=== PATIENT | female | born 1960 | race Caucasian/White ===

== ENCOUNTER → 2017-05-18 | Outpatient (CLI) | payer OTHER ==
[2017-05-18 18:40] LABS: BASO % 0.4 % (0.0-1.0); EOS # 0.1 10^3/uL (0.0-0.50); EOS % 1.2 % (0.0-3.0); HEMATOCRIT 38.8 % (36.0-47.0); IMMATURE GRANULOCYTE % 0.4 % (0-0); LYMPH # 1.5 10^3/uL (1.5-4.5); LYMPH % 26.8 % (24.0-44.0); MEAN CORPUSCULAR HEMOGLOBIN 30.5 pg (27.0-33.0); MEAN CORPUSCULAR HGB CONC 33.5 g/dl (32.0-36.5); MEAN CORPUSCULAR VOLUME 91.1 fl (80.0-96.0); MONO # 0.6 10^3/uL (0.0-0.8); MONO % 10.4 % (0.0-5.0); NEUTROPHILS # 3.5 10^3/uL (1.8-7.7); NEUTROPHILS % 60.8 % (36.0-66.0); PLATELET COUNT, AUTOMATED 269 10^3/uL (150-450); RED BLOOD COUNT 4.26 10^6/uL (4.00-5.40); WHITE BLOOD COUNT 5.7 10^3/uL (4.0-10.0)
[2017-05-18 19:02] LABS: ALBUMIN/GLOBULIN RATIO 1.38 (1.00-1.93); ALKALINE PHOSPHATASE 81 U/L (45-117); ALT/SGPT 22 U/L (12-78); ANION GAP 7 MEQ/L (8-16); AST/SGOT 19 U/L (7-37); BILIRUBIN,TOTAL 0.2 MG/DL (0.2-1.0); BLOOD UREA NITROGEN 15 MG/DL (7-18); CALCIUM LEVEL 8.9 MG/DL (8.5-10.1); CARBON DIOXIDE LEVEL 29 MEQ/L (21-32); CHLORIDE LEVEL 106 MEQ/L (98-107); CHOLESTEROL LEVEL 164 MG/DL (<200); CHOLESTEROL RISK RATIO 2.523 (<5); CREATININE FOR GFR 0.61 MG/DL (0.55-1.02); FREE T4 1.04 NG/DL (0.76-1.46); GLOMERULAR FILTRATION RATE > 60.0 (>51); GLUCOSE, FASTING 79 MG/DL (70-105); HDL CHOLESTEROL 65 MG/DL (>40); NON-HDL-C 99 MG/DL; POTASSIUM SERUM 4.3 MEQ/L (3.5-5.1); SODIUM LEVEL 142 MEQ/L (136-145); TOTAL PROTEIN 6.9 GM/DL (6.4-8.2); TRIGLYCERIDES LEVEL 95 MG/DL (<150)
== END ==
LOC: M LAB 16:37
DX: Z13.220 Encounter for screening for lipoid disorders (principal); Z13.0 Encounter for screening for diseases of the blood and blood-forming organs and certain disorders involving the immune mechanism; Z13.29 Encounter for screening for other suspected endocrine disorder
CPT/HCPCS: 84443

== ENCOUNTER → 2017-07-20 | Outpatient (REF) | payer OTHER ==
[2017-07-26 00:11] LABS: HPV HYBRID CAPTURE II Positive (Negative)
== END ==
LOC: M LAB REF 17:24
DX: Z11.51 Encounter for screening for human papillomavirus (HPV) (principal); N95.2 Postmenopausal atrophic vaginitis
CPT/HCPCS: G0123

== ENCOUNTER → 2019-04-26 | Outpatient (CLI) | payer OTHER ==
[2019-04-26 20:25] LABS: BASO % 0.6 % (0.0-1.0); EOS % 0.6 % (0.0-3.0); HEMATOCRIT 39.8 % (36.0-47.0); HEMOGLOBIN 13.1 g/dl (12.0-15.5); LYMPH % 27.7 % (24.0-44.0); MEAN CORPUSCULAR HEMOGLOBIN 29.7 pg (27.0-33.0); MEAN CORPUSCULAR HGB CONC 32.9 g/dl (32.0-36.5); MEAN CORPUSCULAR VOLUME 90.2 fl (80.0-96.0); MONO # 0.6 10^3/uL (0.0-0.8); MONO % 8.9 % (0.0-5.0); NEUTROPHILS # 4.4 10^3/uL (1.5-8.5); NEUTROPHILS % 62.1 % (36.0-66.0); PLATELET COUNT, AUTOMATED 317 10^3/uL (150-450); RED BLOOD COUNT 4.41 10^6/uL (4.00-5.40); WHITE BLOOD COUNT 7.1 10^3/uL (4.0-10.0)
[2019-04-26 20:43] LABS: FREE T4 1.13 NG/DL (0.76-1.46); THYROID STIMULATING HORMONE 0.98 uIU/ML (0.358-3.740)
[2019-04-26 20:47] LABS: THYROID PEROXIDASE ANTIBODY 37.7 U/ML (<60.0)
== END ==
LOC: M WUC 15:47
PROVIDERS: ATTEND Family Medicine
DX: R63.4 Abnormal weight loss (principal)

== ENCOUNTER → 2019-09-11 | Outpatient (CLI) | payer OTHER ==
--- NOTE | 2019-09-12 19:19 | RADONC ---
RADIATION ONCOLOGY CONSULTATION NOTE DATE: 09/11/2019 This is a telemedicine visit. The patient was informed of the risks including security breech, technological failure, inability to perform a comprehensive physical exam which could delay or prevent an accurate diagnosis, and potential complications from treatment decisions rendered over a telemedicine platform. The patient understands and consented to the use of telehealth services phone only. CHART NUMBER: [id number] DIAGNOSIS: Left breast cancer. STAGE: IA, pT1b, pN0, M0, moderately differentiated invasive ductal carbon carcinoma, grade 2, ER positive, SD positive, HER2/chip positive. ECOG PERFORMANCE STATUS: Zero. CONSULTATION NOTE: Ms. Guzman is a very pleasant 59-year-old white female with a diagnosis of what appears to be a stage IA, T1b, N0, M0 moderately differentiated invasive ductal carcinoma of the left breast which is ER positive, SD positive and HER2 positive, who is presenting to us today status post lumpectomy and sentinel lymph node biopsy for consideration of postoperative radiation therapy for conservative breast management. HISTORY OF PRESENT ILLNESS: The patient was in the usual state of health, but underwent routine mammography, which revealed a lesion in the upper outer quadrant of the left breast. On 08/13/2019, the patient underwent lumpectomy and sentinel lymph node biopsy. Pathology revealed a moderately differentiated invasive ductal carcinoma measuring 0.55 cm. The tumor was estrogen receptor positive, progesterone receptor positive and HER2 positive. There was no evidence of lymph vascular invasion. The margins of resection were all negative, but the closest margin, which was the inferior margin, was 1 mm. A total of two sentinel lymph nodes were sampled and both were negative for metastatic disease. Oncotype testing was not ordered. The patient did well post surgery and has had a consultation with her medical oncologist, Dr. Naty Peña. Dr. Peña discussed systemic therapy with her, especially in light of her HER2/chip positive status. The patient appears to be solidly against the idea of systemic chemotherapy. She is now being referred to me to discuss radiation therapy. PAST MEDICAL HISTORY: The patient's past medical history is positive for Lyme's disease and kidney stones. She as had lithotripsy in the past as well as a dental implant. ALLERGIES: The patient is allergic to PENICILLIN. SOCIAL HISTORY: The patient does not smoke cigarettes nor abuse alcohol. FAMILY HISTORY: The patient's family history is positive for a father with prostate cancer, a mother with melanoma and basal cell carcinoma, and a maternal aunt with pancreatic cancer. REVIEW OF SYSTEMS: The patient's review of systems is noncontributory. She denies nausea, vomiting, fevers, chills, night sweats, diplopia, headaches, anxiety or depression, anorexia, weight loss, visual disturbances, chest pain, urinary or bowel difficulties, bone pain, or neurological problems. PHYSICAL EXAMINATION: Physical examination was deferred as per COVID-19 precautions. This was a telephone interview. ASSESSMENT: Clearly the patient is a candidate for external beam radiation therapy and I have so informed her. I have discussed with the patient in detail the potential benefits as well as possible acute and chronic sequelae of external beam radiation therapy. We discussed logistics of treatment planning, simulation, and subsequent fractionated daily radiation treatments. I did discuss the possibility of systemic therapy and will defer to her next conversation with her medical oncologist, Dr. Peña, once again. We did discuss some of the benefits and side effects of that as well, but, of course, I will defer to the expertise of our medical oncologist. At this time, the patient appears to be very much against the idea of chemotherapy and wishes to proceed with radiation therapy. I have, therefore, scheduled the patient for simulation initiation of treatment planning. She is aware that if she chooses to undergo chemotherapy that would be delivered prior to radiation. The patient his willing to undertake AI therapy. In addition, the patient did have a question about what she thinks is a remaining stitch in her surgical field. I let her know that I am more than happy to take a look at that when she comes in for her treatment planning and simulation. Thank you for allowing us to participate in the care of this very pleasant woman. If I can be of any further assistance or provide you with any information, please feel free to contact me anytime. As always, warm regards. cc: MD Isabelle Elizabeth, MD Gavi Anthony, DO
== END ==
LOC: M ONCR 09:58
PROVIDERS: ATTEND Radiology Radiation Oncology
DX: C50.412 Malignant neoplasm of upper-outer quadrant of left female breast (principal)

== ENCOUNTER 2019-10-11 10:15 | Outpatient (RCR) | payer OTHER ==
--- NOTE | 2019-09-19 08:40 | RADONC ---
RADIATION ONCOLOGY SIMULATION NOTE DATE: 09/16/2019 CHART NUMBER: [id number] SIMULATION NOTE: Ms. Vega was taken to the CT scan for CT simulation of her left breast field. CT was accomplished without difficulty or discomfort. Radiation treatment planning is underway and radiation treatments will begin subsequently. An immobilization device was created and will be used throughout the course of treatment. It was created without difficulty or discomfort. I was physically present throughout the course of CT simulation.
--- NOTE | 2019-10-02 12:22 | RADONC ---
RADIATION ONCOLOGY PROGRESS NOTE DATE: 09/30/2019 CHART #: [id number] Ms. Vega is presently at a dose of 1068 cGy to her left breast and is tolerating treatments quite well at this point with no complaints related to her radiation therapy. She has no breast or bone pain. REVIEW OF SYSTEMS: The patient's review of systems is noncontributory. Denies nausea, vomiting, fevers, chills, night sweats, diplopia, headaches, anxiety or depression, anorexia, weight loss, visual disturbances, chest pain, urinary or bowel difficulties, bone pain, or neurological problems. PHYSICAL EXAMINATION: The patient's skin is in good condition with no evidence of radiation change present. There is no moist or dry desquamation. The remainder of her physical exam remains unchanged. Ms. Vega is tolerating treatments quite well and radiation will continue as scheduled.
== END 2019-10-13 ==
LOC: M ONCR 10:15
PROVIDERS: ATTEND Radiology Radiation Oncology
DX: C50.412 Malignant neoplasm of upper-outer quadrant of left female breast (principal)

== ENCOUNTER 2019-10-24 10:20 | Outpatient (RCR) | payer OTHER ==
--- NOTE | 2019-10-15 16:46 | RADONC ---
RADIATION ONCOLOGY SIMULATION NOTE DATE: 10/08/2019 CHART NUMBER: [id number] SIMULATION NOTE: Ms. Vega was taken to the linear accelerator today for clinical setup of her left breast primary site electron beam boost. Setup was accomplished without difficulty or discomfort. Radiation treatment planning is underway and radiation treatments will begin subsequently. An immobilization device was created and will be used throughout the course of treatment. It was created without difficulty or discomfort. I was physically present throughout the course of clinical setup.
--- NOTE | 2019-10-15 16:48 | RADONC ---
RADIATION ONCOLOGY PROGRESS NOTE DATE: 10/08/2019 CHART NUMBER: [id number] PROGRESS NOTE: Ms. Vega is presently at a dose of 2403 cGy to her left breast and is tolerating treatments quite well at this point with no complaints related to her radiation therapy. She is having no breast or bone pain. REVIEW OF SYSTEMS: The patient's review of systems is noncontributory. Denies nausea, vomiting, fevers, chills, night sweats, diplopia, headaches, anxiety or depression, anorexia, weight loss, visual disturbances, chest pain, urinary or bowel difficulties, bone pain, or neurological problems. PHYSICAL EXAMINATION: The patient's skin is in excellent condition with no evidence of radiation change present. There is no moist or dry desquamation. The remainder of her physical exam remains unchanged. Ms. Vega is tolerating treatment quite well and radiation will continue as scheduled.
--- NOTE | 2019-10-20 08:20 | RADONC ---
RADIATION ONCOLOGY PROGRESS NOTE DATE: 10/14/2019 CHART NUMBER: [id number] PROGRESS NOTE: Ms. Vega is presently at a dose of 3471 cGy to her left breast and is tolerating treatments quite well at this point with no significant difficulties related to her radiation therapy. She is having no breast or bone pain. REVIEW OF SYSTEMS: The patient's review of systems is noncontributory. Denies nausea, vomiting, fevers, chills, night sweats, diplopia, headaches, anxiety or depression, anorexia, weight loss, visual disturbances, chest pain, urinary or bowel difficulties, bone pain, or neurological problems. PHYSICAL EXAMINATION: The patient's skin is in good condition with no evidence of moist or dry desquamation. The remainder of her physical exam remains unchanged. Ms. Vega is tolerating treatments quite well and radiation will continue as scheduled.
--- NOTE | 2019-10-24 23:50 | RADONC ---
RADIATION ONCOLOGY PROGRESS NOTE DATE: 10/21/2019 CHART NUMBER: [id number] Ms. Vega is thus far at a dose of 4365 cGy to her left breast primary site boost and has been tolerating treatments quite well with no difficulties. She was last treated on Monday. She did not come in today because of a scheduling conflict. The patient's review of systems, as per Monday, was noncontributory. She is having no pain or problems. PHYSICAL EXAMINATION: The patient's skin was in good condition with no evidence of moist or dry desquamation. The patient is scheduled to resume radiation tomorrow.
--- NOTE | 2019-10-29 13:32 | RADONC ---
RADIATION ONCOLOGY TREATMENT SUMMARY DATE: 10/24/2019 CHART NUMBER: [id number] DIAGNOSIS: Left breast cancer. STAGE: I A, pT1b, pN0, M0, moderately differentiated invasive ductal carcinoma, grade 2, ER positive, RI positive, HER2/chip positive. ECOG PERFORMANCE STATUS: 0 TREATMENT SUMMARY: Ms. Guzman presented to us for consideration of postoperative radiation therapy for conservative breast management of her left breast. We treated the patient to the left breast for a total dose of 4005 cGy delivered in 15 fractions of 267 cGy each over 21 elapsed days from 09/25/2019 through 10/16/2019. The patient's left breast was treated on a linear accelerator utilizing a 6 MV photon beam via 3-D conformal technique with medial and lateral tangential vidales. Following completion of 4005 cGy to the entire left breast the primary site was boosted for an additional 900 cGy delivered in 5 fractions of 180 cGy each over seven elapsed days from 10/17/2019 through 10/24/2019. The primary site boost was treated on a linear accelerator utilizing a 12 MeV electron beam prescribed to the 90% isodose line via non phos technique. This brought the primary site to a total dose of 4905 cGy delivered in 20 fractions over 28 elapsed days from 09/25/2019 through 10/24/2019. Ms. Guzman tolerated her treatments quite well and was able complete therapy as prescribed. I have scheduled the patient to see me again in 1 month for further followup. She will also continue to be followed by her other physicians as well. cc: MD Isabelle Elizabeth MD Jill Laureano-Surber, DO
[2019-10-30] MEDS ORDERED: LETR2.5T2 PO (16:23)
== END 2019-11-12 ==
LOC: M ONCR 10:20
PROVIDERS: ATTEND Radiology Radiation Oncology
DX: C50.412 Malignant neoplasm of upper-outer quadrant of left female breast (principal)

== ENCOUNTER → 2020-05-10 | Outpatient (CLI) | payer OTHER ==
[~2020-05-10] MED LIST: LETR2.5T2 PO
== END ==
LOC: M LABSMTC 11:10
PROVIDERS: ATTEND Pediatrics
DX: Z20.828 Contact with and (suspected) exposure to other viral communicable diseases (principal)

== ENCOUNTER → 2020-05-13 | Outpatient (REF) | payer OTHER ==
[~2020-05-13] MED LIST changes: +DOXY100C37; +FLUT11IN; +IBUP-1022; +LETR2.5T2; +LEVO750T13 PO; +TESS100C PO
== END ==
LOC: M LAB REF 18:03
PROVIDERS: ATTEND Family Medicine
DX: J20.9 Acute bronchitis, unspecified (principal)

== ENCOUNTER 2020-05-19 21:39 | Emergency (ER) | payer OTHER ==
[~2020-05-19] VITALS: Ht 160 cm; Wt 102.0 kg
[~2020-05-19 21:39] MED LIST changes: -DOXY100C37; -FLUT11IN; -IBUP-1022; -LETR2.5T2; -LEVO750T13 PO; -TESS100C PO
[2020-05-19] MEDS ORDERED: IBUP-1022 (22:01)
[2020-05-19] MEDS ORDERED: DOXY100C37 (22:01)
[2020-05-19] MEDS ORDERED: LETR2.5T2 (22:01)
[2020-05-19] MEDS ORDERED: FLUT11IN (22:01)
[2020-05-19 22:39] LABS: HEMATOCRIT 33.4 % (36.0-47.0); HEMOGLOBIN 10.5 g/dl (12.0-15.5); MEAN CORPUSCULAR HEMOGLOBIN 28.8 pg (27.0-33.0); MEAN CORPUSCULAR HGB CONC 31.4 g/dl (32.0-36.5); MEAN CORPUSCULAR VOLUME 91.8 fl (80.0-96.0); PLATELET COUNT, AUTOMATED 503 10^3/uL (150-450); RED BLOOD COUNT 3.64 10^6/uL (4.00-5.40); WHITE BLOOD COUNT 11.2 10^3/uL (4.0-10.0)
[2020-05-19 23:08] LABS: ALBUMIN 2.5 GM/DL (3.2-5.2); ALT/SGPT 25 U/L (12-78); BILIRUBIN,TOTAL 0.3 MG/DL (0.2-1.0); BLOOD UREA NITROGEN 11 MG/DL (7-18); CALCIUM LEVEL 8.4 MG/DL (8.5-10.1); CARBON DIOXIDE LEVEL 27 MEQ/L (21-32); CHLORIDE LEVEL 105 MEQ/L (98-107); CREATININE FOR GFR 0.63 MG/DL (0.55-1.30); GLOMERULAR FILTRATION RATE > 60.0 (>51); GLUCOSE, FASTING 108 MG/DL (70-100); SODIUM LEVEL 138 MEQ/L (136-145); TOTAL PROTEIN 6.5 GM/DL (6.4-8.2)
--- NOTE | 2020-05-20 01:05 | REPVR ---
PROCEDURE INFORMATION: Exam: XR Chest, 2 Views Exam date and time: 05/20/2020 12:42 AM Age: 60 years old Clinical indication: Other: SOB cough; Additional info: Cough SOB TECHNIQUE: Imaging protocol: XR of the chest Views: 2 views. COMPARISON: No relevant prior studies available. FINDINGS: Lungs: Degree of inflation of the lungs is normal. No evidence of pulmonary edema. Confluent multifocal left lung airspace opacities are present. No suspicious parenchymal lung mass. Pleural space: No pleural effusion or pneumothorax. Heart/Mediastinum: Heart and mediastinal contours are unremarkable. No mediastinal adenopathy or hilar mass. Bones/joints: Bony structures and extrathoracic soft tissues are unremarkable for age. IMPRESSION: Multifocal left lung pneumonia. Electronically signed by: Kael Shields On 05/20/2020 01:05:59 AM
[2020-05-20] MEDS ORDERED: BENZONATATE 100 MG CAP PO ONE (01:45)
[2020-05-20] MEDS ORDERED: LevoFLOXacin 750 MG TABLET PO ONE (01:45)
[2020-05-20] MEDS ORDERED: LEVO750T13 PO (01:49)
[2020-05-20] MEDS ORDERED: TESS100C PO (01:49)
[2020-05-20 01:50] VITALS: BP 115/67
== END 2020-05-20 02:03 | disposition home or self-care (01) ==
LOC: M ED 21:39
DX: J18.9 Pneumonia, unspecified organism (principal); Z88.0 Allergy status to penicillin; Z79.899 Other long term (current) drug therapy

== ENCOUNTER 2020-05-28 10:57 | Inpatient (IN) | payer OTHER ==
[~2020-05-28] VITALS: Ht 160 cm; Wt 54.0 kg
[~2020-05-28 10:57] MED LIST changes: +DOXY100C37; +FLUT11IN; +IBUP-1022; +LETR2.5T2; +LEVO750T13 PO; +TESS100C PO
--- OUTSIDE RECORDS SUMMARY | 2020-05-28 11:12 | CCD ---
Author Author [facility] Organization [facility] Address Unknown Phone Unavailable Care Team Providers Care Electronic Communications Technician Name Role Phone Evelyn MARTIN MD Unavailable Unavailable KORT, C ISABELLE REICH Unavailable Unavailable KORT, C ISABELLE REICH Unavailable Unavailable KORT, C ISABELLE REICH Unavailable Unavailable KORT, C ISABELLE REICH Unavailable Unavailable KORT, C ISABELLE REICH Unavailable Unavailable KORT, C ISABELLE REICH Unavailable Unavailable KORT, C ISABELLE REICH Unavailable Unavailable KORT, C ISABELLE REICH Unavailable Unavailable KORT, C ISABELLE REICH Unavailable Unavailable KORT, C ISABELLE REICH Unavailable Unavailable KORT, C ISABELLE REICH Unavailable Unavailable KORT, C ISABELLE REICH Unavailable Unavailable KORT, C ISABELLE REICH Unavailable Unavailable KORT, C ISABELLE REICH Unavailable Unavailable KORT, C ISABELLE REICH Unavailable Unavailable KORT, C ISABELLE REICH Unavailable Unavailable KORT, C ISABELLE REICH Unavailable Unavailable KORT, C ISABELLE REICH Unavailable Unavailable KORT, C ISABELLE REICH Unavailable Unavailable KORT, C ISABELLE REICH Unavailable Unavailable KORT, C ISABELLE MD Unavailable Unavailable KORT, C ISABELLE MD Unavailable Unavailable KORT, C ISABELLE MD Unavailable Unavailable KORT, C ISABELLE MD Unavailable Unavailable KORT, C ISABELLE MD Unavailable Unavailable KORT, C ISABELLE MD Unavailable Unavailable KORT, C ISABELLE MD Unavailable Unavailable KORT, C ISABELLE MD Unavailable Unavailable KORT, C ISABELLE MD Unavailable Unavailable KORT, C ISABELLE MD Unavailable Unavailable KORT, C ISABELLE MD Unavailable Unavailable KORT, C ISABELLE MD Unavailable Unavailable KORT, C ISABELLE MD Unavailable Unavailable KORT, C ISABELLE MD Unavailable Unavailable KORT, C ISABELLE MD Unavailable Unavailable KORT, C ISABELLE MD Unavailable Unavailable KORT, C ISABELLE MD Unavailable Unavailable KORT, C ISABELLE MD Unavailable Unavailable KORT, C ISABELLE MD Unavailable Unavailable KORT, C ISABELLE MD Unavailable Unavailable KORT, C ISABELLE MD Unavailable Unavailable KORT, C ISABELLE MD Unavailable Unavailable KORT, C ISABELLE MD Unavailable Unavailable KORT, C ISABELLE MD Unavailable Unavailable KORT, C ISABELLE MD Unavailable Unavailable KORT, C ISABELLE MD Unavailable Unavailable KORT, C ISABELLE MD Unavailable Unavailable KORT, C ISABELLE MD Unavailable Unavailable KORT, C ISABELLE MD Unavailable Unavailable KORT, C ISABELLE MD Unavailable Unavailable KORT, C ISABELLE MD Unavailable Unavailable KORT, C ISABELLE MD Unavailable Unavailable KORT, C ISABELLE MD Unavailable Unavailable KORT, C ISABELLE MD Unavailable Unavailable KORT, C ISABELLE MD Unavailable Unavailable KORT, C ISABELLE MD Unavailable Unavailable KORT, C ISABELLE MD Unavailable Unavailable KORT, C ISABELLE MD Unavailable Unavailable KORT, C ISABELLE MD Unavailable Unavailable KORT, C ISABELLE MD Unavailable Unavailable KORT, C ISAEBLLE MD Unavailable Unavailable KORT, C ISABELLE MD Unavailable Unavailable KORT, C ISABELLE MD Unavailable Unavailable KORT, C ISABELLE MD Unavailable Unavailable KORT, C ISABELLE MD Unavailable Unavailable KORT, C ISABELLE MD Unavailable Unavailable KORT, C ISABELLE MD Unavailable Unavailable KORT, C ISABELLE MD Unavailable Unavailable KORT, C ISABELLE MD Unavailable Unavailable KORT, C ISABELLE MD Unavailable Unavailable KORT, C ISABELLE MD Unavailable Unavailable KORT, C ISABELLE MD Unavailable Unavailable KORT, C ISABELLE MD Unavailable Unavailable KORT, C ISABELLE MD Unavailable Unavailable KORT, C ISABELLE MD Unavailable Unavailable KORT, C ISABELLE MD Unavailable Unavailable KORT, C ISABELLE MD Unavailable Unavailable KORT, C ISABELLE MD Unavailable Unavailable KORT, C ISABELLE MD Unavailable Unavailable KORT, C ISABELLE MD Unavailable Unavailable KORT, C ISABELLE MD Unavailable Unavailable KORT, C ISABELLE MD Unavailable Unavailable KORT, C ISABELLE MD Unavailable Unavailable KORT, C ISABELLE MD Unavailable Unavailable KORT, C ISABELLE MD Unavailable Unavailable KORT, C ISABELLE MD Unavailable Unavailable KORT, C ISABELLE MD Unavailable Unavailable KORT, C ISABELLE MD Unavailable Unavailable KORT, C ISABELLE MD Unavailable Unavailable KORT, C ISABELLE MD Unavailable Unavailable KORT, C ISABELLE MD Unavailable Unavailable KORT, C ISABELLE MD Unavailable Unavailable KORT, C ISABELLE MD Unavailable Unavailable MARJORIE-GABRIELA, GAVI DO Unavailable Unavailable MARJORIE-GABRIELA, GAVI DO Unavailable Unavailable MARJORIE-GABRIELA, GAVI DO Unavailable Unavailable MARJORIE-GABRIELA, GAVI DO Unavailable Unavailable MARJORIE-GABRIELA, GAVI DO Unavailable Unavailable MARJORIE-GABRIELA, GAVI DO Unavailable Unavailable MARJORIE-GABRIELA, GAVI DO Unavailable Unavailable MARJORIE-GABRIELA, GAVI DO Unavailable Unavailable MARJORIE-GABRIELA, GAVI DO Unavailable Unavailable MARJORIE-GABRIELA, GAVI DO Unavailable Unavailable MARJORIE-GABRIELA, GAVI DO Unavailable Unavailable MARJORIE-GABRIELA, GAVI DO Unavailable Unavailable MARJORIE-GABRIELA, GAVI DO Unavailable Unavailable MARJORIE-GABRIELA, GAVI DO Unavailable Unavailable MARJORIE-GABRIELA, GAVI DO Unavailable Unavailable MARJORIE-GABRIELA, GAVI DO Unavailable Unavailable MARJORIE-GABRIELA, GAVI DO Unavailable Unavailable MARJORIE-GABRIELA, GAVI DO Unavailable Unavailable MARJORIE-GABRIELA, GAVI DO Unavailable Unavailable MARJORIE-GABRIELA, GAVI DO Unavailable Unavailable MARJORIE-GABRIELA, GAVI DO Unavailable Unavailable MARJORIE-GABRIELA, GAVI DO Unavailable Unavailable MARJORIE-GABRIELA, GAVI DO Unavailable Unavailable MARJORIE-GABRIELA, GAVI DO Unavailable Unavailable MARJORIE-GABRIELA, GAVI DO Unavailable Unavailable MARJORIE-GABRIELA, GAVI DO Unavailable Unavailable MARJORIE-GABRIELA, GAVI DO Unavailable Unavailable MARJORIE-GABRIELA, GAVI DO Unavailable Unavailable MARJORIE-GABRIELA, GAVI DO Unavailable Unavailable MARJORIE-GABRIELA, GAVI DO Unavailable Unavailable MARJORIE-GABRIELA, GAVI DO Unavailable Unavailable MARJORIE-GABRIELA, GAVI DO Unavailable Unavailable MARJORIE-GABRIELA, GAVI DO Unavailable Unavailable MARJORIE-GABRIELA, GAVI DO Unavailable Unavailable MARJORIE-GABRIELA, GAVI DO Unavailable Unavailable MARJORIE-GABRIELA, GAVI DO Unavailable Unavailable MARJORIE-GABRIELA, GAVI DO Unavailable Unavailable MARJORIE-GABRIELA, GAVI DO Unavailable Unavailable MARJORIE-GABRIELA, GAVI DO Unavailable Unavailable MARJORIE-GABRIELA, GAVI DO Unavailable Unavailable MARJORIE-GABRIELA, GAVI DO Unavailable Unavailable MARJORIE-GABRIELA, GAVI DO Unavailable Unavailable MARJORIE-GABRIELA, GAVI DO Unavailable Unavailable MARJORIE-GABRIELA, GAVI DO Unavailable Unavailable MARJORIE-GABRIELA, GAVI DO Unavailable Unavailable MARJORIE-GABRIELA, GAVI DO Unavailable Unavailable MARJORIE-GABRIELA, GAVI DO Unavailable Unavailable MARJORIE-GABRIELA, GAVI DO Unavailable Unavailable MARJORIE-GABRIELA, GAVI DO Unavailable Unavailable MARJORIE-GABRIELA, GAVI DO Unavailable Unavailable MARJORIE-GABRIELA, GAVI DO Unavailable Unavailable MARJORIE-GABRIELA, GAVI DO Unavailable Unavailable MARJORIE-GABRIELA, GAVI DO Unavailable Unavailable MARJORIE-GABRIELA, GAVI DO Unavailable Unavailable MARJORIE-GABRIELA, GAVI DO Unavailable Unavailable MARJORIE-GABRIELA, GAVI DO Unavailable Unavailable MARJORIE-GABRIELA, GAVI DO Unavailable Unavailable MARJORIE-GABRIELA, GAVI DO Unavailable Unavailable MARJORIE-GABRIELA, GAVI DO Unavailable Unavailable MARJORIE-GABRIELA, GAVI DO Unavailable Unavailable MARJORIE-GABRIELA, GAVI DO Unavailable Unavailable MARJORIE-GABRIELA, GAVI DO Unavailable Unavailable MARJORIE-GABRIELA, GAVI DO Unavailable Unavailable MARJORIE-GABRIELA, GAVI DO Unavailable Unavailable MARJORIE-GABRIELA, GAVI DO Unavailable Unavailable MARJORIE-GABRIELA, GAVI DO Unavailable Unavailable MARJORIE-GABRIELA, GAVI DO Unavailable Unavailable MARJORIE-GABRIELA, GAVI DO Unavailable Unavailable MARJORIE-GABRIELA, GAVI DO Unavailable Unavailable MARJORIE-GABRIELA, GAVI DO Unavailable Unavailable MARJORIE-GABRIELA, GAVI DO Unavailable Unavailable MARJORIE-GABRIELA, GAVI DO Unavailable Unavailable MARJORIE-GABRIELA, GAVI DO Unavailable Unavailable MARJORIE-GABRIELA, GAVI DO Unavailable Unavailable MARJORIE-GABRIELA, GAVI DO Unavailable Unavailable MARJORIE-GABRIELA, GAVI DO Unavailable Unavailable MARJORIE-GABRIELA, GAVI DO Unavailable Unavailable MARJORIE-GABRIELA, GAVI DO Unavailable Unavailable MARJORIE-GABRIELA, GAVI DO Unavailable Unavailable MARJORIE-GABRIELA, GAVI DO Unavailable Unavailable MARJORIE-GABRIELA, GAVI DO Unavailable Unavailable MARJORIE-GABRIEAL, GAVI DO Unavailable Unavailable MARJORIE-GABIRELA, GAVI DO Unavailable Unavailable MARJORIE-GABRIELA, GAVI DO Unavailable Unavailable MARJORIE-GABRIELA, GAVI DO Unavailable Unavailable MARJORIE-GABRIELA, GAVI DO Unavailable Unavailable MARJORIE-GABRIELA, GAVI DO Unavailable Unavailable MARJORIE-GABRIELA, GAVI DO Unavailable Unavailable MARJORIE-GABRIELA, GAVI DO Unavailable Unavailable MARJORIE-GABRIELA, GAVI DO Unavailable Unavailable MARJORIE-GABRIELA, GAVI DO Unavailable Unavailable MARJORIE-GABRIELA, GAVI DO Unavailable Unavailable MARJORIE-GABRIELA, GAVI DO Unavailable Unavailable MARJORIE-GABRIELA, GAVI DO Unavailable Unavailable MARJORIE-GABRIELA, GAVI DO Unavailable Unavailable MARJORIE-GABRIELA, GAVI DO Unavailable Unavailable MARJORIE-GABRIELA, GAVI DO Unavailable Unavailable MARJORIE-GABRIELA, GAVI DO Unavailable Unavailable MARJORIE-GABRIELA, GAVI DO Unavailable Unavailable MARJORIE-GABRIELA, GAVI DO Unavailable Unavailable MARJORIE-GABRIELA, GAVI DO Unavailable Unavailable MARJORIE-GABRIELA, GAVI DO Unavailable Unavailable MARJORIE-GABRIELA, GAVI DO Unavailable Unavailable MARJORIE-GABRIELA, GAVI DO Unavailable Unavailable MARJORIE-GABRIELA, GAVI DO Unavailable Unavailable MARJORIE-GABRIELA, GAVI DO Unavailable Unavailable MARJORIE-GABRIELA, GAVI DO Unavailable Unavailable MARJOREI-GABRIELA, GAVI DO Unavailable Unavailable MARJORIE-GABRIELA, GAVI DO Unavailable Unavailable MARJORIE-GABRIELA, GAVI DO Unavailable Unavailable MARJORIE-GABRIELA, GAVI DO Unavailable Unavailable MARJORIE-GABRIELA, GAVI DO Unavailable Unavailable MARJORIE-GABRIELA, GAVI DO Unavailable Unavailable MARJORIE-GABRIELA, GAVI DO Unavailable Unavailable MARJORIE-GABRIELA, GAVI DO Unavailable Unavailable MARJORIE-GABRIELA, GAVI DO Unavailable Unavailable MARJORIE-GABRIELA, GAVI DO Unavailable Unavailable MARJORIE-GABRIELA, GAVI DO Unavailable Unavailable MARJORIE-GABRIELA, GAVI DO Unavailable Unavailable MARJORIE-GABRIELA, GAVI DO Unavailable Unavailable MARJORIE-GABRIELA, GAVI DO Unavailable Unavailable MARJORIE-GABRIELA, GAVI DO Unavailable Unavailable MARJORIE-GABRIELA, GAVI DO Unavailable Unavailable MARJORIE-GABRIELA, GAVI DO Unavailable Unavailable MARJORIE-GABRIELA, GAVI DO Unavailable Unavailable MARJORIE-GABRIELA, GAVI DO Unavailable Unavailable MARJORIE-GABRIELA, GAVI DO Unavailable Unavailable MARJORIE-GABRIELA, GAVI DO Unavailable Unavailable MARJORIE-GABRIELA, GAVI DO Unavailable Unavailable MARJORIE-GABRIELA, GAVI DO Unavailable Unavailable MARJORIE-GABRIELA, GAVI DO Unavailable Unavailable MARJORIE-GABRIELA, GAVI DO Unavailable Unavailable MARJORIE-GABRIELA, GAVI DO Unavailable Unavailable MARJORIE-GABRIELA, GAVI DO Unavailable Unavailable MARJORIE-GABRIELA, GAVI DO Unavailable Unavailable MARJORIE-GABRIELA, GAVI DO Unavailable Unavailable MARJORIE-GABRIELA, GAVI DO Unavailable Unavailable MARJORIE-GABRIELA, GAVI DO Unavailable Unavailable MARJORIE-GABRIELA, GAVI DO Unavailable Unavailable MARJORIE-GABRIELA, GAVI DO Unavailable Unavailable MARJORIE-GABRIELA, GAVI DO Unavailable Unavailable MARJORIE-GABRIELA, GAVI DO Unavailable Unavailable MARJORIE-GABRIELA, GAVI DO Unavailable Unavailable MARJORIE-GABRIELA, GAVI DO Unavailable Unavailable MARJORIE-GABRIELA, GAVI DO Unavailable Unavailable MARJORIE-GABRIELA, GAVI DO Unavailable Unavailable MARJORIE-GABRIELA, GAVI DO Unavailable Unavailable MARJORIE-GABRIELA, GAVI DO Unavailable Unavailable MARJORIE-GABRIELA, GAVI DO Unavailable Unavailable MARJORIE-GABRIELA, GAVI DO Unavailable Unavailable MARJORIE-GABRIELA, GAVI DO Unavailable Unavailable MARJORIE-GABRIELA, GAVI DO Unavailable Unavailable MARJORIE-GABRIELA, GAVI DO Unavailable Unavailable MARJORIE-GABRIELA, GAVI DO Unavailable Unavailable MARJORIE-GABRIELA, GAVI DO Unavailable Unavailable MARJORIE-GABRIELA, GAVI DO Unavailable Unavailable MARJORIE-GABRIELA, GAVI DO Unavailable Unavailable MARJORIE-GABRIELA, GAVI DO Unavailable Unavailable MARJORIE-GABRIELA, GAVI DO Unavailable Unavailable MARJORIE-GABRIELA, GAVI DO Unavailable Unavailable MARJORIE-GABRIELA, GAVI DO Unavailable Unavailable MARJORIE-GABRIELA, GAVI DO Unavailable Unavailable GREEN, JESSICA Unavailable Unavailable LEVIT,, TESS Unavailable Unavailable CICO, A MYKE BULK MAIL TECHNICIAN Unavailable Unavailable CICO, A MYKE BULK MAIL TECHNICIAN Unavailable Unavailable CICO, A MYKE BULK MAIL TECHNICIAN Unavailable Unavailable CICO, A MYKE BULK MAIL TECHNICIAN Unavailable Unavailable CICO, A MYKE BULK MAIL TECHNICIAN Unavailable Unavailable CICO, A MYKE BULK MAIL TECHNICIAN Unavailable Unavailable CICO, A MYKE BULK MAIL TECHNICIAN Unavailable Unavailable CICO, A MYKE BULK MAIL TECHNICIAN Unavailable Unavailable CICO, A MYKE BULK MAIL TECHNICIAN Unavailable Unavailable CICO, A MYKE BULK MAIL TECHNICIAN Unavailable Unavailable CICO, A MYKE BULK MAIL TECHNICIAN Unavailable Unavailable CICO, A MYKE BULK MAIL TECHNICIAN Unavailable Unavailable CICO, A MYKE BULK MAIL TECHNICIAN Unavailable Unavailable CICO, A MYKE BULK MAIL TECHNICIAN Unavailable Unavailable CICO, A MYKE BULK MAIL TECHNICIAN Unavailable Unavailable CICO, A MYKE BULK MAIL TECHNICIAN Unavailable Unavailable CICO, A MYKE BULK MAIL TECHNICIAN Unavailable Unavailable CICO, A MYKE BULK MAIL TECHNICIAN Unavailable Unavailable CICO, A MYKE BULK MAIL TECHNICIAN Unavailable Unavailable CICO, A MYKE BULK MAIL TECHNICIAN Unavailable Unavailable CICO, A MYKE BULK MAIL TECHNICIAN Unavailable Unavailable CICO, A MYKE BULK MAIL TECHNICIAN Unavailable Unavailable CICO, A MYKE BULK MAIL TECHNICIAN Unavailable Unavailable CICO, A MYKE BULK MAIL TECHNICIAN Unavailable Unavailable CICO, A MYKE BULK MAIL TECHNICIAN Unavailable Unavailable CICO, A MYKE BULK MAIL TECHNICIAN Unavailable Unavailable CICO, A MYKE BULK MAIL TECHNICIAN Unavailable Unavailable CICO, A MYKE BULK MAIL TECHNICIAN Unavailable Unavailable CICO, A MYKE BULK MAIL TECHNICIAN Unavailable Unavailable CICO, A MYKE BULK MAIL TECHNICIAN Unavailable Unavailable CICO, A MYKE BULK MAIL TECHNICIAN Unavailable Unavailable CICO, A MYKE BULK MAIL TECHNICIAN Unavailable Unavailable CICO, A MYKE BULK MAIL TECHNICIAN Unavailable Unavailable CICO, A MYKE BULK MAIL TECHNICIAN Unavailable Unavailable CICO, A MYKE BULK MAIL TECHNICIAN Unavailable Unavailable CICO, A MYKE BULK MAIL TECHNICIAN Unavailable Unavailable CICO, A MYKE BULK MAIL TECHNICIAN Unavailable Unavailable CICO, A MYKE BULK MAIL TECHNICIAN Unavailable Unavailable CICO, A MYKE BULK MAIL TECHNICIAN Unavailable Unavailable CICO, A MYKE BULK MAIL TECHNICIAN Unavailable Unavailable CICO, A MYKE BULK MAIL TECHNICIAN Unavailable Unavailable CICO, A MYKE BULK MAIL TECHNICIAN Unavailable Unavailable CICO, A MYKE BULK MAIL TECHNICIAN Unavailable Unavailable CICO, A MYKE BULK MAIL TECHNICIAN Unavailable Unavailable CICO, A MYKE BULK MAIL TECHNICIAN Unavailable Unavailable CICO, A MYKE BULK MAIL TECHNICIAN Unavailable Unavailable CICO, A MYKE BULK MAIL TECHNICIAN Unavailable Unavailable CICO, A MYKE BULK MAIL TECHNICIAN Unavailable Unavailable CICO, A MYKE BULK MAIL TECHNICIAN Unavailable Unavailable CICO, A MYKE BULK MAIL TECHNICIAN Unavailable Unavailable CICO, A MYKE BULK MAIL TECHNICIAN Unavailable Unavailable MATTHEW, PRYJMA BRINA MD Unavailable Unavailable MATTHEW, PRYJMA BRINA MD Unavailable Unavailable MATTHEW, PRYJMA BRINA MD Unavailable Unavailable MATTHEW, PRYJMA BRINA MD Unavailable Unavailable MATTHEW, PRYJMA BRINA MD Unavailable Unavailable MATTHEW, PRYJMA BRINA MD Unavailable Unavailable MATTHEW, PRYJMA BRINA MD Unavailable Unavailable MATTHEW, PRYJMA BRINA MD Unavailable Unavailable MATTHEW, PRYJMA BRINA MD Unavailable Unavailable MATTHEW, PRYJMA BRINA MD Unavailable Unavailable MATTHEW, PRYJMA BRINA MD Unavailable Unavailable MATTHEW, PRYJMA BRINA MD Unavailable Unavailable MATTHEW, PRYJMA BRINA MD Unavailable Unavailable MATTHEW, PRYJMA BRINA MD Unavailable Unavailable MATTHEW, PRYJMA BRINA MD Unavailable Unavailable MATTHEW, PRYJMA BRINA MD Unavailable Unavailable MATTHEW, PRYJMA BRINA MD Unavailable Unavailable MATTHEW, PRYJMA BRINA MD Unavailable Unavailable MATTHEW, PRYJMA BRINA MD Unavailable Unavailable MATTHEW, PRYJMA BRINA MD Unavailable Unavailable MATTHEW, PRYJMA BRINA MD Unavailable Unavailable MATTHEW, PRYJMA BRINA MD Unavailable Unavailable MATTHEW, PRYJMA BRINA MD Unavailable Unavailable MATTHEW, PRYJMA BRINA MD Unavailable Unavailable MATTHEW, PRYJMA BRINA MD Unavailable Unavailable MATTHEW, PRYJMA BRINA MD Unavailable Unavailable MATTHEW, PRYJMA BRINA MD Unavailable Unavailable MATTHEW, PRYJMA BRINA MD Unavailable Unavailable Re-disclosure Warning The records that you are about to access may contain information from federally-assisted alcohol or drug abuse programs. If such information is present, then the following federally mandated warning applies: This information has been disclosed to you from records protected by federal confidentiality rules (42 CFR part 2). The federal rules prohibit you from making any further disclosure of this information unless further disclosure is expressly permitted by the written consent of the person to whom it pertains or as otherwise permitted by 42 CFR part 2. A general authorization for the release of medical or other information is NOT sufficient for this purpose. The Federal rules restrict any use of the information to criminally investigate or prosecute any alcohol or drug abuse patient.The records that you are about to access may contain highly sensitive health information, the redisclosure of which is protected by Article 27-F of the [facility] Public Health law. If you continue you may have access to information: Regarding HIV / AIDS; Provided by facilities licensed or operated by the [facility] Office of Mental Health; or Provided by the [facility] Office for People With Developmental Disabilities. If such information is present, then the following [facility] mandated warning applies: This information has been disclosed to you from confidential records which are protected by state law. State law prohibits you from making any further disclosure of this information without the specific written consent of the person to whom it pertains, or as otherwise permitted by law. Any unauthorized further disclosure in violation of state law may result in a fine or fpc sentence or both. A general authorization for the release of medical or other information is NOT sufficient authorization for further disc losure. Allergies and Adverse Reactions Type Description Substance Reaction Status Data Source(s ) Propensity to adverse reactions PENICILLINS Penicillins Rash Low Ac tive [facility] Low Family History Family Member Name Family Member Gender Family Member Status Date o f Status Description Data Source(s) Unknown Male Problem [facility] ([facility]) () - age 84 Encounters Encounter Providers Location Date Indications Data Source(s ) Outpatient Attender: GAVI LEONE DO Family Medicine [facility] 05/13/2020 03:00:00 PM EST [facility] ([facility]) Outpatient Referrer: MYKE REAL NP 08/26/2019 09:58:45 AM E DT [facility] Outpatient Attender: ISABELLE MARTIN MDAdmitter: ISABELLE RASCONeferrer: ISABELLE MARTIN MD [id number] 08/13/2019 09:00:00 AM EDT - 08/13/2019 11:59:00 PM EDT [facility] Patient discharged. Outpatient Attender: ISABELLE MARTIN MDAdmitter: ISABELLE Gray MDReferrer: ISABELLE MARTIN MD [email or web address] 08/13/2019 08:45:00 AM EDT - 08/13/2019 08:59:00 AM EDT [facility] Patient discharged. Outpatient Attender: ISABELLE MARTIN MDReferrer: ISABELLE MARTIN MD [email or web address] -[email or web address] 08/08/2019 12:00:00 AM EDT - 08/08/2019 11:46:22 AM EDT [facility] Attender: ISABELLE MARTIN MDAdmitter: ISABELLE MARTIN MDRefe rrer: ISABELLE MARTIN MD [id number]-OR 08/06/2019 03:31:50 PM EDT - 08/13/2019 02:30:00 PM EDT [facility] Patient discharged. Outpatient Attender: ISABELLE MARTIN MD [facility] 0 02:55:12 PM EDT - 08/05/2019 03:57:00 PM EDT [facility] Outpatient Attender: TESS MERCHANT,Wagon Driver: JESSICA GREEN 07/08/2019 05:39:00 PM EST - 07/08/2019 05:49:00 PM EST [facility] Referrer: BRINA CASTRO MD 07/04/2019 07:07:00 AM EST [facility] Outpatient Referrer: BRINA CASTRO MD 05/24/2019 09:56:00 AM EST [facility] Outpatient Referrer: BRINA CASTRO MD 05/24/2019 09:29:00 AM EST [facility] Outpatient Referrer: GAVI LEONE DO 05/24/2019 09 :27:00 AM EST [facility] Outpatient Attender: GAVI LEONE DO [facility] 05/17/2019 12:00:00 PM EST [facility] ([facility]) Outpatient Attender: GAVI LEONE DO [facility] 04/26/2019 12:10:00 PM EST [facility] ([facility]) Medications Medication Brand Name Start Date Product Form Dose Route Admi nistrative Instructions Pharmacy Instructions Status Indications Reaction Description Data Source(s) 120 ACTUAT Fluticasone propionate 0.11 MG/ACTUAT Meter ed Dose Inhaler [Flovent] Flovent HFA 05/18/2020 12:00:00 AM EST ORAL active [facility] ([facility]) Prednisone 20 MG Oral Tablet Prednisone 05/14/2020 12:00:00 AM EST ORAL active [facility] ([facility]) Doxycycline Monohydrate 100 MG Oral Capsule Doxycycline [place] hydrate 05/14/2020 12:00:00 AM EST ORAL active [facility] ([facility]) No Active Medications 05/13/2020 12:00:00 AM EST completed [facility] ([facility]) normal saline flush 0.9 % injection 3 mL 30308-670-43 08/13/2019 02:00:00 PM EDT 3 mL Intravenous active 3 mL , Intravenous, Every 8 hours (scheduled), First dose on Mon08/13/19 at 1400, PACU (only)
flush per protocol, D/C Main IV fluid if appropriate
[facility] Medication administered onsite Magnesium Chloride 0.95122 MEQ/ML / Pota ssium Chloride 0.0497 MEQ/ML / Sodium Acetate 0.0163 MEQ/ML / Sodium Chloride 0.0899 MEQ/ML / Sodium gluconate 5.02 MG/ML Injectable Solution [Normosol-R] electrolyte-R (NORMOSOL-R/PLASMALYTE-R) solution electrolyte-R (NORMOSOL-R/PLASMALYTE-R) solution 08/12 01:00:00 PM EDT Intravenous active at 1 00 mL/hr, Intravenous, Continuous, Starting Mon08/13/19 at 1300, PACU (only) [facility] Medication administered onsite haloperidol lactate (HALDOL) injection 0.5 mg [id number] 08/13/2019 11:54:42 AM EDT 0.5 mg Intramuscular active 0. 5 mg, Intramuscular, Every 30 min PRN, for intractable nausea and vomiting if not relieved by zofran/promethazine, Starting Mon08/13/19 at 1154, For 4 doses, PACU (only) [facility] Medication administered onsite 4 ML Labetalol hydrochloride 5 MG/ML [place] labetalol (NORMODYNE,TRANDATE) injection 5 mg labetalol (NORMODYNE,TRANDATE) injection 5 mg 08/13/19 11:54:42 AM EDT 5 mg Intravenous active 5 mg , Intravenous, Every 5 min PRN, high blood pressure, for SBP greater than 160, Starting Mon08/13/19 at 1154, For 4 doses, PACU (only)
Max of 20 MG, hold for HR less than 60
[facility] Medication administered onsite technetium sulfur colloid (NYCOMED-SC) solution 500 micro cu johnathan 08/13/2019 10:00:00 AM EDT 500 uCi Intravenous completed 500 micro curie, Intravenous, Once, Mon08/13/19 at 1000, For 1 dose [facility] Medication administered onsite Magnesium Chloride 0.29194 MEQ/ML / Pota ssium Chloride 0.0497 MEQ/ML / Sodium Acetate 0.0163 MEQ/ML / Sodium Chloride 0.0899 MEQ/ML / Sodium gluconate 5.02 MG/ML Injectable Solution [Normosol-R] electrolyte-R (NORMOSOL-R/PLASMALYTE-R) solution electrolyte-R (NORMOSOL-R/PLASMALYTE-R) solution 08/12 10:00:00 AM EDT Intravenous active at 1 00 mL/hr, Intravenous, Continuous, Starting Mon08/13/19 at 1000, Pre-op [facility] Medication administered onsite normal saline flush 0.9 % injection 3 mL 82577-720-55 08/13/2019 10:00:00 AM EDT 3 mL Intravenous active 3 mL , Intravenous, Every 8 hours (scheduled), First dose on Mon08/13/19 at 1000, Pre-op
Rapid push positive pressure flushing shall be performed with a 10 cc normal saline syringe to check the PATENCY of a PIV site prior to any infusion therapy initiation unless resistance is met.
[facility] Medication administered onsite Doxycycline Monohydrate 100 MG Oral Tablet Doxycycline Monoh ydrate 03/05/2019 12:00:00 AM EDT ORAL completed [facility] ([facility]) Insurance Providers Payer name Policy type / Coverage type Policy ID Covered democrat ID Covered democrat's relationship to fish Policy Fish Plan Information [facility] [id number] SP [id number] [facility] [id number] S [id number] SELF PAY ONLY [id number] SP [id number] [facility] [id number] SP [id number] [facility] [id number] [facility] [id number] Spo [id number] [facility] [id number] 18 [id number] [facility] [id number] 01 [id number] [facility] Commercial [id number] Self 00 [id number] [facility] Commercial [id number] Self 00 [id number] [facility] Commercial [id number] Self 00 [id number] [facility] Commercial [id number] Self 00 [id number] [facility] Claims DPT Commercial Self [place]/307 [id number] [facility] [id number] 2 [id number] FOR LIFE [id number] [facility] [id number] [place] P[place] 302/307 [id number] Problems, Conditions, and Diagnoses Code Display Name Description Problem Type Effective Dates Data Source(s) No Previous Anesthesia No Previous Anesthesia [id number] 08/08/2019 12:00:00 AM EDT [facility] C50.912 Breast cancer, left Breast cancer, left [id number] 0 08/08/2019 12:00:00 AM EDT [facility] K21.9 GERD (gastroesophageal reflux disease) G ERD (gastroesophageal reflux disease) [id number] 08/08/2019 12:00:00 AM EDT [facility] N20.0 Kidney stones Kidney stones [id number] 08/08/2019 12:00:00 AM EDT [facility] 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, estrogen receptor positive Malignant neoplasm of upper-outer quadra nt of left breast in female, estrogen receptor positive [id number] 0 12:00:00 AM EDT [facility] Z17.0 Estrogen receptor positive status [ER+] Estrogen receptor positive status (ER+) Diagnosis 08/13/2019 09:00:00 AM EDT [facility] C50.412 Malignant neoplasm of upper-outer quadra nt of left female breast Malignant neoplasm of upper-outer quadra Diagnosis 08/13/2019 09:00:00 AM EDT [facility] N20.0 Calculus of kidney Calculus of kidney Diagnosis 11:11:41 AM EDT [facility] K21.9 Gastro-esophageal reflux disease without esophagitis Gastro-esophageal reflux disease without Diagnosis 08/08/2019 11:11:[address] [facility] C50.912 Malignant neoplasm of unspecified site o f left female breast Malignant neoplasm of unspecified site o Diagnosis 08/08/2019 11:11:[address] [facility] U04641 Malignant neoplasm of upper-outer quadra nt of left female breast Malignant neoplasm of upper-outer quadrant of left female breast Diagnosis 07/08/2019 05:39:00 PM [facility] N630 Unspecified lump in unspecified breast U nspecified lump in unspecified breast Diagnosis 07/08/2019 05:39:00 PM [facility] Surgeries/Procedures Procedure Description Date Indications Data Source(s) RADIOLOGICAL EXAMINATION SURGICAL SPECIMEN MAMMO BREAST SPECIME N Routine 08/13/2019 11:37 AM EDT Malignant neoplasm of upper-outer quadrant of left breast in female, estrogen receptor positive 08/13/2019 03:37:20 PM EDT Malignant dick plasm of upper-outer quadrant of left breast in female, estrogen receptor positive [facility] Malignant neoplasm of upper-outer quadra nt of left breast in female, estrogen receptor positive MASTECTOMY PARTIAL LUMPECTOMY, BREAST, WITH NEE DLE LOCALIZATION, WITH SENTINEL LYMPH NODE BIOPSY, WITH AXILLARY LYMPHADENECTOMY IF INDICATED 08/13/2019 10:50 AM EDT Malignant neoplasm of upper-outer quadrant of left breast in female, estrogen receptor positive 08/13/2019 02:50:00 PM EDT - 08/13/2019 04:27:00 PM EDT Malignant neoplasm of upper-outer quadrant of left breast in female, estrogen receptor positive [facility] Malignant neoplasm of upper-outer quadra nt of left breast in female, estrogen receptor positive MAMMO NEEDLE LOCALIZATION LEFT MAMMO NEEDLE LOCALIZATION LEFT R outine 08/13/2019 9:45 AM EDT Malignant neoplasm of upper-outer quadrant of left breast in female, estrogen receptor positive 08/13/2019 01:45:00 PM EDT Malignant dick plasm of upper-outer quadrant of left breast in female, estrogen receptor positive [facility] Malignant neoplasm of upper-outer quadra nt of left breast in female, estrogen receptor positive LYMPHATICS & LYMPH NODES IMAGING ([facility] ONLY) NM SENTI BENNIE NODE BREAST INJECTION ONLY LEFT Routine 08/13/2019 9:43 AM EDT Malignant neoplasm of upper-outer quadrant of left breast in female, estrogen receptor positive 08/13/2019 01:43:02 PM EDT Malignant dick plasm of upper-outer quadrant of left breast in female, estrogen receptor positive [facility] Malignant neoplasm of upper-outer quadra nt of left breast in female, estrogen receptor positive Results ID Date Data Source [id number] 05/27/2020 12:00:00 AM EST [facility] Gavi Ambriz DO Patient Name: TOAN VEGA[address] Date of : 1960te 1 Date of Exam: 05/27/2020LAZARUS Lee [id number]#: Fax: [phone] EXAM: CHEST (2 VIEW) X-RAYCLINICAL INFORMATION: Followup pneumonia.Two views.The latest prior for comparison is 05/20/2020 with other older priors alsoreviewed.The opacities seen previously in the left lung are slightly more dense andslightly more widespread, now seen particularly to have increased in theleft upper lobe and lingula. There is mild left CP angle blunting whichrepresents a change from the prior exam. The right lung is clear andstable. The right CP angle is sharp. The heart is not enlarged. There isno change in the osseous structures.IMPRESSION:Increased left lung pneumonia as described above.[facility] you for referring OSCAR VEGA to our office. Electronically Signed - DIONY MELENDEZ DO 05/27/20 16:31 Name Value Range Interpretation Code Description Data Mare rce(s) Supporting Document(s) ID Date Data Source [id number] 05/19/2020 10:33:00 PM EST [facility] ([facility]) Name Value Range Interpretation Code Description Data Mare rce(s) Supporting Document(s) Glucose, Fasting 108 mg/dL 70-100 Above high normal [facility] Creatinine For GFR 0.63 mg/dL 0.55-1.30 Normal (applies to non -numeric results) [facility] ([facility]) Glomerular Filtration Rate Laboratory test result Normal (applies to non- numeric results) [facility] ([facility]) <content>Units are mL/min/1.73 m2</content>
<content></content>
<content>Chronic Kidney Disease Staging per NKF:</content>
<content></content>
<content>Stage I & II GFR >=60 Normal to Mildly Decreased</content>
<content>Stage III GFR 30- 59 Moderately Decreased</content>
<content>Stage IV GFR 15-29 Severely Decreased</content>
<content>Stage V GFR <15 Very Little GFR Left</content>
<content>ESRD GFR <15 on TAPING MACHINE OPERATOR</content>
<content></content> Blood Urea Nitrogen 11 mg/dL 7-18 Normal (applies to non-nume yunior results) [facility] ([facility]) Potassium Serum 4.0 meq/L 3.5-5.1 Normal (applies to non-numeric results) [facility] ([facility]) Sodium Level 138 meq/L 136-145 Normal (applies to non-numeric res ults) [facility] ([facility]) Chloride Level 105 meq/L 98-107 Normal (applies to non-numeric r esults) [facility] ([facility]) Anion Gap 6 meq/L 8-16 Below low normal [facility] ( [facility]) Carbon Dioxide Level 27 meq/L 21-32 Normal (applies to non-num joshua results) [facility] ([facility]) Calcium Level 8.4 mg/dL 8.5-10.1 Below low normal [facility] ([facility]) Alt/SGPT 25 U/L 12-78 Normal (applies to non-numeric resul ts) [facility] ([facility]) Ast/Sgot 18 U/L 7-37 Normal (applies to non-numeric resul ts) [facility] ([facility]) Bilirubin,Total 0.3 mg/dL 0.2-1.0 Normal (applies to non-numeric results) [facility] ([facility]) Alkaline Phosphatase 100 U/L 45-117 Normal (applies to non-num joshua results) [facility] ([facility]) Albumin 2.5 GM/DL 3.2-5.2 Below low normal [facility] ( [facility]) Total Protein 6.5 GM/DL 6.4-8.2 Normal (applies to non-numeric re sults) [facility] ([facility]) Albumin/Globulin Ratio 0.6 1.2-2.2 Below low normal [facility] ([facility]) ID Date Data Source [id number] 05/19/2020 10:33:00 PM EST [facility] ([facility]) Name Value Range Interpretation Code Description Data Mare rce(s) Supporting Document(s) Red Blood Count 3.64 10 4.00-5.40 Below low normal [facility] ([facility]) White Blood Count 11.2 10 4.0-10.0 Above high normal [facility] ([facility]) Mean Corpuscular Volume 91.8 fl 80.0-96.0 Normal ( applies to non-numeric results) [facility] ([facility]) Hemoglobin 10.5 g/dL 12.0-15.5 Below low normal [facility] ( [facility]) Hematocrit 33.4 % 36.0-47.0 Below low normal [facility] ( [facility]) Mean Corpuscular HGB Conc 31.4 g/dL 32.0-36.5 Below low normal [facility] ([facility]) Red Cell Distribution Width 11.4 % 11.5-14.5 Below low normal [facility] Mean Corpuscular Hemoglobin 28.8 pg 27.0-33.0 Norm al (applies to non-numeric results) [facility] ([facility]) Nucleated Red Blood Cell % 0.0 % 0-0 Normal (applies to n on-numeric results) [facility] ([facility]) Platelet Count, Automated 503 10 150-450 Above high normal [facility] ([facility]) ID Date Data Source [id number] 05/19/2020 10:07:00 PM EST [facility] Name Value Range Interpretation Code Description Data Mare rce(s) Supporting Document(s) SARS-CoV-2 (COVID 19) NEGATIVE - SARS-CoV-2 (COVID19) [facility] This lab was ordered by [facility] a nd reported by [facility]. ID Date Data Source [id number] 05/19/2020 10:07:00 PM EST [facility] ([facility]) Name Value Range Interpretation Code Description Data Mare rce(s) Supporting Document(s) Respiratory Panel Laboratory test result [facility]) This respiratory PCR panel detects Influ daniel A H1, H3 and 2009 H1 viruses, Influenza B virus, Resp iratory Syncytial Virus, Human metapneumovirus, Parainfluenza virus 1, 2, 3 and 4, Adenovirus, Rhinovirus/Enterovirus, Coronavirus HKU1, NL63, OC43, 229E and SARS-CoV-2 (COVID 19), Bordetella pertussis, Bordetella parapertussis, Mycoplasma pneumoniae and Chlamydia pneumoniae. NEGATIVE by MULTIPLEXED NUCLEIC ACID PCR SARS-CoV-2 (COVID 19) NEGATIVE - SARS-CoV-2 (COVID19) ID Date Data Source [id number] 05/13/2020 04:07:00 PM EST [facility] ([facility]) Name Value Range Interpretation Code Description Data Mare rce(s) Supporting Document(s) Respiratory Panel Laboratory test result [facility] ([facility]) This respiratory PCR panel detects Influ daniel A H1, H3 and 2009 H1 viruses, Influenza B virus, Resp iratory Syncytial Virus, Human metapneumovirus, Parainfluenza virus 1, 2, 3 and 4, Adenovirus, Rhinovirus/Enterovirus, Coronavirus HKU1, NL63, OC43, 229E and SARS-CoV-2 (COVID 19), Bordetella pertussis, Bordetella parapertussis, Mycoplasma pneumoniae and Chlamydia pneumoniae. NEGATIVE by MULTIPLEXED NUCLEIC ACID PCR SARS-CoV-2 (COVID 19) NEGATIVE - SARS-CoV-2 (COVID19) ID Date Data Source [id number] 05/13/2020 04:07:00 PM EST [facility] Name Value Range Interpretation Code Description Data Mare rce(s) Supporting Document(s) SARS-CoV-2 (COVID 19) [facility] This lab was ordered by [facility] a nd reported by [facility]. ID Date Data Source [id number] 05/10/2020 12:00:00 AM EST [facility] Name Value Range Interpretation Code Description Data Mare rce(s) Supporting Document(s) SARS-CoV-2 (COVID-19) RNA [Presence] in Respiratory specimen by LAURA with probe detection [facility] This lab was ordered by [facility] and reported by [employer] ID Date Data Source [id number] 08/27/2019 04:20:28 PM EDT [facility] NT INFORMATIONPatient MRN Name Date of Age Gend*PT [id number] Oscar Vega 1960 59 years F SDCPT Location Admission Date/Time Visit ID [facility] 0827 --- --- EPI ID CSN Admitting Provider [id number] Isabelle Martin MD([id number]) [place] [address] OPERATIVE REPORT OPNAME: RENEOSCAR#: [id number] #: [id number] ADMISSION DATE: 08/13/2019DOB: 1960 SEX: F PT TYPE: H SURACCT #: [id number] CARE PHYSICIAN: GAVI AMADOR-SURBEREFERRING PHYSICIAN: ISABELLE MARTINDATE OF OPERATION: 08/13/2019ATTENDING PHYSICIAN:Isabelle Martin MD.PREOPERATIVE DIAGNOSIS:Left breast invasive ductal carcinoma.POSTOPERATIVE DIAGNOSIS:Left breast invasive ductal carcinoma.PROCEDURES PERFORMED:1. Left breast excisional needle localized lumpectomy for carcinoma.2. Left axillary sentinel node biopsy.SURGEON:Isabelle Martin MD.QUALITY CONTROL TESTER:STEPHANIE Jeronimo.ANESTHESIA:General.ESTIMATED BLOOD LOSS:Minimal.COMPLICATIONS:None.BRIEF HISTORY:This is a very nice 59-year-old female referred to me unfortunately with anew diagnosis of invasive ductal carcinoma. This was picked up on ascreening imaging study, mainly on ultrasound, it was seen. It is verysmall, looks to be about 6 x 4 mm, but nonetheless, it was new andsuspicious, and core biopsy was undertaken showing an invasive ductalcarcinoma which is estrogen positive but also HER-2/dimitry positive. So shemet with me in consultation. We discussed her surgical options.Certainly, breast conservation was appropriate, but in addition to that, Idiscussed possible placement of an Infusaport because I told her it islikely systemic chemotherapy will be recommended. Unfortunately, she makesit clear that she would never proceed with systemic chemotherapy. Wediscussed this at length. I tried to sway her against that to at leastconsider meeting with Oncology, but I told her we would cross that bridgeafter surgery. Nonetheless, even yesterday, she was thinking of refusingthe sentinel node biopsy because she just does not want to put herselfthrough it, but she is at least agreed to that this morning. She is anextremely nervous, anxious individual, but at least for today, plan is forneedle localized lumpectomy and axillary sentinel node biopsy.DESCRIPTION OF PROCEDURE:The patient was taken to the operating room and placed in a supineposition. She underwent anesthetic with no difficulty. After prepping anddraping and appropriate timeout, we began. She was injected with thesentinel node earlier this morning. She had good uptake with theradiotracer, so we made a very small anterior axillary incision, dissecteddown through the clavipectoral fascia and identified the sentinel node.This all went without difficulty. Once we were within the axilla, thesentinel node was quite obvious, did not look suspicious. There wereactually two nodes, right next to each other, one was hot, the other onewas not. So we carefully dissected this free. Ex vivo, this wasdefinitely the sentinel node that had counts over 500. I put the probeback in the axilla. There was really nothing else significant, and so withthat, we irrigated and closed after injecting Marcaine. From here, Iturned my attention to the excisional lumpectomy. She was really hopingfor a circumareolar incision for cosmetic purposes, but the tumor wasreally much too lateral, it just would not have worked, and this is a tinytumor to begin with, and so with that, I made a small incision anterior tothe wire, dissected down, pulled the wire through this opening. I thengrasped the wire with several clamps and then widely dissected completelyaround it. Again, the original tumor was only about 5 mm, and so withthat, I inked my specimen in 6 planes, dried up my cavity, injectedMarcaine and closed. She did just fine. We will see what her finalpathology reveals.RAMÓN SIBLEY/KEILA Job #: [id number] DOC #: [id number] Name Value Range Interpretation Code Description Data Mare rce(s) Supporting Document(s) ID Date Data Source [id number] 08/13/2019 01:33:29 PM EDT [address] [address]Xjxkjso Name: OSCAR VEGAB: 2Sex: FOrdering Provider: ISABELLE Tenorio Prov: ISABELLE Garrido Provider: ISABELLE Calixto Performed: MAMMO BREAST SPECIMENExam Date: 08/13/2019 11:37MRN: [id number] Number: [id number] Class: OutpatientAccount #: [id number] for Exam: left breast cancerTechnique: Single specimen radiograph obtained.Comparison: Needle and wire localization exam earlier today.Findings: The localization wire as well as localized surgical clip are seen within the breast specimen.IMPRESSION: Successful needle wire localization procedure. Surgical clip seen within the breast specimen.Report electronically signed by: YUMI CUNNINGHAM On 08/13/2019 1:33 PMWorkstation ID: [id number] Name Value Range Interpretation Code Description Data Mare rce(s) Supporting Document(s) ID Date Data Source [id number] 08/13/2019 12:02:37 PM EDT [address] [address]Vqpghdm Name: OSCAR VEGAB: 2Sex: FOrdering Provider: ISABELLE Tenorio Prov: ISABELLE Garrido Provider: ISABELLE Calixto Performed: MAMMO NEEDLE LOCALIZATION LEFTExam Date: 08/13/2019 09:45MRN: [id number] Number: [id number] Class: OutpatientAccount #: [id number] for Exam: left breast cancerTechnique: CC and ML views obtainedComparison: NoneFINDINGS: Mammographic images of the left breast were obtained using the targeting grade. Appropriate coordinates were determined and the clip was targeted. One percent LIDOCAINE mixed with bicarbonate was used for superficial and deep local anesthesia.. A 3 cm Quincy needle was then advanced into position.Satisfactory placement of the needle was confirmed with additional mammographic images. Subsequently a wire was advanced through the needle and locked into position. Follow-up images demonstrate needle and wire in satisfactory position adjacent to the targeted clip.)IMPRESSION: Successful needle and wire localization of a left breast marking clip.Report electronically signed by: CHRISTY MCKEON On 08/13/2019 12:02 PMWorkstation ID: [id number] Name Value Range Interpretation Code Description Data Mare rce(s) Supporting Document(s) ID Date Data Source [id number] 08/13/2019 12:00:51 PM EDT [address] [address]Eyqdueh Name: OSCAR CHRISTINELocoDOB: 1960ex: FOrdering Provider: ISABELLE BANGURAuthbarak Prov: ISABELLE Ricofernathan Provider: ISABELLE Calixto Performed: NM SENTINEL NODE BREAST INJECTION ONLY LEFTExam Date: 08/13/2019 09:43MRN: [id number] Number: [id number] Class: OutpatientAccount #: [id number] for Exam: New left breast cancerTechnique: Left breast sentinel node injectionComparison: NoneFindings: Written consent was obtained for the procedure. Prior to beginning the procedure a time out was performed. The correct site and side were identified.The skin in the periareolar region of the left breast was thoroughly cleansed with ChloraPrep. Approximately 3 mL of 1% buffered LIDOCAINE were infiltrated into the skin surface for local anesthesia. This was followed by an intradermal periareolar injection of 0.5 mCi of TECHNETIUM 99M labeled sulfur colloid.The patient tolerated the procedure well.IMPRESSION: Suff[place] node injection procedure as above.Report electronically signed by: CHRISTY MCKEON On 08/13/2019 12:00 PMWorkstation ID: [id number] - [id number] Name Value Range Interpretation Code Description Data Mare rce(s) Supporting Document(s) ID Date Data Source [id number] 08/13/2019 11:04:27 AM EDT [facility] NT INFORMATIONPatient MRN Name Date of Age Gend*PT [id number] Oscar Vega 1960 59 years F SDCPT Location Admission Date/Time Visit ID Attending Provider --- --- --- --- EPI ID CSN Admitting Provider [id number] ---AirwayPatient location during procedure: ORUrgency: electiveDifficult airway: noAdvanced airway equipment used: noStaffingPerformed by: Sheryl Colvin CRNAAnesthesiologist: Janey Calderon MDIndications and Patient ConditionIndications for airway management: anesthesiaPreoxygenated: yesPatient position: sniffingIn-line stabilization: noMask ventilation: 0 - not attemptedFinal Airway/ApproachesFinal airway type: LMANumber of attempts at final approach: 1Number of other approaches attempted: 0Final Airway DetailsFinal LMA airway: uniqueLMA size 4 Name Value Range Interpretation Code Description Data Mare rce(s) Supporting Document(s) ID Date Data Source [id number] 08/18/2019 05:44:30 PM EDT [facility] [place], [place] [address]Edy# Surgical Pathology ReportAccession #:[id number](s) ReceivedA: Left lumpectomy - breast: anterior - green, inferior - blue, lateral -orange, medial - yellow, posterior - black, superior - redB: Left axillary sentinel nodeClinical Diagnosis and HistoryMalignant neoplasm of upper-outer quadrant of left breast in female,estrogen receptor positiveDIAGNOSISA. BREAST, LEFT, LUMPECTOMY: INVASIVE MODERATELY DIFFERENTIATED DUCTAL CARCINOMA. THEMARGINS ARE NEGATIVE FOR CARCINOMA. SEE PATHOLOGIC SUMMARY.B. SENTINEL LYMPH NODE, LEFT AXILLA, EXCISION: TWO BENIGN LYMPH NODES NEGATIVE FOR CARCINOMA (0/2). CYTOKERATIN IMMUNOSTAIN EXAMINED. Microscopic DescriptionPATHOLOGIC SUMMARY: 1. TUMOR SIZE: 5.5 mm2. HISTOLOGIC TYPE OF INVASIVE CARCINOMA: Invasive ductal carcinoma (nospecial type or not otherwise specified)3. HISTOLOGIC GRADE: Overall grade: 2 Glandular (acinar)/tubular differentiation: Score: 3 Nuclear pleomorphism: Score: 2 Mitotic rate: Score: 1 4. DUCTAL CARCINOMA IN SITU: No DCIS present5. MICROCALCIFIC ATIONS: Not identified6. ANGIOLYMPHATIC INVASION: Not identified 7. MARGINS: Invasive carcinoma: Margins negative for invasive carcinoma Distance from closest margin: 1 mm Specify margin: Inferior DCIS: DCIS not present 8. LYMPH NODES: Number of sentinel nodes examined: 2 Total number of nodes (sentinel and non- sentinel): 2 Number with macrometastasis (> 2 mm): 0 Number with micrometastasis (> 0.2 mm to 2 mm or > 200 cells): 0 Number with isolated tumor cells (d 0.2 mm and d 200 cells): 0 Number of negative nodes: 2 9. ER/VA/HER2: Previously performed on the outside prior core biopsyspecimen; [facility],[id number]. NON- NEOPLASTIC BREAST: Cyst formation, focal usual type ductalhyperplasia and prior biopsy.11. PATHOLOGIC STAGING: pT1b N0(sn)12. Oncotype Dx: Not ordered (HER2 positive on prior core biopsy) Gross DescriptionSpecimen A is received in formalin labeled "left breast lumpectomy" andconsists of an oriented lumpectomy with previous inking by the surgeonmarking orientation as follows: anterior green, superior blue, posterior black, superior red, with orange presumed to be lateral and yellow to bemedial as per custom. The specimen measures 3.4 cm from medial to lateralx 3.1 cm from anterior to deep x 1.8 cm from superior to inferior. Thelocalization needle enters the specimen in the lateral aspect adjacent toanterior and superior. The specimen is serially sectioned parallel to themedial margin into nine consecutive slices. There is a central area ofdense white fibrous tissue with an ill-defined apparent sears mass lesionmeasuring 5.5 mm x 4.0 x 4.0 mm present within slices 5 and 6. Withinslice 5 a ribbon shaped biopsy clip is present. The mass comes to within0.1 cm of the inferior margin, 1.0 cm from superior, 1.3 cm from anterior,1.5 cm from posterior, 1.4 cm from lateral and 1.8 cm from medial. Thespecimen is entirely submitted as follows: A1. Perpendicular cross sections medial margin A2. Slice 2 A3-A4. Slice 3A5-A7. Entire slice 4 with trimming of A6 in block [id number]. Entire slice 5 with tumor in A8 A10-A11. Entire slice 6 with tumor in [id number]. Entire slice 7 A14. Entire slice 8 A15-A16. Perpendicular cross sections entire slice 9/lateral margin Specimen B is received in formalin labeled "left axillary sentinel node"and consists of a fragment of sears-yellow adipose tissue measuring 1.8 x1.7 x 0.9 cm. On sectioning, two lymph nodes are present, one of which ispartially colored by green ink. This lymph node measures 1.1 x 0.7 x 0.4cm. The second lymph node measures 1.2 x 0.8 x 0.6 cm. The nodes arebisected revealing unremarkable sears cut surfaces. Blue ink is placed onthe second lymph node. The lymph nodes are entirely submitted in onecassette. Processed at [facility], Histopathology, [address] [place] [address], [id number].[email or web address] Reported: 08/18/2019Electronically Signed Out By Meño Browne MD [facility]emg This report may include immunohistochemical or in-situ hybridizationresults. Testing was developed and the performance characteristicsdetermined by [facility] as required by CLIA '88. The FDAhas determined that approval for specific use is not necessary forclinical use. The quality of Hematoxylin and Eosin stains and asapplicable, for all immunohistochemical and/or special stains, includingpositive and negative controls, were reviewed and considered appropriate.ICD codes C50.912CPT codesA: 56586RI: 62792C, 97998x Name Value Range Interpretation Code Description Data Mare rce(s) Supporting Document(s) ID Date Data Source [id number] 08/08/2019 12:03:15 PM EDT [facility] INFORMATIONPatient MRN Name Date of Age Gend*PT [id number] Oscar Vega 1960 59 years F OPPT Location Admission Date/Time Visit ID Attending Provider --- --- --- Isabelle Martin MD([id number]) EPI ID CSN Admitting Provider [id number] ---OUTPATIENT / OBSERVATIONAL SURGICAL OR INVASIVE PROCEDUREName: Oscar Vega : 1960 Sex: female Care Provider: Randolph HAGERending Physician: Dr. Isabelle Martin.HISTORY OF PRESENT ILLNESS: 59 year old white female who was recently diagnosedwith left breast cancer.PAST MEDICAL HISTORY:Past Medical History:Diagnosis Date Breast cancer, left GERD (gastroesophageal reflux disease) Kidney stones Lyme disease No Previous AnesthesiaPAST SURGICAL HISTORY:Past Surgical History:Procedure Laterality Date DENTAL IMPLANT LEFT BREAST BIOPSY LITHOTRIPSYALLERGIES:AllergiesAllergen Reactions Penicillins Rash Occurred over 10 years agoMEDICATIONS:Prior to Admission medicationsNot on FileSocial HistoryTobacco Use Smoking status: Never Smoker Smokeless tobacco: Never UsedSubstance Use Topics Alcohol use: Never Frequency: Never Drug use: NeverFamily HistoryProblem Relation Age of Onset Melanoma Mother 40 Basal cell carcinoma Mother Prostate cancer Father 70 Colon cancer Father 75 Pancreatic cancer Maternal Aunt 50REVIEW OF SYSTEMS:Respiratory: Denies any shortness of breath, cough, yellow sputum production orwheezing.Cardiovascular: Denies any chest pain, pressure or tightness. Denies nocturnaldyspnea or orthopnea.GI: Denies nausea, vomiting, diarrhea, constipation or melena.Neurologic: Denies tremors or syncope.Vascular: Denies any edema. Denies claudication.Testing Based on Symptoms:In the last six (6) weeks, has the patient experienced any of the followingsymptoms?Chest Pain? NoShortness of Breath? NoPalpitations? NoChange in ADLs (Frailty Scale)? NoHospitalization? NoChange in cardiac, respiratory or Neuro medications? NoAcute Antibiotic Therapy? NoPHYSICAL EXAM:GENERAL: She is a 59 year old, pleasant white female, in no acute distress attime of examination. Vitals on arrival to the office were: BP 102/67 (BPLocation: Right upper arm, Patient Position: Sitting) | Pulse 70 | Ht 1.6 m(5' 3") | Wt 54.4 kg (119 lb 14.4 oz) | SpO2 99% | BMI 21.24 kg/m Body massindex is 21.24 kg/m .Skin is pink, warm and dry.NECK: She has a class II airway. Neck is supple, midline, without cervicaladenopathy. No thyromegaly. No carotid bruits.MENTAL / NEUROLOGICAL STATUS: AAO x 3.LUNGS: Clear to auscultation. No wheezes, rhonchi or crackles.HEART: Rate rhythm regular. S1, S2. No murmur, rub or gallop.ABDOMEN: Bowel sounds positive. Soft, non tender. No rebound tenderness. Nohepatosplenomegaly. Negative CVAT.EXTREMITIES: Pulses are symmetric. No edema.Anesthesia complications: Denied.[facility] Frailty Scale :: 2/10 Well (without active disease, but less fit thanpeople in category I. Often they exercise or are very active occasionally, e.g.seasonally).ASSESSMENT: Primary Diagnosis/Indication: Malignant neoplasm of upper-outerquadrant of left breast in female, estrogen receptor positive.PLAN: Procedure: Left lumpectomy, breast, with needle localization, withsentinel lymph node biopsy, with axillary lymphadenectomy if indicated - left on08/13/2019.08/08/2019 12:03 PMSally MD Beth[place] Name Value Range Interpretation Code Description Data Mare rce(s) Supporting Document(s) ID Date Data Source [id number] 08/05/2019 04:23:31 PM EDT [facility] NT INFORMATIONPatient MRN Name Date of Age Gend*PT [id number] Oscar Vega 1960 59 years F ---PT Location Admission Date/Time Visit ID Attending Provider --- --- --- --- EPI ID CSN Admitting Provider [id number] ---NEW CONSULTATION FOR BREAST CANCER :Attending Surgeon : Isabelle Martin MDHistory of Present Illness :She presents today alone. 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 She actually hadinitially thought she palpated something in her right breast by the time sheunderwent imaging that had dissipated but imaging showed something onultrasonography on the left. 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 The findings are as follows: - ER: POSITIVE (100%, strong, Kwabena 8) - VA: NEGATIVE (0%) - Her2: POSITIVE (3+)Review of SystemsOther than extreme anxiety really nothing significant she says she is otherwisehealthy she exercises. No cardiac or pulmonary complaints no GI or issuesshe does have some mouth pain secondary to recent dental implantsPast Medical History:Diagnosis Date Kidney stones Lyme diseasePast Surgical History:Procedure Laterality Date Dental implant LITHOTRIPSYPrior to Admission medicationsNot on FileAllergiesAllergen Reactions Penicillins RashSocial HistoryTobacco Use Smoking status: Not on fileSubstance Use Topics Alcohol use: Not on file Drug use: Not on fileFamily HistoryProblem Relation Age of Onset Melanoma Mother Basal cell carcinoma Mother Prostate cancer Father Pancreatic cancer Maternal AuntHer family history is not concerning for breast cancerPHYSICAL EXAMINATION :Patient is very pleasant , she is upset/anxious here in the office . She is notcrying per se but is extremely anxiousHeight 1.6 m (5' 3"), weight 53.5 kg (118 lb).Breast Exam:Left Breast reveals no palpable masses minimal bruising from the core biopsy,there is not any obvious axillary or supraclavicular adenopathy in the uprightor supine positionRight Breast reveals no masses or abnormalities, there is not any obviousaxillary or supraclavicular adenopathy in the upright or supine positionNeck reveals no masses or adenopathy , no thyroid nodulesAbdomen is benign with no evidence of organomegaly, no tendernessASSESSMENT AND PLAN :Today I had a lengthy discussion today with Oscar who is here alone todayregarding her disease and treatment options. We spent approximately 45 minutestogether and the vast majority of this was spent in counseling . In addition,their case and full recommendations for further work up and treatment willlikely be discussed with our entire multidisciplinary team in our conferencingsession as part of our participation with [facility] .I began by going over her imaging findings and explaining the area of concern.We then went over their specific cancer pathology in detail and I explainedthrough the use of diagrams exactly what infiltrating ductal carcinoma is andhow it differs from pathology such as infiltrating lobular carcinoma.We also went over all of the prognostic features of their specific tumor andreceptors, I explained what all of this meant and it s significance with regardto other adjuvant therapies . In this case the disease is Grade II, Estrogenreceptor positive Progesterone receptor negative and Her 2 Dimitry positive.Clinically this would be a Stage 1, T1, N0, MxShe really did reading, she knows that HER-2 positivity is not great but I didemphasize that this is a very very small lesion in fact it is almost borderlinefor whereby chemotherapy would be recommended. Right off the bat she told thad would never agree to chemotherapy we spent quite a bit of time talking aboutthatI then talked about the standard options for breast cancer surgery with thepatient . I explained the long standing data and follow up in the medicalliterature noting the equivalency of breast conserving surgery with radiationtherapy and mastectomy. I explained that there is NO chcf survival benefitto having a mastectomy over lumpectomy when both are an option . If it ischosen and / or appropriate I explained the need for lumpectomy margins to benegative for carcinoma ,and the necessity for postoperative radiation therapyafter breast conservation in most cases .I also explained that there is anapproximate 20-25% chance of close or positive surgical margins after lumpectomyrequiring possible further surgery to clean things up . I explained how ifbreast conserving therapy ( lumpectomy ) is done for a non palpable tumor thatwe use a special thin guide wire that is placed before surgery by theradiologist and this serves as our guide for surgery to get the correct area .I also explained what a sentinel node is and how it is done . I explained thatusually when we do a lumpectomy and check sentinel nodes we simply send them topathology and get the results in a few days . We usually do not have to takemore lymph nodes even if the sentinel node had cancer . With a mastectomysurgery we routinely still check the lymph nodes with the pathologist at thetime of surgery and take more with a node dissection if cancer is found in thesentinel lymph node.( This is based on the findings of the ACOSOG Z-11 study showing this did notchange outcomes with the lumpectomy patients )The risk of the potential for arm lymphedema was discussed which I explained isnot common but can be a life long problem . As always we will have her seen forlymphedema prevention and consultation if necessary .I also briefly touched upon the role of medical oncology and the use of systemicchemotherapy versus hormonal therapy or both . In this case the disease isstrongly estrogen positive but also strongly HER-2 positive and so thereforelike I said we had a long talk about possible systemic chemotherapy and she hadmuch to say about refusing it she had many reasons for that including her motherbeing elderly she has no children she cannot deal with the concept of hair lossand the toxicity of chemotherapy. But I also explained to her that HER-2positive cancers can have an outstanding prognosis when treated with newtargeted therapies in the end I said lets take it 1 step at a time. I did touch upon the role of radiation therapy and it s timing with regard tosurgery etc. They seemed to understand .We will make those referrals post operatively as necessary when we get herpathology back . She met also with our Breast Cancer nurse navigator Tatyana explained how she will take care of setting all of this up at theappropriate time after surg del . In her case I recommend breast conservation this is a very small tumor shecares very much about cosmesis.In the end I think we had a nice discussion . Our plan at present is as follows:We will plan on the left breast needle localized excisional lumpectomy andsentinel node biopsy. Given all the issues with the current pandemic ofcoronavirus surgery will have to be done in the hospital and hopefully can bedone within the next few weeks. This is a small tumor but it is aggressive.Normally in this case I would have her meet with medical oncology first and attheir recommendation place an [id number] at the time of surgery but againOscar makes it clear she may not even consider chemotherapy so I think itbest we hold offCertain parts of this note may have been carried over from prior notes tomaintain patient's pertinent medical history and continuity of care. The detailswere verified and edited as appropriate.This document or parts of this document, were dictated using [employer]. A reasonable attempt at proofreading has been made to minimizeerrors. Please call with any questions or corrections. Name Value Range Interpretation Code Description Data Mare rce(s) Supporting Document(s) ID Date Data Source [id number] 07/03/2019 12:00:00 AM EST [facility] Brina Castro MD Patient Name: OSCAR VEGA [address] Date of : 1960[address] [birth year] Date of Exam: 07/03/2019LAZARUS De La Garza [id number]#: Fax: [phone] EXAM: US EXTREMITY VEINS, BILATERAL W/REFLUXCLINICAL INFORMATION: For thrombus and bilateral lower extremity venousreflux Doppler assessment.BILATERAL LOWER EXTREMITY DEEP VEIN DUPLEX ULTRASOUND FOR THROMBUS:Th e deep veins demonstrate normal compression, normal Doppler color-flowand normal Doppler wave forms with respiration and augmentation at multiplelevels bilaterally.IMPRESSION:There is no deep vein thrombus on the right or the left.BILATERAL LOWER EXTREMITY VENOUS REFLUX DOPPLER ASSESSMENT:The study is performed with the patient standing including Valsalva.RIGHT LOWER EXTREMITY:Greater saphenous vein: There is reflux with a duration of 0.6 seconds.Lesser saphenous vein: There is reflux with a duration of 0.2 seconds.The vessel measures 5 mm in diameter.Greater saphenous vein distal to the junction: 6 mm. There is no reflux.Greater saphenous vein at thigh: 5 mm. There reflux with a duration of0.5 seconds.Greater saphenous vein at the knee: 4 mm. There is reflux for a durationof 0.3 seconds.AP diameter of the greater saphenous vein at the proximal calf: 3 mm.There is reflux with a duration of 0.3 seconds.LEFT LOWER EXTREMITY:Greater saphenous vein: There is reflux with a duration of 0.9 seconds.Lesser saphenous vein: Diameter is 5 mm. There is no reflux.Greater sapenous vein distal to the junction: 6 mm. There is no reflux.GReater saphenous vein at the thigh is 4 mm. There is reflux with aduration of 0.3 seconds.Greater saphenous vein at the knee is 3 mm. There is no reflux.Greater saphenous vein in the proximal calf is 3 mm. There is reflux witha duration of 0.3 seconds.Accredited by the [employer] in Vascular PeripheralUltrasound.Zeus Wade, SIERRA/Erica you for referring OSCAR VEGA to our office. Electronically Signed - ZEUS BAUER MD 07/04/19 13:02 Name Value Range Interpretation Code Description Data Mare rce(s) Supporting Document(s) ID Date Data Source [id number] 04/26/2019 03:49:00 PM EST [facility] ([facility]) Name Value Range Interpretation Code Description Data Mare rce(s) Supporting Document(s) Thyrotropin [Units/volume] in Serum or Plasma 0.980 uIU/ML 0. 358-3.740 Normal (applies to non-numeric results) [facility] ([facility]) Thyroxine (T4) free [Mass/volume] in Serum or Plasma 1.13 ng/dL 0.76-1.46 Normal (applies to non-numeric results) [facility] ([facility]) ID Date Data Source [id number] 04/26/2019 03:49:00 PM EST [facility] ([facility]) Name Value Range Interpretation Code Description Data Mare rce(s) Supporting Document(s) Thryoglobulin Antibodies (Yung) 3.1 IU/ml 0.0-0.9 Above high yves l [facility] ([facility]) Thyroglobulin Antibody measured by [employer] an [employer] Methodology Thyroglobulin Opal 2.5 ng/mL Normal (applies to non-numeri c results) [facility] ([facility]) <content>Reference Range:</content>
<content>Pubertal Children</content>
<content>and Adults: <40</content>
<content>According to the National Academy of Clinical Biochemistry,</content>
<content>the reference interval for Thyroglobulin (TG) should be</content>
<content>related to euthyroid patients and not for patients who</content>
<content>underwent thyroidectomy. TG reference intervals for these</content>
<content>patients depend on the residual mass of the thyroid tissue</content>
<content>left after surgery. Establishing a post- operative baseline</content>
<content>is recommended. The assay quantitation limit is 2.0 ng/mL.</content>
<content>Performed at: [facility] [place]</content>
<content>[address] [place] [id number]</content>
<content>Trucking Contractor: Aniyah Andino MD, Phone: [phone]</content>
<content>Performed at: [facility]</content>
<content>[address] [place] [phone]</content>
<content>Trucking Contractor: Chito Orr MD, Phone: [phone]</content>
<content></content> ID Date Data Source [id number] 04/26/2019 03:49:00 PM EST [facility] Name Value Range Interpretation Code Description Data Mare rce(s) Supporting Document(s) Thyroperoxidase Ab [Units/volume] in Serum or Plasma 37.7 U/ML Normal (applies to non-numeric results) [facility] ([facility]) ID Date Data Source [id number] 04/26/2019 03:49:00 PM EST [facility] ([facility]) Name Value Range Interpretation Code Description Data Mare rce(s) Supporting Document(s) Red Blood Count 4.41 10 4.00-5.40 Normal (applies to non-numeric results) [facility] ([facility]) White Blood Count 7.1 10 4.0-10.0 Normal (applies to non-numeri c results) [facility] ([facility]) Hemoglobin 13.1 g/dL 12.0-15.5 Normal (applies to non-numeric resul ts) [facility] ([facility]) Hematocrit 39.8 % 36.0-47.0 Normal (applies to non-numeric resul ts) [facility] Mean Corpuscular HGB Conc 32.9 g/dL 32.0-36.5 Normal (applies to non-numeric results) [facility] ([facility]) Mean Corpuscular Volume 90.2 fl 80.0-96.0 Normal ( applies to non-numeric results) [facility] Mean Corpuscular Hemoglobin 29.7 pg 27.0-33.0 Norm al (applies to non-numeric results) [facility]) Platelet Count, Automated 317 10 150-450 Normal (applies to non-numeric results) [facility] ([facility]) Neutrophils % 62.1 % 36.0-66.0 Normal (applies to non-numeric re sults) [facility] ([facility]) Red Cell Distribution Width 12.9 % 11.5-14.5 Norm al (applies to non-numeric results) [facility] ([facility]) Lymph % 27.7 % 24.0-44.0 Normal (applies to non-numeric resul ts) [facility] ([facility]) Fountain % 8.9 % 0.0-5.0 Above high normal [facility] Baso % 0.6 % 0.0-1.0 Normal (applies to non-numeric resul ts) [facility] ([facility]) Eos % 0.6 % 0.0-3.0 Normal (applies to non-numeric resul ts) [facility] ([facility]) Immature Granulocyte % 0.1 % 0-3.0 Normal (applies to non-n umeric results) [facility] ([facility]) Lymph # 2.0 10 1.5-5.0 Normal (applies to non-numeric resul ts) [facility] ([facility]) Nucleated Red Blood Cell % 0.0 % 0-0 Normal (applies to n on-numeric results) [facility] ([facility]) Neutrophils # 4.4 10 1.5-8.5 Normal (applies to non-numeric re sults) [facility] ([facility]) Baso # 0.0 10 0.0-0.2 Normal (applies to non-numeric resul ts) [facility] ([facility]) Eos # 0.0 10 0.0-0.5 Normal (applies to non-numeric resul ts) [facility] ([facility]) Fountain # 0.6 10 0.0-0.8 Normal (applies to non-numeric resul ts) [facility] ([facility]) Procedure Social History Code Duration Value Status Description Data Source(s ) Alcohol intake 08/13/2019 12:00:00 AM EDT Never completed [facility] Smoking 08/13/2019 12:00:00 AM EDT Never smoker completed Never s [facility] Smoking 08/08/2019 12:00:00 AM EDT Never smoker completed Never s [facility] Alcohol intake 08/08/2019 12:00:00 AM EDT Never completed [facility] Smoking 07/11/2019 12:00:00 AM EST Patient has never smoked co mpleted Patient has never smoked MEDENT ([facility]) Vital Signs ID Date Data Source UNK Name Value Range Interpretation Code Description Data Source(s) Novelty body weight 115 [lb_av] 115 [lb_av] MEDEN T ([facility]) Oxygen saturation in Arterial blood by Pulse oximetry 98 % 98 % [facility] ([facility]) Body temperature 101.8 [degF] 101.8 [degF] MEDE NT ([facility]) Respiratory rate 26 /min 26 /min [facility] ( [facility]) Heart rate 104 /min 104 /min [facility] ([facility]) Body mass index (BMI) [Ratio] 21.4 kg/m2 21.4 k g/m2 [facility] ([facility]) Body weight 121.00 [lb_av] 121.00 [lb_av] MEDEN T ([facility]) Body height 63.1 [in_i] 63.1 [in_i] [facility] ([facility]) 5'3.10" Oxygen saturation in Arterial blood by Pulse oximetry 98 % 98 % [facility] Respiratory rate 16 /min 16 /min [facility] Heart rate 87 /min 87 /min [facility] Diastolic blood pressure 63 mm[Hg] 63 mm[Hg] [facility] Systolic blood pressure 120 mm[Hg] 120 mm[Hg] [facility] Body temperature 36.44 Ama 36.44 Ama [facility] Systolic blood pressure 102 mm[Hg] 102 mm[Hg] [facility] Diastolic blood pressure 67 mm[Hg] 67 mm[Hg] [facility] Heart rate 70 /min 70 /min [facility] Body height 160 cm 160 cm [facility] Body weight 54.386 kg 54.386 kg [facility] Body mass index (BMI) [Ratio] 21.24 kg/m2 21.24 kg/m2 [facility] Oxygen saturation in Arterial blood by Pulse oximetry 99 % 99 % [facility] Novelty body weight 115 [lb_av] 115 [lb_av] MEDEN T ([facility]) Oxygen saturation in Arterial blood by Pulse oximetry 98 % 98 % [facility] Body temperature 98.3 [degF] 98.3 [degF] [facility] ([facility]) Respiratory rate 18 /min 18 /min [facility] ( [facility]) Heart rate 76 /min 76 /min [facility] ([facility]) Body mass index (BMI) [Ratio] 20.7 kg/m2 20.7 k g/m2 [facility] ([facility]) Body weight 117.00 [lb_av] 117.00 [lb_av] MEDEN T ([facility]) Body height 63.1 [in_i] 63.1 [in_i] [facility] ([facility]) 5'3.10" Diastolic blood pressure 70 mm[Hg] 70 mm[Hg] [facility] ([facility]) Systolic blood pressure 116 mm[Hg] 116 mm[Hg] M EDENT ([facility]) Body weight 116.50 [lb_av] 116.50 [lb_av] MEDEN T ([facility]) Body height 63.1 [in_i] 63.1 [in_i] [facility] ([facility]) 5'3.10" Diastolic blood pressure 86 mm[Hg] 86 mm[Hg] [facility] ([facility]) Systolic blood pressure 123 mm[Hg] 123 mm[Hg] M EDENT ([facility]) Oxygen saturation in Arterial blood by Pulse oximetry 99 % 99 % [facility] ([facility]) Body temperature 98.7 [degF] 98.7 [degF] [facility] ([facility]) Respiratory rate 20 /min 20 /min [facility] ( [facility]) Heart rate 78 /min 78 /min [facility] ([facility]) Body mass index (BMI) [Ratio] 20.6 kg/m2 20.6 k g/m2 [facility] ([facility]) Oxygen saturation in Arterial blood by Pulse oximetry 99 % 99 % [facility] ([facility]) Body temperature 98.7 [degF] 98.7 [degF] [facility] ([facility]) Respiratory rate 20 /min 20 /min [facility] ( [facility]) Heart rate 65 /min 65 /min [facility] ([facility]) Body mass index (BMI) [Ratio] 20.1 kg/m2 20.1 k g/m2 ANTONIA ([facility]) Body weight 114.00 [lb_av] 114.00 [lb_av] RAMILA Gray ([facility]) Body height 63.1 [in_i] 63.1 [in_i] ANTONIA ([facility]) 5'3.10" Diastolic blood pressure 86 mm[Hg] 86 mm[Hg] ANTONIA ([facility]) Systolic blood pressure 128 mm[Hg] 128 mm[Hg] Brigitte GAINES ([facility])
--- OUTSIDE RECORDS SUMMARY | 2020-05-28 11:12 | CCD | Continuity of Care Document ---
Author Organization Unknown Address Unknown Phone Unavailable Care Team Providers Care Bus Boy Name Role Phone Gavi Anthony D.O. AUTM [phone] Problems Active Problems Provider Date Screening for malignant neoplasm of colon Stormy GarciaOKelly Onset: 05/18/2017 Palpitations Gavi Anthony D.O. Onset: 2017 H/O: urinary stone Gavi Anthony D.O. Onset: 2017 Social History Type Date Description Comments Sex Unknown ETOH Use Denies alcohol use Tobacco Use Start: Unknown Patient has never smoked Recreational Drug Use Denies Drug Use Smoking Status Reviewed: 07/11/19 Patient has never smoked Exercise Type/Frequency Exercises regularly golf ing, weights and aerobics Sun Exposure Does not use sunscreen Seat Belt/Car Seat Always uses seat belt Allergies, Adverse Reactions, Alerts Active Allergies Reaction Severity Comments Date Penicillin 05/18/2017 Medications Active Medications SIG Qnty Indications Ordering Provide r Date Flovent HFA 110mcg/Act Aerosol 2 puffs by mouth 2 x a day 12gm Gavi Anthony D.OKelly 05/18 Doxycycline Monohydrate 100mg Caps ules 1 capsule by mouth twice a day for 10 days 20caps Gavi Collins D.OKelly 05/14/2020 Prednisone 20mg Tablets 1 tab by mouth daily x 5 days 5tabs Milena Sanabria.O. 05/14 History Medications No Active Medications Unknown - 05/14/2020 Medications Administered in Office Medication SIG Qnty Indications Ordering Provider Date Immunization Administration Single Or Co mbination Injection Milena Sanabria 07/20/2017 Immunizations CPT Code Status Date Vaccine Lot # [id number] Given 07/20/2017 Tetanus, Diphthe chucky Toxoids/Acellular Pertussis Vaccine 7 Or > [id number] Vital Signs Date Vital Result Comment 05/13/2020 4:08pm Height 63.1 inches 5'3.10" Weight 121.00 lb BMI (Body Mass Index) 21.4 kg/m2 Heart Rate 104 /min Respiratory Rate 26 /min Body Temperature 101.8 F O2 % BldC Oximetry 98 % [place] Body Weight 115 lb 07/11/2019 11:47am BP Systolic 116 mmHg BP Diastolic 70 mmHg Height 63.1 inches 5'3.10" Weight 117.00 lb BMI (Body Mass Index) 20.7 kg/m2 Heart Rate 76 /min Respiratory Rate 18 /min Body Temperature 98.3 F O2 % BldC Oximetry 98 % [place] Body Weight 115 lb Results Test Acquired Date Facility Test Result H/L Range Note Complete Blood Count 05/19/2020 [facility] Outpatient Test ing (Registration) [address], [place] [id number] [phone] White Blood Count 11.2 10 High 4.0-10.0 Red Blood Count 3.64 10 Low 4.00-5.40 Hemoglobin 10.5 g/dL Low 12.0-15.5 Hematocrit 33.4 % Low 36.0-47.0 Mean Corpuscular Volume 91.8 fl Normal 80.0-96.0 Mean Corpuscular Hemoglobin 28.8 pg Normal 27.0-33.0 Mean Corpuscular HGB Conc 31.4 g/dL Low 32.0-36.5 Red Cell Distribution Width 11.4 % Low 11.5-14.5 Platelet Count, Automated 503 10 High 150-450 Nucleated Red Blood Cell % 0.0 % Normal 0-0 Comprehensive Metabolic Profil 05/19/2020 [facility] Outpa tient Testing (Registration) [address], [place] [id number] [phone] Glucose, Fasting 108 mg/dL High 70-100 Blood Urea Nitrogen 11 mg/dL Normal 7-18 Creatinine For GFR 0.63 mg/dL Normal 0.55-1.30 Glomerular Filtration Rate > 60.0 Normal >51 1 Sodium Level 138 mEq/L Normal 136-145 Potassium Serum 4.0 mEq/L Normal 3.5-5.1 Chloride Level 105 mEq/L Normal 98-107 Carbon Dioxide Level 27 mEq/L Normal 21-32 Anion Gap 6 mEq/L Low 8-16 Calcium Level 8.4 mg/dL Low 8.5-10.1 Ast/Sgot 18 U/L Normal 7-37 Alt/SGPT 25 U/L Normal 12-78 Alkaline Phosphatase 100 U/L Normal 45-117 Bilirubin,Total 0.3 mg/dL Normal 0.2-1.0 Total Protein 6.5 GM/DL Normal 6.4-8.2 Albumin 2.5 GM/DL Low 3.2-5.2 Albumin/Globulin Ratio 0.6 Low 1.2-2.2 Respiratory Panel 05/19/2020 [facility] Outpatient Testi ng (Registration) [address] [place] [id number] [phone] Respiratory Panel This respiratory <SEE NOTE> 2 Respiratory Panel 05/13/2020 [facility] nter [address] [place] [phone] Respiratory Panel This respiratory <SEE NOTE> 3 1 Units are mL/min/1.73 m2 Chronic Kidney Disease Staging per NKF: Stage I & II GFR >=60 Normal to Mildly Decreased Stage III GFR 30-59 Moderately Decreased Stage IV GFR 15-29 Severely Decreased Stage V GFR <15 Very Little GFR Left ESRD GFR <15 on TRUSS BUILDER 2 This respiratory PCR panel d etects Influenza A H1, H3 and 2009 H1 viruses, Influenza B virus, Resp iratory Syncytial Virus, Human metapneumovirus, Parainfluenza virus 1, 2, 3 and 4, Adenovirus, Rhinovirus/Enterovirus, Coronavirus HKU1, NL63, OC43, 229E and SARS-CoV-2 (COVID 19), Bordetella pertussis, Bordetella parapertussis, Mycoplasma pneumoniae and Chlamydia pneumoniae. NEGATIVE by MULTIPLEXED NUCLEIC ACID PCR SARS-CoV-2 (COVID 19) NEGATIVE - SARS-CoV-2 (COVID19) 3 This respiratory PCR panel d etects Influenza A H1, H3 and 2009 H1 viruses, Influenza B virus, Resp iratory Syncytial Virus, Human metapneumovirus, Parainfluenza virus 1, 2, 3 and 4, Adenovirus, Rhinovirus/Enterovirus, Coronavirus HKU1, NL63, OC43, 229E and SARS-CoV-2 (COVID 19), Bordetella pertussis, Bordetella parapertussis, Mycoplasma pneumoniae and Chlamydia pneumoniae. NEGATIVE by MULTIPLEXED NUCLEIC ACID PCR SARS-CoV-2 (COVID 19) NEGATIVE - SARS-CoV-2 (COVID19) Procedures Description No Information Available Medical Devices Description No Information Available Encounters Type Date Location Provider Dx Diagnosis Office Visit 05/13/2020 4:00p [facility] Gavi Anthony D.O. J20.9 Acute bronchitis, unspecifie d Assessments Date Code Description Provider 05/13/2020 J20.9 Acute bronchitis, unspecified Danielito Anthony D.O. Plan of Treatment Future Appointment(s):* 07/16/2020 2:00 pm - Gavi Anthony D.O. at [facility] Functional Status Description No Information Available Mental Status Description No Information Available Referrals Description No Information Available
--- OUTSIDE RECORDS SUMMARY | 2020-05-28 11:12 | CCD | Continuity of Care Document ---
Author Organization Unknown Address Unknown Phone Unavailable Care Team Providers Care Pole Shaver Helper Name Role Phone Gavi Anthony D.O. AUTM Problems Active Problems Provider Date Screening for [...] CPT Code Status Date Vaccine Lot # [id number] Given 07/20/2017 Tetanus, Diphthe chucky Toxoids/Acellular Pertussis Vaccine 7 Or > [id number] Vital Signs Date Vital Result Comment 05/13/2020 4:08pm Height 63.1 inches 5'3.10" Weight 121.00 lb BMI (Body Mass Index) 21.4 kg/m2 Heart Rate 104 /min Respiratory Rate 26 /min Body Temperature 101.8 F O2 % BldC Oximetry 98 % [place] Body Weight 115 lb 07/11/2019 11:47am BP Systolic 116 mmHg BP Diastolic 70 mmHg Height 63.1 inches 5'3.10" Weight 117.00 lb BMI (Body Mass Index) 20.7 kg/m2 Heart Rate 76 /min Respiratory Rate 18 /min Body Temperature 98.3 F O2 % BldC Oximetry 98 % [place] Body Weight 115 lb Results Test Acquired Date Facility Test Result H/L Range Note Complete Blood Count 05/19/2020 [facility] Outpatient Test ing (Registration) [address], [place] [id number] [phone] White Blood Count 11.2 10 High 4.0-10.0 [...] % Normal 0-0 Comprehensive Metabolic Profil 05/19/2020 [facility] Outpa tient Testing (Registration) [address], [place] [id number] [phone] Glucose, Fasting 108 mg/dL High 70-100 Blood [...] Ratio 0.6 Low 1.2-2.2 Respiratory Panel 05/19/2020 [facility] Outpatient Testi ng (Registration) [address] [place] [address] [phone] Respiratory Panel This respiratory <SEE NOTE> 2 Respiratory Panel 05/13/2020 [facility] nter [address] [place] [address] [phone] Respiratory Panel This respiratory <SEE NOTE> 3 1 Units are mL/min/1.73 m2 Chronic Kidney Disease Staging per NKF: Stage I & II GFR >=60 Normal to Mildly Decreased Stage III GFR 30-59 Moderately Decreased Stage IV GFR 15-29 Severely Decreased Stage V GFR <15 Very Little GFR Left ESRD GFR <15 on FLEXOGRAPHIC PRESS PLATE SETTER 2 This respiratory PCR panel d etects [...] Provider Dx Diagnosis Office Visit 05/13/2020 4:00p [facility] Gavi Anthony D.O. J20.9 Acute bronchitis, unspecifie d Assessments Date Code Description Provider 05/13/2020 J20.9 Acute bronchitis, unspecified Danielito Anthony D.O. Plan of Treatment Future Appointment(s):* 07/16/2020 2:00 pm - Gavi Anthony D.O. at [facility] Functional Status Description No Information Available Mental Status Description No Information Available Referrals Description No Information Available
[2020-05-28] MEDS ORDERED: MUCI600T31 PO (11:24)
[2020-05-28] MEDS ORDERED: FLUT11IN INH (11:24)
[2020-05-28 12:10] LABS: BASO % 0.2 % (0.0-1.0); EOS # 0.1 10^3/uL (0.0-0.5); EOS % 0.6 % (0.0-3.0); HEMATOCRIT 32.9 % (36.0-47.0); HEMOGLOBIN 10.5 g/dl (12.0-15.5); LYMPH # 0.7 10^3/uL (1.5-5.0); LYMPH % 6.8 % (24.0-44.0); MEAN CORPUSCULAR HEMOGLOBIN 29.5 pg (27.0-33.0); MEAN CORPUSCULAR HGB CONC 31.9 g/dl (32.0-36.5); MEAN CORPUSCULAR VOLUME 92.4 fl (80.0-96.0); MONO % 10.4 % (0.0-5.0); NEUTROPHILS # 7.9 10^3/uL (1.5-8.5); NEUTROPHILS % 81.2 % (36.0-66.0); PLATELET COUNT, AUTOMATED 427 10^3/uL (150-450); RED BLOOD COUNT 3.56 10^6/uL (4.00-5.40); WHITE BLOOD COUNT 9.7 10^3/uL (4.0-10.0)
--- NOTE | 2020-05-28 12:14 | REP ---
INDICATION: DYSPNEA/COUGH. COMPARISON: 05/27/2020. TECHNIQUE: SINGLE PORTABLE AP VIEW OF THE CHEST WAS PERFORMED. FINDINGS: There is again diffuse consolidative infiltrate in the left lung, essentially unchanged. Right lung is clear. Remainder of the study is unchanged. IMPRESSION: Stable diffuse left lung infiltrate. <Electronically signed by Zeus Daniel > 05/28/20 [id number]
--- OUTSIDE RECORDS SUMMARY | 2020-05-28 12:20 | CCD ---
Author Author [facility] Organization [facility] Address Unknown Phone Unavailable Care Team Providers Care Vocational Instructor Name Role Phone Evelyn MARTIN MD Unavailable [...] LEVIT,, TESS Unavailable Unavailable CICO, A MYKE TECHNICAL SOLUTIONS ENGINEER Unavailable Unavailable CICO, A MYKE TECHNICAL SOLUTIONS ENGINEER Unavailable Unavailable CICO, A MYKE TECHNICAL SOLUTIONS ENGINEER Unavailable Unavailable CICO, A MYKE TECHNICAL SOLUTIONS ENGINEER Unavailable Unavailable CICO, A MYKE TECHNICAL SOLUTIONS ENGINEER Unavailable Unavailable CICO, A MYKE TECHNICAL SOLUTIONS ENGINEER Unavailable Unavailable CICO, A MYKE TECHNICAL SOLUTIONS ENGINEER Unavailable Unavailable CICO, A MYKE TECHNICAL SOLUTIONS ENGINEER Unavailable Unavailable CICO, A MYKE TECHNICAL SOLUTIONS ENGINEER Unavailable Unavailable CICO, A MYKE TECHNICAL SOLUTIONS ENGINEER Unavailable Unavailable CICO, A MYKE TECHNICAL SOLUTIONS ENGINEER Unavailable Unavailable CICO, A MYKE TECHNICAL SOLUTIONS ENGINEER Unavailable Unavailable CICO, A MYKE TECHNICAL SOLUTIONS ENGINEER Unavailable Unavailable CICO, A MYKE TECHNICAL SOLUTIONS ENGINEER Unavailable Unavailable CICO, A MYKE TECHNICAL SOLUTIONS ENGINEER Unavailable Unavailable CICO, A MYKE TECHNICAL SOLUTIONS ENGINEER Unavailable Unavailable CICO, A MYKE TECHNICAL SOLUTIONS ENGINEER Unavailable Unavailable CICO, A MYKE TECHNICAL SOLUTIONS ENGINEER Unavailable Unavailable CICO, A MYKE TECHNICAL SOLUTIONS ENGINEER Unavailable Unavailable CICO, A MYKE TECHNICAL SOLUTIONS ENGINEER Unavailable Unavailable CICO, A MYKE TECHNICAL SOLUTIONS ENGINEER Unavailable Unavailable CICO, A MYKE TECHNICAL SOLUTIONS ENGINEER Unavailable Unavailable CICO, A MYKE TECHNICAL SOLUTIONS ENGINEER Unavailable Unavailable CICO, A MYKE TECHNICAL SOLUTIONS ENGINEER Unavailable Unavailable CICO, A MYKE TECHNICAL SOLUTIONS ENGINEER Unavailable Unavailable CICO, A MYKE TECHNICAL SOLUTIONS ENGINEER Unavailable Unavailable CICO, A MYKE TECHNICAL SOLUTIONS ENGINEER Unavailable Unavailable CICO, A MYKE TECHNICAL SOLUTIONS ENGINEER Unavailable Unavailable CICO, A MYKE TECHNICAL SOLUTIONS ENGINEER Unavailable Unavailable CICO, A MYKE TECHNICAL SOLUTIONS ENGINEER Unavailable Unavailable CICO, A MYKE TECHNICAL SOLUTIONS ENGINEER Unavailable Unavailable CICO, A MYKE TECHNICAL SOLUTIONS ENGINEER Unavailable Unavailable CICO, A MYKE TECHNICAL SOLUTIONS ENGINEER Unavailable Unavailable CICO, A MYKE TECHNICAL SOLUTIONS ENGINEER Unavailable Unavailable CICO, A MYKE TECHNICAL SOLUTIONS ENGINEER Unavailable Unavailable CICO, A MYKE TECHNICAL SOLUTIONS ENGINEER Unavailable Unavailable CICO, A MYKE TECHNICAL SOLUTIONS ENGINEER Unavailable Unavailable CICO, A MYKE TECHNICAL SOLUTIONS ENGINEER Unavailable Unavailable CICO, A MYKE TECHNICAL SOLUTIONS ENGINEER Unavailable Unavailable CICO, A MYKE TECHNICAL SOLUTIONS ENGINEER Unavailable Unavailable CICO, A MYKE TECHNICAL SOLUTIONS ENGINEER Unavailable Unavailable CICO, A MYKE TECHNICAL SOLUTIONS ENGINEER Unavailable Unavailable CICO, A MYKE TECHNICAL SOLUTIONS ENGINEER Unavailable Unavailable CICO, A MYKE TECHNICAL SOLUTIONS ENGINEER Unavailable Unavailable CICO, A MYKE TECHNICAL SOLUTIONS ENGINEER Unavailable Unavailable CICO, A MYKE TECHNICAL SOLUTIONS ENGINEER Unavailable Unavailable CICO, A MYKE TECHNICAL SOLUTIONS ENGINEER Unavailable Unavailable CICO, A MYKE TECHNICAL SOLUTIONS ENGINEER Unavailable Unavailable CICO, A MYKE TECHNICAL SOLUTIONS ENGINEER Unavailable Unavailable CICO, A MYKE TECHNICAL SOLUTIONS ENGINEER Unavailable Unavailable CICO, A MYKE TECHNICAL SOLUTIONS ENGINEER Unavailable Unavailable MATTHEW, PRYJMA BRINA MD Unavailable [...] is protected by Article 27-F of the [facility] Public Health law. If you continue you may have access to information: Regarding HIV / AIDS; Provided by facilities licensed or operated by the [facility] Office of Mental Health; or Provided by the [facility] Office for People With Developmental Disabilities. If such information is present, then the following [facility] mandated warning applies: This information [...] law may result in a fine or usp sentence or both. A general authorization for the release of medical or other information is NOT sufficient authorization for further disc losure. Allergies and Adverse Reactions Type Description Substance Reaction Status Data Source(s ) Propensity to adverse reactions PENICILLINS Penicillins Rash Low Ac tive [facility] Low Family History Family Member Name Family Member Gender Family Member Status Date o f Status Description Data Source(s) Unknown Male Problem [facility] ([facility]) () - age 84 Encounters Encounter Providers Location Date Indications Data Source(s ) Outpatient Attender: GAVI LEONE DO [facility] 05/13/2020 03:00:00 PM EST [facility] Outpatient Referrer: MYKE REAL NP 08/26/2019 09:58:45 AM E DT [facility] Outpatient Attender: ISABELLE MARTIN MDAdmitter: ISABELLE Gray MDReferrer: ISABELLE MARTIN MD ES1-SJ.NM 08/13/2019 09:00:00 AM EDT - 08/13/2019 11:59:00 PM EDT [facility] Patient discharged. Outpatient Attender: ISABELLE MARTIN MDAdmitter: ISABELLE Gray MDReferrer: ISABELLE MARTIN MD ES1-SJ.RAD 08/13/2019 08:45:00 AM EDT - 08/13/2019 08:59:00 AM EDT [facility] Patient discharged. Outpatient Attender: ISABELLE MARTIN MDReferrer: ISABELLE MARTIN MD MOB -MOB.PAT 08/08/2019 12:00:00 AM EDT - 08/08/2019 11:46:22 AM EDT [facility] Attender: ISABELLE MARTIN MDAdmitter: ISABELLE MARTIN MDRefe rrer: ISABELLE MARTIN MD ES1-OR 08/06/2019 03:31:50 PM EDT - 08/13/2019 02:30:00 PM EDT [facility] Patient discharged. Outpatient Attender: ISABELLE MARTIN MD NEPJESSIKAC-NEPESUR 0 02:55:12 PM EDT - 08/05/2019 03:57:00 PM EDT [facility] Outpatient Attender: TESS MERCHANT,[employer] And Burr Operator: JESSICA GREEN 07/08/2019 05:39:00 PM EST - 07/08/2019 05:49:00 PM EST [facility] Outpatient Referrer: BRINA CASTRO MD 07/04/2019 07:07:00 AM EST [facility] Outpatient Referrer: BRINA CASTRO MD 05/24/2019 09:56:00 AM EST [facility] Outpatient Referrer: BRINA CASTRO MD 05/24/2019 09:29:00 AM EST [facility] Outpatient Referrer: GAVI LEONE DO 05/24/2019 09 :27:00 AM EST [facility] Outpatient Attender: GAVI LEONE DO [facility] 05/17/2019 12:00:00 PM EST [facility] ([facility]) Outpatient Attender: GAVI LEONE DO [facility] 04/26/2019 12:10:00 PM EST [facility] ([facility]) Medications Medication Brand Name Start Date Product Form Dose Route Admi nistrative Instructions Pharmacy Instructions Status Indications Reaction Description Data Source(s) 120 ACTUAT Fluticasone propionate 0.11 MG/ACTUAT Meter ed Dose Inhaler [Flovent] Flovent HFA 05/18/2020 12:00:00 AM EST ORAL active [facility] ([facility]) Prednisone 20 MG Oral Tablet Prednisone 05/14/2020 12:00:00 AM EST ORAL active [facility] ([facility]) Doxycycline Monohydrate 100 MG Oral Capsule Doxycycline [place] hydrate 05/14/2020 12:00:00 AM EST ORAL active [facility] ([facility]) No Active Medications 05/13/2020 12:00:00 AM EST completed [facility] ([facility]) normal saline flush 0.9 % injection 3 mL [id number] 08/13/2019 02:00:00 PM EDT 3 mL Intravenous active 3 mL , Intravenous, Every 8 hours (scheduled), First dose on Mon08/13/19 at 1400, PACU (only)
flush per protocol, D/C Main IV fluid if appropriate
[facility] Medication administered onsite Magnesium Chloride 0.98990 MEQ/ML / Pota ssium Chloride 0.0497 MEQ/ML / Sodium Acetate 0.0163 MEQ/ML / Sodium Chloride 0.0899 MEQ/ML / Sodium gluconate 5.02 MG/ML Injectable Solution [Normosol-R] electrolyte-R (NORMOSOL-R/PLASMALYTE-R) solution electrolyte-R (NORMOSOL-R/PLASMALYTE-R) solution 08/12 01:00:00 PM EDT Intravenous active at 1 00 mL/hr, Intravenous, Continuous, Starting Mon08/13/19 at 1300, PACU (only) [facility] Medication administered onsite haloperidol lactate (HALDOL) injection 0.5 mg [id number] 08/13/2019 11:54:42 AM EDT 0.5 mg Intramuscular active 0. 5 mg, Intramuscular, Every 30 min PRN, for intractable nausea and vomiting if not relieved by zofran/promethazine, Starting Mon08/13/19 at 1154, For 4 doses, PACU (only) [facility] Medication administered onsite 4 ML Labetalol hydrochloride [...] MG, hold for HR less than 60
[facility] Medication administered onsite technetium sulfur colloid (NYCOMED-SC) solution 500 micro cu johnathan 08/13/2019 10:00:00 AM EDT 500 uCi Intravenous completed 500 micro curie, Intravenous, Once, Mon08/13/19 at 1000, For 1 dose [facility] Medication administered onsite Magnesium Chloride 0.22451 MEQ/ML / Pota ssium Chloride 0.0497 MEQ/ML / Sodium Acetate 0.0163 MEQ/ML / Sodium Chloride 0.0899 MEQ/ML / Sodium gluconate 5.02 MG/ML Injectable Solution [Normosol-R] electrolyte-R (NORMOSOL-R/PLASMALYTE-R) solution electrolyte-R (NORMOSOL-R/PLASMALYTE-R) solution 08/12 10:00:00 AM EDT Intravenous active at 1 00 mL/hr, Intravenous, Continuous, Starting Mon08/13/19 at 1000, Pre-op [facility] Medication administered onsite normal saline flush 0.9 % injection 3 mL [id number] 08/13/2019 10:00:00 AM EDT 3 mL Intravenous active 3 mL , Intravenous, Every 8 hours (scheduled), First dose on Mon08/13/19 at 1000, Pre-op
Rapid push positive pressure flushing shall be performed with a 10 cc normal saline syringe to check the PATENCY of a PIV site prior to any infusion therapy initiation unless resistance is met.
[facility] Medication administered onsite Doxycycline Monohydrate 100 MG Oral Tablet Doxycycline Monoh ydrate 03/05/2019 12:00:00 AM EDT ORAL completed [facility] ([facility]) Insurance Providers Payer name Policy type / Coverage type Policy ID Covered democrat ID Covered democrat's relationship to fish Policy Fish Plan Information [facility] [id number] SP [id number] [facility] O [id number] S [id number] SELF PAY ONLY [id number] SP [id number] [facility] [id number] SP [id number] [facility] [id number] [facility] [id number] Spo [id number] [facility] [id number] 18 [id number] [facility] AT [facility] [id number] 01 [id number] [facility] Commercial [id number] Self [id number] [facility] Commercial [id number] Self [id number] [facility] Commercial [id number] Self [id number] [facility] Commercial [id number] Self 00 [id number] [facility] Claims DPT Commercial Self [place] PPO 302/[id number] [facility] [id number] [facility] [id number] FOR LIFE [id number] [facility] [id number] [employer] [place] PPO 302/307 [id number] Problems, Conditions, and Diagnoses Code Display Name Description Problem Type Effective Dates Data Source(s) No Previous Anesthesia No Previous Anesthesia [id number] 08/08/2019 12:00:00 AM EDT [facility] C50.912 Breast cancer, left Breast cancer, left [id number] 08/08/2019 12:00:00 AM EDT [facility] K21.9 GERD (gastroesophageal reflux disease) G ERD (gastroesophageal reflux disease) [id number] 08/08/2019 12:00:00 AM EDT [facility] N20.0 Kidney stones Kidney stones [id number] 08/08/2019 12:00:00 AM EDT [facility] 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, estrogen receptor positive Malignant neoplasm of upper-outer quadra nt of left breast in female, estrogen receptor positive [id number] 0 12:00:00 AM EDT [facility] Z17.0 Estrogen receptor positive status [ER+] Estrogen receptor positive status (ER+) Diagnosis 08/13/2019 09:00:00 AM EDT [facility] C50.412 Malignant neoplasm of upper-outer quadra nt of left female breast Malignant neoplasm of upper-outer quadra Diagnosis 08/13/2019 09:00:00 AM EDT [facility] N20.0 Calculus of kidney Calculus of kidney Diagnosis 11:11:41 AM EDT [facility] K21.9 Gastro-esophageal reflux disease without esophagitis Gastro-esophageal reflux disease without Diagnosis 08/08/2019 11:11:41 AM EDT [facility] C50.912 Malignant neoplasm of unspecified site o f left female breast Malignant neoplasm of unspecified site o Diagnosis 08/08/2019 11:11:41 AM EDT [facility] [id number] Malignant neoplasm of upper-outer quadra nt of left female breast Malignant neoplasm of upper-outer quadrant of left female breast Diagnosis 07/08/2019 05:39:00 PM [facility] N630 Unspecified lump in unspecified breast U nspecified lump in unspecified breast Diagnosis 07/08/2019 05:39:00 PM [facility] Surgeries/Procedures Procedure Description Date Indications Data Source(s) RADIOLOGICAL EXAMINATION SURGICAL SPECIMEN MAMMO BREAST SPECIME N Routine 08/13/2019 11:37 AM EDT Malignant neoplasm of upper-outer quadrant of left breast in female, estrogen receptor positive 08/13/2019 03:37:20 PM EDT Malignant dick plasm of upper-outer quadrant of left breast in female, estrogen receptor positive [facility] Malignant neoplasm of upper-outer quadra nt of [...] left breast in female, estrogen receptor positive [facility] Malignant neoplasm of upper-outer quadra nt of left breast in female, estrogen receptor positive MAMMO NEEDLE LOCALIZATION LEFT MAMMO NEEDLE LOCALIZATION LEFT R outine 08/13/2019 9:45 AM EDT Malignant neoplasm of upper-outer quadrant of left breast in female, estrogen receptor positive 08/13/2019 01:45:00 PM EDT Malignant dick plasm of upper-outer quadrant of left breast in female, estrogen receptor positive [facility] Malignant neoplasm of upper-outer quadra nt of [...] left breast in female, estrogen receptor positive [facility] Malignant neoplasm of upper-outer quadra nt of left breast in female, estrogen receptor positive Results ID Date Data Source [id number] 05/27/2020 12:00:00 AM EST [facility] Gavi Ambriz DO Patient Name: TOAN [id number] Date of : 1960te 1 Date of Exam: 05/27/2020LAZARUS Lee [address]VT#: Fax: [phone] EXAM: CHEST (2 VIEW) X-RAYCLINICAL [...] rce(s) Supporting Document(s) ID Date Data Source [id number] 05/19/2020 10:33:00 PM EST [facility] ([facility]) Name Value Range Interpretation Code Description Data Mare rce(s) Supporting Document(s) Glucose, Fasting 108 mg/dL 70-100 Above high [facility] Creatinine For GFR 0.63 mg/dL 0.55-1.30 Normal (applies to non -numeric results) [facility] ([facility]) Glomerular Filtration Rate Laboratory test result Normal (applies to non- numeric results) [facility] ([facility]) <content>Units are mL/min/1.73 m2</content>
<content></content>
<content>Chronic Kidney Disease Staging per NKF:</content>
<content></content>
<content>Stage I & II GFR >=60 Normal to Mildly Decreased</content>
<content>Stage III GFR 30- 59 Moderately Decreased</content>
<content>Stage IV GFR 15-29 Severely Decreased</content>
<content>Stage V GFR <15 Very Little GFR Left</content>
<content>ESRD GFR <15 on DEWER</content>
<content></content> Blood Urea Nitrogen 11 mg/dL 7-18 Normal (applies to non-nume yunior results) [facility] ([facility]) Potassium Serum 4.0 meq/L 3.5-5.1 Normal (applies to non-numeric results) [facility] ([facility]) Sodium Level 138 meq/L 136-145 Normal (applies to non-numeric res ults) [facility] ([facility]) Chloride Level 105 meq/L 98-107 Normal (applies to non-numeric r esults) [facility] ([facility]) Anion Gap 6 meq/L 8-16 Below low normal [facility] ( [facility]) Carbon Dioxide Level 27 meq/L 21-32 Normal (applies to non-num joshua results) [facility] ([facility]) Calcium Level 8.4 mg/dL 8.5-10.1 Below low normal [facility] ([facility]) Alt/SGPT 25 U/L 12-78 Normal (applies to non-numeric resul ts) [facility] ([facility]) Ast/Sgot 18 U/L 7-37 Normal (applies to non-numeric resul ts) [facility] ([facility]) Bilirubin,Total 0.3 mg/dL 0.2-1.0 Normal (applies to non-numeric results) [facility] Alkaline Phosphatase 100 U/L 45-117 Normal (applies to non-num joshua results) [facility] ([facility]) Albumin 2.5 GM/DL 3.2-5.2 Below low normal [facility] ( [facility]) Total Protein 6.5 GM/DL 6.4-8.2 Normal (applies to non-numeric re sults) [facility] ([facility]) Albumin/Globulin Ratio 0.6 1.2-2.2 Below low normal [facility] ([facility]) ID Date Data Source [id number] 05/19/2020 10:33:00 PM EST [facility] ([facility]) Name Value Range Interpretation Code Description Data Mare rce(s) Supporting Document(s) Red Blood Count 3.64 10 4.00-5.40 Below low normal [facility] ([facility]) White Blood Count 11.2 10 4.0-10.0 Above high normal [facility] ([facility]) Mean Corpuscular Volume 91.8 fl 80.0-96.0 Normal ( applies to non-numeric results) [facility] ([facility]) Hemoglobin 10.5 g/dL 12.0-15.5 Below low normal [facility] ( [facility]) Hematocrit 33.4 % 36.0-47.0 Below low normal [facility] ( [facility]) Mean Corpuscular HGB Conc 31.4 g/dL 32.0-36.5 Below low normal [facility] ([facility]) Red Cell Distribution Width 11.4 % 11.5-14.5 Below low normal [facility] Mean Corpuscular Hemoglobin 28.8 pg 27.0-33.0 Norm al (applies to non-numeric results) [facility] ([facility]) Nucleated Red Blood Cell % 0.0 % 0-0 Normal (applies to n on-numeric results) [facility] ([facility]) Platelet Count, Automated 503 10 150-450 Above high normal [facility] ([facility]) ID Date Data Source [id number] 05/19/2020 10:07:00 PM EST [facility] Name Value Range Interpretation Code Description Data Mare rce(s) Supporting Document(s) SARS-CoV-2 (COVID 19) NEGATIVE - SARS-CoV-2 (COVID19) [facility] This lab was ordered by [facility] a nd reported by [facility]. ID Date Data Source [id number] 05/19/2020 10:07:00 PM EST [facility] ([facility]) Name Value Range Interpretation Code Description Data Mare rce(s) Supporting Document(s) Respiratory Panel Laboratory test result [facility] ([facility]) This respiratory PCR panel detects Influ daniel [...] - SARS-CoV-2 (COVID19) ID Date Data Source [id number] 05/13/2020 04:07:00 PM EST [facility] ([facility]) Name Value Range Interpretation Code Description Data Mare rce(s) Supporting Document(s) Res[facility] Panel [facility] This respiratory PCR panel detects Influ daniel [...] - SARS-CoV-2 (COVID19) ID Date Data Source [id number] 05/13/2020 04:07:00 PM EST [facility] Name Value Range Interpretation Code Description Data Mare rce(s) Supporting Document(s) SARS-CoV-2 (COVID 19) [facility] This lab was ordered by [facility] a nd reported by [facility]. ID Date Data Source [id number] 05/10/2020 12:00:00 AM EST [facility] Name Value Range Interpretation Code Description Data Mare rce(s) Supporting Document(s) SARS-CoV-2 (COVID-19) RNA [Presence] in Respiratory specimen by LAURA with probe detection [facility] This lab was ordered by [facility] and reported by [employer] ID Date Data Source [id number] 08/27/2019 04:20:28 PM EDT [facility] INFORMATIONPatient MRN Name Date of Age Gend*PT [id number] Oscar Vega 1960 59 years F SDCPT Location Admission Date/Time Visit ID Attending ProviderPERIOP VENESSA 08/13/19 0827 --- --- EPI ID CSN Admitting Provider [id number] Isabelle Martin MD([id number]) [place] [address] OPERATIVE REPORT OPNAME: TOAN VEGAJose A Egan#: [id number] #: [id number] ADMISSION DATE: 08/13/2019DOB: 1960 SEX: F PT TYPE: H SURACCT #: [id number] CARE PHYSICIAN: GAVI AMADOR-SURBEREFERRING PHYSICIAN: ISABELLE MARTINDATE OF OPERATION: 08/13/2019ATTENDING PHYSICIAN:Isabelle Martin MD.PREOPERATIVE DIAGNOSIS:Left breast invasive ductal carcinoma.POSTOPERATIVE DIAGNOSIS:Left breast invasive ductal carcinoma.PROCEDURES PERFORMED:1. Left breast excisional needle localized lumpectomy for carcinoma.2. Left axillary sentinel node biopsy.SURGEON:Isabelle Martin MD.CHORAL TEACHER:STEPHANIE Jeronimo.ANESTHESIA:General.ESTIMATED BLOOD LOSS:Minimal.COMPLICATIONS:None.BRIEF HISTORY:This is a very [...] what her finalpathology reveals.RAMÓN SIBLEY/KEILA Job #: [id number] DOC #: [id number] Name Value Range Interpretation Code Description Data Mare rce(s) Supporting Document(s) ID Date Data Source [id number] 08/13/2019 01:33:29 PM EDT [address] [address] Name: OSCAR YOUNGB: 1960ex: FOrdering Provider: ISABELLE Tenorio Prov: ISABELLE Garrido Provider: ISABELLE Calixto Performed: MAMMO BREAST SPECIMENExam Date: 08/13/2019 11:37MRN: [id number] Number: [id number] Class: OutpatientAccount #: [id number] for Exam: left breast cancerTechnique: Single specimen radiograph obtained.Comparison: Needle and wire localization exam earlier today.Findings: The localization wire as well as localized surgical clip are seen within the breast specimen.IMPRESSION: Successful needle wire localization procedure. Surgical clip seen within the breast specimen.Report electronically signed by: YUMI CUNNINGHAM On 08/13/2019 1:33 PMWorkstation ID: [id number] Name Value Range Interpretation Code Description Data Mare rce(s) Supporting Document(s) ID Date Data Source [id number] 08/13/2019 12:02:37 PM EDT [address] [address]Ejevouo Name: OSCAR Chopra HANNAHB: 2Sex: FOrdering Provider: ISABELLE Tenorio Prov: ISABELLE Garrido Provider: ISABELLE Calixto Performed: MAMMO NEEDLE LOCALIZATION LEFTExam Date: 08/13/2019 09:45MRN: [id number] Number: [id number] Class: OutpatientAccount #: [id number] for Exam: left breast cancerTechnique: CC and ML views obtainedComparison: NoneFINDINGS: Mammographic images of the left breast were obtained using the targeting grade. Appropriate coordinates were determined and the clip was targeted. One percent LIDOCAINE mixed with bicarbonate was used for superficial and deep local anesthesia.. A 3 cm [place] needle was then advanced into position.Satisfactory placement of the needle was confirmed with additional mammographic images. Subsequently a wire was advanced through the needle and locked into position. Follow-up images demonstrate needle and wire in satisfactory position adjacent to the targeted clip.)IMPRESSION: Successful needle and wire localization of a left breast marking clip.Report electronically signed by: CHRISTY MCKEON On 08/13/2019 12:02 PMWorkstation ID: [id number] - [id number] Name Value Range Interpretation Code Description Data Mare rce(s) Supporting Document(s) ID Date Data Source [id number] 08/13/2019 12:00:51 PM EDT [address] [id number] Name: OSCAR VEGADOB: 1960ex: FOrdering Provider: ISABELLE Tenorio Prov: ISABELLE Garrido Provider: ISABELLE Calixto Performed: NM SENTINEL NODE BREAST INJECTION ONLY LEFTExam Date: 08/13/2019 09:43MRN: [id number] Number: [id number] Class: OutpatientAccount #: [id number] for Exam: New left breast cancerTechnique: Left [...] sulfur colloid.The patient tolerated the procedure well.IMPRESSION: [place] node injection procedure as above.Report electronically signed by: CHRISTY MCKEON On 08/13/2019 12:00 PMWorkstation ID: [id number] - [id number] Name Value Range Interpretation Code Description Data Mare rce(s) Supporting Document(s) ID Date Data Source [id number] 08/13/2019 11:04:27 AM EDT [facility] INFORMATIONPatient MRN Name Date of Age Gend*PT [id number] Oscar Vega 1960 59 years F SDCPT Location Admission Date/Time Visit ID Attending Provider --- --- --- --- EPI ID CSN Admitting Provider [id number] ---AirwayPatient location during procedure: ORUrgency: electiveDifficult airway: [...] rce(s) Supporting Document(s) ID Date Data Source [id number] 08/18/2019 05:44:30 PM EDT [facility] [place], [place] [address]Xku# Surgical Pathology ReportAccession #:[id number](s) ReceivedA: Left [...] 0 Number of negative nodes: 2 9. ER/IA/HER2: Previously performed on the outside prior core biopsyspecimen; Annette Helton Breast [facility],[id number]. NON- NEOPLASTIC BREAST: Cyst formation, focal usual [...] 4 with trimming of A6 in block X0N7-I1. Entire slice 5 with tumor in A8 A10-A11. Entire slice 6 with tumor in D60C04-Z67. Entire slice 7 A14. Entire slice 8 [...] are entirely submitted in onecassette. Processed at [facility], Histopathology, [address] [place] [address], [id number].jglmwg/mwg Reported: 08/18/2019Electronically Signed Out By Meño Browne MD [facility]emg This report may include immunohistochemical or in-situ hybridizationresults. Testing was developed and the performance characteristicsdetermined by [facility] as required by CLIA '88. The FDAhas determined that approval for specific use is not necessary forclinical use. The quality of Hematoxylin and Eosin stains and asapplicable, for all immunohistochemical and/or special stains, includingpositive and negative controls, were reviewed and considered appropriate.ICD codes C50.912CPT codesA: 42478SR: 84557P, 55150n Name Value Range Interpretation Code Description Data Mare rce(s) Supporting Document(s) ID Date Data Source [id number] 08/08/2019 12:03:15 PM EDT [facility] INFORMATIONPatient MRN Name Date of Age Gend*PT [id number] Oscar Vega 1960 59 years F OPPT Location Admission Date/Time Visit ID Attending Provider --- --- --- Isabelle Martin MD([id number]) EPI ID CSN Admitting Provider [id number] ---OUTPATIENT / OBSERVATIONAL SURGICAL OR INVASIVE PROCEDUREName: [...] CVAT.EXTREMITIES: Pulses are symmetric. No edema.Anesthesia complications: Denied.CSHA Frailty Scale :: 2/10 Well (without active [...] rce(s) Supporting Document(s) ID Date Data Source [id number] 08/05/2019 04:23:31 PM EDT [facility] INFORMATIONPatient MRN Name Date of Age Gend*PT [id number] Oscar Vega A 1960 59 years F ---PT Location Admission Date/Time Visit ID Attending Provider --- --- --- --- EPI ID CSN Admitting Provider [id number] ---NEW CONSULTATION FOR BREAST CANCER :Attending Surgeon : Isabelle Martin MDHistory of Present Illness :She presents today alone. 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 The findings are as follows: - ER: POSITIVE (100%, strong, Kwabena 8) - IA: NEGATIVE (0%) - Her2: POSITIVE (3+)Review of [...] mastectomy. I explained that there is NO nursing home survival benefitto having a mastectomy over lumpectomy [...] oncology first and attheir recommendation place an Ammpba-l-Kysw at the time of surgery but againOscar makes it clear she may not even consider chemotherapy so I think itbest we hold offCertain parts of this note may have been carried over from prior notes tomaintain patient's pertinent medical history and continuity of care. The detailswere verified and edited as appropriate.This document or parts of this document, were dictated using [employer]. A reasonable attempt at proofreading has been made to minimizeerrors. Please call with any questions or corrections. Name Value Range Interpretation Code Description Data Mare rce(s) Supporting Document(s) ID Date Data Source [id number] 07/03/2019 12:00:00 AM EST [facility] Brina Catsro MD Patient Name: OSCAR VEGA [address] Date of : 1960[address] Date of Exam: 07/03/2019[place] [id number]#: Fax: [id number] EXAM: US EXTREMITY VEINS, BILATERAL [...] witha duration of 0.3 seconds.Accredited by the [employer] in Vascular PeripheralUltrasound.Zeus Wade, SIERRA/robertcTserafin you for referring OSCAR Chopra RENE to our office. Electronically Signed - ZEUS BAUER MD 07/04/19 13:02 Name Value Range Interpretation Code Description Data Mare rce(s) Supporting Document(s) ID Date Data Source [id number] 04/26/2019 03:49:00 PM EST [facility] ([facility]) Name Value Range Interpretation Code Description Data Mare rce(s) Supporting Document(s) Thyrotropin [Units/volume] in Serum or Plasma 0.980 uIU/ML 0. 358-3.740 Normal (applies to non-numeric results) [facility] ([facility]) Thyroxine (T4) free [Mass/volume] in Serum or Plasma 1.13 ng/dL 0.76-1.46 Normal (applies to non-numeric results) [facility] ([facility]) ID Date Data Source [id number] 04/26/2019 03:49:00 PM EST [facility] ([facility]) Name Value Range Interpretation Code Description Data Mare rce(s) Supporting Document(s) Thryoglobulin Antibodies (Yung) 3.1 IU/ml 0.0-0.9 Above high yves l [facility] ([facility]) Thyroglobulin Antibody measured by [facility] [place] [facility] Thyroglobulin Opal 2.5 ng/mL Normal (applies to non-numeri c results) [facility] ([facility]) <content>Reference Range:</content>
<content>Pubertal Children</content>
<content>and Adults: <40</content>
[...] 2.0 ng/mL.</content>
<content>Performed at: [facility]</content>
<content>[address] [place] [phone]</content>
<content>Briquetter Operator: Aniyah Andino MD, Phone: [phone]</content>
<content>Performed at: [facility]</content>
<content>[address] [place] [phone]</content>
<content>Briquetter Operator: Chito Orr MD, Phone: [phone]</content>
<content></content> ID Date Data Source [id number] 04/26/2019 03:49:00 PM EST [facility] ([facility]) Name Value Range Interpretation Code Description Data Mare rce(s) Supporting Document(s) Thyroperoxidase Ab [Units/volume] in Serum or Plasma 37.7 U/ML Normal (applies to non-numeric results) [facility] ([facility]) ID Date Data Source [id number] 04/26/2019 03:49:00 PM EST [facility] ([facility]) Name Value Range Interpretation Code Description Data Mare rce(s) Supporting Document(s) Red Blood Count 4.41 10 4.00-5.40 Normal (applies to non-numeric results) [facility] ([facility]) White Blood Count 7.1 10 4.0-10.0 Normal (applies to non-numeri c results) [facility] ([facility]) Hemoglobin 13.1 g/dL 12.0-15.5 Normal (applies to non-numeric resul ts) [facility] ([facility]) Hematocrit 39.8 % 36.0-47.0 Normal (applies to non-numeric resul ts) [facility]) Mean Corpuscular HGB Conc 32.9 g/dL 32.0-36.5 Normal (applies to non-numeric results) [facility] ([facility]) Mean Corpuscular Volume 90.2 fl 80.0-96.0 Normal ( applies to non-numeric results) [facility] ([facility]) Mean Corpuscular Hemoglobin 29.7 pg 27.0-33.0 Norm al (applies to non-numeric results) [facility] ([facility]) Platelet Count, Automated 317 10 150-450 Normal (applies to non-numeric results) [facility] ([facility]) Neutrophils % 62.1 % 36.0-66.0 Normal (applies to non-numeric re sults) [facility] ([facility]) Red Cell Distribution Width 12.9 % 11.5-14.5 Norm al (applies to non-numeric results) [facility] ([facility]) Lymph % 27.7 % 24.0-44.0 Normal (applies to non-numeric resul ts) [facility] ([facility]) [place] % 8.9 % 0.0-5.0 Above high normal [facility] ([facility]) Baso % 0.6 % 0.0-1.0 Normal (applies to non-numeric resul ts) [facility] ([facility]) Eos % 0.6 % 0.0-3.0 Normal (applies to non-numeric resul ts) [facility] ([facility]) Immature Granulocyte % 0.1 % 0-3.0 Normal (applies to non-n umeric results) [facility] ([facility]) Lymph # 2.0 10 1.5-5.0 Normal (applies to non-numeric resul ts) [facility] ([facility]) Nucleated Red Blood Cell % 0.0 % 0-0 Normal (applies to n on-numeric results) [facility] ([facility]) Neutrophils # 4.4 10 1.5-8.5 Normal (applies to non-numeric re sults) [facility] ([facility]) Baso # 0.0 10 0.0-0.2 Normal (applies to non-numeric resul ts) [facility] ([facility]) Eos # 0.0 10 0.0-0.5 Normal (applies to non-numeric resul ts) [facility] ([facility]) [place] # 0.6 10 0.0-0.8 Normal (applies to non-numeric resul ts) [facility] ([facility]) Procedure Social History Code Duration Value Status Description Data Source(s ) Alcohol intake 08/13/2019 12:00:00 AM EDT Never completed [facility] Smoking 08/13/2019 12:00:00 AM EDT Never smoker completed Never s [facility] Smoking 08/08/2019 12:00:00 AM EDT Never smoker completed Never s [facility] Alcohol intake 08/08/2019 12:00:00 AM EDT Never completed [facility] Smoking 07/11/2019 12:00:00 AM EST Patient has never smoked co mpleted Patient has never smoked [facility] ([facility]) Vital Signs ID Date Data Source UNK Name Value Range Interpretation Code Description Data Source(s) [place] body weight 115 [lb_av] 115 [lb_av] [facility] T ([facility]) Oxygen saturation in Arterial blood by Pulse oximetry 98 % 98 % [facility] ([facility]) Body temperature 101.8 [degF] 101.8 [degF] [facility] NT ([facility]) Respiratory rate 26 /min 26 /min [facility] ( [facility]) Heart rate 104 /min 104 /min [facility] ([facility]) Body mass index (BMI) [Ratio] 21.4 kg/m2 21.4 k g/m2 [facility] ([facility]) Body weight 121.00 [lb_av] 121.00 [lb_av] [facility] ([facility]) Body height 63.1 [in_i] 63.1 [in_i] [facility] ([facility] 5'3.10" Oxygen saturation in Arterial blood by Pulse oximetry 98 % 98 % [facility] Respiratory rate 16 /min 16 /min [facility] Heart rate 87 /min 87 /min [facility] Diastolic blood pressure 63 mm[Hg] 63 mm[Hg] [facility] Systolic blood pressure 120 mm[Hg] 120 mm[Hg] [facility] Body temperature 36.44 Ama 36.44 Ama [facility] Systolic blood pressure 102 mm[Hg] 102 mm[Hg] [facility] Diastolic blood pressure 67 mm[Hg] 67 mm[Hg] [facility] Heart rate 70 /min 70 /min [facility] Body height 160 cm 160 cm [facility] Body weight 54.386 kg 54.386 kg [facility] Body mass index (BMI) [Ratio] 21.24 kg/m2 21.24 kg/m2 [facility] Oxygen saturation in Arterial blood by Pulse oximetry 99 % 99 % [facility] [place] body weight 115 [lb_av] 115 [lb_av] [facility] T ([facility]) Oxygen saturation in Arterial blood by Pulse oximetry 98 % 98 % [facility] ([facility]) Body temperature 98.3 [degF] 98.3 [degF] [facility] ([facility]) Respiratory rate 18 /min 18 /min [facility] ( [facility]) Heart rate 76 /min 76 /min [facility] ([facility]) Body mass index (BMI) [Ratio] 20.7 kg/m2 20.7 k g/m2 [facility] ([facility]) Body weight 117.00 [lb_av] 117.00 [lb_av] [facility] ([facility]) Body height 63.1 [in_i] 63.1 [in_i] [facility] ([facility] 5'3.10" Diastolic blood pressure 70 mm[Hg] 70 mm[Hg] [facility] ([facility]) Systolic blood pressure 116 mm[Hg] 116 mm[Hg] [facility] ([facility]) Body weight 116.50 [lb_av] 116.50 [lb_av] [facility] ([facility]) Body height 63.1 [in_i] 63.1 [in_i] [facility] ([facility] 5'3.10" Diastolic blood pressure 86 mm[Hg] 86 mm[Hg] [facility] ([facility]) Systolic blood pressure 123 mm[Hg] 123 mm[Hg] [facility] ([facility]) Oxygen saturation in Arterial blood by Pulse oximetry 99 % 99 % [facility] ([facility]) Body temperature 98.7 [degF] 98.7 [degF] [facility] ([facility]) Respiratory rate 20 /min 20 /min [facility] ( [facility]) Heart rate 78 /min 78 /min [facility] ([facility]) Body mass index (BMI) [Ratio] 20.6 kg/m2 20.6 k g/m2 [facility] ([facility]) Oxygen saturation in Arterial blood by Pulse oximetry 99 % 99 % [facility] ([facility]) Body temperature 98.7 [degF] 98.7 [degF] [facility] ([facility]) Respiratory rate 20 /min 20 /min [facility] ( [facility]) Heart rate 65 /min 65 /min [facility] ([facility]) Body mass index (BMI) [Ratio] 20.1 kg/m2 20.1 k g/m2 [facility] ([facility]) Body weight 114.00 [lb_av] 114.00 [lb_av] RAMILA Gray ([facility]) Body height 63.1 [in_i] 63.1 [in_i] [facility] ([facility] 5'3.10" Diastolic blood pressure 86 mm[Hg] 86 mm[Hg] [facility] ([facility]) Systolic blood pressure 128 mm[Hg] 128 mm[Hg] Brigitte GAINES ([facility])
[2020-05-28 12:54] LABS: ALBUMIN 2.1 GM/DL (3.2-5.2); ALT/SGPT 29 U/L (12-78); BILIRUBIN,DIRECT < 0.1 MG/DL (0.0-0.2); BILIRUBIN,TOTAL 0.2 MG/DL (0.2-1.0); BLOOD UREA NITROGEN 11 MG/DL (7-18); CARBON DIOXIDE LEVEL 26 MEQ/L (21-32); CHLORIDE LEVEL 105 MEQ/L (98-107); CK-MB VALUE MASS < 1.0 NG/ML (<3.6); CPK CREATINE PHOSPHOKINASE 33 U/L (26-192); CREATININE FOR GFR 0.62 MG/DL (0.55-1.30); GLOMERULAR FILTRATION RATE > 60.0 (>51); GLUCOSE, FASTING 121 MG/DL (70-100); MB/CK RELATIVE INDEX 3.03 (< OR =4); POTASSIUM SERUM 3.7 MEQ/L (3.5-5.1); SODIUM LEVEL 138 MEQ/L (136-145); TOTAL PROTEIN 5.5 GM/DL (6.4-8.2); TROPONIN I < 0.02 NG/ML (< 0.10)
[2020-05-28] MEDS ORDERED: ASPI81TA26 PO (14:19)
[2020-05-28] MEDS ORDERED: ZINC1TAB2 PO (14:19)
[2020-05-28] MEDS ORDERED: LEVO750T13 PO (14:19)
[2020-05-28] MEDS ORDERED: HM I1TAB PO (14:19)
[2020-05-28] MEDS ORDERED: D31000TA2 PO (14:19)
--- NOTE | 2020-05-28 14:34 | REP ---
INDICATION: sob/lg infiltrate COMPARISON: Chest x-ray dated 05/28/2020 TECHNIQUE: Axial noncontrast images from the thoracic inlet to the upper abdomen with coronal and sagittal reformations. This CT examination was performed using the following dose reduction techniques: Automated exposure control, adjustment of mA and/or kv according to the patient's size, and use of iterative reconstruction technique. FINDINGS: Large area of consolidation with air bronchograms involving the left upper lobe as well as lingula and anterobasilar portion of the left lower lobe. Small associated left effusion noted along with reactive adenopathy. Remainder of the lung vidales are relatively well aerated and without further significant consolidation. No nodule or mass lesion. Few scattered small simple blebs are identified. Further evaluation of the mediastinum demonstrates small amount of pericardial fluid. No cardiomegaly. Thoracic aorta is without aneurysm. Surrounding musculoskeletal structures are intact. IMPRESSION: Moderate to large area of consolidation involving the left upper lobe and portions of the lingula and anterobasilar left lower lobe. Small associated pleural effusion and reactive adenopathy noted. Findings suggest multifocal pneumonia and follow-up to resolution is recommended. <Electronically signed by Francisco Mendieta > 05/28/20 [id number]
[2020-05-28] MEDS ORDERED: cefTRIAXone SOD 2 GM in D5W MINI-BAG PLUS 50 ML IV ONE (14:45)
--- NOTE | 2020-05-28 16:39 | ECGEPIP ---
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
[2020-05-28] MEDS ORDERED: FLUID PLACE HOLDER IV SCH (17:45)
[2020-05-28] MEDS ORDERED: ACETAMINOPHEN TAB 650MG DOSE (2X325MG) PO PRN (17:45)
[2020-05-28] MEDS ORDERED: VANCOMYCIN HCL IV SCH (17:45)
--- OUTSIDE RECORDS SUMMARY | 2020-05-28 17:55 | CCD ---
Author Author [facility] Organization [facility] Address Unknown Phone Unavailable Care Team Providers Care [facility] Press Operator Name Role Phone Evelyn MARTIN MD Unavailable [...] KORT, C ISABELLE MD Unavailable Unavailable MARJORIE-GABRIELA, AGVI DO Unavailable Unavailable MARJORIE-GABRIELA, GAVI DO Unavailable [...] Unavailable MARJORIE-GABRIELA, GAVI DO Unavailable Unavailable MARJORIE-GABRIELA, GAIV DO Unavailable Unavailable MARJORIE-GABRIELA, GAVI DO Unavailable [...] LEVIT,, TESS Unavailable Unavailable CICO, A MYKE ARCHITECT Unavailable Unavailable CICO, A MYKE ARCHITECT Unavailable Unavailable CICO, A MYKE ARCHITECT Unavailable Unavailable CICO, A MYKE ARCHITECT Unavailable Unavailable CICO, A MYKE ARCHITECT Unavailable Unavailable CICO, A MYKE ARCHITECT Unavailable Unavailable CICO, A MYKE ARCHITECT Unavailable Unavailable CICO, A MYKE ARCHITECT Unavailable Unavailable CICO, A MYKE ARCHITECT Unavailable Unavailable CICO, A MYKE ARCHITECT Unavailable Unavailable CICO, A MYKE ARCHITECT Unavailable Unavailable CICO, A MYKE ARCHITECT Unavailable Unavailable CICO, A MYKE ARCHITECT Unavailable Unavailable CICO, A MYKE ARCHITECT Unavailable Unavailable CICO, A MYKE ARCHITECT Unavailable Unavailable CICO, A MYKE ARCHITECT Unavailable Unavailable CICO, A MYKE ARCHITECT Unavailable Unavailable CICO, A MYKE ARCHITECT Unavailable Unavailable CICO, A MYKE ARCHITECT Unavailable Unavailable CICO, A MYKE ARCHITECT Unavailable Unavailable CICO, A MYKE ARCHITECT Unavailable Unavailable CICO, A MYKE ARCHITECT Unavailable Unavailable CICO, A MYKE ARCHITECT Unavailable Unavailable CICO, A MYKE ARCHITECT Unavailable Unavailable CICO, A MYKE ARCHITECT Unavailable Unavailable CICO, A MYKE ARCHITECT Unavailable Unavailable CICO, A MYKE ARCHITECT Unavailable Unavailable CICO, A MYKE ARCHITECT Unavailable Unavailable CICO, A MYKE ARCHITECT Unavailable Unavailable CICO, A MYKE ARCHITECT Unavailable Unavailable CICO, A MYKE ARCHITECT Unavailable Unavailable CICO, A MYKE ARCHITECT Unavailable Unavailable CICO, A MYKE ARCHITECT Unavailable Unavailable CICO, A MYKE ARCHITECT Unavailable Unavailable CICO, A MYKE ARCHITECT Unavailable Unavailable CICO, A MYKE ARCHITECT Unavailable Unavailable CICO, A MYKE ARCHITECT Unavailable Unavailable CICO, A MYKE ARCHITECT Unavailable Unavailable CICO, A MYKE ARCHITECT Unavailable Unavailable CICO, A MYKE ARCHITECT Unavailable Unavailable CICO, A MYKE ARCHITECT Unavailable Unavailable CICO, A MYKE ARCHITECT Unavailable Unavailable CICO, A MYKE ARCHITECT Unavailable Unavailable CICO, A MYKE ARCHITECT Unavailable Unavailable CICO, A MYKE ARCHITECT Unavailable Unavailable CICO, A MYKE ARCHITECT Unavailable Unavailable CICO, A MYKE ARCHITECT Unavailable Unavailable CICO, A MYKE ARCHITECT Unavailable Unavailable CICO, A MYKE ARCHITECT Unavailable Unavailable CICO, A MYKE ARCHITECT Unavailable Unavailable CICO, A MYKE ARCHITECT Unavailable Unavailable MATTHEW, PRYJMA BRINA MD Unavailable [...] is protected by Article 27-F of the [facility] Public Health law. If you continue you may have access to information: Regarding HIV / AIDS; Provided by facilities licensed or operated by the [facility] Office of Mental Health; or Provided by the [facility] Office for People With Developmental Disabilities. If such information is present, then the following [facility] mandated warning applies: This information has been [...] law may result in a fine or intermediate sentence or both. A general authorization for the release of medical or other information is NOT sufficient authorization for further disc losure. Allergies and Adverse Reactions Type Description Substance Reaction Status Data Source(s ) Propensity to adverse reactions PENICILLINS Penicillins Rash Low Ac tive [facility] Low Family History Family Member Name Family Member Gender Family Member Status Date o f Status Description Data Source(s) Unknown Male Problem [facility] ([facility]) () - age 84 Encounters Encounter Providers Location Date Indications Data Source(s ) Outpatient Attender: GAVI LEONE DO [facility] 05/13/2020 03:00:00 PM EST [facility] ([facility]) Outpatient Referrer: MYKE REAL NP 08/26/2019 09:58:45 AM E DT [facility] Outpatient Attender: ISABELLE MARTIN MDAdmitter: ISABELLE Gray MDReferrer: ISABELLE MARTIN MD ES1-SJ.NM 08/13/2019 09:00:00 AM EDT - 08/13/2019 11:59:00 PM EDT [facility] Patient discharged. Outpatient Attender: ISABELLE MARTIN MDAdmitter: ISABELLE Gray MDReferrer: ISABELLE MARTIN MD ES1-SJ.RAD 08/13/2019 08:45:00 AM EDT - 08/13/2019 08:59:00 AM EDT [facility] Patient discharged. Outpatient Attender: ISABELLE MARTIN MDReferrer: ISABELLE MARTIN MD MOB -MOB.PAT 08/08/2019 12:00:00 AM EDT - 08/08/2019 11:46:22 AM EDT [facility] Attender: ISABELLE MARTIN MDAdmitter: ISABELLE MARTIN MDRefe rrer: ISABELLE MARTIN MD ES1-OR 08/06/2019 03:31:50 PM EDT - 08/13/2019 02:30:00 PM EDT [facility] Patient discharged. Outpatient Attender: ISABELLE MARTIN MD NEPJESSIKAC-NEPESUR 0 02:55:12 PM EDT - 08/05/2019 03:57:00 PM EDT [facility] Outpatient Attender: TESS MERCHANT,Certified Midwife: JESSICA GREEN 07/08/2019 05:39:00 PM EST - 07/08/2019 05:49:00 PM EST [facility] Outpatient Referrer: BRINA CASTRO MD 07/04/2019 07:07:00 AM EST [facility] Outpatient Referrer: BRINA CASTRO MD 05/24/2019 09:56:00 AM EST [facility] Outpatient Referrer: BRINA CASTRO MD 05/24/2019 09:29:00 AM EST [facility] Outpatient Referrer: GAVI LEONE DO 05/24/2019 09 :27:00 AM EST [facility] Outpatient Attender: GAVI LEONE DO [facility] 05/17/2019 12:00:00 PM EST [facility] ([facility]) Outpatient Attender: GAVI LEONE DO [facility] 04/26/2019 12:10:00 PM EST [facility] ([facility]) Medications Medication Brand Name Start Date Product Form Dose Route Admi nistrative Instructions Pharmacy Instructions Status Indications Reaction Description Data Source(s) 120 ACTUAT Fluticasone propionate 0.11 MG/ACTUAT Meter ed Dose Inhaler [Flovent] Flovent HFA 05/18/2020 12:00:00 AM EST ORAL active [facility] ([facility]) Prednisone 20 MG Oral Tablet Prednisone 05/14/2020 12:00:00 AM EST ORAL active [facility] ([facility]) Doxycycline Monohydrate 100 MG Oral Capsule Doxycycline [place] hydrate 05/14/2020 12:00:00 AM EST ORAL active [facility] ([facility]) No Active Medications 05/13/2020 12:00:00 AM EST completed [facility] ([facility]) normal saline flush 0.9 % injection 3 mL [id number] 08/13/2019 02:00:00 PM EDT 3 mL Intravenous active 3 mL , Intravenous, Every 8 hours (scheduled), First dose on Mon08/13/19 at 1400, PACU (only)
flush per protocol, D/C Main IV fluid if appropriate
[facility] Medication administered onsite Magnesium Chloride 0.08619 MEQ/ML / Pota ssium Chloride 0.0497 MEQ/ML / Sodium Acetate 0.0163 MEQ/ML / Sodium Chloride 0.0899 MEQ/ML / Sodium gluconate 5.02 MG/ML Injectable Solution [Normosol-R] electrolyte-R (NORMOSOL-R/PLASMALYTE-R) solution electrolyte-R (NORMOSOL-R/PLASMALYTE-R) solution 08/12 01:00:00 PM EDT Intravenous active at 1 00 mL/hr, Intravenous, Continuous, Starting Mon08/13/19 at 1300, PACU (only) [facility] Medication administered onsite haloperidol lactate (HALDOL) injection 0.5 mg 71948-298-20 08/13/2019 11:54:42 AM EDT 0.5 mg Intramuscular active 0. 5 mg, Intramuscular, Every 30 min PRN, for intractable nausea and vomiting if not relieved by zofran/promethazine, Starting Mon08/13/19 at 1154, For 4 doses, PACU (only) [facility] Medication administered onsite 4 ML Labetalol hydrochloride [...] MG, hold for HR less than 60
[facility] Medication administered onsite technetium sulfur colloid (NYCOMED-SC) solution 500 micro cu johnathan 08/13/2019 10:00:00 AM EDT 500 uCi Intravenous completed 500 micro curie, Intravenous, Once, Mon08/13/19 at 1000, For 1 dose [facility] Medication administered onsite Magnesium Chloride 0.54278 MEQ/ML / Pota ssium Chloride 0.0497 MEQ/ML / Sodium Acetate 0.0163 MEQ/ML / Sodium Chloride 0.0899 MEQ/ML / Sodium gluconate 5.02 MG/ML Injectable Solution [Normosol-R] electrolyte-R (NORMOSOL-R/PLASMALYTE-R) solution electrolyte-R (NORMOSOL-R/PLASMALYTE-R) solution 08/12 10:00:00 AM EDT Intravenous active at 1 00 mL/hr, Intravenous, Continuous, Starting Mon08/13/19 at 1000, Pre-op [facility] Medication administered onsite normal saline flush 0.9 % injection 3 mL [id number] 08/13/2019 10:00:00 AM EDT 3 mL Intravenous active 3 mL , Intravenous, Every 8 hours (scheduled), First dose on Mon08/13/19 at 1000, Pre-op
Rapid push positive pressure flushing shall be performed with a 10 cc normal saline syringe to check the PATENCY of a PIV site prior to any infusion therapy initiation unless resistance is met.
[facility] Medication administered onsite Doxycycline Monohydrate 100 MG Oral Tablet Doxycycline Monoh ydrate 03/05/2019 12:00:00 AM EDT ORAL completed [facility] ([facility]) Insurance Providers Payer name Policy type / Coverage type Policy ID Covered libertarian ID Covered libertarian's relationship to fish Policy Fish Plan Information [facility] [id number] SP [id number] SELF PAY ONLY [id number] SP [id number] [facility] O [id number] S [id number] [facility] [id number] SP [id number] [facility] [id number] [facility] [id number] Spo [id number] [facility] AT [facility] [id number] 18 [id number] [facility] [id number] 01 [id number] [facility] Commercial [id number] Self 00 [id number] [facility] Commercial [id number] Self 00 [id number] [facility] Commercial [id number] Self 00 [id number] [facility] Commercial [id number] Self 00 [id number] [facility] Claims DPT Commercial Self [employer] PPO [id number] PGBA [facility] [id number] [facility] [id number] FOR LIFE [id number] [facility] [id number] [employer] [place] PPO [id number] Problems, Conditions, and Diagnoses Code Display Name Description Problem Type Effective Dates Data Source(s) No Previous Anesthesia No Previous Anesthesia [id number] 08/08/2019 12:00:00 AM EDT [facility] C50.912 Breast cancer, left Breast cancer, left [id number] 0 08/08/2019 12:00:00 AM EDT [facility] K21.9 GERD (gastroesophageal reflux disease) G ERD (gastroesophageal reflux disease) [id number] 08/08/2019 12:00:00 AM EDT [facility] N20.0 Kidney stones Kidney stones [id number] 08/08/2019 12:00:00 AM EDT [facility] 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, estrogen receptor positive Malignant neoplasm of upper-outer quadra nt of left breast in female, estrogen receptor positive [id number] 0 12:00:00 AM EDT [facility] Z17.0 Estrogen receptor positive status [ER+] Estrogen receptor positive status (ER+) Diagnosis 08/13/2019 09:00:00 AM EDT [facility] C50.412 Malignant neoplasm of upper-outer quadra nt of left female breast Malignant neoplasm of upper-outer quadra Diagnosis 08/13/2019 09:00:00 AM EDT [facility] N20.0 Calculus of kidney Calculus of kidney Diagnosis 11:11:41 AM EDT [facility] K21.9 Gastro-esophageal reflux disease without esophagitis Gastro-esophageal reflux disease without Diagnosis 08/08/2019 11:11:41 AM EDT [facility] C50.912 Malignant neoplasm of unspecified site o f left female breast Malignant neoplasm of unspecified site o Diagnosis 08/08/2019 11:11:41 AM EDT [facility] [id number] Malignant neoplasm of upper-outer quadra nt of left female breast Malignant neoplasm of upper-outer quadrant of left female breast Diagnosis 07/08/2019 05:39:00 PM [facility] N630 Unspecified lump in unspecified breast U nspecified lump in unspecified breast Diagnosis 07/08/2019 05:39:00 PM [facility] Surgeries/Procedures Procedure Description Date Indications Data Source(s) RADIOLOGICAL EXAMINATION SURGICAL SPECIMEN MAMMO BREAST SPECIME N Routine 08/13/2019 11:37 AM EDT Malignant neoplasm of upper-outer quadrant of left breast in female, estrogen receptor positive 08/13/2019 03:37:20 PM EDT Malignant dick plasm of upper-outer quadrant of left breast in female, estrogen receptor positive [facility] Malignant neoplasm of upper-outer quadra nt of [...] left breast in female, estrogen receptor positive [facility] Malignant neoplasm of upper-outer quadra nt of left breast in female, estrogen receptor positive MAMMO NEEDLE LOCALIZATION LEFT MAMMO NEEDLE LOCALIZATION LEFT R outine 08/13/2019 9:45 AM EDT Malignant neoplasm of upper-outer quadrant of left breast in female, estrogen receptor positive 08/13/2019 01:45:00 PM EDT Malignant dick plasm of upper-outer quadrant of left breast in female, estrogen receptor positive [facility] Malignant neoplasm of upper-outer quadra nt of [...] left breast in female, estrogen receptor positive [facility] Malignant neoplasm of upper-outer quadra nt of left breast in female, estrogen receptor positive Results ID Date Data Source [id number] 05/27/2020 12:00:00 AM EST [facility] Gavi Ambriz DO Patient Name: TOAN [address] Date of : 1960te 1 Date of Exam: 05/27/2020LAZARUS Lee [id number]#: Fax: [phone] EXAM: CHEST (2 VIEW) X-RAYCLINICAL [...] rce(s) Supporting Document(s) ID Date Data Source [id number] 05/19/2020 10:33:00 PM EST [facility] ([facility]) Name Value Range Interpretation Code Description Data Mare rce(s) Supporting Document(s) Glucose, Fasting 108 mg/dL 70-100 Above high normal [facility] Creatinine For GFR 0.63 mg/dL 0.55-1.30 Normal (applies to non -numeric results) [facility] ([facility]) Glomerular Filtration Rate Laboratory test result Normal (applies to non- numeric results) [facility] ([facility]) <content>Units are mL/min/1.73 m2</content>
<content></content>
<content>Chronic Kidney Disease Staging per NKF:</content>
<content></content>
<content>Stage I & II GFR >=60 Normal to Mildly Decreased</content>
<content>Stage III GFR 30- 59 Moderately Decreased</content>
<content>Stage IV GFR 15-29 Severely Decreased</content>
<content>Stage V GFR <15 Very Little GFR Left</content>
<content>ESRD GFR <15 on OPERATIONS AGENT</content>
<content></content> Blood Urea Nitrogen 11 mg/dL 7-18 Normal (applies to non-nume yunior results) [facility] ([facility]) Potassium Serum 4.0 meq/L 3.5-5.1 Normal (applies to non-numeric results) [facility] ([facility]) Sodium Level 138 meq/L 136-145 Normal (applies to non-numeric res ults) [facility] ([facility]) Chloride Level 105 meq/L 98-107 Normal (applies to non-numeric r esults) [facility] ([facility]) Anion Gap 6 meq/L 8-16 Below low normal [facility] ( [facility]) Carbon Dioxide Level 27 meq/L 21-32 Normal (applies to non-num joshua results) [facility] ([facility]) Calcium Level 8.4 mg/dL 8.5-10.1 Below low normal [facility] ([facility]) Alt/SGPT 25 U/L 12-78 Normal (applies to non-numeric resul ts) [facility] ([facility]) Ast/Sgot 18 U/L 7-37 Normal (applies to non-numeric resul ts) [facility] ([facility]) Bilirubin,Total 0.3 mg/dL 0.2-1.0 Normal (applies to non-numeric results) [facility]) Alkaline Phosphatase 100 U/L 45-117 Normal (applies to non-num joshua results) [facility] ([facility]) Albumin 2.5 GM/DL 3.2-5.2 Below low normal [facility] ( [facility]) Total Protein 6.5 GM/DL 6.4-8.2 Normal (applies to non-numeric re sults) [facility] ([facility]) Albumin/Globulin Ratio 0.6 1.2-2.2 Below low normal [facility] ([facility]) ID Date Data Source [id number] 05/19/2020 10:33:00 PM EST [facility] ([facility]) Name Value Range Interpretation Code Description Data Mare rce(s) Supporting Document(s) Red Blood Count 3.64 10 4.00-5.40 Below low normal [facility] ([facility]) White Blood Count 11.2 10 4.0-10.0 Above high normal [facility] ([facility]) Mean Corpuscular Volume 91.8 fl 80.0-96.0 Normal ( applies to non-numeric results) [facility] ([facility]) Hemoglobin 10.5 g/dL 12.0-15.5 Below low normal [facility] ( [facility]) Hematocrit 33.4 % 36.0-47.0 Below low normal [facility] ( [facility]) Mean Corpuscular HGB Conc 31.4 g/dL 32.0-36.5 Below low normal [facility] ([facility]) Red Cell Distribution Width 11.4 % 11.5-14.5 Below low normal [facility] ([facility]) Mean Corpuscular Hemoglobin 28.8 pg 27.0-33.0 Norm al (applies to non-numeric results) [facility] ([facility]) Nucleated Red Blood Cell % 0.0 % 0-0 Normal (applies to n on-numeric results) [facility] ([facility]) Platelet Count, Automated 503 10 150-450 Above high normal [facility] ([facility]) ID Date Data Source [id number] 05/19/2020 10:07:00 PM EST [facility] Name Value Range Interpretation Code Description Data Mare rce(s) Supporting Document(s) SARS-CoV-2 (COVID 19) NEGATIVE - SARS-CoV-2 (COVID19) [facility] This lab was ordered by [facility] a nd reported by [facility]. ID Date Data Source [id number] 05/19/2020 10:07:00 PM EST [facility] ([facility]) Name Value Range Interpretation Code Description Data Mare rce(s) Supporting Document(s) Respiratory Panel Laboratory test result [facility] ([facility]) This respiratory PCR panel detects Influ daniel [...] - SARS-CoV-2 (COVID19) ID Date Data Source [id number] 05/13/2020 04:07:00 PM EST [facility] ([facility]) Name Value Range Interpretation Code Description Data Mare rce(s) Supporting Document(s) Respiratory Panel [facility] This respiratory PCR panel detects Influ daniel [...] - SARS-CoV-2 (COVID19) ID Date Data Source [id number] 05/13/2020 04:07:00 PM EST [facility] Name Value Range Interpretation Code Description Data Mare rce(s) Supporting Document(s) SARS-CoV-2 (COVID 19) [facility] This lab was ordered by [facility] a nd reported by [facility]. ID Date Data Source [id number] 05/10/2020 12:00:00 AM EST [facility] Name Value Range Interpretation Code Description Data Mare rce(s) Supporting Document(s) SARS-CoV-2 (COVID-19) RNA [Presence] in Respiratory specimen by LAURA with probe detection [facility] This lab was ordered by [facility] and reported by [employer] ID Date Data Source [id number] 08/27/2019 04:20:28 PM EDT [facility] INFORMATIONPatient MRN Name Date of Age Gend*PT [id number] Oscar Vega 1960 59 years F SDCPT Location Admission Date/Time Visit ID Attending ProviderPERIOP VENESSA 08/13/19 0827 --- --- EPI ID CSN Admitting Provider [id number] Isabelle Martin MD([id number]) [place] [address] OPERATIVE REPORT OPNAME: TOAN VEGAJose A Egan#: [id number] #: [id number] ADMISSION DATE: 08/13/2019DOB: 1960 SEX: F PT TYPE: H SURACCT #: [id number] CARE PHYSICIAN: GAVI AMADOR-SURBEREFERRING PHYSICIAN: ISABELLE MARTINDATE OF OPERATION: 08/13/2019ATTENDING PHYSICIAN:Isabelle Martin MD.PREOPERATIVE DIAGNOSIS:Left breast invasive ductal carcinoma.POSTOPERATIVE DIAGNOSIS:Left breast invasive ductal carcinoma.PROCEDURES PERFORMED:1. Left breast excisional needle localized lumpectomy for carcinoma.2. Left axillary sentinel node biopsy.SURGEON:Isabelle Martin MD.WARP SPOOLER:STEPHANIE Jeronimo.ANESTHESIA:General.ESTIMATED BLOOD LOSS:Minimal.COMPLICATIONS:None.BRIEF HISTORY:This is a very [...] what her finalpathology reveals.RAMÓN SIBLEY/KEILA Job #: [id number] DOC #: [id number] Name Value Range Interpretation Code Description Data Mare rce(s) Supporting Document(s) ID Date Data Source [id number] 08/13/2019 01:33:29 PM EDT [address] [id number] Name: OSCAR YOUNGB: 1960ex: FOrdering Provider: ISABELLE Tenorio Prov: ISABELLE Garrido Provider: ISABELLE Calixto Performed: MAMMO BREAST SPECIMENExam Date: 08/13/2019 11:37MRN: [id number] Number: [id number] Class: OutpatientAccount #: [id number] for Exam: left breast cancerTechnique: Single specimen radiograph obtained.Comparison: Needle and wire localization exam earlier today.Findings: The localization wire as well as localized surgical clip are seen within the breast specimen.IMPRESSION: Successful needle wire localization procedure. Surgical clip seen within the breast specimen.Report electronically signed by: YUMI CUNNINGHAM On 08/13/2019 1:33 PMWorkstation ID: [id number] Name Value Range Interpretation Code Description Data Mare rce(s) Supporting Document(s) ID Date Data Source [id number] 08/13/2019 12:02:37 PM EDT [address] [id number] Name: OSCAR Chopra HANNAHB: 2Sex: FOrdering Provider: ISABELLE Tenorio Prov: ISABELLE Garrido Provider: ISABELLE Calixto Performed: MAMMO NEEDLE LOCALIZATION LEFTExam Date: 08/13/2019 09:45MRN: [id number] Number: [id number] Class: OutpatientAccount #: [id number] for Exam: left breast cancerTechnique: CC and ML views obtainedComparison: NoneFINDINGS: Mammographic images of the left breast were obtained using the targeting grade. Appropriate coordinates were determined and the clip was targeted. One percent LIDOCAINE mixed with bicarbonate was used for superficial and deep local anesthesia.. A 3 cm Bristol needle was then advanced into position.Satisfactory placement of the needle was confirmed with additional mammographic images. Subsequently a wire was advanced through the needle and locked into position. Follow-up images demonstrate needle and wire in satisfactory position adjacent to the targeted clip.)IMPRESSION: Successful needle and wire localization of a left breast marking clip.Report electronically signed by: CHRISTY MCKEON On 08/13/2019 12:02 PMWorkstation ID: [id number] Name Value Range Interpretation Code Description Data Mare rce(s) Supporting Document(s) ID Date Data Source [id number] 08/13/2019 12:00:51 PM EDT [address] [id number] Name: OSCAR VEGADOB: 1960ex: FOrdering Provider: ISABELLE Tenorio Prov: ISABELLE Garrido Provider: ISABELLE Calixto Performed: NM SENTINEL NODE BREAST INJECTION ONLY LEFTExam Date: 08/13/2019 09:43MRN: [id number] Number: [id number] Class: OutpatientAccount #: [id number] for Exam: New left breast cancerTechnique: Left [...] sulfur colloid.The patient tolerated the procedure well.IMPRESSION: [place] node injection procedure as above.Report electronically signed by: CHRISTY MCKEON On 08/13/2019 12:00 PMWorkstation ID: [id number] Name Value Range Interpretation Code Description Data Mare rce(s) Supporting Document(s) ID Date Data Source [id number] 08/13/2019 11:04:27 AM EDT [facility] INFORMATIONPatient MRN Name Date of Age Gend*PT [id number] Oscar Vega 1960 59 years F SDCPT Location Admission Date/Time Visit ID Attending Provider --- --- --- --- EPI ID CSN Admitting Provider [id number] ---AirwayPatient location during procedure: ORUrgency: electiveDifficult airway: [...] rce(s) Supporting Document(s) ID Date Data Source [id number] 08/18/2019 05:44:30 PM EDT Lab [facility] [place], [place] [address]Wwx# Surgical Pathology ReportAccession #:[id number](s) ReceivedA: Left [...] 0 Number of negative nodes: 2 9. ER/ND/HER2: Previously performed on the outside prior core biopsyspecimen; Annette Helton Breast [facility],[id number]. NON- NEOPLASTIC BREAST: Cyst formation, focal usual [...] 4 with trimming of A6 in block L8C8-K5. Entire slice 5 with tumor in A8 A10-A11. Entire slice 6 with tumor in [id number]. Entire slice 7 A14. Entire slice 8 [...] are entirely submitted in onecassette. Processed at [facility], Histopathology, [address] [place] [address], [id number].jglmwg/mwg Reported: 08/18/2019Electronically Signed Out By Meño Browne MD [facility]emg This report may include immunohistochemical or in-situ hybridizationresults. Testing was developed and the performance characteristicsdetermined by [facility] as required by CLIA '88. The FDAhas determined that approval for specific use is not necessary forclinical use. The quality of Hematoxylin and Eosin stains and asapplicable, for all immunohistochemical and/or special stains, includingpositive and negative controls, were reviewed and considered appropriate.ICD codes C50.912CPT codesA: 76589VC: 02721K, 18944s Name Value Range Interpretation Code Description Data Mare rce(s) Supporting Document(s) ID Date Data Source [id number] 08/08/2019 12:03:15 PM EDT [facility] INFORMATIONPatient MRN Name Date of Age Gend*PT [id number] Oscar Vega 1960 59 years F OPPT Location Admission Date/Time Visit ID Attending Provider --- --- --- Isabelle Martin MD([id number]) EPI ID CSN Admitting Provider [id number] ---OUTPATIENT / OBSERVATIONAL SURGICAL OR INVASIVE PROCEDUREName: [...] rce(s) Supporting Document(s) ID Date Data Source [id number] 08/05/2019 04:23:31 PM EDT [facility] INFORMATIONPatient MRN Name Date of Age Gend*PT [id number] Oscar Vega A 1960 59 years F ---PT Location Admission Date/Time Visit ID Attending Provider --- --- --- --- EPI ID CSN Admitting Provider [id number] ---NEW CONSULTATION FOR BREAST CANCER :Attending Surgeon : Isabelle Martin MDHistory of Present Illness :She presents today alone. 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 The findings are as follows: - ER: POSITIVE (100%, strong, Kwabena 8) - ND: NEGATIVE (0%) - Her2: POSITIVE (3+)Review of [...] mastectomy. I explained that there is NO snf survival benefitto having a mastectomy over lumpectomy [...] oncology first and attheir recommendation place an Bqtibo-q-Xbrt at the time of surgery but againOscar makes it clear she may not even consider chemotherapy so I think itbest we hold offCertain parts of this note may have been carried over from prior notes tomaintain patient's pertinent medical history and continuity of care. The detailswere verified and edited as appropriate.This document or parts of this document, were dictated using [employer]ware. A reasonable attempt at proofreading has been made to minimizeerrors. Please call with any questions or corrections. Name Value Range Interpretation Code Description Data Mare rce(s) Supporting Document(s) ID Date Data Source [id number] 07/03/2019 12:00:00 AM EST [facility] Brina Castro MD Patient Name: OSCAR VEGA [address] Date of : 1960[address] Date of Exam: 07/03/2019LAZARUS De [place] [id number]#: Fax: [phone] EXAM: US EXTREMITY VEINS, BILATERAL [...] witha duration of 0.3 seconds.Accredited by the [employer] in Vascular PeripheralUltrasound.Zeus Wade, SIERRA/robertcTserafin you for referring OSCAR Chopra RENE to our office. Electronically Signed - ZEUS BAUER MD 07/04/19 13:02 Name Value Range Interpretation Code Description Data Mare rce(s) Supporting Document(s) ID Date Data Source [id number] 04/26/2019 03:49:00 PM EST [facility] ([facility]) Name Value Range Interpretation Code Description Data Mare rce(s) Supporting Document(s) Thyrotropin [Units/volume] in Serum or Plasma 0.980 uIU/ML 0. 358-3.740 Normal (applies to non-numeric results) [facility] ([facility]) Thyroxine (T4) free [Mass/volume] in Serum or Plasma 1.13 ng/dL 0.76-1.46 Normal (applies to non-numeric results) [facility] ([facility]) ID Date Data Source [id number] 04/26/2019 03:49:00 PM EST [facility] ([facility]) Name Value Range Interpretation Code Description Data Mare rce(s) Supporting Document(s) Thryoglobulin Antibodies (Yung) 3.1 IU/ml 0.0-0.9 Above high yves l [facility] ([facility]) Thyroglobulin Antibody measured by Beckm an Rillito Methodology Thyroglobulin Opal 2.5 ng/mL Normal (applies to non-numeri c results) [facility] ([facility]) <content>Reference Range:</content>
<content>Pubertal Children</content>
<content>and Adults: <40</content>
[...] 2.0 ng/mL.</content>
<content>Performed at: [facility]</content>
<content>[address] [place] [phone]</content>
<content>Frame Stripper And Crusher: Aniyah Andino MD, Phone: [phone]</content>
<content>Performed at: [facility]</content>
<content>[address] [place] [phone]</content>
<content>[employer] Stripper [employer] Crusher: Chito Orr MD, Phone: [phone]</content>
<content></content> ID Date Data Source [id number] 04/26/2019 03:49:00 PM EST [facility] ([facility]) Name Value Range Interpretation Code Description Data Mare rce(s) Supporting Document(s) Thyroperoxidase Ab [Units/volume] in Serum or Plasma 37.7 U/ML Normal (applies to non-numeric results) [facility] ([facility]) ID Date Data Source [id number] 04/26/2019 03:49:00 PM EST [facility] ([facility]) Name Value Range Interpretation Code Description Data Mare rce(s) Supporting Document(s) Red Blood Count 4.41 10 4.00-5.40 Normal (applies to non-numeric results) [facility] ([facility]) White Blood Count 7.1 10 4.0-10.0 Normal (applies to non-numeri c results) [facility] ([facility]) Hemoglobin 13.1 g/dL 12.0-15.5 Normal (applies to non-numeric resul ts) [facility] ([facility]) Hematocrit 39.8 % 36.0-47.0 Normal (applies to non-numeric resul ts) [facility] ([facility]) Mean Corpuscular HGB Conc 32.9 g/dL 32.0-36.5 Normal (applies to non-numeric results) [facility] ([facility]) Mean Corpuscular Volume 90.2 fl 80.0-96.0 Normal ( applies to non-numeric results) [facility] ([facility]) Mean Corpuscular Hemoglobin 29.7 pg 27.0-33.0 Norm al (applies to non-numeric results) [facility] ([facility]) Platelet Count, Automated 317 10 150-450 Normal (applies to non-numeric results) [facility] ([facility]) Neutrophils % 62.1 % 36.0-66.0 Normal (applies to non-numeric re sults) [facility] ([facility]) Red Cell Distribution Width 12.9 % 11.5-14.5 Norm al (applies to non-numeric results) [facility] ([facility]) Lymph % 27.7 % 24.0-44.0 Normal (applies to non-numeric resul ts) [facility] ([facility]) [place] % 8.9 % 0.0-5.0 Above high normal [facility] ([facility]) Baso % 0.6 % 0.0-1.0 Normal (applies to non-numeric resul ts) [facility] ([facility]) Eos % 0.6 % 0.0-3.0 Normal (applies to non-numeric resul ts) [facility] ([facility]) Immature Granulocyte % 0.1 % 0-3.0 Normal (applies to non-n umeric results) [facility] ([facility]) Lymph # 2.0 10 1.5-5.0 Normal (applies to non-numeric resul ts) [facility] ([facility]) Nucleated Red Blood Cell % 0.0 % 0-0 Normal (applies to n on-numeric results) [facility] ([facility]) Neutrophils # 4.4 10 1.5-8.5 Normal (applies to non-numeric re sults) [facility] ([facility]) Baso # 0.0 10 0.0-0.2 Normal (applies to non-numeric resul ts) [facility] ([facility]) Eos # 0.0 10 0.0-0.5 Normal (applies to non-numeric resul ts) [facility] ([facility]) [place] # 0.6 10 0.0-0.8 Normal (applies to non-numeric resul ts) [facility] ([facility]) Procedure Social History Code Duration Value Status Description Data Source(s ) Alcohol intake 08/13/2019 12:00:00 AM EDT Never completed [facility] Smoking 08/13/2019 12:00:00 AM EDT Never smoker completed Never s [facility] Smoking 08/08/2019 12:00:00 AM EDT Never smoker completed Never s [facility] Alcohol intake 08/08/2019 12:00:00 AM EDT Never completed [facility] Smoking 07/11/2019 12:00:00 AM EST Patient has never smoked co mpleted Patient has never smoked [facility] ([facility]) Vital Signs ID Date Data Source UNK Name Value Range Interpretation Code Description Data Source(s) [place] body weight 115 [lb_av] 115 [lb_av] [facility] T ([facility]) Oxygen saturation in Arterial blood by Pulse oximetry 98 % 98 % [facility] ([facility]) Body temperature 101.8 [degF] 101.8 [degF] MED[facility] NT ([facility]) Respiratory rate 26 /min 26 /min [facility] ( [facility]) Heart rate 104 /min 104 /min [facility] ([facility]) Body mass index (BMI) [Ratio] 21.4 kg/m2 21.4 k g/m2 [facility] ([facility]) Body weight 121.00 [lb_av] 121.00 [lb_av] [facility] T ([facility]) Body height 63.1 [in_i] 63.1 [in_i] [facility] ([facility]) 5'3.10" Oxygen saturation in Arterial blood by Pulse oximetry 98 % 98 % [facility] Respiratory rate 16 /min 16 /min [facility] Heart rate 87 /min 87 /min [facility] Diastolic blood pressure 63 mm[Hg] 63 mm[Hg] [facility] Systolic blood pressure 120 mm[Hg] 120 mm[Hg] [facility] Body temperature 36.44 Ama 36.44 Ama [facility] Systolic blood pressure 102 mm[Hg] 102 mm[Hg] [facility] Diastolic blood pressure 67 mm[Hg] 67 mm[Hg] [facility] Heart rate 70 /min 70 /min [facility] Body height 160 cm 160 cm [facility] Body weight 54.386 kg 54.386 kg [facility] Body mass index (BMI) [Ratio] 21.24 kg/m2 21.24 kg/m2 [facility] Oxygen saturation in Arterial blood by Pulse oximetry 99 % 99 % [facility] [place] body weight 115 [lb_av] 115 [lb_av] [facility] T ([facility]) Oxygen saturation in Arterial blood by Pulse oximetry 98 % 98 % [facility] ([facility]) Body temperature 98.3 [degF] 98.3 [degF] [facility] ([facility]) Respiratory rate 18 /min 18 /min [facility] ( [facility]) Heart rate 76 /min 76 /min [facility] ([facility]) Body mass index (BMI) [Ratio] 20.7 kg/m2 20.7 k g/m2 [facility] ([facility]) Body weight 117.00 [lb_av] 117.00 [lb_av] [facility] T ([facility]) Body height 63.1 [in_i] 63.1 [in_i] [facility] ([facility]) 5'3.10" Diastolic blood pressure 70 mm[Hg] 70 mm[Hg] [facility] ([facility]) Systolic blood pressure 116 mm[Hg] 116 mm[Hg] M EDENT ([facility]) Body weight 116.50 [lb_av] 116.50 [lb_av] [facility] T ([facility]) Body height 63.1 [in_i] 63.1 [in_i] [facility] ([facility]) 5'3.10" Diastolic blood pressure 86 mm[Hg] 86 mm[Hg] [facility] ([facility]) Systolic blood pressure 123 mm[Hg] 123 mm[Hg] M EDENT ([facility]) Oxygen saturation in Arterial blood by Pulse oximetry 99 % 99 % [facility] ([facility]) Body temperature 98.7 [degF] 98.7 [degF] [facility] ([facility]) Respiratory rate 20 /min 20 /min [facility] ( [facility]) Heart rate 78 /min 78 /min [facility] ([facility]) Body mass index (BMI) [Ratio] 20.6 kg/m2 20.6 k g/m2 [facility] ([facility]) Oxygen saturation in Arterial blood by Pulse oximetry 99 % 99 % [facility] ([facility]) Body temperature 98.7 [degF] 98.7 [degF] [facility] ([facility]) Respiratory rate 20 /min 20 /min [facility] ( [facility]) Heart rate 65 /min 65 /min [facility] ([facility]) Body mass index (BMI) [Ratio] 20.1 kg/m2 20.1 k g/m2 ANTONIA ([facility]) Body weight 114.00 [lb_av] 114.00 [lb_av] RAMILA Gray ([facility]) Body height 63.1 [in_i] 63.1 [in_i] [facility] ([facility]) 5'3.10" Diastolic blood pressure 86 mm[Hg] 86 mm[Hg] [facility] ([facility]) Systolic blood pressure 128 mm[Hg] 128 mm[Hg] Brigitte GAINES ([facility])
--- NOTE | 2020-05-28 17:58 | HPEPDOC ---
General Date of Admission 05/29/20 Date of Service: May 28, 2020 Chief Complaint The patient is a 60-year-old female admitted with a reason for visit of SOB. Source: Patient Exam Limitations: No limitations Timing/Duration: Week(s) Severity: Moderate History of Present Illness Patient is 60 years old female with past mental history of left sided breast cancer, treated with lumpectomy and radiation in 2019 presented to the hospital with shortness of breath and weakness. Patient stated that 4 weeks ago she started feeling weak and short of breath with intermittent cough. Patient went to primary care physician and she was found to have left-sided infiltrate on x- ray. Patient received 5 days course of levofloxacin w/o improvement and then 5 days course of doxycycline w/o improvement. In ER patient was found to have on CT moderate to large area of consolidation involving the left upper lobe and portions of the lingula and alveolobasilar left lower lobe. Small associated pleural effusion and reactive adenopathy noted. Labs pertinent for no leukocytosis. Home Medications Scheduled Aspirin (Aspirin EC) 81 Mg Tablet.dr, 81 MG PO QHS, (Reported) Cholecalciferol (Vitamin D3) (Vitamin D3) 1,000 Unit Tablet, 1,000 UNITS PO QHS, (Reported) Fluticasone Propionate (Flovent Hfa) 110 Mcg/Act Aer.w.adap, 2 PUFF INH BID, (Reported) Guaifenesin (Mucinex) 600 Mg Tab.er.12h, 600 MG PO BID, (Reported) Levofloxacin (Levofloxacin) 750 Mg Tablet, 750 MG PO QHS, (Reported) STARTED 05/27 FOR 10 DAYS Zinc (Zinc) 50 Mg Tablet, 50 MG PO QHS, (Reported) Scheduled PRN Ibuprofen (Ibuprofen Ib) 200 Mg Tablet, 600 MG PO Q6H PRN for PAIN, (Reported) Allergies Coded Allergies: Penicillins (Verified Allergy, Unknown, RASH, 05/28/20) Past Medical History Medical History Left sided Breast cancer treated with lumpectomy and radiation in 2019, Lyme diseases, nephrolithiasis Surgical History Left-sided lumpectomy Family History I personally reviewed family history and found not pertinent Social History * Smoker: Denies Alcohol: Denies Drugs: denies A-FIB/CHADSVASC A-FIB History Current/History of A-Fib/PAF?: No Current PO Anticoag Therapy: No Review of Systems Constitutional: Reports: Chills, Weakness Eyes: Denies: Pain ENT: Denies: Head Aches, Ear Pain Skin: Denies: Rash Pulmonary: Reports: Dyspnea, Cough Cardiovascular: Denies: Chest Pain, Palpitations Gastrointestinal: Denies: Nausea, Vomiting Genitourinary: Denies: Dysuria Hematologic: Denies: Bruising Endocrine: Denies: Polydipsia Musculoskeletal: Denies: Neck Pain Neurological: Denies: Weakness Psych: Reports: Mood Normal Physical Examination General Exam: Positive: Alert, Cooperative Eye Exam: Positive: PERRLA ENT Exam: Positive: Atraumatic Neck Exam: Positive: Supple; Negative: JVD Chest Exam: Positive: Diminished Heart Exam: Positive: Rate Normal Telemetry: Positive: No significant arrhythmia Abdomen Exam: Positive: Normal bowel sounds Extremity Exam: Negative: Clubbing, Cyanosis Skin Exam: Positive: Nl turgor and temperature Neuro Exam: Positive: Strength at 5/5 X4 ext Psych Exam: Positive: Mental status NL Vital Signs Vital Signs Date Time Temp Pulse Resp B/P (MAP) Pulse Ox O2 Delivery O2 Flow Rate FiO2 05/28/20 16:00 80 17 97 Room Air 05/28/20 15:45 108/66 (80) 05/28/20 10:58 98.4 Laboratory Data Labs 24H Laboratory Tests 2 05/28/20 11:53: Immature Granulocyte % (Auto) 0.8, Neutrophils (%) (Auto) 81.2H, Lymphocytes (%) (Auto) 6.8L, Monocytes (%) (Auto) 10.4H, Eosinophils (%) (Auto) 0.6, Basophils (%) (Auto) 0.2, Neutrophils # (Auto) 7.9, Lymphocytes # (Auto) 0.7L, Monocytes # (Auto) 1.0H, Eosinophils # (Auto) 0.1, Basophils # (Auto) 0.0, Nucleated Red Blood Cells % (auto) 0.0, Anion Gap 7L, Glomerular Filtration Rate > 60.0, Calcium Level 8.0L, Total Bilirubin 0.2, Direct Bilirubin < 0.1, Aspartate Amino Transf (AST/SGOT) 26, Alanine Aminotransferase (ALT/SGPT) 29, Alkaline Phosphatase 98, Total Creatine Kinase 33, Creatine Kinase MB < 1.0, Creatine Kinase MB Relative Index 3.03, Troponin I < 0.02, Total Protein 5.5L, Albumin 2.1L, Albumin/Globulin Ratio 0.6L, Thyroid Stimulating Hormone (TSH) 2.170 05/28/20 11:59: POC Glucose (Misc Panel) 119H, POC Sodium (Misc Panel) 137, POC Potassium (Misc Panel) 3.3L, POC Chloride (Misc Panel) 100, POC Total CO2 (Misc Panel) 24.0, POC Blood Urea Nitrogen (Misc Panel 9, POC Ionized Calcium (Misc Panel) 4.4L, POC Creatinine (Misc Panel) 0.5L, POC Hematocrit (Misc Panel) 30.0L CBC/BMP Laboratory Tests 05/28/20 11:53 Microbiology Microbiology 05/28/20 Respiratory Virus Panel (PCR) (NANCY) - Final, Complete 05/28/20 Blood Culture, Received Pending 05/28/20 Blood Culture, Received Pending Assessment/Plan Patient is 60 years old female with past mental history of left sided breast cancer, treated with lumpectomy and radiation in 2019 presented to the hospital with shortness of breath and weakness. Patient stated that 4 weeks ago she started feeling weak and short of breath with intermittent cough. Patient went to primary care physician and she was found to have left-sided infiltrate on x- ray. Patient received 5 days course of levofloxacin w/o improvement and then 5 days course of doxycycline w/o improvement. In ER patient was found to have on CT moderate to large area of consolidation involving the left upper lobe and portions of the lingula and alveolobasilar left lower lobe. Small associated pleural effusion and reactive adenopathy noted. Labs pertinent for no leukocytosis. Problems (1) Pneumonia involving left lung Status: Acute Problem Text: Community-acquired pneumonia, resistant to quinolones and doxycycline Cefepime IV, vancomycin IV MRSA screen Incentive spirometry Inhalers Prednisone 40 mg (2) Breast cancer, left Status: Acute Problem Text: Follow-up with oncologist in the outpatient settings Plan / VTE VTE Prophylaxis Ordered?: Yes SINTIA MIDDLETON DO May 28, 2020 17:58
[2020-05-28] MEDS ORDERED: predniSONE 20 MG TAB PO ONE (18:00)
[2020-05-28] MEDS ORDERED: VANCOMYCIN HCL 1,000 MG, VIAL MATE ADAPTER 1 EACH in D5W 250 ML IV ONE (19:00)
[2020-05-28] MEDS: FLUTICASONE HFA 110 MCG 12 GM INHALER (FLOVENT) INH SCH (20:00)
[2020-05-28] MEDS: IPRATROPIUM 0.5MG/ALBUTEROL 2.5MG INH SOL UD 3ML (DUONEB) NEB SCH (20:43)
[2020-05-28 22:02] VITALS: BP 115/61
[2020-05-28] MEDS: VITAMIN D 1,000 INTERNATIONAL UNITS TABLET PO SCH (22:37)
[2020-05-28] MEDS: ASPIRIN 81 MG ENTERIC TAB PO SCH (22:37)
[2020-05-28] MEDS: guaiFENesin ER 600 MG TAB PO SCH (22:37)
[2020-05-29] MEDS: CEFEPIME HCL 1 GM in D5W 50 ML IV SCH ×2 (03:09→16:26)
[2020-05-29 06:00] VITALS: BP 115/61
[2020-05-29 06:03] LABS: HEMATOCRIT 35.8 % (36.0-47.0); HEMOGLOBIN 10.8 g/dl (12.0-15.5); MEAN CORPUSCULAR HGB CONC 30.2 g/dl (32.0-36.5); MEAN CORPUSCULAR VOLUME 92.7 fl (80.0-96.0); PLATELET COUNT, AUTOMATED 497 10^3/uL (150-450); RED BLOOD COUNT 3.86 10^6/uL (4.00-5.40); WHITE BLOOD COUNT 8.8 10^3/uL (4.0-10.0)
[2020-05-29 06:28] LABS: ALBUMIN 2.2 GM/DL (3.2-5.2); ALT/SGPT 36 U/L (12-78); BILIRUBIN,TOTAL 0.2 MG/DL (0.2-1.0); BLOOD UREA NITROGEN 9 MG/DL (7-18); CALCIUM LEVEL 8.4 MG/DL (8.5-10.1); CARBON DIOXIDE LEVEL 25 MEQ/L (21-32); CHLORIDE LEVEL 107 MEQ/L (98-107); CREATININE FOR GFR 0.76 MG/DL (0.55-1.30); GLOMERULAR FILTRATION RATE > 60.0 (>51); GLUCOSE, FASTING 148 MG/DL (70-100); MAGNESIUM LEVEL 2.5 MG/DL (1.8-2.4); POTASSIUM SERUM 4.3 MEQ/L (3.5-5.1); SODIUM LEVEL 141 MEQ/L (136-145)
[2020-05-29] MEDS: FLUTICASONE HFA 110 MCG 12 GM INHALER (FLOVENT) INH SCH ×2 (07:12→19:45)
[2020-05-29] MEDS: IPRATROPIUM 0.5MG/ALBUTEROL 2.5MG INH SOL UD 3ML (DUONEB) NEB SCH ×3 (07:12→19:45)
[2020-05-29] MEDS ORDERED: VANCOMYCIN HCL 1,000 MG, VIAL MATE ADAPTER 1 EACH in D5W 250 ML IV SCH (08:00)
[2020-05-29] MEDS: guaiFENesin ER 600 MG TAB PO SCH ×2 (08:04→20:15)
[2020-05-29] MEDS: PANTOPRAZOLE 40MG TAB (PROTONIX) PO SCH (08:04)
[2020-05-29] MEDS: predniSONE 20 MG TAB PO SCH (08:04)
[2020-05-29] MEDS: AZITHROMYCIN 250MG TABLET PO SCH (08:04)
[2020-05-29] MEDS: ENOXAPARIN 40MG/0.4ML SYRINGE (J1650 PER 10MG) SC SCH (08:05)
[2020-05-29 14:00] VITALS: BP 108/62
--- NOTE | 2020-05-29 16:47 | IPNPDOC ---
Text Note Date of Service The patient was seen on 05/29/20. NOTE Subjective: No any acute events overnight Objective: GENERAL APPEARANCE: NAD HEENT: no scleral icterus, no JVD, EOMI CARDIOVASCULAR: S1S2 LUNGS: Diminished lung sounds over the left lung field ABDOMEN: soft & not tender w palpitation MUSCULOSKELETAL: no cyanosis, no swelling INTEGUMENT: no generalized palor NEUROLOGICAL: cranial nerve function from 2-12 intact intact, follows commands, speech not dysarthric Assessment/Plan Patient is 60 years old female with past mental history of left sided breast cancer, treated with lumpectomy and radiation in 2019 presented to the hospital with shortness of breath and weakness. Patient stated that 4 weeks ago she sta rted feeling weak and short of breath with intermittent cough. Patient went to primary care physician and she was found to have left-sided infiltrate on x-ray. Patient received 5 days course of levofloxacin w/o improvement and then 5 days course of doxycycline w/o improvement. In ER patient was found to have on CT moderate to large area of consolidation involving the left upper lobe and portions of the lingula and alveolobasilar left lower lobe. Small associated pleural effusion and reactive adenopathy noted. Labs pertinent for no leukocytosis. Problems (1) Pneumonia involving left lung Community-acquired pneumonia, resistant to quinolones and doxycycline Cefepime IV, DC vancomycin IV, MRSA negative Azithromycin added Incentive spirometry Inhalers Prednisone 40 mg (2) Breast cancer, left Follow-up with oncologist in the outpatient settings VS,Melonie, I+O VS, Bobe, I+O Laboratory Tests 05/29/20 05:42 Vital Signs Date Time Temp Pulse Resp B/P (MAP) Pulse Ox O2 Delivery O2 Flow Rate FiO2 05/29/20 14:00 97.9 89 18 108/62 (77) 98 Room Air I&O- Last 24 Hours up to 6 AM 05/29/20 06:00 Intake Total 370 ml Output Total 1000 ml Balance -630 ml SINTIA MIDDLETON DO May 29, 2020 16:47
[2020-05-29] MEDS: ASPIRIN 81 MG ENTERIC TAB PO SCH (20:14)
[2020-05-29] MEDS: VITAMIN D 1,000 INTERNATIONAL UNITS TABLET PO SCH (20:15)
[2020-05-29 22:00] VITALS: BP 118/59
[2020-05-30] MEDS: CEFEPIME HCL 1 GM in D5W 50 ML IV SCH ×2 (03:15→15:03)
[2020-05-30 06:00] VITALS: BP 109/52
[2020-05-30 07:16] LABS: BASO % 0.1 % (0.0-1.0); HEMATOCRIT 30.5 % (36.0-47.0); HEMOGLOBIN 9.7 g/dl (12.0-15.5); LYMPH # 1.3 10^3/uL (1.5-5.0); MEAN CORPUSCULAR HEMOGLOBIN 29.7 pg (27.0-33.0); MEAN CORPUSCULAR HGB CONC 31.8 g/dl (32.0-36.5); MEAN CORPUSCULAR VOLUME 93.3 fl (80.0-96.0); MONO % 6.6 % (0.0-5.0); NEUTROPHILS # 12.1 10^3/uL (1.5-8.5); NEUTROPHILS % 83.4 % (36.0-66.0); PLATELET COUNT, AUTOMATED 459 10^3/uL (150-450); RED BLOOD COUNT 3.27 10^6/uL (4.00-5.40); WHITE BLOOD COUNT 14.5 10^3/uL (4.0-10.0)
[2020-05-30 07:43] LABS: ALBUMIN 1.8 GM/DL (3.2-5.2); ALT/SGPT 28 U/L (12-78); BILIRUBIN,TOTAL 0.3 MG/DL (0.2-1.0); BLOOD UREA NITROGEN 13 MG/DL (7-18); CALCIUM LEVEL 8.4 MG/DL (8.5-10.1); CARBON DIOXIDE LEVEL 28 MEQ/L (21-32); CHLORIDE LEVEL 108 MEQ/L (98-107); GLOMERULAR FILTRATION RATE > 60.0 (>51); GLUCOSE, FASTING 94 MG/DL (70-100); MAGNESIUM LEVEL 2.4 MG/DL (1.8-2.4); POTASSIUM SERUM 4.2 MEQ/L (3.5-5.1); SODIUM LEVEL 141 MEQ/L (136-145); TOTAL PROTEIN 5.1 GM/DL (6.4-8.2)
[2020-05-30] MEDS: FLUTICASONE HFA 110 MCG 12 GM INHALER (FLOVENT) INH SCH ×2 (08:10→20:53)
[2020-05-30] MEDS: IPRATROPIUM 0.5MG/ALBUTEROL 2.5MG INH SOL UD 3ML (DUONEB) NEB SCH ×3 (08:10→20:00)
[2020-05-30] MEDS: ENOXAPARIN 40MG/0.4ML SYRINGE (J1650 PER 10MG) SC SCH (09:00)
[2020-05-30] MEDS: predniSONE 20 MG TAB PO SCH (09:20)
[2020-05-30] MEDS: guaiFENesin ER 600 MG TAB PO SCH ×2 (09:20→20:23)
[2020-05-30] MEDS: PANTOPRAZOLE 40MG TAB (PROTONIX) PO SCH (09:20)
[2020-05-30] MEDS: AZITHROMYCIN 250MG TABLET PO SCH (09:20)
--- NOTE | 2020-05-30 09:52 | REP ---
INDICATION: PNA COMPARISON: 05/27/2020. TECHNIQUE: PA/Lateral FINDINGS: Left lung infiltrates continue to gradually improve although there are significant there is a Jewel infiltrates remaining. Right lung remains clear. Heart mediastinum are unchanged. There appears to be a new small left pleural effusion. IMPRESSION: Moderate left lung infiltrates are improving. New small left pleural effusion. <Electronically signed by Zeus Daniel > 05/30/20 0948
--- NOTE | 2020-05-30 13:56 | IPNPDOC ---
Text Note Date of Service The patient was seen on 05/30/20. NOTE Subjective: Patient stated that she feels better today. Patient denies fever, chills, nausea,, diarrhea dysuria Objective: GENERAL APPEARANCE: NAD HEENT: no scleral icterus, no JVD, EOMI CARDIOVASCULAR: S1S2 LUNGS: Diminished lung sounds over the left lung field ABDOMEN: soft & not tender w palpitation MUSCULOSKELETAL: no cyanosis, no swelling INTEGUMENT: no generalized palor NEUROLOGICAL: cranial nerve function from 2-12 intact intact, follows commands, speech not dysarthric Assessment/Plan Patient is 60 years old female with past mental history of left sided breast cancer, treated with lumpectomy and radiation in 2019 presented to the hospital with shortness of breath and weakness. Patient stated that 4 weeks ago she started feeling weak and short of breath with intermittent cough. Patient went to primary care physician and she was found to have left-sided infiltrate on x- ray. Patient received 5 days course of levofloxacin w/o improvement and then 5 days course of doxycycline w/o improvement. In ER patient was found to have on CT moderate to large area of consolidation involving the left upper lobe and portions of the lingula and alveolobasilar left lower lobe. Small associated pleural effusion and reactive adenopathy noted. Labs pertinent for no leukocytosis. Problems (1) Pneumonia involving left lung Community-acquired pneumonia, resistant to quinolones and doxycycline Cefepime IV, DC vancomycin IV, MRSA negative Continue with Azithromycin Incentive spirometry Inhalers Prednisone 40 mg (2) Breast cancer, left Follow-up with oncologist in the outpatient settings VS,Melonie, I+O VS, Melonie, I+O Laboratory Tests 05/30/20 05:53 Vital Signs Date Time Temp Pulse Resp B/P (MAP) Pulse Ox O2 Delivery O2 Flow Rate FiO2 05/30/20 06:00 97.2 90 17 109/52 (71) 97 Room Air I&O- Last 24 Hours up to 6 AM 05/30/20 06:00 Intake Total 1920 ml Output Total 1050 ml Balance 870 ml SINTIA MIDDLETON DO May 30, 2020 13:56
[2020-05-30 14:00] VITALS: BP 90/51
[2020-05-30 15:00] VITALS: BP 102/60
[2020-05-30] MEDS: VITAMIN D 1,000 INTERNATIONAL UNITS TABLET PO SCH (20:23)
[2020-05-30] MEDS: ASPIRIN 81 MG ENTERIC TAB PO SCH (20:23)
[2020-05-30 22:00] VITALS: BP 112/63
[2020-05-31] MEDS: IPRATROPIUM 0.5MG/ALBUTEROL 2.5MG INH SOL UD 3ML (DUONEB) NEB SCH ×2 (01:31→08:00)
[2020-05-31] MEDS: CEFEPIME HCL 1 GM in D5W 50 ML IV SCH (03:20)
[2020-05-31 06:00] VITALS: BP 114/68
[2020-05-31 07:29] LABS: BASO % 0.2 % (0.0-1.0); EOS % 0.2 % (0.0-3.0); HEMATOCRIT 29.5 % (36.0-47.0); HEMOGLOBIN 9.3 g/dl (12.0-15.5); LYMPH # 1.3 10^3/uL (1.5-5.0); LYMPH % 10.2 % (24.0-44.0); MEAN CORPUSCULAR HEMOGLOBIN 28.9 pg (27.0-33.0); MEAN CORPUSCULAR HGB CONC 31.5 g/dl (32.0-36.5); MEAN CORPUSCULAR VOLUME 91.6 fl (80.0-96.0); MONO # 0.9 10^3/uL (0.0-0.8); NEUTROPHILS # 10.2 10^3/uL (1.5-8.5); NEUTROPHILS % 81.2 % (36.0-66.0); PLATELET COUNT, AUTOMATED 488 10^3/uL (150-450); RED BLOOD COUNT 3.22 10^6/uL (4.00-5.40); WHITE BLOOD COUNT 12.6 10^3/uL (4.0-10.0)
[2020-05-31] MEDS: ENOXAPARIN 40MG/0.4ML SYRINGE (J1650 PER 10MG) SC SCH (07:59)
[2020-05-31 08:00] LABS: ALT/SGPT 30 U/L (12-78); BILIRUBIN,TOTAL 0.2 MG/DL (0.2-1.0); BLOOD UREA NITROGEN 16 MG/DL (7-18); CALCIUM LEVEL 8.2 MG/DL (8.5-10.1); CARBON DIOXIDE LEVEL 27 MEQ/L (21-32); CHLORIDE LEVEL 107 MEQ/L (98-107); CREATININE FOR GFR 0.68 MG/DL (0.55-1.30); GLOMERULAR FILTRATION RATE > 60.0 (>51); GLUCOSE, FASTING 79 MG/DL (70-100); MAGNESIUM LEVEL 2.4 MG/DL (1.8-2.4); POTASSIUM SERUM 4.2 MEQ/L (3.5-5.1); SODIUM LEVEL 140 MEQ/L (136-145); TOTAL PROTEIN 5.2 GM/DL (6.4-8.2)
[2020-05-31] MEDS: FLUTICASONE HFA 110 MCG 12 GM INHALER (FLOVENT) INH SCH (08:00)
[2020-05-31] MEDS: PANTOPRAZOLE 40MG TAB (PROTONIX) PO SCH (09:33)
[2020-05-31] MEDS: guaiFENesin ER 600 MG TAB PO SCH (09:33)
[2020-05-31] MEDS: AZITHROMYCIN 250MG TABLET PO SCH (09:33)
[2020-05-31] MEDS: predniSONE 20 MG TAB PO SCH (09:33)
[2020-05-31] MEDS ORDERED: ACET1TAB55 PO ×2 (10:08→12:05)
[2020-05-31] MEDS ORDERED: AZIT-12 PO ×2 (10:08→12:05)
[2020-05-31] MEDS ORDERED: CEFD300CAP PO ×2 (10:08→12:05)
[2020-05-31] MEDS ORDERED: PRED20TA PO ×2 (10:08→12:05)
--- NOTE | 2020-05-31 12:08 | DS.PDOC ---
Discharge Summary General Date of Admission May 28, 2020 at 17:38 Date of Discharge 05/31/20 Discharge Summary PROCEDURES PERFORMED DURING STAY: [None]. ADMITTING DIAGNOSES: Pneumonia involving left lung Breast cancer, left DISCHARGE DIAGNOSES: Pneumonia involving left lung Breast cancer, left COMPLICATIONS/CHIEF COMPLAINT: Multifocalpnemunoia. HISTORY OF PRESENT ILLNESS: Patient is 60 years old female with past mental history of left sided breast cancer, treated with lumpectomy and radiation in 2019 presented to the hospital with shortness of breath and weakness. Patient stated that 4 weeks ago she started feeling weak and short of breath with intermittent cough. Patient went to primary care physician and she was found to have left-sided infiltrate on x-ray. Patient received 5 days course of levofloxacin w/o improvement and then 5 days course of doxycycline w/o improvement. In ER patient was found to have on CT moderate to large area of consolidation involving the left upper lobe and portions of the lingula and alveolobasilar left lower lobe. Small associated pleural effusion and reactive adenopathy noted. Labs pertinent for no leukocytosis. HOSPITAL COURSE: During hospital stay following issue addressed (1) Pneumonia involving left lung Community-acquired pneumonia, resistant to quinolones and doxycycline Cefepime IV, DC vancomycin IV, MRSA negative Continue with Azithromycin Incentive spirometry Inhalers Prednisone 40 mg (2) Breast cancer, left Follow-up with oncologist in the outpatient settings DISCHARGE MEDICATIONS: Please see below. ALLERGIES: Please see below. PHYSICAL EXAMINATION ON DISCHARGE: VITAL SIGNS: Please see below. GENERAL APPEARANCE: NAD HEENT: no scleral icterus, no JVD, EOMI CARDIOVASCULAR: S1S2 LUNGS: Diminished lung sounds over the left lung field ABDOMEN: soft & not tender w palpitation MUSCULOSKELETAL: no cyanosis, no swelling INTEGUMENT: no generalized palor NEUROLOGICAL: cranial nerve function from 2-12 intact intact, follows commands, speech not dysarthric LABORATORY DATA: Please see below. IMAGING: See above PROGNOSIS: Fair ACTIVITY: [As tolerated]. DIET: Regular DISPOSITION: . Home DISCHARGE INSTRUCTIONS: Continue incentive spirometry ITEMS TO FOLLOWUP ON ON OUTPATIENT: Follow-up with PCP in 3-5 days DISCHARGE CONDITION: [Stable]. TIME SPENT ON DISCHARGE: Greater than 30minutes. Vital Signs/I&Os Vital Signs Date Time Temp Pulse Resp B/P (MAP) Pulse Ox O2 Delivery O2 Flow Rate FiO2 05/31/20 06:00 97.2 83 17 114/68 (83) 95 Room Air I&O- Last 24 Hours up to 6 AM 05/31/20 06:00 Intake Total 3400 ml Output Total 2600 ml Balance 800 ml Laboratory Data Labs 24H Laboratory Tests 2 05/31/20 05:45: Immature Granulocyte % (Auto) 1.2, Neutrophils (%) (Auto) 81.2H, Lymphocytes (%) (Auto) 10.2L, Monocytes (%) (Auto) 7.0H, Eosinophils (%) (Auto) 0.2, Basophils (%) (Auto) 0.2, Neutrophils # (Auto) 10.2H, Lymphocytes # (Auto) 1.3L, Monocytes # (Auto) 0.9H, Eosinophils # (Auto) 0.0, Basophils # (Auto) 0.0, Nucleated Red Blood Cells % (auto) 0.0, Anion Gap 6L, Glomerular Filtration Rate > 60.0, Calcium Level 8.2L, Magnesium Level 2.4, Total Bilirubin 0.2, Aspartate Amino Transf (AST/SGOT) 17, Alanine Aminotransferase (ALT/SGPT) 30, Alkaline Phosph atase 95, Total Protein 5.2L, Albumin 2.0L, Albumin/Globulin Ratio 0.6L CBC/BMP Laboratory Tests 05/31/20 05:45 Microbiology Microbiology 05/28/20 Blood Culture - Preliminary, Resulted No Growth after 48 hours. All Specime... 05/28/20 Blood Culture - Preliminary, Resulted No Growth after 48 hours. All Specime... 05/28/20 Respiratory Virus Panel (PCR) (NANCY) - Final, Complete 05/28/20 Blood Culture - Preliminary, Resulted No Growth after 72 hours. All specime... 05/28/20 Blood Culture - Preliminary, Resulted No Growth after 72 hours. All specime... Discharge Medications Scheduled Aspirin (Aspirin EC) 81 Mg Tablet.dr, 81 MG PO QHS, (Reported) Azithromycin (Azithromycin) 250 Mg Tablet, 500 MG PO DAILY Cefdinir (Cefdinir) 300 Mg Capsule, 1 CAP PO BID Cholecalciferol (Vitamin D3) (Vitamin D3) 1,000 Unit Tablet, 1,000 UNITS PO QHS, (Reported) Fluticasone Propionate (Flovent Hfa) 110 Mcg/Act Aer.w.adap, 2 PUFF INH BID, (Reported) Guaifenesin (Mucinex) 600 Mg Tab.er.12h, 600 MG PO BID, (Reported) Prednisone (Prednisone) 20 Mg Tablet, 40 MG PO DAILY Zinc (Zinc) 50 Mg Tablet, 50 MG PO QHS, (Reported) Scheduled PRN Acetaminophen (Acetaminophen) 325 Mg Tablet, 650 MG PO Q4H PRN for PAIN OR FEVER Allergies Coded Allergies: Penicillins (Verified Allergy, Unknown, RASH, 05/28/20) SINTIA MIDDLETON DO May 31, 2020 12:08
[2020-06-01 20:08] LABS: BODY FLUID CULTURE Not indicated. (.); LEGIONELLA ANTIGEN URINE Negative (Negative); ORGANISM ID Not indicated. (.); SPECIMEN SOURCE Urine (.); URINE STREP PNEUMONIAE ANTIGEN Negative (Negative)
[2020-06-02 14:13] LABS: CHLAMYDIA PNEUMONIAE IgM <1:10 (Neg:<1:10); MYCOPLASMA PNEUMONIAE IgG <100 U/mL (0-99); MYCOPLASMA PNEUMONIAE IgM <770 U/mL (0-769)
== END 2020-05-31 12:52 | disposition home or self-care (01) | DRG 195 ==
LOC: M ED 10:57 → M ED INP 17:38 → M MSPAV 22:02
PROVIDERS: ADMIT Internal Medicine; ATTEND Internal Medicine
DX: J18.9 Pneumonia, unspecified organism (principal); Z85.3 Personal history of malignant neoplasm of breast; Z79.82 Long term (current) use of aspirin; Z79.899 Other long term (current) drug therapy; Z88.0 Allergy status to penicillin

== ENCOUNTER → 2020-06-09 | Outpatient (REF) | payer OTHER ==
[~2020-06-09] MED LIST changes: +ACET1TAB55 PO; +ASPI81TA26 PO; +AZIT-12 PO; +CEFD300CAP PO; +D31000TA2 PO; +FLUT11IN INH; +HM I1TAB PO; +MUCI600T31 PO; +PRED20TA PO; +ZINC1TAB2 PO
[2020-06-09 17:01] LABS: BASO % 0.2 % (0.0-1.0); EOS # 0.2 10^3/uL (0.0-0.5); EOS % 2.6 % (0.0-3.0); HEMATOCRIT 34.9 % (36.0-47.0); HEMOGLOBIN 10.9 g/dl (12.0-15.5); LYMPH # 1.1 10^3/uL (1.5-5.0); LYMPH % 12.8 % (24.0-44.0); MEAN CORPUSCULAR HEMOGLOBIN 29.2 pg (27.0-33.0); MEAN CORPUSCULAR HGB CONC 31.2 g/dl (32.0-36.5); MEAN CORPUSCULAR VOLUME 93.6 fl (80.0-96.0); MONO # 0.9 10^3/uL (0.0-0.8); MONO % 10.5 % (0.0-5.0); NEUTROPHILS # 6.3 10^3/uL (1.5-8.5); PLATELET COUNT, AUTOMATED 378 10^3/uL (150-450); RED BLOOD COUNT 3.73 10^6/uL (4.00-5.40); WHITE BLOOD COUNT 8.7 10^3/uL (4.0-10.0)
[2020-06-09 17:36] LABS: ALBUMIN 2.9 GM/DL (3.2-5.2); ALT/SGPT 34 U/L (12-78); BILIRUBIN,TOTAL 0.1 MG/DL (0.2-1.0); BLOOD UREA NITROGEN 15 MG/DL (7-18); CALCIUM LEVEL 9.1 MG/DL (8.5-10.1); CARBON DIOXIDE LEVEL 30 MEQ/L (21-32); CHLORIDE LEVEL 105 MEQ/L (98-107); CREATININE FOR GFR 0.63 MG/DL (0.55-1.30); GLOMERULAR FILTRATION RATE > 60.0 (>51); GLUCOSE, FASTING 88 MG/DL (70-100); POTASSIUM SERUM 4.4 MEQ/L (3.5-5.1); SODIUM LEVEL 139 MEQ/L (136-145)
== END ==
LOC: M PLALAB 16:44
PROVIDERS: ATTEND Family Medicine
DX: J18.9 Pneumonia, unspecified organism (principal)

== ENCOUNTER 2020-06-18 19:14 | Emergency (ER) | payer OTHER ==
[~2020-06-18] VITALS: Ht 160 cm; Wt 56.1 kg
--- OUTSIDE RECORDS SUMMARY | 2020-06-18 19:44 | CCD | Continuity of Care Document ---
Author Author Lori ANTHONY D.O. 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 AUTM [phone] Problems Active Problems Provider Date Screening for malignant neoplasm of colon Gavi givens, D.OKelly Onset: 05/18/2017 Palpitations Gavi Anthony D.O. Onset: 2017 H/O: urinary stone Gavi Anthony D.O. Onset: 2017 Social History Type Date Description Comments Sex Unknown ETOH Use Denies alcohol use Tobacco Use Start: Unknown Patient has never smoked Recreational Drug Use Denies Drug Use Smoking Status Reviewed: 05/28/20 Patient has never smoked Exercise Type/Frequency Exercises regularly golf ing, weights and aerobics Sun Exposure Does not use sunscreen Seat Belt/Car Seat Always uses seat belt Allergies, Adverse Reactions, Alerts Active Allergies Reaction Severity Comments Date Penicillin 05/18/2017 Medications Active Medications SIG Qnty Indications Ordering Provide r Date Levofloxacin 750mg Tablets 1 by mouth daily until gone 10tabs Stormy SanabriaOKelly 05/15 Flovent HFA 110mcg/Act Aerosol 2 puffs by mouth 2 x a day 12gm Stormy SanabriaOKelly 05/18 History Medications Doxycycline Monohydrate 100mg Caps ules 1 capsule by mouth twice a day for 10 days 20caps Stormy GreshamOKelly 05/14/2020 - 05/25/2020 Prednisone 20mg Tablets 1 tab by mouth daily x 5 days 5tabs Stormy SanabriaOKelly 05/14 - 05/25/2020 No Active Medications Unknown - 05/14/2020 Medications Administered in Office Medication SIG Qnty Indications Ordering Provider Date Immunization Administration Single Or Co mbination Injection Milena Sanabria. 07/20/2017 Immunizations CPT Code Status Date Vaccine Lot # [id number] Given 07/20/2017 Tetanus, Diphthe chucky Toxoids/Acellular Pertussis Vaccine 7 Or > [id number] Vital Signs Date Vital Result Comment 05/28/2020 8:47am BP Systolic 106 mmHg BP Diastolic 62 mmHg Height 63.1 inches 5'3.10" Weight 118.00 lb BMI (Body Mass Index) 20.8 kg/m2 Heart Rate 152 /min Respiratory Rate 24 /min Body Temperature 98.5 F O2 % BldC Oximetry 88 % [place] Body Weight 115 lb 05/13/2020 4:08pm Height 63.1 inches 5'3.10" Weight 121.00 lb BMI (Body Mass Index) 21.4 kg/m2 Heart Rate 104 /min Respiratory Rate 26 /min Body Temperature 101.8 F O2 % BldC Oximetry 98 % [place] Body Weight 115 lb Results Test Acquired Date Facility Test Result H/L Range Note Respiratory Panel 05/28/2020 [facility] Outpatient Testi kathleen (Registration) [address] [place] [address] [phone] Respiratory Panel This respiratory <SEE NOTE> 1 Istat Chem8+ Panel 05/28/2020 [facility] Outpatient Testi kathleen (Registration) [address] [place] [address] [phone] iSTAT HCT 30.0 % Low 38.0-51.0 iSTAT Glucose 119 mg/dL High 70-105 iSTAT Sodium 137 mEq/L Normal 136-145 iSTAT Potassium 3.3 mEq/L Low 3.5-5.1 iSTAT CA++ 4.4 mg/dL Low 4.5-5.3 iSTAT Chloride 100 mEq/L Normal 98-109 iSTAT Co2 24.0 MM/L Normal 23.0-27.0 iSTAT BUN 9 mg/dL Normal 8-26 iSTAT Creatinine 0.5 mg/dL Low 0.6-1.3 Complete Blood Count 05/19/2020 [facility] Outpatient Test ing (Registration) [address] [place] [address] [phone] White Blood Count 11.2 10 High 4.0-10.0 [...] % Normal 0-0 Comprehensive Metabolic Profil 05/19/2020 [facility] Outpa tient Testing (Registration) [address] [place] [address] [phone] Glucose, Fasting 108 mg/dL High 70-100 Blood Urea Nitrogen 11 mg/dL Normal 7-18 Creatinine For GFR 0.63 mg/dL Normal 0.55-1.30 Glomerular Filtration Rate > 60.0 Normal >51 2 Sodium Level 138 mEq/L Normal 136-145 Potassium [...] Ratio 0.6 Low 1.2-2.2 Respiratory Panel 05/19/2020 [facility] Outpatient Testi ng (Registration) [address] [place] [address] [phone] Respiratory Panel This respiratory <SEE NOTE> 3 Respiratory Panel 05/13/2020 [facility] nter [address] [place] [address] [phone] Respiratory Panel This respiratory <SEE NOTE> 4 1 This respiratory PCR panel d etects Influenza A H1, H3 and 2009 H1 viruses, Influenza B virus, Resp iratory Syncytial Virus, Human metapneumovirus, Parainfluenza virus 1, 2, 3 and 4, Adenovirus, Rhinovirus/Enterovirus, Coronavirus HKU1, NL63, OC43, 229E and SARS-CoV-2 (COVID 19), Bordetella pertussis, Bordetella parapertussis, Mycoplasma pneumoniae and Chlamydia pneumoniae. NEGATIVE by MULTIPLEXED NUCLEIC ACID PCR SARS-CoV-2 (COVID 19) NEGATIVE - SARS-CoV-2 (COVID19) 2 Units are mL/min/1.73 m2 Chronic Kidney Disease Staging per NKF: Stage I & II GFR >=60 Normal to Mildly Decreased Stage III GFR 30-59 Moderately Decreased Stage IV GFR 15-29 Severely Decreased Stage V GFR <15 Very Little GFR Left ESRD GFR <15 on [employer] DEVELOPER 3 This respiratory PCR panel d etects [...] SARS-CoV-2 (COVID 19) NEGATIVE - SARS-CoV-2 (COVID19) 4 This respiratory PCR panel d etects Influenza [...] Date Location Provider Dx Diagnosis Office Visit 05/28/2020 8:40a [facility] Gavi Anthony D.O. J18.9 Pneumonia, unspecified organ ism R09.02 Hypoxemia Office Visit 05/13/2020 4:00p [facility] Gavi Anthony D.O. J20.9 Acute bronchitis, unspecifie d Assessments Date Code Description Provider 05/28/2020 J18.9 Pneumonia, unspecified organism Gavi Anthony D.O. 05/28/2020 R09.02 Hypoxemia Gavi sal D.O. 05/13/2020 J20.9 Acute bronchitis, unspecified Danielito Anthony D.O. Plan of Treatment Future Appointment(s):* 07/16/2020 2:00 pm - Gavi Anthony D.O. at [facility] Functional Status Description No Information Available Mental Status Description No Information Available Referrals Description No Information Available
--- OUTSIDE RECORDS SUMMARY | 2020-06-18 19:44 | CCD | Continuity of Care Document ---
Author Author Lori ANTHONY D.O. 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 AUTM Problems Active Problems Provider Date Screening for malignant neoplasm of colon Gavi gviens DKellyOKelly Onset: 05/18/2017 Palpitations Gavi Anthony D.O. Onset: [...] SIG Qnty Indications Ordering Provide r Date Cefdinir 300mg Capsules Unknown History Medications Levofloxacin 750mg Tablets 1 by mouth daily until gone 10tabs Gavi Anthony D.O. 05/15 - 06/01/2020 Flovent HFA 110mcg/Act Aerosol 2 puffs by mouth 2 x a day 12gm Stormy SanabriaOKelly 05/18 - 06/04/2020 Doxycycline Monohydrate 100mg Caps ules 1 capsule by mouth twice a day for 10 days 20caps Stormy GreshamO. 05/14/2020 - 05/25/2020 Prednisone 20mg Tablets 1 tab by mouth daily x 5 days 5tabs Gavi Anthony D.O. 05/14 - 05/25/2020 No Active Medications Unknown - 05/14/2020 Medications Administered in Office Medication SIG Qnty Indications Ordering Provider Date Immunization Administration Single Or Co mbination Injection Milena Sanabria. 07/20/2017 Immunizations CPT Code Status Date Vaccine Lot # [id number] Given 07/20/2017 Tetanus, Diphthe chucky Toxoids/Acellular Pertussis Vaccine 7 Or > [id number] Vital Signs Date Vital Result Comment 06/04/2020 1:52pm BP Systolic 126 mmHg BP Diastolic 72 mmHg Height 63.1 inches 5'3.10" Weight 120.00 lb BMI (Body Mass Index) 21.2 kg/m2 Heart Rate 83 /min Respiratory Rate 20 /min Body Temperature 97.0 F O2 % BldC Oximetry 99 % [place] Body Weight 115 lb 05/28/2020 8:47am BP Systolic 106 mmHg BP Diastolic 62 mmHg Height 63.1 inches 5'3.10" Weight 118.00 lb BMI (Body Mass Index) 20.8 kg/m2 Heart Rate 152 /min Respiratory Rate 24 /min Body Temperature 98.5 F O2 % BldC Oximetry 88 % [place] Body Weight 115 lb Results Test Acquired Date Facility Test Result H/L Range Note Respiratory Panel 05/28/2020 [facility] Outpatient Testi ng (Registration) [address] [place], [place] [id number] [phone] Respiratory Panel This respiratory <SEE NOTE> 1 Istat Chem8+ Panel 05/28/2020 [facility] Outpatient Testi ng (Registration) [address] [place], [place] [id number] [phone] iSTAT HCT 30.0 % Low 38.0-51.0 iSTAT Glucose 119 mg/dL High 70-105 iSTAT Sodium 137 mEq/L Normal 136-145 iSTAT Potassium 3.3 mEq/L Low 3.5-5.1 iSTAT CA++ 4.4 mg/dL Low 4.5-5.3 iSTAT Chloride 100 mEq/L Normal 98-109 iSTAT Co2 24.0 MM/L Normal 23.0-27.0 iSTAT BUN 9 mg/dL Normal 8-26 iSTAT Creatinine 0.5 mg/dL Low 0.6-1.3 Complete Blood Count 05/19/2020 [facility] Outpatient Test ing (Registration) [address] [place], [place] [id number] [phone] White Blood Count 11.2 10 High 4.0-10.0 [...] % Normal 0-0 Comprehensive Metabolic Profil 05/19/2020 [facility] Outpa tient Testing (Registration) [address] [place] [address] [phone] Glucose, Fasting 108 mg/dL High 70-100 Blood [...] Ratio 0.6 Low 1.2-2.2 Respiratory Panel 05/19/2020 [facility] Outpatient Testi ng (Registration) [address] [place] [address] [phone] Respiratory Panel This respiratory <SEE NOTE> 3 Respiratory Panel 05/13/[facility] [address] [place] [address] [phone] Respiratory Panel This respiratory <SEE NOTE> 4 [...] Little GFR Left ESRD GFR <15 on ENGLISH TUTOR 3 This respiratory PCR panel d etects [...] Date Location Provider Dx Diagnosis Office Visit 06/04/2020 1:40p [facility] Gavi Anthony D.O. J18.9 Pneumonia, unspecified organ ism Office Visit 05/28/2020 8:40a [facility] Gavi Anthony D.O. J18.9 Pneumonia, unspecified organ ism R09.02 Hypoxemia Office Visit 05/13/2020 4:00p [facility] Gavi Anthony D.O. J20.9 Acute bronchitis, unspecifie d Assessments Date Code Description Provider 06/04/2020 J18.9 Pneumonia, unspecified organism Gavi Anthony D.OKelly 05/28/2020 J18.9 Pneumonia, unspecified organism Gavi Anthony, D.O. 05/28/2020 R09.02 Hypoxemia Milena Ramsay.OKelly 05/13/2020 J20.9 Acute bronchitis, unspecified Danielito Anthony D.OKelly Plan of Treatment Future Appointment(s):* 07/16/2020 2:00 pm - Gavi Anthony D.O. at [facility] Functional Status Description No Information Available Mental Status Description No Information Available Referrals Description No Information Available
--- OUTSIDE RECORDS SUMMARY | 2020-06-18 19:44 | CCD | Continuity of Care Document ---
Author Author Lori ANTHONY D.O. Organization Unknown Address [address] [place] [address] Phone [phone] Care Team Providers Care Family Services Worker Name Role Phone Gavi Anthony D.O. AUTM Problems Active Problems Provider Date Screening for malignant neoplasm of colon Gavi givens DKellyOKelly Onset: 05/18/2017 Palpitations Gavi Anthony D.O. [...] Administration Single Or Co mbination Injection Milena Saanbria. 07/20/2017 Immunizations CPT Code Status Date Vaccine Lot # [id number] Given 07/20/2017 Tetanus, Diphthe chucky Toxoids/Acellular Pertussis Vaccine 7 Or > [id number] Vital Signs Date Vital Result Comment 06/04/2020 1:52pm BP Systolic 126 mmHg BP Diastolic 72 mmHg Height 63.1 inches 5'3.10" Weight 120.00 lb BMI (Body Mass Index) 21.2 kg/m2 Heart Rate 83 /min Respiratory Rate 20 /min Body Temperature 97.0 F O2 % BldC Oximetry 99 % [place] Body Weight 115 lb 05/28/2020 8:47am BP Systolic 106 mmHg BP Diastolic 62 mmHg Height 63.1 inches 5'3.10" Weight 118.00 lb BMI (Body Mass Index) 20.8 kg/m2 Heart Rate 152 /min Respiratory Rate 24 /min Body Temperature 98.5 F O2 % BldC Oximetry 88 % [place] Body Weight 115 lb Results Test Acquired Date Facility Test Result H/L Range Note Laboratory test finding 06/09/[address] [id number] [phone] D-Dimer Quant 669.69 ng/ml High <500 CBC With Differential 06/09/[address] [address] [phone] White Blood Count 8.7 10 Normal 4.0-10.0 Red Blood Count 3.73 10 Low 4.00-5.40 Hemoglobin 10.9 g/dL Low 12.0-15.5 Hematocrit 34.9 % Low 36.0-47.0 Mean Corpuscular Volume 93.6 fl Normal 80.0-96.0 Mean Corpuscular Hemoglobin 29.2 pg Normal 27.0-33.0 Mean Corpuscular HGB Conc 31.2 g/dL Low 32.0-36.5 Red Cell Distribution Width 13.2 % Normal 11.5-14.5 Platelet Count, Automated 378 10 Normal 150-450 Neutrophils % 73.0 % High 36.0-66.0 Lymph % 12.8 % Low 24.0-44.0 Gillespie % 10.5 % High 0.0-5.0 Eos % 2.6 % Normal 0.0-3.0 Baso % 0.2 % Normal 0.0-1.0 Immature Granulocyte % 0.9 % Normal 0-3.0 Nucleated Red Blood Cell % 0.0 % Normal 0-0 Neutrophils # 6.3 10 Normal 1.5-8.5 Lymph # 1.1 10 Low 1.5-5.0 Gillespie # 0.9 10 High 0.0-0.8 Eos # 0.2 10 Normal 0.0-0.5 Baso # 0.0 10 Normal 0.0-0.2 Comprehensive Metabolic Profil 06/09/[address] [address] [phone] Glucose, Fasting 88 mg/dL Normal 70-100 Blood Urea Nitrogen 15 mg/dL Normal 7-18 Creatinine For GFR 0.63 mg/dL Normal 0.55-1.30 Glomerular Filtration Rate > 60.0 Normal >51 1 Sodium Level 139 mEq/L Normal 136-145 Potassium Serum 4.4 mEq/L Normal 3.5-5.1 Chloride Level 105 mEq/L Normal 98-107 Carbon Dioxide Level 30 mEq/L Normal 21-32 Anion Gap 4 mEq/L Low 8-16 Calcium Level 9.1 mg/dL Normal 8.5-10.1 Ast/Sgot 17 U/L Normal 7-37 Alt/SGPT 34 U/L Normal 12-78 Alkaline Phosphatase 99 U/L Normal 45-117 Bilirubin,Total 0.1 mg/dL Low 0.2-1.0 Total Protein 6.0 GM/DL Low 6.4-8.2 Albumin 2.9 GM/DL Low 3.2-5.2 Albumin/Globulin Ratio 0.9 Low 1.2-2.2 Xray 06/08/2020 [facility] [address] [phone] Chest 2 Views <pending> Respiratory Panel 05/28/2020 [facility] Outpatient Testi ng (Registration) [address] [place] [address] [phone] Respiratory Panel This respiratory <SEE NOTE> 2 Istat Chem8+ Panel 05/28/2020 [facility] Outpatient Testi ng (Registration) [address] [place], [place] [address] [phone] iSTAT HCT 30.0 % Low 38.0-51.0 iSTAT Glucose 119 mg/dL High 70-105 iSTAT Sodium 137 mEq/L Normal 136-145 iSTAT Potassium 3.3 mEq/L Low 3.5-5.1 iSTAT CA++ 4.4 mg/dL Low 4.5-5.3 iSTAT Chloride 100 mEq/L Normal 98-109 iSTAT Co2 24.0 MM/L Normal 23.0-27.0 iSTAT BUN 9 mg/dL Normal 8-26 iSTAT Creatinine 0.5 mg/dL Low 0.6-1.3 Complete Blood Count 05/19/2020 [facility] Outpatient Test ing (Registration) [address] [place] [address] [phone] White Blood Count 11.2 10 High 4.0-10.0 [...] % Normal 0-0 Comprehensive Metabolic Profil 05/19/2020 [facility] Outpa tient Testing (Registration) [address] [place], [place] [id number] [phone] Glucose, Fasting 108 mg/dL High 70-100 Blood Urea Nitrogen 11 mg/dL Normal 7-18 Creatinine For GFR 0.63 mg/dL Normal 0.55-1.30 Glomerular Filtration Rate > 60.0 Normal >51 3 Sodium Level 138 mEq/L Normal 136-145 Potassium [...] Ratio 0.6 Low 1.2-2.2 Respiratory Panel 05/19/2020 [facility] Outpatient Testi ng (Registration) [address] [place], [place] [address] [phone] Respiratory Panel This respiratory <SEE NOTE> 4 Respiratory Panel 05/13/2020 [facility] nter [address] [place], [place] [id number] [phone] Respiratory Panel This respiratory <SEE NOTE> 5 1 Units are mL/min/1.73 m2 Chronic Kidney Disease Staging per NKF: Stage I & II GFR >=60 Normal to Mildly Decreased Stage III GFR 30-59 Moderately Decreased Stage IV GFR 15-29 Severely Decreased Stage V GFR <15 Very Little GFR Left ESRD GFR <15 on [employer] PROGRAMMER 2 This respiratory PCR panel d etects [...] (COVID 19) NEGATIVE - SARS-CoV-2 (COVID19) 3 Units are mL/min/1.73 m2 Chronic Kidney Disease Staging per NKF: Stage I & II GFR >=60 Normal to Mildly Decreased Stage III GFR 30-59 Moderately Decreased Stage IV GFR 15-29 Severely Decreased Stage V GFR <15 Very Little GFR Left ESRD GFR <15 on [employer] PROGRAMMER 4 This respiratory PCR panel d etects [...] SARS-CoV-2 (COVID 19) NEGATIVE - SARS-CoV-2 (COVID19) 5 This respiratory PCR panel d etects Influenza [...] Provider Dx Diagnosis Office Visit 06/04/2020 1:40p [facility] Gavi Anthony D.O. J18.9 Pneumonia, unspecified organ ism Office Visit 05/28/2020 8:40a [facility] Gavi Anthony D.O. J18.9 Pneumonia, unspecified organ ism R09.02 Hypoxemia Office Visit 05/13/2020 4:00p [facility] Gavi Anthony D.O. J20.9 Acute bronchitis, unspecifie d Assessments Date Code Description Provider 06/04/2020 J18.9 Pneumonia, unspecified organism Stormy SanabriaOKelly 05/28/2020 J18.9 Pneumonia, unspecified organism Milena Sanabria.OKelly 05/28/2020 R09.02 Hypoxemia Gavi sal D.O. 05/13/2020 J20.9 Acute bronchitis, unspecified Danielito Anthony D.O. Plan of Treatment Future Appointment(s):* 07/16/2020 2:00 pm - Gavi Anthony D.O. at [facility] Functional Status Description No Information Available Mental Status Description No Information Available Referrals Description No Information Available
--- OUTSIDE RECORDS SUMMARY | 2020-06-18 19:44 | CCD | Continuity of Care Document ---
Author Author Lori ANTHONY D.O. Organization Unknown Address [address] [place] [address] Phone [phone] Care Team Providers Care File Keeper Name Role Phone Gavi Anthony D.O. AUTM [...] CPT Code Status Date Vaccine Lot # [id number] Given 07/20/2017 Tetanus, Diphthe chucky Toxoids/Acellular Pertussis Vaccine 7 Or > [id number] Vital Signs Date Vital Result Comment 05/28/2020 8:47am BP Systolic 106 mmHg BP Diastolic 62 mmHg Height 63.1 inches 5'3.10" Weight 118.00 lb BMI (Body Mass Index) 20.8 kg/m2 Heart Rate 152 /min Respiratory Rate 24 /min Body Temperature 98.5 F O2 % BldC Oximetry 88 % [place] Body Weight 115 lb 05/13/2020 4:08pm Height 63.1 inches 5'3.10" Weight 121.00 lb BMI (Body Mass Index) 21.4 kg/m2 Heart Rate 104 /min Respiratory Rate 26 /min Body Temperature 101.8 F O2 % BldC Oximetry 98 % [place] Body Weight 115 lb Results Test Acquired Date Facility Test Result H/L Range Note Respiratory Panel 05/28/2020 [facility] Outpatient Testi kathleen (Registration) [address] [place] [address] [phone] Respiratory Panel This respiratory <SEE NOTE> 1 Istat Chem8+ Panel 05/28/2020 [facility] Outpatient Testi kathleen (Registration) [address] [place] [address] [phone] iSTAT HCT 30.0 % Low 38.0-51.0 iSTAT [...] [facility] [address] [place] [address] [phone] White Blood Count 11.2 10 High 4.0-10.0 [...] [facility] (Registration) [address] [place] [address] [phone] Glucose, Fasting 108 mg/dL High 70-100 Blood [...] [facility] (Registration) [address] [place] [address] [phone] Respiratory Panel This respiratory <SEE NOTE> 3 Respiratory Panel 05/13/2020 [facility] nter [address] [place] [address] [phone] Respiratory Panel This respiratory <SEE NOTE> 4 [...] Little GFR Left ESRD GFR <15 on 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 J18.9 Pneumonia, unspecified organ ism R09.02 Hypoxemia Office Visit 05/13/2020 4:00p [facility] Gavi Anthony D.O. J20.9 Acute bronchitis, unspecifie d Assessments Date Code Description Provider 05/28/2020 J18.9 Pneumonia, unspecified organism Gavi Anthony D.O. 05/28/2020 R09.02 Hypoxemia Gavi sal D.O. 05/13/2020 J20.9 Acute bronchitis, unspecified Danielito Anthony D.O. Plan of Treatment Future Appointment(s):* 07/16/2020 2:00 pm - Gavi Anthony D.O. at [facility] Functional Status Description No Information Available Mental Status Description No Information Available Referrals Description No Information Available
--- OUTSIDE RECORDS SUMMARY | 2020-06-18 19:44 | CCD | Continuity of Care Document ---
Author Author Lori ANTHONY D.O. Organization Unknown Address [address] [place] [address] Phone [phone] Care Team Providers Care Scale Expert Name Role Phone Gavi Anthony D.O. AUTM [...] CPT Code Status Date Vaccine Lot # [id number] Given 07/20/2017 Tetanus, Diphthe chucky Toxoids/Acellular Pertussis Vaccine 7 Or > [id number] Vital Signs Date Vital Result Comment 05/28/2020 8:47am BP Systolic 106 mmHg BP Diastolic 62 mmHg Height 63.1 inches 5'3.10" Weight 118.00 lb BMI (Body Mass Index) 20.8 kg/m2 Heart Rate 152 /min Respiratory Rate 24 /min Body Temperature 98.5 F O2 % BldC Oximetry 88 % [place] Body Weight 115 lb 05/13/2020 4:08pm Height 63.1 inches 5'3.10" Weight 121.00 lb BMI (Body Mass Index) 21.4 kg/m2 Heart Rate 104 /min Respiratory Rate 26 /min Body Temperature 101.8 F O2 % BldC Oximetry 98 % [place] Body Weight 115 lb Results Test Acquired Date Facility Test Result H/L Range Note Complete Blood Count 05/19/2020 [facility] Outpatient Test ing (Registration) [address] [place] [address] [phone] White Blood Count 11.2 10 High 4.0-10.0 [...] % Normal 0-0 Comprehensive Metabolic Profil 05/19/2020 [facility] Outpa tient Testing (Registration) [address] [place] [address] [id number] [phone] Glucose, Fasting 108 mg/dL High 70-100 Blood [...] Ratio 0.6 Low 1.2-2.2 Respiratory Panel 05/19/2020 [facility] Outpatient Testi ng (Registration) [address] [place] [address] [phone] Respiratory Panel This respiratory <SEE NOTE> 2 Respiratory Panel 05/13/2020 [facility] nter [address] [place] [address] [phone] Respiratory Panel This respiratory <SEE NOTE> 3 1 Units are mL/min/1.73 m2 Chronic Kidney Disease Staging per NKF: Stage I & II GFR >=60 Normal to Mildly Decreased Stage III GFR 30-59 Moderately Decreased Stage IV GFR 15-29 Severely Decreased Stage V GFR <15 Very Little GFR Left ESRD GFR <15 on PATROL LADY 2 This respiratory PCR panel d etects [...] Provider Dx Diagnosis Office Visit 05/28/2020 8:40a [facility] Gavi Anthony D.O. J18.9 Pneumonia, unspecified organ ism R09.02 Hypoxemia Office Visit 05/13/2020 4:00p [facility] Gavi Anthony D.O. J20.9 Acute bronchitis, unspecifie d Assessments Date Code Description Provider 05/28/2020 J18.9 Pneumonia, unspecified organism Gavi Anthony D.O. 05/28/2020 R09.02 Hypoxemia Gavi sal D.O. 05/13/2020 J20.9 Acute bronchitis, unspecified Danielito Anthony D.O. Plan of Treatment Future Appointment(s):* 07/16/2020 2:00 pm - Gavi Anthony D.O. at [facility] Functional Status Description No Information Available Mental Status Description No Information Available Referrals Description No Information Available
--- OUTSIDE RECORDS SUMMARY | 2020-06-18 19:44 | CCD | Continuity of Care Document ---
Author Author Lori ANTHONY D.O. Organization Unknown Address [address] [place] [address] Phone [phone] Care Team Providers Care Self Propelled Mining Machine Operator Name Role Phone Gavi Anthony D.O. AUTM [phone] Problems Active Problems Provider Date Screening for [...] by mouth daily x 5 days 5tabs aGvi Anthony D.O. 05/14 - 05/25/2020 No Active Medications Unknown - 05/14/2020 Medications Administered in Office Medication SIG Qnty Indications Ordering Provider Date Immunization Administration Single Or Co mbination Injection Milena Sanabria. 07/20/2017 Immunizations CPT Code Status Date Vaccine Lot # [id number] Given 07/20/2017 Tetanus, Diphthe chucky Toxoids/Acellular Pertussis Vaccine 7 Or > [id number] Vital Signs Date Vital Result Comment 06/04/2020 1:52pm BP Systolic 126 mmHg BP Diastolic 72 mmHg Height 63.1 inches 5'3.10" Weight 120.00 lb BMI (Body Mass Index) 21.2 kg/m2 Heart Rate 83 /min Respiratory Rate 20 /min Body Temperature 97.0 F O2 % BldC Oximetry 99 % [place] Body Weight 115 lb 05/28/2020 8:47am BP Systolic 106 mmHg BP Diastolic 62 mmHg Height 63.1 inches 5'3.10" Weight 118.00 lb BMI (Body Mass Index) 20.8 kg/m2 Heart Rate 152 /min Respiratory Rate 24 /min Body Temperature 98.5 F O2 % BldC Oximetry 88 % [place] Body Weight 115 lb Results Test Acquired Date Facility Test Result H/L Range Note Respiratory Panel 05/28/2020 [facility] Outpatient Testi ng (Registration) [address] [place], [place] [id number] [phone] Respiratory Panel This respiratory <SEE NOTE> 1 Istat Chem8+ Panel 05/28/2020 [facility] Outpatient Testi ng (Registration) [address] [place], [place] [id number] [phone] iSTAT HCT 30.0 % Low 38.0-51.0 iSTAT Glucose 119 mg/dL High 70-105 iSTAT Sodium 137 mEq/L Normal 136-145 iSTAT Potassium 3.3 mEq/L Low 3.5-5.1 iSTAT CA++ 4.4 mg/dL Low 4.5-5.3 iSTAT Chloride 100 mEq/L Normal 98-109 iSTAT Co2 24.0 MM/L Normal 23.0-27.0 iSTAT BUN 9 mg/dL Normal 8-26 iSTAT Creatinine 0.5 mg/dL Low 0.6-1.3 Complete Blood Count 05/19/2020 [facility] Outpatient Test ing (Registration) [address] [place], [place] [id number] [phone] White Blood Count 11.2 10 High 4.0-10.0 [...] % Normal 0-0 Comprehensive Metabolic Profil 05/19/2020 [facility] Outpa tient Testing (Registration) [address] [place] [address] [phone] Glucose, Fasting 108 mg/dL High 70-100 Blood [...] Ratio 0.6 Low 1.2-2.2 Respiratory Panel 05/19/2020 [facility] Outpatient Testi ng (Registration) [address] [place] [address] [phone] Respiratory Panel This respiratory <SEE NOTE> 3 Respiratory Panel 05/13/2020 [facility] nter [address] [place] [address] [phone] Respiratory Panel This respiratory <SEE NOTE> 4 [...] Little GFR Left ESRD GFR <15 on TEST CLERK 3 This respiratory PCR panel d etects [...] Provider Dx Diagnosis Office Visit 06/04/2020 1:40p [facility] Gavi Anthony D.O. J18.9 Pneumonia, unspecified organ ism Office Visit 05/28/2020 8:40a [facility] Gavi Anthony D.O. J18.9 Pneumonia, unspecified organ ism R09.02 Hypoxemia Office Visit 05/13/2020 4:00p [facility] Gavi Anthony D.O. J20.9 Acute bronchitis, unspecifie d Assessments Date Code Description Provider 06/04/2020 J18.9 Pneumonia, unspecified organism Gavi Anthony D.OKelly 05/28/2020 J18.9 Pneumonia, unspecified organism Gavi Anthony, D.O. 05/28/2020 R09.02 Hypoxemia Milena Ramsay.OKelly 05/13/2020 J20.9 Acute bronchitis, unspecified Danielito Anthony D.OKelly Plan of Treatment Future Appointment(s):* 07/16/2020 2:00 pm - Gavi Anthony D.O. at [facility] Functional Status Description No Information Available Mental Status Description No Information Available Referrals Description No Information Available
--- OUTSIDE RECORDS SUMMARY | 2020-06-18 19:45 | CCD ---
Author Author [facility] Organization [facility] Address Unknown Phone Unavailable Care Team Providers Care Clinical Care Leader Name Role Phone Evelyn MARTIN MD Unavailable [...] Unavailable MARJORIE-GABRIELA, GAVI DO Unavailable Unavailable MARJORIE-GABRIELA, GVAI DO Unavailable Unavailable MARJORIE-GABRIELA, GAVI DO Unavailable Unavailable MARJORIE-GABRIELA, GAVI DO Unavailable Unavailable MARJORIE-GABRIELA, GAVI DO Unavailable Unavailable MARJORIE-GABRIELA, GAVI DO Unavailable Unavailable MARJORIE-GABRIELA, GAVI DO Unavailable Unavailable MARJORIE-GABRIELA, GAVI DO Unavailable Unavailable MARJORIE-GABRIELA, GAVI DO Unavailable Unavailable MARJORIE-GABRIELA, AGVI DO Unavailable Unavailable [...] Unavailable Unavailable MARJORIE-GABRIELA, GAVI DO Unavailable Unavailable MAJRORIE-GABRIELA, GAVI DO Unavailable Unavailable MARJORIE-GABRIELA, GAVI DO [...] Unavailable Unavailable MARJORIE-GABRIELA, GAVI DO Unavailable Unavailable MAROJRIE-GABRIELA, GAVI DO Unavailable Unavailable MARJORIE-GABRIELA, GAVI DO [...] LEVIT,, TESS Unavailable Unavailable CICO, A MYKE NUCLEAR PLANT EQUIPMENT OPERATOR Unavailable Unavailable CICO, A MYKE NUCLEAR PLANT EQUIPMENT OPERATOR Unavailable Unavailable CICO, A MYKE NUCLEAR PLANT EQUIPMENT OPERATOR Unavailable Unavailable CICO, A MYKE NUCLEAR PLANT EQUIPMENT OPERATOR Unavailable Unavailable CICO, A MYKE NUCLEAR PLANT EQUIPMENT OPERATOR Unavailable Unavailable CICO, A MYKE NUCLEAR PLANT EQUIPMENT OPERATOR Unavailable Unavailable CICO, A MYKE NUCLEAR PLANT EQUIPMENT OPERATOR Unavailable Unavailable CICO, A MYKE NUCLEAR PLANT EQUIPMENT OPERATOR Unavailable Unavailable CICO, A MYKE NUCLEAR PLANT EQUIPMENT OPERATOR Unavailable Unavailable CICO, A MYKE NUCLEAR PLANT EQUIPMENT OPERATOR Unavailable Unavailable CICO, A MYKE NUCLEAR PLANT EQUIPMENT OPERATOR Unavailable Unavailable CICO, A MYKE NUCLEAR PLANT EQUIPMENT OPERATOR Unavailable Unavailable CICO, A MYKE NUCLEAR PLANT EQUIPMENT OPERATOR Unavailable Unavailable CICO, A MYKE NUCLEAR PLANT EQUIPMENT OPERATOR Unavailable Unavailable CICO, A MYKE NUCLEAR PLANT EQUIPMENT OPERATOR Unavailable Unavailable CICO, A MYKE NUCLEAR PLANT EQUIPMENT OPERATOR Unavailable Unavailable CICO, A MYKE NUCLEAR PLANT EQUIPMENT OPERATOR Unavailable Unavailable CICO, A MYKE NUCLEAR PLANT EQUIPMENT OPERATOR Unavailable Unavailable CICO, A MYKE NUCLEAR PLANT EQUIPMENT OPERATOR Unavailable Unavailable CICO, A MYKE NUCLEAR PLANT EQUIPMENT OPERATOR Unavailable Unavailable CICO, A MYKE NUCLEAR PLANT EQUIPMENT OPERATOR Unavailable Unavailable CICO, A MYKE NUCLEAR PLANT EQUIPMENT OPERATOR Unavailable Unavailable CICO, A MYKE NUCLEAR PLANT EQUIPMENT OPERATOR Unavailable Unavailable CICO, A MYKE NUCLEAR PLANT EQUIPMENT OPERATOR Unavailable Unavailable CICO, A MYKE NUCLEAR PLANT EQUIPMENT OPERATOR Unavailable Unavailable CICO, A MYKE NUCLEAR PLANT EQUIPMENT OPERATOR Unavailable Unavailable CICO, A MYKE NUCLEAR PLANT EQUIPMENT OPERATOR Unavailable Unavailable CICO, A MYKE NUCLEAR PLANT EQUIPMENT OPERATOR Unavailable Unavailable CICO, A MYKE NUCLEAR PLANT EQUIPMENT OPERATOR Unavailable Unavailable CICO, A MYKE NUCLEAR PLANT EQUIPMENT OPERATOR Unavailable Unavailable CICO, A MYKE NUCLEAR PLANT EQUIPMENT OPERATOR Unavailable Unavailable CICO, A MYKE NUCLEAR PLANT EQUIPMENT OPERATOR Unavailable Unavailable CICO, A MYKE NUCLEAR PLANT EQUIPMENT OPERATOR Unavailable Unavailable CICO, A MYKE NUCLEAR PLANT EQUIPMENT OPERATOR Unavailable Unavailable CICO, A MYKE NUCLEAR PLANT EQUIPMENT OPERATOR Unavailable Unavailable CICO, A MYKE NUCLEAR PLANT EQUIPMENT OPERATOR Unavailable Unavailable CICO, A MYKE NUCLEAR PLANT EQUIPMENT OPERATOR Unavailable Unavailable CICO, A MYKE NUCLEAR PLANT EQUIPMENT OPERATOR Unavailable Unavailable CICO, A MYKE NUCLEAR PLANT EQUIPMENT OPERATOR Unavailable Unavailable CICO, A MYKE NUCLEAR PLANT EQUIPMENT OPERATOR Unavailable Unavailable CICO, A MYKE NUCLEAR PLANT EQUIPMENT OPERATOR Unavailable Unavailable CICO, A MYKE NUCLEAR PLANT EQUIPMENT OPERATOR Unavailable Unavailable CICO, A MYKE NUCLEAR PLANT EQUIPMENT OPERATOR Unavailable Unavailable CICO, A MYKE NUCLEAR PLANT EQUIPMENT OPERATOR Unavailable Unavailable CICO, A MYKE NUCLEAR PLANT EQUIPMENT OPERATOR Unavailable Unavailable CICO, A MYKE NUCLEAR PLANT EQUIPMENT OPERATOR Unavailable Unavailable CICO, A MYKE NUCLEAR PLANT EQUIPMENT OPERATOR Unavailable Unavailable CICO, A MYKE NUCLEAR PLANT EQUIPMENT OPERATOR Unavailable Unavailable CICO, A MYKE NUCLEAR PLANT EQUIPMENT OPERATOR Unavailable Unavailable CICO, A MYKE NUCLEAR PLANT EQUIPMENT OPERATOR Unavailable Unavailable CICO, A MYKE NUCLEAR PLANT EQUIPMENT OPERATOR Unavailable Unavailable MATTHEW, PRYJMA BRUCE MD Unavailable Unavailable MATTHEW, PRYJMA BRUCE MD Unavailable Unavailable MATTHEW, PRYJMA BRUCE MD Unavailable Unavailable MATTHEW, PRYJMA BRUCE MD Unavailable Unavailable MATTHEW, PRYJMA BRUCE MD Unavailable Unavailable MATTHEW, PRYJMA BRUCE MD Unavailable Unavailable MATTHEW, PRYJMA BRUCE MD Unavailable Unavailable MATTHEW, PRYJMA BRUCE MD Unavailable Unavailable MATTHEW, PRYJMA BRUCE MD Unavailable Unavailable MATTHEW, PRYJMA BRUCE MD Unavailable Unavailable MATTHEW, PRYJMA BRUCE MD Unavailable Unavailable MATTHEW, PRYJMA BRUCE MD Unavailable Unavailable MATTHEW, PRYJMA BRUCE MD Unavailable Unavailable MATTHEW, PRYJMA BRUCE MD Unavailable Unavailable MATTHEW, PRYJMA BRUCE MD Unavailable Unavailable MATTHEW, PRYJMA BRUCE MD Unavailable Unavailable MATTHEW, PRYJMA BRUCE MD Unavailable Unavailable MATTHEW, PRYJMA BRUCE MD Unavailable Unavailable MATTHEW, PRYJMA BRUCE MD Unavailable Unavailable MATTHEW, PRYJMA BRUCE MD Unavailable Unavailable MATTHEW, PRYJMA BRUCE MD Unavailable Unavailable MATTHEW, PRYJMA BRUCE MD Unavailable Unavailable MATTHEW, PRYJMA BRUCE MD Unavailable Unavailable MATTHEW, PRYJMA BRUCE MD Unavailable Unavailable MATTHEW, PRYJMA BRUCE MD Unavailable Unavailable MATTHEW, PRYJMA BRUCE MD Unavailable Unavailable MATTHEW, PRYJMA BRUCE MD Unavailable Unavailable MATTHEW, PRYJMA BRUCE MD Unavailable Unavailable Re-disclosure Warning The records [...] is protected by Article 27-F of the [place] [employer] law. If you continue you may have access to information: Regarding HIV / AIDS; Provided by facilities licensed or operated by the [facility] Office of Mental Health; or Provided by the [facility] Office for People With Developmental Disabilities. If such information is present, then the following [facility] mandated warning applies: This information has been [...] law may result in a fine or care home sentence or both. A general authorization for the release of medical or other information is NOT sufficient authorization for further disc losure. Allergies and Adverse Reactions Type Description Substance Reaction Status Data Source(s ) Propensity to adverse reactions PENICILLINS [facility] Family History Family Member Name Family Member Gender Family Member Status Date o f Status Description Data Source(s) Unknown Male Problem [facility] ([facility] () - age 84 Encounters Encounter Providers Location Date Indications Data Source(s ) Outpatient 06/10/2020 03:32:05 PM EST [facility] Outpatient 06/10/2020 03:25:56 PM EST [facility] Outpatient Attender: GAVI LEONE DO [facility] 06/04/2020 12:40:00 PM EST [facility] Outpatient Attender: GAVI LEONE DO [facility] 05/28/2020 07:40:00 AM EST [facility] ([facility]) Outpatient Attender: GAVI LEONE DO [facility] 05/13/2020 03:00:00 PM EST [facility] ([facility]) Outpatient Referrer: MYKE REAL NP 08/26/2019 09:58:45 AM E DT [facility] Outpatient Attender: ISABELLE MARTIN MDAdmitter: ISABELLE Gray MDReferrer: ISABELLE MARTIN MD [id number] 08/13/2019 09:00:00 AM EDT - 08/13/2019 11:59:00 PM EDT [facility] Patient discharged. Outpatient Attender: ISABELLE MARTIN MDAdmitter: ISABELLE Gray MDReferrer: ISABELLE MARTIN MD [id number] 08/13/2019 08:45:00 AM EDT - 08/13/2019 08:59:00 AM EDT [facility] Patient discharged. Outpatient Attender: ISABELLE MARTIN MDReferrer: ISABELLE MARTIN MD MOB -MOB.PAT 08/08/2019 12:00:00 AM EDT - 08/08/2019 11:46:22 AM EDT [facility] Attender: ISABELLE MARTIN MDAdmitter: ISABELLE MARTIN MDRefe rrer: ISABELLE MARTIN MD ES1-OR 08/06/2019 03:31:50 PM EDT - 08/13/2019 02:30:00 PM EDT [facility] Patient discharged. Outpatient Attender: [facility]ABEL[facility]ARTIN [facility] 02:55:12 PM EDT - 08/05/2019 03:57:00 PM EDT [facility] Outpatient Attender: TESS MERCHANT,Mobile Crane Operator: JESSICA GREEN 07/08/2019 05:39:00 PM EST - 07/08/2019 05:49:00 PM EST [facility] Referrer: BRUCE CASTRO MD 07/04/2019 07:07:00 AM EST [facility] Outpatient Referrer: BRUCE CASTRO MD 05/24/2019 09:56:00 AM EST [facility] Outpatient Referrer: BRUCE CASTRO MD 05/24/2019 09:29:00 AM EST [facility] Outpatient Referrer: GAVI LEONE DO 05/24/2019 09 :27:00 AM EST [facility] Outpatient Attender: GAVI LEONE [facility] 05/17/2019 12:00:00 PM EST [facility] ([facility]) Outpatient Attender: GAVI LEONE [facility] 04/26/2019 12:10:00 PM EST [facility] ([facility]) Medications Medication Brand Name Start Date Product Form Dose Route Admi nistrative Instructions Pharmacy Instructions Status Indications Reaction Description Data Source(s) Levofloxacin 750 MG Oral Tablet Levofloxacin 05/27/2020 12:00:[address] ORAL completed [facility] ([facility]) 120 ACTUAT Fluticasone propionate 0.11 MG/ACTUAT Meter ed Dose Inhaler [Flovent] Flovent HFA 05/18/2020 12:00:00 AM EST ORAL completed [facility] ([facility]) Prednisone 20 MG Oral Tablet Prednisone 05/14/2020 12:00:00 AM EST ORAL completed [facility] ([facility]) Doxycycline Monohydrate 100 MG Oral Capsule Doxycycline [place] hydrate 05/14/2020 12:00:00 AM EST ORAL completed [facility] ([facility] No Active Medications 05/13/2020 12:00:00 AM EST completed [facility] ([facility] normal saline flush 0.9 % injection 3 mL [id number] 08/13/2019 02:00:00 PM EDT 3 mL Intravenous active 3 mL , Intravenous, Every 8 hours (scheduled), First dose on Mon08/13/19 at 1400, PACU (only)
flush per protocol, D/C Main IV fluid if appropriate
[facility] Medication administered onsite Magnesium Chloride 0.18298 MEQ/ML / Pota ssium Chloride 0.0497 MEQ/ML / Sodium Acetate 0.0163 MEQ/ML / Sodium Chloride 0.0899 MEQ/ML / Sodium gluconate 5.02 MG/ML Injectable Solution [Normosol-R] electrolyte-R (NORMOSOL-R/PLASMALYTE-R) solution electrolyte-R (NORMOSOL-R/PLASMALYTE-R) solution 08/12 01:00:00 PM EDT Intravenous active at 1 00 mL/hr, Intravenous, Continuous, Starting Mon08/13/19 at 1300, PACU (only) [facility] Medication administered onsite 4 ML Labetalol [...] MG, hold for HR less than 60
[facility] Medication administered onsite haloperidol lactate (HALDOL) injection 0.5 mg [id number] 08/13/2019 11:54:42 AM EDT 0.5 mg Intramuscular active 0. 5 mg, Intramuscular, Every 30 min PRN, for intractable nausea and vomiting if not relieved by zofran/promethazine, Starting Mon08/13/19 at 1154, For 4 doses, PACU (only) [facility] Medication administered onsite technetium sulfur colloid (NYCOMED-SC) solution 500 micro cu johnathan 08/13/2019 10:00:00 AM EDT 500 uCi Intravenous completed 500 micro curie, Intravenous, Once, Mon08/13/19 at 1000, For 1 dose [facility] Medication administered onsite Magnesium Chloride 0.98298 MEQ/ML / Pota ssium Chloride 0.0497 MEQ/ML / Sodium Acetate 0.0163 MEQ/ML / Sodium Chloride 0.0899 MEQ/ML / Sodium gluconate 5.02 MG/ML Injectable Solution [Normosol-R] electrolyte-R (NORMOSOL-R/PLASMALYTE-R) solution electrolyte-R (NORMOSOL-R/PLASMALYTE-R) solution 08/12 10:00:00 AM EDT Intravenous active at 1 00 mL/hr, Intravenous, Continuous, Starting Mon08/13/19 at 1000, Pre-op [facility] Medication administered onsite normal saline flush 0.9 % injection 3 mL [id number] 08/13/2019 10:00:00 AM EDT 3 mL Intravenous active 3 mL , Intravenous, Every 8 hours (scheduled), First dose on Mon08/13/19 at 1000, Pre-op
Rapid push positive pressure flushing shall be performed with a 10 cc normal saline syringe to check the PATENCY of a PIV site prior to any infusion therapy initiation unless resistance is met.
[facility] Medication administered onsite Doxycycline Monohydrate 100 MG Oral Tablet Doxycycline Monoh ydrate 03/05/2019 12:00:00 AM EDT ORAL completed [facility] ([facility] Insurance Providers Payer name Policy type / Coverage type Policy ID Covered green party ID Covered green party's relationship to fish Policy Fish Plan Information [facility] [id number] SP [id number] [facility] [id number] S [id number] SELF PAY ONLY [id number] SP [id number] [facility] [id number] SP [id number] [facility] [id number] [facility] [id number] Spo [id number] [facility] [id number] 18 [id number] [facility] [id number] 01 [id number] [facility] Commercial [id number] Self [id number] [facility] Commercial [id number] Self 00 [id number] [facility] Commercial [id number] Self 00 [id number] [facility] Commercial [id number] Self 00 [id number] [facility] Claims DPT Commercial Self [place] P[place] 302/307 [id number] [employer] [id number] [facility] [id number] FOR LIFE [id number] [facility] [id number] [place] PPO 302/307 [id number] Problems, Conditions, and Diagnoses Code Display Name Description Problem Type Effective Dates Data Source(s) No Previous Anesthesia No Previous Anesthesia [id number] 08/08/2019 12:00:00 AM EDT [facility] C50.912 Breast cancer, left Breast cancer, left [id number] 08/08/2019 12:00:00 AM EDT [facility] K21.9 GERD (gastroesophageal reflux disease) G ERD (gastroesophageal reflux disease) [id number] 08/08/2019 12:00:00 AM EDT [facility] N20.0 Kidney stones Kidney stones [id number] 08/08/2019 12:00:00 AM EDT [facility] 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, estrogen receptor positive Malignant neoplasm of upper-outer quadra nt of left breast in female, estrogen receptor positive [id number] 12:00:00 AM EDT [facility] Z17.0 Estrogen receptor positive status [ER+] Estrogen receptor positive status (ER+) Diagnosis 08/13/2019 09:00:00 AM EDT [facility] C50.412 Malignant neoplasm of upper-outer quadra nt of left female breast Malignant neoplasm of upper-outer quadra Diagnosis 08/13/2019 09:00:00 AM EDT [facility] N20.0 Calculus of kidney Calculus of kidney Diagnosis 11:11:41 AM EDT [facility] K21.9 Gastro-esophageal reflux disease without esophagitis Gastro-esophageal reflux disease without Diagnosis 08/08/2019 11:11:41 AM EDT [facility] C50.912 Malignant neoplasm of unspecified site o f left female breast Malignant neoplasm of unspecified site o Diagnosis 08/08/2019 11:11:41 AM EDT [facility] [id number] Malignant neoplasm of upper-outer quadra nt of left female breast Malignant neoplasm of upper-outer quadrant of left female breast Diagnosis 07/08/2019 05:39:00 PM [facility] N630 Unspecified lump in unspecified breast U nspecified lump in unspecified breast Diagnosis 07/08/2019 05:39:00 PM [facility] Surgeries/Procedures Procedure Description Date Indications Data Source(s) RADIOLOGICAL EXAMINATION SURGICAL SPECIMEN MAMMO BREAST SPECIME N Routine 08/13/2019 11:37 AM EDT Malignant neoplasm of upper-outer quadrant of left breast in female, estrogen receptor positive 08/13/2019 03:37:20 PM EDT Malignant dick plasm of upper-outer quadrant of left breast in female, estrogen receptor positive [facility] Malignant neoplasm of upper-outer quadra nt [...] left breast in female, estrogen receptor positive [facility] Malignant neoplasm of upper-outer quadra nt of left breast in female, estrogen receptor positive MAMMO NEEDLE LOCALIZATION LEFT MAMMO NEEDLE LOCALIZATION LEFT R outine 08/13/2019 9:45 AM EDT Malignant neoplasm of upper-outer quadrant of left breast in female, estrogen receptor positive 08/13/2019 01:45:00 PM EDT Malignant dick plasm of upper-outer quadrant of left breast in female, estrogen receptor positive [facility] Malignant neoplasm of upper-outer quadra nt [...] left breast in female, estrogen receptor positive [facility] Malignant neoplasm of upper-outer quadra nt of left breast in female, estrogen receptor positive Results ID Date Data Source [id number] 06/10/2020 12:00:00 AM EST [facility] Gavi Singhber Patient Name: TOAN [id number] Date of : 1960te 3 Date of Exam: 06/10/2020LAZARUS Lee [id number]#: Fax: [phone] EXAM: CT ANGIOGRAPHY, CHESTCLINICAL INFORMATION: Chest pain on right with elevated D-dimer, knownpneumonia.Low dose 64 slice contrast enhanced helical CT examination of the chest wasobtained using the pulmonary angio protocol with 1.5 mm thick incrementsalong with standard 3 mm thick increments through the whole chest.Sagittal, coronal, and bilateral arterial oblique reconstructions wereobtained with post processing at the physicians workstation when necessary. Contrast utilized 100 cc of Optiray 350.Comparison CT is 05/28/2020, a non-contrast enhanced CT.There is excellent visualization of the pulmonary arterial vasculature.There are no focal filling defects present that would be consideredconsistent with acute pulmonary emboli. There is a small and in fact tinyleft pleural effusion. There is left hilar adenopathy. There is a minimalpericardial effusion. The upper abdomen is within normal limits. Theimaged osseous structures are within normal limits and unchanged from theprior exam.Evaluation of the lung vidales shows an abnormal patchy parenchymal opacityin the left upper, lingula, and left lower lobes but improved from theprior exam in that it is smaller, less dense, and has fewer airbronchograms. In addition, the pleural effusion seen previously on theleft as decreased in size. No new abnormal opacities have developed.IMPRESSION:1. There is no evidence of a pulmonary embolus.2. Improved left lung findings as described above consistent withresolving pneumonia.3. Adenopathy, likely due to infectious etiology. Followup isrecommended.4. There is a small pericardial effusion.Accredited by the [employer] in [place] you for referring OSCAR VEGA to our office. Electronically Signed - DIONY MELENDEZ DO 06/10/20 17:26 Name Value Range Interpretation Code Description Data Mare rce(s) Supporting Document(s) ID Date Data Source [id number] 06/09/2020 03:02:00 PM EST [facility] ([facility]) Name Value Range Interpretation Code Description Data Mare rce(s) Supporting Document(s) Glucose, Fasting 88 mg/dL 70-100 Normal (applies to non-numeric results) [facility] ([facility]) Creatinine For GFR 0.63 mg/dL 0.55-1.30 Normal (applies to non -numeric results) [facility] ([facility]) Glomerular Filtration Rate Laboratory test result Normal (applies to non- numeric results) [facility] ([facility]) <content>Units are mL/min/1.73 m2</content>
<content></content>
<content>Chronic Kidney Disease Staging per NKF:</content>
<content></content>
<content>Stage I & II GFR >=60 Normal to Mildly Decreased</content>
<content>Stage III GFR 30- 59 Moderately Decreased</content>
<content>Stage IV GFR 15-29 Severely Decreased</content>
<content>Stage V GFR <15 Very Little GFR Left</content>
<content>ESRD GFR <15 on INSPECTOR SCREEN PRINTING</content>
<content></content> Blood Urea Nitrogen 15 mg/dL 7-18 Normal (applies to non-nume yunior results) [facility] ([facility] Sodium Level 139 meq/L 136-145 Normal (applies to non-numeric res ults) [facility] ([facility] Potassium Serum 4.4 meq/L 3.5-5.1 Normal (applies to non-numeric results) [facility] ([facility] Anion Gap 4 meq/L 8-16 Below low normal [facility] ( [facility] Chloride Level 105 meq/L 98-107 Normal (applies to non-numeric r esults) [facility] ([facility] Carbon Dioxide Level 30 meq/L 21-32 Normal (applies to non-num joshua results) [facility] ([facility]) Alt/SGPT 34 U/L 12-78 Normal (applies to non-numeric resul ts) [facility] ([facility] Calcium Level 9.1 mg/dL 8.5-10.1 Normal (applies to non-numeric re sults) [facility] ([facility]) Ast/Sgot 17 U/L 7-37 Normal (applies to non-numeric resul ts) [facility] ([facility] Total Protein 6.0 GM/DL 6.4-8.2 Below low normal [facility] ([facility]) Alkaline Phosphatase 99 U/L 45-117 Normal (applies to non-num joshua results) [facility] ([facility] Bilirubin,Total 0.1 mg/dL 0.2-1.0 Below low normal [facility] ([facility]) Albumin 2.9 GM/DL 3.2-5.2 Below low normal [facility] ( [facility] Albumin/Globulin Ratio 0.9 1.2-2.2 Below low normal [facility] ([facility]) ID Date Data Source [id number] 06/09/2020 03:02:00 PM EST [facility] ([facility]) Name Value Range Interpretation Code Description Data Mare rce(s) Supporting Document(s) Red Blood Count 3.73 10 4.00-5.40 Below low normal [facility] ([facility] White Blood Count 8.7 10 4.0-10.0 Normal (applies to non-numeri c results) [facility] ([facility]) Hemoglobin 10.9 g/dL 12.0-15.5 Below low normal [facility] ( [facility] Hematocrit 34.9 % 36.0-47.0 Below low normal [facility] ( [facility]) Mean Corpuscular Volume 93.6 fl 80.0-96.0 Normal ( applies to non-numeric results) [facility] ([facility]) Mean Corpuscular HGB Conc 31.2 g/dL 32.0-36.5 Below low normal [facility] ([facility]) Mean Corpuscular Hemoglobin 29.2 pg 27.0-33.0 Norm al (applies to non-numeric results) [facility] ([facility] Red Cell Distribution Width 13.2 % 11.5-14.5 Norm al (applies to non-numeric results) [facility] ([facility] Platelet Count, Automated 378 10 150-450 Normal (applies to non-numeric results) [facility] ([facility] Neutrophils % 73.0 % 36.0-66.0 Above high normal [facility] ([facility]) [place] % 10.5 % 0.0-5.0 Above high normal [facility] ([facility] Lymph % 12.8 % 24.0-44.0 Below low normal [facility] ( [facility] [facility]) Baso % 0.2 % 0.0-1.0 Normal (applies to non-numeric resul ts) [facility] ([facility] Eos % 2.6 % 0.0-3.0 Normal (applies to non-numeric resul ts) [facility] ([facility]) Immature Granulocyte % 0.9 % 0-3.0 Normal (applies to non-n umeric results) [facility] ([facility]) Neutrophils # 6.3 10 1.5-8.5 Normal (applies to non-numeric re sults) [facility] ([facility]) Nucleated Red Blood Cell % 0.0 % 0-0 Normal (applies to n on-numeric results) [facility] ([facility]) [place] # 0.9 10 0.0-0.8 Above high normal [facility] ([facility]) Lymph # 1.1 10 1.5-5.0 Below low normal [facility] ( [facility] Baso # 0.0 10 0.0-0.2 Normal (applies to non-numeric resul ts) [facility] ([facility]) Eos # 0.2 10 0.0-0.5 Normal (applies to non-numeric resul ts) [facility] ([facility]) ID Date Data Source [id number] 06/09/2020 03:02:00 PM EST [facility] ([facility]) Name Value Range Interpretation Code Description Data Mare rce(s) Supporting Document(s) Fibrin D-dimer FEU [Mass/volume] in Platelet poor plasma 669.69 ng/mL Above high normal [facility] ID Date Data Source [id number] 06/08/2020 12:00:00 AM EST [facility] ology Imaging Gavi Ambriz DO Patient Name: TOAN [id number] Date of : 1960te 1 Date of Exam: 06/08/2020[place], [place] [address]BH#: Fax: [phone] EXAM: CHEST (2 VIEW) X-RAYCLINICAL INFORMATION: Followup pneumonia.Two views.Comparison, multiples the latest 05/30/2020.Patchy left upper lobe consolidation seen in the latest prior examinationis somewhat less dense with fewer air bronchograms, however, in the leftlung apex, increased air space opacities have developed. There is no othersignificant change in the appearance of the lung vidales. Thecardiomediastinal silhouette is stable. The osseous structures are stableand intact.IMPRESSION:Both improvement and worsening in the left lung as described above. Itshould be remembered that the radiographic findings can lag behind theclinical findings. Continued surveillance, however, is recommended at thistime. If clinically relevant, obtain chest CT so as it can be compared tothe chest CT of 05/28/2020.MOSES Centeno/Erica bermudez for referring OSCAR VEGA to our office. Electronically Signed - DIONY MELENDEZ DO 06/09/20 15:18 Name Value Range Interpretation Code Description Data Mare rce(s) Supporting Document(s) ID Date Data Source [id number] 06/08/2020 12:00:00 AM EST [facility] ([facility]) Name Value Range Interpretation Code Description Data Mare rce(s) Supporting Document(s) Chest X-ray PA and lateral Laboratory test result [facility] ([facility]) ID Date Data Source [id number] 05/28/2020 12:57:00 PM EST [facility] ([facility]) Name Value Range Interpretation Code Description Data Mare rce(s) Supporting Document(s) Respiratory Panel Laboratory test result [facility] ([facility]) This respiratory PCR panel detects Influ daniel [...] - SARS-CoV-2 (COVID19) ID Date Data Source [id number] 05/28/2020 12:57:00 PM EST [facility] Name Value Range Interpretation Code Description Data Mare rce(s) Supporting Document(s) SARS-CoV-2 (COVID 19) NEGATIVE - SARS-CoV-2 (COVID19) [facility] This lab was ordered by [facility] a nd reported by [facility]. ID Date Data Source [id number] 05/28/2020 11:59:00 AM EST [facility] ([facility]) Name Value Range Interpretation Code Description Data Mare rce(s) Supporting Document(s) Laboratory test finding (navigational concept) 30.0 % 3 8.0-51.0 Below low normal [facility] ([facility]) Laboratory test finding (navigational concept) 119 mg/dL 7 0-105 Above high normal [facility] ([facility]) Laboratory test finding (navigational concept) 137 meq/L 1 36-145 Normal (applies to non-numeric results) [facility] ([facility]) Laboratory test finding (navigational concept) 3.3 meq/L 3 .5-5.1 Below low normal [facility] ([facility]) Laboratory test finding (navigational concept) 4.4 mg/dL 4 .5-5.3 Below low normal [facility] ([facility]) Laboratory test finding (navigational concept) 100 meq/L 9 8-109 Normal (applies to non-numeric results) [facility] ([facility]) Laboratory test finding (navigational concept) 24.0 MM/L 2 3.0-27.0 Normal (applies to non-numeric results) [facility] ([facility]) Laboratory test finding (navigational concept) 0.5 mg/dL 0 .6-1.3 Below low normal [facility] ([facility] Laboratory test finding (navigational concept) 9 mg/dL 8 -26 Normal (applies to non-numeric results) [facility] ([facility]) ID Date Data Source [id number] 05/27/2020 12:00:00 AM EST [facility] Fran Ambriz DO Patient Name: [address]AN [id number] Date of : 1960te 1 [facility]: [facility] [id number] Fax: [phone] EXAM: CHEST (2 VIEW) X-RAYCLINICAL [...] rce(s) Supporting Document(s) ID Date Data Source [id number] 05/19/2020 10:33:00 PM EST [facility] ([facility]) Name Value Range Interpretation Code Description Data Mare rce(s) Supporting Document(s) Glucose, Fasting 108 mg/dL 70-100 Above high normal [facility] ([facility]) Creatinine For GFR 0.63 mg/dL 0.55-1.30 Normal (applies to non -numeric results) [facility] Glomerular Filtration Rate Laboratory test result Normal (applies to non- numeric results) [facility] ([facility]) <content>Units are mL/min/1.73 m2</content>
<content></content>
<content>Chronic Kidney Disease Staging per NKF:</content>
<content></content>
<content>Stage I & II GFR >=60 Normal to Mildly Decreased</content>
<content>Stage III GFR 30- 59 Moderately Decreased</content>
<content>Stage IV GFR 15-29 Severely Decreased</content>
<content>Stage V GFR <15 Very Little GFR Left</content>
<content>ESRD GFR <15 on INSPECTOR SCREEN PRINTING</content>
<content></content> Blood Urea Nitrogen 11 mg/dL 7-18 Normal (applies to non-nume yunior results) [facility] ([facility]) Potassium Serum 4.0 meq/L 3.5-5.1 Normal (applies to non-numeric results) [facility] ([facility]) Chloride Level 105 meq/L 98-107 Normal (applies to non-numeric r esults) [facility] ([facility]) Sodium Level 138 meq/L 136-145 Normal (applies to non-numeric res ults) [facility] ([facility]) Calcium Level 8.4 mg/dL 8.5-10.1 Below low normal [facility] ([facility]) Anion Gap 6 meq/L 8-16 Below low normal [facility] ( [facility] Carbon Dioxide Level 27 meq/L 21-32 Normal (applies to non-num joshua results) [facility] ([facility]) Alt/SGPT 25 U/L 12-78 Normal (applies to non-numeric resul ts) [facility] ([facility]) Ast/Sgot 18 U/L 7-37 Normal (applies to non-numeric resul ts) [facility] ([facility]) Bilirubin,Total 0.3 mg/dL 0.2-1.0 Normal (applies to non-numeric results) [facility] ([facility]) Total Protein 6.5 GM/DL 6.4-8.2 Normal (applies to non-numeric re sults) [facility] ([facility]) Alkaline Phosphatase 100 U/L 45-117 Normal (applies to non-num joshua results) [facility] ([facility]) Albumin 2.5 GM/DL 3.2-5.2 Below low normal [facility] ( [facility] Albumin/Globulin Ratio 0.6 1.2-2.2 Below low normal [facility] ([facility]) ID Date Data Source [id number] 05/19/2020 10:33:00 PM EST [facility] ([facility]) Name Value Range Interpretation Code Description Data Mare rce(s) Supporting Document(s) Red Blood Count 3.64 10 4.00-5.40 Below low normal [facility] ([facility]) Hemoglobin 10.5 g/dL 12.0-15.5 Below low normal [facility] ( [facility]) White Blood Count 11.2 10 4.0-10.0 Above high normal [facility] ([facility]) Mean Corpuscular Volume 91.8 fl 80.0-96.0 Normal ( applies to non-numeric results) [facility] ([facility]) Hematocrit 33.4 % 36.0-47.0 Below low normal [facility] ( [facility] Mean Corpuscular HGB Conc 31.4 g/dL 32.0-36.5 Below low normal [facility] ([facility]) Red Cell Distribution Width 11.4 % 11.5-14.5 Below low normal [facility] ([facility]) Mean Corpuscular Hemoglobin 28.8 pg 27.0-33.0 Norm al (applies to non-numeric results) [facility] ([facility]) Nucleated Red Blood Cell % 0.0 % 0-0 Normal (applies to n on-numeric results) [facility] ([facility]) Platelet Count, Automated 503 10 150-450 Above high normal [facility] ([facility]) ID Date Data Source [id number] 05/19/2020 10:07:00 PM EST [facility] ([facility]) Name Value Range Interpretation Code Description Data Mare rce(s) Supporting Document(s) Respiratory Panel Laboratory test result [facility] ([facility]) This respiratory PCR panel detects Influ daniel [...] - SARS-CoV-2 (COVID19) ID Date Data Source [id number] 05/19/2020 10:07:00 PM EST [facility] Name Value Range Interpretation Code Description Data Mare rce(s) Supporting Document(s) SARS-CoV-2 (COVID 19) NEGATIVE - SARS-CoV-2 (COVID19) [facility] This lab was ordered by [facility] a nd reported by [facility]. ID Date Data Source [id number] 05/19/2020 12:00:00 AM EST [facility] ology Imaging Gavi Ambriz DO Patient Name: TOAN VEGA[address] Date of : 1960te 1 Date of Exam: 05/19/2020LAZARUS Lee [id number]#: Fax: [phone] EXAM: CHEST (2 VIEW) X-RAYCLINICAL INFORMATION: Chest pain.TECHNIQUE: PA and lateral.FINDINGS:Large left upper lobe consolidation consistent with acute pneumonia. Noeffusion. Right hemithorax is clear. Visualized portions of themediastinum and cardiac silhouette are normal. Skeletal structures areintact.IMPRESSION:Large left upper lobe consolidation with air bronchograms consistent withpneumonia. Followup to resolution.TRES Allen/Erica you for referring OSCAR VEGA to our office. Electronically Signed - JACK SWENSON MD 06/04/20 13:16 Name Value Range Interpretation Code Description Data Mare rce(s) Supporting Document(s) ID Date Data Source [id number] 05/13/2020 04:07:00 PM EST [facility] ([facility]) Name Value Range Interpretation Code Description Data Mare rce(s) Supporting Document(s) Respiratory Panel Laboratory test result [facility] This respiratory PCR panel detects Influ daniel [...] - SARS-CoV-2 (COVID19) ID Date Data Source [id number] 05/13/2020 04:07:00 PM EST [facility] Name Value Range Interpretation Code Description Data Mare rce(s) Supporting Document(s) SARS-CoV-2 (COVID 19) [facility] This lab was ordered by [facility] a nd reported by [facility]. ID Date Data Source [id number] 05/10/2020 12:00:00 AM EST [facility] Name Value Range Interpretation Code Description Data Mare rce(s) Supporting Document(s) SARS-CoV-2 (COVID-19) RNA [Presence] in Respiratory specimen by LAURA with probe detection [facility] This lab was ordered by [facility] and reported by [employer] ID Date Data Source [id number] 08/27/2019 04:20:28 PM EDT [facility] INFORMATIONPatient MRN Name Date of Age Gend*PT [id number] Oscar Vega 1960 59 years F SDCPT Location Admission Date/Time Visit ID Attending ProviderPERIOP BRAZIL 08/13/19 0827 --- --- EPI ID CSN Admitting Provider [id number] Isabelle Martin MD([id number]) [place] [address] OPERATIVE REPORT OPNAME: OSCAR VEGA#: [id number] #: [id number] ADMISSION DATE: 08/13/2019DOB: 1960 SEX: F PT TYPE: H SURACCT #: [id number] CARE PHYSICIAN: GAVI AMADOR-FLOBERERRING PHYSICIAN: ISABELLE MARTINDATE OF OPERATION: 08/13/2019ATTENDING PHYSICIAN:Isabelle Martin MD.PREOPERATIVE DIAGNOSIS:Left breast invasive ductal carcinoma.POSTOPERATIVE DIAGNOSIS:Left breast invasive ductal carcinoma.PROCEDURES PERFORMED:1. Left breast excisional needle localized lumpectomy for carcinoma.2. Left axillary sentinel node biopsy.SURGEON:Isabelle Martin MD.TIME STUDY ENGINEER:STEPHANIE Jeronimo.ANESTHESIA:General.ESTIMATED BLOOD LOSS:Minimal.COMPLICATIONS:None.BRIEF HISTORY:This is a very [...] what her finalpathology reveals.RAMÓN SIBLEY/KEILA Job #: [id number] DOC #: [id number] Name Value Range Interpretation Code Description Data Mare rce(s) Supporting Document(s) ID Date Data Source [id number] 08/13/2019 01:33:29 PM EDT [address] [address]Vjdzfua Name: OSCAR YOUNGB: 2Sex: FOrdering Provider: ISABELLE Tenorio Prov: ISABELLE Garrido Provider: ISABELLE Calixto Performed: MAMMO BREAST SPECIMENExam Date: 08/13/2019 11:37MRN: [id number] Number: [id number] Class: OutpatientAccount #: [id number] for Exam: left breast cancerTechnique: Single specimen radiograph obtained.Comparison: Needle and wire localization exam earlier today.Findings: The localization wire as well as localized surgical clip are seen within the breast specimen.IMPRESSION: Successful needle wire localization procedure. Surgical clip seen within the breast specimen.Report electronically signed by: YUMI CUNNINGHAM On 08/13/2019 1:33 PMWorkstation ID: [id number] Name Value Range Interpretation Code Description Data Mare rce(s) Supporting Document(s) ID Date Data Source [id number] 08/13/2019 12:02:37 PM EDT [address] [address]Inawfrk Name: OSCAR YOUNGB: 2Sex: FOrdering Provider: ISABELLE Tenorio Prov: ISABELLE Garrido Provider: ISABELLE Calixto Performed: MAMMO NEEDLE LOCALIZATION LEFTExam Date: 08/13/2019 09:45MRN: [id number] Number: [id number] Class: OutpatientAccount #: [id number] for Exam: left breast cancerTechnique: CC and ML views obtainedComparison: NoneFINDINGS: Mammographic images of the left breast were obtained using the targeting grade. Appropriate coordinates were determined and the clip was targeted. One percent LIDOCAINE mixed with bicarbonate was used for superficial and deep local anesthesia.. A 3 cm [place] needle was then advanced into position.Satisfactory placement of the needle was confirmed with additional mammographic images. Subsequently a wire was advanced through the needle and locked into position. Follow-up images demonstrate needle and wire in satisfactory position adjacent to the targeted clip.)IMPRESSION: Successful needle and wire localization of a left breast marking clip.Report electronically signed by: CHRISTY MCKEON On 08/13/2019 12:02 PMWorkstation ID: [id number] Name Value Range Interpretation Code Description Data Mare rce(s) Supporting Document(s) ID Date Data Source [id number] 08/13/2019 12:00:51 PM EDT [address] [address]Hdgtxtt Name: OSCAR VEGADOB: 1960ex: FOrdering Provider: ISABELLE BANGURAuthbarak Prov: ISABELLE BIGGSTRefernathan Provider: ISABELLE SANCHEZroctereso Performed: NM SENTINEL NODE BREAST INJECTION ONLY LEFTExam Date: 08/13/2019 09:43MRN: [id number] Number: [id number] Class: OutpatientAccount #: [id number] for Exam: New left breast cancerTechnique: Left [...] sulfur colloid.The patient tolerated the procedure well.IMPRESSION: Flatgap node injection procedure as above.Report electronically signed by: CHRISTY MCKEON On 08/13/2019 12:00 PMWorkstation ID: [id number] Name Value Range Interpretation Code Description Data [facility] rce(s) Supporting Document(s) ID Date Data Source [id number] 08/13/2019 11:04:27 AM EDT [facility] INFORMATIONPatient MRN Name Date of Age Gend*PT [id number] Gary Oscar Chopra 1960 59 years F SDCPT Location Admission Date/Time Visit ID Attending Provider --- --- --- --- EPI ID CSN Admitting Provider [id number] ---AirwayPatient location during procedure: ORUrgency: electiveDifficult airway: [...] rce(s) Supporting Document(s) ID Date Data Source [id number] 08/18/2019 05:44:30 PM EDT Lab [facility] [place], [place] [address]Syv# Surgical Pathology ReportAccession #:[id number](s) ReceivedA: Left [...] 0 Number of negative nodes: 2 9. ER/TN/HER2: Previously performed on the outside prior core biopsyspecimen; [facility],[id number]. NON- NEOPLASTIC BREAST: Cyst formation, focal usual [...] 4 with trimming of A6 in block U3R9-B0. Entire slice 5 with tumor in A8 A10-A11. Entire slice 6 with tumor in [id number]. Entire slice 7 A14. Entire slice 8 [...] are entirely submitted in onecassette. Processed at Laboratory [facility], Histopathology, [address], [place], [address].jglmwg/mwg Reported: 08/18/2019Electronically Signed Out By Meño Browne MD [facility]emg This report may include immunohistochemical or in-situ hybridizationresults. Testing was developed and the performance characteristicsdetermined by [facility] as required by CLIA '88. The FDAhas determined that approval for specific use is not necessary forclinical use. The quality of Hematoxylin and Eosin stains and asapplicable, for all immunohistochemical and/or special stains, includingpositive and negative controls, were reviewed and considered appropriate.ICD codes C50.912CPT codesA: 59326LZ: 14637Y, 61930z Name Value Range Interpretation Code Description Data Mare rce(s) Supporting Document(s) ID Date Data Source [id number] 08/08/2019 12:03:15 PM EDT [facility] INFORMATIONPatient MRN Name Date of Age Gend*PT [id number] Oscar Vega 1960 59 years F OPPT Location Admission Date/Time Visit ID Attending Provider --- --- --- Isabelle Martin MD([id number]) EPI ID CSN Admitting Provider [id number] ---OUTPATIENT / OBSERVATIONAL SURGICAL OR INVASIVE PROCEDUREName: [...] rce(s) Supporting Document(s) ID Date Data Source [id number] 08/05/2019 04:23:31 PM EDT [facility] NT INFORMATIONPatient MRN Name Date of Age Gend*PT [id number] Oscar Vega A 1960 59 years F ---PT Location Admission Date/Time Visit ID Attending Provider --- --- --- --- EPI ID CSN Admitting Provider [id number] ---NEW CONSULTATION FOR BREAST CANCER :Attending Surgeon : Isabelle Martin MDHistory of Present Illness :She presents today alone. 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 The findings are as follows: - ER: POSITIVE (100%, strong, Kwabena 8) - TN: NEGATIVE (0%) - Her2: POSITIVE (3+)Review of [...] would be a Stage 1, T1, N0, MxShalo really did reading, she knows that HER-2 [...] mastectomy. I explained that there is NO watermaster survival benefitto having a mastectomy over lumpectomy [...] oncology first and attheir recommendation place an Xoutwg-n-Ifey at the time of surgery but againOscar makes it clear she may not even consider chemotherapy so I think itbest we hold offCertain parts of this note may have been carried over from prior notes tomaintain patient's pertinent medical history and continuity of care. The detailswere verified and edited as appropriate.This document or parts of this document, were dictated using [employer]. A reasonable attempt at proofreading has been made to minimizeerrors. Please call with any questions or corrections. Name Value Range Interpretation Code Description Data Mare rce(s) Supporting Document(s) ID Date Data Source [id number] 07/03/2019 12:00:00 AM EST [facility] Bruce Castro MD Patient Name: OSCAR VEGA [address] Date [facility] : 1960[facility] Date of Exam: 07/03/2019[place], [place] [address]YQ#: Fax: [phone] EXAM: US EXTREMITY VEINS, BILATERAL [...] witha duration of 0.3 seconds.Accredited by the [employer] in Vascular PeripheralUltrasound.Zeus Wade, MDDJKenya/robertcTserafin you for referring OSCAR VEGA to our office. Electronically Signed - ZEUS BAUER MD 07/04/19 13:02 Name Value Range Interpretation Code Description Data Mare rce(s) Supporting Document(s) ID Date Data Source [id number] 04/26/2019 03:49:00 PM EST [facility] ([facility]) Name Value Range Interpretation Code Description Data Mare rce(s) Supporting Document(s) Thyrotropin [Units/volume] in Serum or Plasma 0.980 uIU/ML 0. 358-3.740 Normal (applies to non-numeric results) [facility] ([facility]) Thyroxine (T4) free [Mass/volume] in Serum or Plasma 1.13 ng/dL 0.76-1.46 Normal (applies to non-numeric results) [facility] ([facility]) ID Date Data Source [id number] 04/26/2019 03:49:00 PM EST [facility] ([facility]) Name Value Range Interpretation Code Description Data Mare rce(s) Supporting Document(s) Thryoglobulin Antibodies (Yung) 3.1 IU/ml 0.0-0.9 Above high yves l [facility] Thyroglobulin Antibody measured by Beckm an Brickeys Methodology Thyroglobulin Opal 2.5 ng/mL Normal (applies to non-numeri c results) [facility] ([facility]) <content>Reference Range:</content>
<content>Pubertal Children</content>
<content>and Adults: <40</content>
[...] quantitation limit is 2.0 ng/mL.</content>
<content>Performed at: RN - [facility]</content>
<content>[address] [place] [phone]</content>
<content>Pediatric Intensive Physician: Aniyah Andino MD, Phone: [phone]</content>
<content>Performed at: [facility]</content>
<content>[address] [place] [phone]</content>
<content>Pediatric Intensive Physician: Chito Orr MD, Phone: [phone]</content>
<content></content> ID Date Data Source [id number] 04/26/2019 03:49:00 PM EST [facility] ([facility]) Name Value Range Interpretation Code Description Data Mare rce(s) Supporting Document(s) Thyroperoxidase Ab [Units/volume] in Serum or Plasma 37.7 U/ML Normal (applies to non-numeric results) [facility] ID Date Data Source [id number] 04/26/2019 03:49:00 PM EST [facility] ([facility]) Name Value Range Interpretation Code Description Data Mare rce(s) Supporting Document(s) Red Blood Count 4.41 10 4.00-5.40 Normal (applies to non-numeric results) [facility] ([facility]) White Blood Count 7.1 10 4.0-10.0 Normal (applies to non-numeri c results) [facility] ([facility]) Hemoglobin 13.1 g/dL 12.0-15.5 Normal (applies to non-numeric resul ts) [facility] ([facility]) Hematocrit 39.8 % 36.0-47.0 Normal (applies to non-numeric resul ts) [facility] ([facility] Mean Corpuscular HGB Conc 32.9 g/dL 32.0-36.5 Normal (applies to non-numeric results) [facility] ([facility] Mean Corpuscular Volume 90.2 fl 80.0-96.0 Normal ( applies to non-numeric results) [facility] ([facility] Mean Corpuscular Hemoglobin 29.7 pg 27.0-33.0 Norm al (applies to non-numeric results) [facility] ([facility]) Platelet Count, Automated 317 10 150-450 Normal (applies to non-numeric results) [facility] ([facility] Neutrophils % 62.1 % 36.0-66.0 Normal (applies to non-numeric re sults) [facility] ([facility]) Red Cell Distribution Width 12.9 % 11.5-14.5 Norm al (applies to non-numeric results) [facility] ([facility] Lymph % 27.7 % 24.0-44.0 Normal (applies to non-numeric resul ts) [facility] ([facility]) [place] % 8.9 % 0.0-5.0 Above high normal [facility] ([facility]) Baso % 0.6 % 0.0-1.0 Normal (applies to non-numeric resul ts) [facility] ([facility] Eos % 0.6 % 0.0-3.0 Normal (applies to non-numeric resul ts) [facility] ([facility]) Immature Granulocyte % 0.1 % 0-3.0 Normal (applies to non-n umeric results) [facility] ([facility] Lymph # 2.0 10 1.5-5.0 Normal (applies to non-numeric resul ts) [facility] ([facility]) Nucleated Red Blood Cell % 0.0 % 0-0 Normal (applies to n on-numeric results) [facility] ([facility] Neutrophils # 4.4 10 1.5-8.5 Normal (applies to non-numeric re sults) [facility] ([facility]) Baso # 0.0 10 0.0-0.2 Normal (applies to non-numeric resul ts) [facility] ([facility] Eos # 0.0 10 0.0-0.5 Normal (applies to non-numeric resul ts) [facility] ([facility]) [place] # 0.6 10 0.0-0.8 Normal (applies to non-numeric resul ts) [facility] ([facility] Procedure Social History Code Duration Value Status Description Data Source(s ) Smoking 05/28/2020 12:00:00 AM EST Patient has never smoked co mpleted Patient has never smoked [facility] ([facility] Alcohol intake 08/13/2019 12:00:00 AM EDT Never completed [facility] Smoking 08/13/2019 12:00:00 AM EDT Never smoker completed Never s [facility] Smoking 08/08/2019 12:00:00 AM EDT Never smoker completed Never s [facility] Alcohol intake 08/08/2019 12:00:00 AM EDT Never completed [facility] Vital Signs ID Date Data Source UNK Name Value Range Interpretation Code Description Data Source(s) [place] body weight 115 [lb_av] 115 [lb_av] [facility] ([facility] Oxygen saturation in Arterial blood by Pulse oximetry 99 % 99 % [facility] ([facility] Body temperature 97.0 [degF] 97.0 [degF] [facility] ([facility] Respiratory rate 20 /min 20 /min [facility] ( [facility] Heart rate 83 /min 83 /min [facility] ([facility] Body mass index (BMI) [Ratio] 21.2 kg/m2 21.2 k g/m2 [facility] ([facility] Body weight 120.00 [lb_av] 120.00 [lb_av] [facility] ([facility] Body height 63.1 [in_i] 63.1 [in_i] [facility] ([facility]) 5'3.10" Diastolic blood pressure 72 mm[Hg] 72 mm[Hg] [facility] ([facility] Systolic blood pressure 126 mm[Hg] 126 mm[Hg] [facility] ([facility] [place] body weight 115 [lb_av] 115 [lb_av] [facility] ([facility] Oxygen saturation in Arterial blood by Pulse oximetry 88 % 88 % [facility] ([facility] Body temperature 98.5 [degF] 98.5 [degF] [facility] ([facility] Respiratory rate 24 /min 24 /min [facility] ( [facility] Heart rate 152 /min 152 /min [facility] ([facility] Body mass index (BMI) [Ratio] 20.8 kg/m2 20.8 k g/m2 [facility] ([facility] Body weight 118.00 [lb_av] 118.00 [lb_av] [facility] ([facility] Body height 63.1 [in_i] 63.1 [in_i] [facility] ([facility]) 5'3.10" Diastolic blood pressure 62 mm[Hg] 62 mm[Hg] [facility] ([facility] Systolic blood pressure 106 mm[Hg] 106 mm[Hg] [facility] ([facility]) [place] body weight 115 [lb_av] 115 [lb_av] [facility] ([facility] Oxygen saturation in Arterial blood by Pulse oximetry 98 % 98 % [facility] ([facility] Body temperature 101.8 [degF] 101.8 [degF] [facility] ([facility] Respiratory rate 26 /min 26 /min [facility] Heart rate 104 /min 104 /min [facility] Body mass index (BMI) [Ratio] 21.4 kg/m2 21.4 k g/m2 [facility] ([facility] Body weight 121.00 [lb_av] 121.00 [lb_av] [facility] ([facility] Body height 63.1 [in_i] 63.1 [in_i] [facility] ([facility]) 5'3.10" Oxygen saturation in Arterial blood by Pulse oximetry 98 % 98 % [facility] Respiratory rate 16 /min 16 /min [facility] Heart rate 87 /min 87 /min [facility] Diastolic blood pressure 63 mm[Hg] 63 mm[Hg] [facility] Systolic blood pressure 120 mm[Hg] 120 mm[Hg] [facility] Body temperature 36.44 Ama 36.44 Ama [facility] Systolic blood pressure 102 mm[Hg] 102 mm[Hg] [facility] Diastolic blood pressure 67 mm[Hg] 67 mm[Hg] [facility] Heart rate 70 /min 70 /min [facility] Body height 160 cm 160 cm [facility] Body weight 54.386 kg 54.386 kg [facility] Body mass index (BMI) [Ratio] 21.24 kg/m2 21.24 kg/m2 [facility] Oxygen saturation in Arterial blood by Pulse oximetry 99 % 99 % [facility] [place] body weight 115 [lb_av] 115 [lb_av] [facility] ([facility] Oxygen saturation in Arterial blood by Pulse oximetry 98 % 98 % [facility] ([facility] Body temperature 98.3 [degF] 98.3 [degF] [facility] ([facility] Respiratory rate 18 /min 18 /min [facility] ( [facility] Heart rate 76 /min 76 /min [facility] ([facility] Body mass index (BMI) [Ratio] 20.7 kg/m2 20.7 k g/m2 [facility] ([facility] Body weight 117.00 [lb_av] 117.00 [lb_av] [facility] ([facility] Body height 63.1 [in_i] 63.1 [in_i] [facility] ([facility]) 5'3.10" Diastolic blood pressure 70 mm[Hg] 70 mm[Hg] [facility] ([facility] Systolic blood pressure 116 mm[Hg] 116 mm[Hg] [facility] ([facility] Body weight 116.50 [lb_av] 116.50 [lb_av] [facility] ([facility] Body height 63.1 [in_i] 63.1 [in_i] [facility] ([facility]) 5'3.10" Diastolic blood pressure 86 mm[Hg] 86 mm[Hg] [facility] ([facility] Systolic blood pressure 123 mm[Hg] 123 mm[Hg] [facility] ([facility] Oxygen saturation in Arterial blood by Pulse oximetry 99 % 99 % [facility] ([facility] Body temperature 98.7 [degF] 98.7 [degF] [facility] ([facility] Respiratory rate 20 /min 20 /min [facility] ( [facility] Heart rate 78 /min 78 /min [facility] ([facility] Body mass index (BMI) [Ratio] 20.6 kg/m2 20.6 k g/m2 [facility] ([facility] Oxygen saturation in Arterial blood by Pulse oximetry 99 % 99 % [facility] ([facility] Body temperature 98.7 [degF] 98.7 [degF] [facility] ([facility] Respiratory rate 20 /min 20 /min [facility] ( [facility] Heart rate 65 /min 65 /min [facility] ([facility] Body mass index (BMI) [Ratio] 20.1 kg/m2 20.1 k g/m2 [facility] ([facility] Body weight 114.00 [lb_av] 114.00 [lb_av] [facility] ([facility] Body height 63.1 [in_i] 63.1 [in_i] [facility] ([facility]) 5'3.10" Diastolic blood pressure 86 mm[Hg] 86 mm[Hg] [facility] ([facility] Systolic blood pressure 128 mm[Hg] 128 mm[Hg] Brigitte GAINES ([facility])
--- NOTE | 2020-06-18 20:26 | REPVR ---
PROCEDURE INFORMATION: Exam: XR Chest, 2 Views Exam date and time: 06/18/2020 7:42 PM Age: 60 years old Clinical indication: Shortness of breath; Additional info: ? Pneumonia TECHNIQUE: Imaging protocol: XR of the chest Views: 2 views. COMPARISON: CT Chest without contrast 05/28/2020 2:19 PM FINDINGS: Lungs: Left lung infiltrates with less consolidation in demonstrated previously. Increased pleural tenting demonstrated at the left hemidiaphragm may signify a new left basilar infiltrate with atelectasis (see below). Pleural spaces: See "Lungs" finding. Heart/Mediastinum: Mild shift of the heart mediastinal structures to the left suggesting a component of atelectasis. Bones/joints: Unremarkable. IMPRESSION: 1. Left lung infiltrates with less consolidation in demonstrated previously. Increased pleural tenting demonstrated at the left hemidiaphragm may signify a new left basilar infiltrate. 2. Mild shift of the heart mediastinal structures to the left suggesting a component of atelectasis. Electronically signed by: Lamberto Victor On 06/18/2020 20:26:38 PM
[2020-06-19 01:38] LABS: BASO % 0.3 % (0.0-1.0); EOS # 0.1 10^3/uL (0.0-0.5); EOS % 1.7 % (0.0-3.0); HEMATOCRIT 35.1 % (36.0-47.0); HEMOGLOBIN 10.9 g/dl (12.0-15.5); LYMPH # 0.9 10^3/uL (1.5-5.0); LYMPH % 11.1 % (24.0-44.0); MEAN CORPUSCULAR HEMOGLOBIN 28.8 pg (27.0-33.0); MEAN CORPUSCULAR HGB CONC 31.1 g/dl (32.0-36.5); MEAN CORPUSCULAR VOLUME 92.6 fl (80.0-96.0); MONO # 0.8 10^3/uL (0.0-0.8); MONO % 10.6 % (0.0-5.0); NEUTROPHILS # 5.8 10^3/uL (1.5-8.5); NEUTROPHILS % 75.9 % (36.0-66.0); PLATELET COUNT, AUTOMATED 320 10^3/uL (150-450); RED BLOOD COUNT 3.79 10^6/uL (4.00-5.40); WHITE BLOOD COUNT 7.6 10^3/uL (4.0-10.0)
[2020-06-19 01:56] LABS: ALBUMIN 3.2 GM/DL (3.2-5.2); ALT/SGPT 81 U/L (12-78); BILIRUBIN,DIRECT 0.1 MG/DL (0.0-0.2); BILIRUBIN,TOTAL 0.3 MG/DL (0.2-1.0); BLOOD UREA NITROGEN 11 MG/DL (7-18); CALCIUM LEVEL 8.9 MG/DL (8.5-10.1); CARBON DIOXIDE LEVEL 27 MEQ/L (21-32); CHLORIDE LEVEL 103 MEQ/L (98-107); CK-MB VALUE MASS < 1.0 NG/ML (<3.6); CPK CREATINE PHOSPHOKINASE 32 U/L (26-192); GLOMERULAR FILTRATION RATE > 60.0 (>51); GLUCOSE, FASTING 91 MG/DL (70-100); MB/CK RELATIVE INDEX 3.12 (< OR =4); NT-PRO BNP 54 PG/ML (<125); SODIUM LEVEL 139 MEQ/L (136-145); TROPONIN I < 0.02 NG/ML (< 0.10)
[2020-06-19] MEDS ORDERED: ISOVUE-370 76% 100ML VIAL As Ordered ONE (02:19)
--- OUTSIDE RECORDS SUMMARY | 2020-06-19 02:26 | CCD | Continuity of Care Document ---
Author Author Lori ANTHONY D.O. Organization Unknown Address [address] [place] [address] Phone [phone] Care Team Providers Care Certified Retinal Angiographer Name Role Phone Gavi Anthony D.O. AUTM [...] Use Denies Drug Use Smoking Status Reviewed: 06/18/20 Patient has never smoked Exercise Type/Frequency Exercises regularly golf ing, weights and aerobics Sun Exposure Does not use sunscreen Seat Belt/Car Seat Always uses seat belt Allergies, Adverse Reactions, Alerts Active Allergies Reaction Severity Comments Date Penicillin 05/18/2017 Medications Active Medications SIG Qnty Indications Ordering Provide r Date Ibuprofen 800mg Tablets 1 by mouth three times a day as needed for pain Unknown 0 History Medications No Active Medications Unknown 08/2020 - 06/18/2020 Levofloxacin 750mg Tablets 1 by mouth daily until gone 10tabs Gavi Anthony D.O. 05/15 - 06/01/2020 Flovent HFA 110mcg/Act Aerosol 2 puffs by mouth 2 x a day 12gm Gavi Anthony D.O. 05/18 - 06/04/2020 Doxycycline Monohydrate 100mg Caps ules 1 capsule by mouth twice a day for 10 days 20caps Gavi Collins D.O. 05/14/2020 - 05/25/2020 Prednisone 20mg Tablets 1 tab by mouth daily x 5 days 5tabs Stormy SanabriaO. 05/14 - 05/25/2020 No Active Medications Unknown - 05/14/2020 Medications Administered in Office Medication SIG Qnty Indications Ordering Provider Date Immunization Administration Single Or Co mbination Injection Milena Sanabria. 07/20/2017 Immunizations CPT Code Status Date Vaccine Lot # [id number] Given 07/20/2017 Tetanus, Diphthe chucky Toxoids/Acellular Pertussis Vaccine 7 Or > [id number] Vital Signs Date Vital Result Comment 06/18/2020 4:24pm BP Systolic 132 mmHg BP Diastolic 82 mmHg Height 63.1 inches 5'3.10" Heart Rate 111 /min Respiratory Rate 20 /min Body Temperature 101.5 F O2 % BldC Oximetry 94 % [place] Body Weight 115 lb 06/04/2020 1:52pm BP Systolic 126 mmHg BP Diastolic 72 mmHg Height 63.1 inches 5'3.10" Weight 120.00 lb BMI (Body Mass Index) 21.2 kg/m2 Heart Rate 83 /min Respiratory Rate 20 /min Body Temperature 97.0 F O2 % BldC Oximetry 99 % [place] Body Weight 115 lb Results Test Acquired Date Facility Test Result H/L Range Note Laboratory test finding 06/09/[address] [address] [phone] D-Dimer Quant 669.69 ng/ml High <500 CBC With Differential 06/09/[address] [address] [phone] White Blood Count 8.7 10 Normal 4.0-10.0 [...] 36.0-66.0 Lymph % 12.8 % Low 24.0-44.0 [place] % 10.5 % High 0.0-5.0 Eos % 2.6 % Normal 0.0-3.0 Baso % 0.2 % Normal 0.0-1.0 Immature Granulocyte % 0.9 % Normal 0-3.0 Nucleated Red Blood Cell % 0.0 % Normal 0-0 Neutrophils # 6.3 10 Normal 1.5-8.5 Lymph # 1.1 10 Low 1.5-5.0 [place] # 0.9 10 High 0.0-0.8 Eos # 0.2 10 Normal 0.0-0.5 Baso # 0.0 10 Normal 0.0-0.2 Comprehensive Metabolic Profil 06/09/[address] [address] [phone] Glucose, Fasting 88 mg/dL Normal 70-100 Blood [...] Low 3.2-5.2 Albumin/Globulin Ratio 0.9 Low 1.2-2.2 Respiratory Panel 05/28/2020 [facility] Outpatient Testi ng (Registration) [address], [place] [id number] [phone] Respiratory Panel This respiratory <SEE NOTE> 2 Istat Chem8+ Panel 05/28/2020 [facility] Outpatient Testi ng (Registration) [address], [place] [id number] [phone] iSTAT HCT 30.0 % Low 38.0-51.0 iSTAT Glucose 119 mg/dL High 70-105 iSTAT Sodium 137 mEq/L Normal 136-145 iSTAT Potassium 3.3 mEq/L Low 3.5-5.1 iSTAT CA++ 4.4 mg/dL Low 4.5-5.3 iSTAT Chloride 100 mEq/L Normal 98-109 iSTAT Co2 24.0 MM/L Normal 23.0-27.0 iSTAT BUN 9 mg/dL Normal 8-26 iSTAT Creatinine 0.5 mg/dL Low 0.6-1.3 Complete Blood Count 05/19/2020 [facility] Outpatient Test ing (Registration) [address], [place] [id number] [phone] White Blood Count 11.2 10 High 4.0-10.0 [...] % Normal 0-0 Comprehensive Metabolic Profil 05/19/2020 [facility] Outpa tient Testing (Registration) [address], [place] [id number] [phone] Glucose, Fasting 108 mg/dL High 70-100 Blood [...] Ratio 0.6 Low 1.2-2.2 Respiratory Panel 05/19/2020 [facility] Outpatient Testi ng (Registration) [address], [place] [id number] [phone] Respiratory Panel This respiratory <SEE NOTE> 4 Respiratory Panel 05/13/2020 [facility] nter [address] [place] [address] [phone] Respiratory Panel This respiratory <SEE NOTE> 5 1 Units are mL/min/1.73 m2 Chronic Kidney Disease Staging per NKF: Stage I & II GFR >=60 Normal to Mildly Decreased Stage III GFR 30-59 Moderately Decreased Stage IV GFR 15-29 Severely Decreased Stage V GFR <15 Very Little GFR Left ESRD GFR <15 on [employer] 2 This respiratory PCR panel d etects Influenza A H1, H3 and 2008 H1 viruses, Influenza B virus, Resp iratory [...] Little GFR Left ESRD GFR <15 on [employer]GER 4 This respiratory PCR panel d etects [...] Date Location Provider Dx Diagnosis Office Visit 06/18/2020 4:20p [facility] Gavi Anthony D.O. J18.9 Pneumonia, unspecified organ ism R07.81 Pleurodynia Office Visit 06/04/2020 1:40p [facility] Gavi Anthony D.O. J18.9 Pneumonia, unspecified organ ism Office Visit 05/28/2020 8:40a [facility] Gavi Anthony D.O. J18.9 Pneumonia, unspecified organ ism R09.02 Hypoxemia Office Visit 05/13/2020 4:00p [facility] Gavi Anthony D.O. J20.9 Acute bronchitis, unspecifie d Assessments Date Code Description Provider 06/18/2020 J18.9 Pneumonia, unspecified organism Gavi Anthony D.O. 06/18/2020 R07.81 Pleurodynia Gavi sal D.O. 06/04/2020 J18.9 Pneumonia, unspecified organism Gavi Anthony D.O. 05/28/2020 J18.9 Pneumonia, unspecified organism Gavi Anthony D.O. 05/28/2020 R09.02 Hypoxemia Stormy RamsayOKelly 05/13/2020 J20.9 Acute bronchitis, unspecified Danielito Anthony D.O. Plan of Treatment Future Appointment(s):* 07/16/2020 2:00 pm - Gavi Anthony D.O. at [facility] Functional Status Description No Information Available Mental Status Description No Information Available Referrals Description No Information Available
--- OUTSIDE RECORDS SUMMARY | 2020-06-19 02:27 | CCD ---
Author Author [facility] Organization [facility] Address Unknown Phone Unavailable Care Team Providers Care Preparation Operator Name Role Phone Evelyn MARTIN MD [...] C ISABELLE REICH Unavailable Unavailable KORT, C ISABLELE REICH Unavailable Unavailable KORT, C ISABELLE MD [...] C ISABELLE MD Unavailable Unavailable KORT, C ISBAELLE MD Unavailable Unavailable KORT, C ISABELLE MD [...] Unavailable Unavailable MARJORIE-GABRIELA, GAVI DO Unavailable Unavailable MARJOIRE-GABRIELA, GAVI DO Unavailable Unavailable MARJORIE-GABRIELA, GAVI DO Unavailable Unavailable MARJORIE-GABRIELA, GAVI DO Unavailable Unavailable MARJORIE-GABRIELA, GAVI DO Unavailable Unavailable GREEN, JESSICA Unavailable Unavailable LEVIT,, TESS Unavailable Unavailable CICO, A MYKE SEATING UPHOLSTERER Unavailable Unavailable CICO, A MYKE SEATING UPHOLSTERER Unavailable Unavailable CICO, A MYKE SEATING UPHOLSTERER Unavailable Unavailable CICO, A MYKE SEATING UPHOLSTERER Unavailable Unavailable CICO, A MYKE SEATING UPHOLSTERER Unavailable Unavailable CICO, A MYKE SEATING UPHOLSTERER Unavailable Unavailable CICO, A MYKE SEATING UPHOLSTERER Unavailable Unavailable CICO, A MYKE SEATING UPHOLSTERER Unavailable Unavailable CICO, A MYKE SEATING UPHOLSTERER Unavailable Unavailable CICO, A MYKE SEATING UPHOLSTERER Unavailable Unavailable CICO, A MYKE SEATING UPHOLSTERER Unavailable Unavailable CICO, A MYKE SEATING UPHOLSTERER Unavailable Unavailable CICO, A MYKE SEATING UPHOLSTERER Unavailable Unavailable CICO, A MYKE SEATING UPHOLSTERER Unavailable Unavailable CICO, A MYKE SEATING UPHOLSTERER Unavailable Unavailable CICO, A MYKE SEATING UPHOLSTERER Unavailable Unavailable CICO, A MYKE SEATING UPHOLSTERER Unavailable Unavailable CICO, A MYKE SEATING UPHOLSTERER Unavailable Unavailable CICO, A MYKE SEATING UPHOLSTERER Unavailable Unavailable CICO, A MYKE SEATING UPHOLSTERER Unavailable Unavailable CICO, A MYKE SEATING UPHOLSTERER Unavailable Unavailable CICO, A MYKE SEATING UPHOLSTERER Unavailable Unavailable CICO, A MYKE SEATING UPHOLSTERER Unavailable Unavailable CICO, A MYKE SEATING UPHOLSTERER Unavailable Unavailable CICO, A MYKE SEATING UPHOLSTERER Unavailable Unavailable CICO, A MYKE SEATING UPHOLSTERER Unavailable Unavailable CICO, A MYKE SEATING UPHOLSTERER Unavailable Unavailable CICO, A MYKE SEATING UPHOLSTERER Unavailable Unavailable CICO, A MYKE SEATING UPHOLSTERER Unavailable Unavailable CICO, A MYKE SEATING UPHOLSTERER Unavailable Unavailable CICO, A MYKE SEATING UPHOLSTERER Unavailable Unavailable CICO, A MYKE SEATING UPHOLSTERER Unavailable Unavailable CICO, A MYKE SEATING UPHOLSTERER Unavailable Unavailable CICO, A MYKE SEATING UPHOLSTERER Unavailable Unavailable CICO, A MYKE SEATING UPHOLSTERER Unavailable Unavailable CICO, A MYKE SEATING UPHOLSTERER Unavailable Unavailable CICO, A MYKE SEATING UPHOLSTERER Unavailable Unavailable CICO, A MYKE SEATING UPHOLSTERER Unavailable Unavailable CICO, A MYKE SEATING UPHOLSTERER Unavailable Unavailable CICO, A MYKE SEATING UPHOLSTERER Unavailable Unavailable CICO, A MYKE SEATING UPHOLSTERER Unavailable Unavailable CICO, A MYKE SEATING UPHOLSTERER Unavailable Unavailable CICO, A MYKE SEATING UPHOLSTERER Unavailable Unavailable CICO, A MYKE SEATING UPHOLSTERER Unavailable Unavailable CICO, A MYKE SEATING UPHOLSTERER Unavailable Unavailable CICO, A MYKE SEATING UPHOLSTERER Unavailable Unavailable CICO, A MYKE SEATING UPHOLSTERER Unavailable Unavailable CICO, A MYKE SEATING UPHOLSTERER Unavailable Unavailable CICO, A MYKE SEATING UPHOLSTERER Unavailable Unavailable CICO, A MYKE SEATING UPHOLSTERER Unavailable Unavailable CICO, A MYKE SEATING UPHOLSTERER Unavailable Unavailable MATTHEW, PRYJMA BRUCE MD Unavailable [...] is protected by Article 27-F of the [facility] Public Health law. If you continue you may have access to information: Regarding HIV / AIDS; Provided by facilities licensed or operated by the [facility] Office of Mental Health; or Provided by the [facility] Office for People With Developmental Disabilities. If such information is present, then the following [facility] mandated warning applies: This information has [...] law may result in a fine or snf sentence or both. A general authorization for the release of medical or other information is NOT sufficient authorization for further disc losure. Allergies and Adverse Reactions Type Description Substance Reaction Status Data Source(s ) Propensity to adverse reactions PENICILLINS [facility]ic[facility]ins [facility] Family History Family Member Name Family Member Gender Family Member Status Date o f Status Description Data Source(s) Unknown Male Problem [facility] ([facility]) () - age 84 Encounters Encounter Providers Location Date Indications Data Source(s ) Outpatient 06/10/2020 03:32:05 PM EST [facility] 06/10/2020 03:25:56 PM EST [facility] Outpatient Attender: GAVI LEONE DO [facility] 06/04/2020 12:40:00 PM EST [facility] Outpatient Attender: GAVI LEONE DO [facility] 05/28/2020 07:40:00 AM EST [facility] ([facility]) Outpatient Attender: GAVI LEONE DO [facility] 05/13/2020 03:00:00 PM EST [facility] ([facility]) Outpatient Referrer: MYKE REAL NP 08/26/2019 09:58:45 AM E DT [facility] Outpatient Attender: ISABELLE MARTIN MDAdmitter: ISABELLE Gray MDReferrer: ISABELLE MARTIN MD [id number].NM 08/13/2019 09:00:00 AM EDT - 08/13/2019 11:59:00 PM EDT [facility] Patient discharged. Outpatient Attender: ISABELLE MARTIN MDAdmitter: ISABELLE Gray MDReferrer: ISABELLE MARTIN MD ES1-SJ.RAD 08/13/2019 08:45:00 AM EDT - 08/13/2019 08:59:00 AM EDT [facility] Patient discharged. Outpatient Attender: ISABELLE MARTIN MDReferrer: ISABELLE MARTIN MD MOB -MOB.PAT 08/08/2019 12:00:00 AM EDT - 08/08/2019 11:46:22 AM EDT [facility] Attender: ISABELLE MARTIN MDAdmitter: ISABELLE MARTIN MDRefe rrer: ISABELLE MARTIN MD ES1-OR 08/06/2019 03:31:50 PM EDT - 08/13/2019 02:30:00 PM EDT [facility] Patient discharged. Outpatient Attender: [facility]ABEL[facility]ARTIN [facility] 02:55:12 PM EDT - 08/05/2019 03:57:00 PM EDT [facility] Outpatient Attender: TESS MERCHANT,Cold Header: JESSICA GREEN 07/08/2019 05:39:00 PM EST - 07/08/2019 05:49:00 PM EST [facility] Out[facility] Referrer: BRUCE CASTRO MD 07/04/2019 07:07:00 AM EST [facility] Outpatient Referrer: BRUCE CASTRO MD 05/24/2019 09:56:00 AM EST [facility] Outpatient Referrer: BRUCE CASTRO MD 05/24/2019 09:29:00 AM EST [facility] Outpatient Referrer: GAVI LEONE DO 05/24/2019 09 :27:00 AM EST [facility] Outpatient Attender: GAVI LEONE [facility] 05/17/2019 12:00:00 PM EST [facility] ([facility]) Outpatient Attender: GAVI LEONE [facility] 04/26/2019 12:10:00 PM EST [facility] ([facility]) Medications Medication Brand Name Start Date Product Form Dose Route Admi nistrative Instructions Pharmacy Instructions Status Indications Reaction Description Data Source(s) Levofloxacin 750 MG Oral Tablet Levofloxacin 05/27/2020 12:00:[address] ORAL completed [facility] ([facility]) 120 ACTUAT Fluticasone propionate 0.11 MG/ACTUAT Meter ed Dose Inhaler [Flovent] Flovent HFA 05/18/2020 12:00:00 AM EST ORAL completed [facility] ([facility]) Prednisone 20 MG Oral Tablet Prednisone 05/14/2020 12:00:00 AM EST ORAL completed [facility] ([facility]) Doxycycline Monohydrate 100 MG Oral Capsule Doxycycline [place] hydrate 05/14/2020 12:00:00 AM EST ORAL completed [facility] ([facility]) No Active Medications 05/13/2020 12:00:00 AM EST completed [facility] ([facility]) normal saline flush 0.9 % injection 3 mL [id number] 08/13/2019 02:00:00 PM EDT 3 mL Intravenous active 3 mL , Intravenous, Every 8 hours (scheduled), First dose on Mon08/13/19 at 1400, PACU (only)
flush per protocol, D/C Main IV fluid if appropriate
[facility] Medication administered onsite Magnesium Chloride 0.00312 MEQ/ML / Pota ssium Chloride 0.0497 MEQ/ML / Sodium Acetate 0.0163 MEQ/ML / Sodium Chloride 0.0899 MEQ/ML / Sodium gluconate 5.02 MG/ML Injectable Solution [Normosol-R] electrolyte-R (NORMOSOL-R/PLASMALYTE-R) solution electrolyte-R (NORMOSOL-R/PLASMALYTE-R) solution 08/12 01:00:00 PM EDT Intravenous active at 1 00 mL/hr, Intravenous, Continuous, Starting Mon08/13/19 at 1300, PACU (only) [facility] Medication administered onsite 4 ML Labetalol [...] MG, hold for HR less than 60
[facility] Medication administered onsite haloperidol lactate (HALDOL) injection 0.5 mg [id number] 08/13/2019 11:54:42 AM EDT 0.5 mg Intramuscular active 0. 5 mg, Intramuscular, Every 30 min PRN, for intractable nausea and vomiting if not relieved by zofran/promethazine, Starting Mon08/13/19 at 1154, For 4 doses, PACU (only) [facility] Medication administered onsite technetium sulfur colloid (NYCOMED-SC) solution 500 micro cu johnathan 08/13/2019 10:00:00 AM EDT 500 uCi Intravenous completed 500 micro curie, Intravenous, Once, Mon08/13/19 at 1000, For 1 dose [facility] Medication administered onsite Magnesium Chloride 0.15062 MEQ/ML / Pota ssium Chloride 0.0497 MEQ/ML / Sodium Acetate 0.0163 MEQ/ML / Sodium Chloride 0.0899 MEQ/ML / Sodium gluconate 5.02 MG/ML Injectable Solution [Normosol-R] electrolyte-R (NORMOSOL-R/PLASMALYTE-R) solution electrolyte-R (NORMOSOL-R/PLASMALYTE-R) solution 08/12 10:00:00 AM EDT Intravenous active at 1 00 mL/hr, Intravenous, Continuous, Starting Mon08/13/19 at 1000, Pre-op [facility] Medication administered onsite normal saline flush 0.9 % injection 3 mL [id number] 08/13/2019 10:00:00 AM EDT 3 mL Intravenous active 3 mL , Intravenous, Every 8 hours (scheduled), First dose on Mon08/13/19 at 1000, Pre-op
Rapid push positive pressure flushing shall be performed with a 10 cc normal saline syringe to check the PATENCY of a PIV site prior to any infusion therapy initiation unless resistance is met.
[facility] Medication administered onsite Doxycycline Monohydrate 100 MG Oral Tablet Doxycycline Monoh ydrate 03/05/2019 12:00:00 AM EDT ORAL completed [facility] ([facility]) Insurance Providers Payer name Policy type / Coverage type Policy ID Covered libertarian ID Covered libertarian's relationship to fish Policy Fish Plan Information [facility] [id number] SP [id number] [facility] [id number] S [id number] SELF PAY ONLY [id number] SP [id number] [facility] [id number] SP [id number] [facility] [id number] [facility] [id number] Spo [id number] [facility] [id number] 18 [id number] [facility] [id number] 01 [id number] [facility] Commercial [id number] Self 00 [id number] [facility] Commercial [id number] Self 00 [id number] [facility] Commercial [id number] Self 00 [id number] [facility] Commercial [id number] Self 00 [id number] [facility] Claims DPT Commercial Self [employer] [place] P[place] 302/307 [id number] [facility] [id number] [facility] [id number] FOR LIFE [id number] [facility] [id number] [employer] [place] PPO 302/307 [id number] Problems, Conditions, and Diagnoses Code Display Name Description Problem Type Effective Dates Data Source(s) No Previous Anesthesia No Previous Anesthesia [id number] 08/08/2019 12:00:00 AM EDT [facility] C50.912 Breast cancer, left Breast cancer, left [id number] 08/08/2019 12:00:00 AM EDT [facility] K21.9 GERD (gastroesophageal reflux disease) G ERD (gastroesophageal reflux disease) [id number] 08/08/2019 12:00:00 AM EDT [facility] N20.0 Kidney stones Kidney stones [id number] 08/08/2019 12:00:00 AM EDT [facility] 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, estrogen receptor positive Malignant neoplasm of upper-outer quadra nt of left breast in female, estrogen receptor positive [id number] 0 12:00:00 AM EDT [facility] Z17.0 Estrogen receptor positive status [ER+] Estrogen receptor positive status (ER+) Diagnosis 08/13/2019 09:00:00 AM EDT [facility] C50.412 Malignant neoplasm of upper-outer quadra nt of left female breast Malignant neoplasm of upper-outer quadra Diagnosis 08/13/2019 09:00:00 AM EDT [facility] N20.0 Calculus of kidney Calculus of kidney Diagnosis 11:11:41 AM EDT [facility] K21.9 Gastro-esophageal reflux disease without esophagitis Gastro-esophageal reflux disease without Diagnosis 08/08/2019 11:11:41 AM EDT [facility] C50.912 Malignant neoplasm of unspecified site o f left female breast Malignant neoplasm of unspecified site o Diagnosis 08/08/2019 11:11:41 AM EDT [facility] [id number] Malignant neoplasm of upper-outer quadra nt of left female breast Malignant neoplasm of upper-outer quadrant of left female breast Diagnosis 07/08/2019 05:39:00 PM [facility] N630 Unspecified lump in unspecified breast U nspecified lump in unspecified breast Diagnosis 07/08/2019 05:39:00 PM [facility] Surgeries/Procedures Procedure Description Date Indications Data Source(s) RADIOLOGICAL EXAMINATION SURGICAL SPECIMEN MAMMO BREAST SPECIME N Routine 08/13/2019 11:37 AM EDT Malignant neoplasm of upper-outer quadrant of left breast in female, estrogen receptor positive 08/13/2019 03:37:20 PM EDT Malignant dick plasm of upper-outer quadrant of left breast in female, estrogen receptor positive [facility] Malignant neoplasm of upper-outer quadra nt [...] left breast in female, estrogen receptor positive [facility] Malignant neoplasm of upper-outer quadra nt of left breast in female, estrogen receptor positive MAMMO NEEDLE LOCALIZATION LEFT MAMMO NEEDLE LOCALIZATION LEFT R outine 08/13/2019 9:45 AM EDT Malignant neoplasm of upper-outer quadrant of left breast in female, estrogen receptor positive 08/13/2019 01:45:00 PM EDT Malignant dick plasm of upper-outer quadrant of left breast in female, estrogen receptor positive [facility] Malignant neoplasm of upper-outer quadra nt [...] left breast in female, estrogen receptor positive [facility] Malignant neoplasm of upper-outer quadra nt of left breast in female, estrogen receptor positive Results ID Date Data Source [id number] 06/10/2020 12:00:00 AM EST [facility] Gavi Singhber Patient Name: TOAN [id number] Date of : 1960te 1 Date of Exam: 06/10/2020LAZARUS [place] [id number]#: Fax: [phone] EXAM: CT ANGIOGRAPHY, CHESTCLINICAL INFORMATION: [...] is a small pericardial effusion.Accredited by the [employer] in [place] you for referring OSCAR VEGA to our office. Electronically Signed - DIONY MELENDEZ DO 06/10/20 17:26 Name Value Range Interpretation Code Description Data Mare rce(s) Supporting Document(s) ID Date Data Source [id number] 06/09/2020 03:02:00 PM EST [facility] ([facility]) Name Value Range Interpretation Code Description Data Mare rce(s) Supporting Document(s) Glucose, Fasting 88 mg/dL 70-100 Normal (applies to non-numeric results) [facility] ([facility]) Creatinine For GFR 0.63 mg/dL 0.55-1.30 Normal (applies to non -numeric results) [facility] ([facility]) Glomerular Filtration Rate Laboratory test result Normal (applies to non- numeric results) [facility] ([facility]) <content>Units are mL/min/1.73 m2</content>
<content></content>
<content>Chronic Kidney Disease Staging per NKF:</content>
<content></content>
<content>Stage I & II GFR >=60 Normal to Mildly Decreased</content>
<content>Stage III GFR 30- 59 Moderately Decreased</content>
<content>Stage IV GFR 15-29 Severely Decreased</content>
<content>Stage V GFR <15 Very Little GFR Left</content>
<content>ESRD GFR <15 on FENCE POST CUTTER</content>
<content></content> Blood Urea Nitrogen 15 mg/dL 7-18 Normal (applies to non-nume yunior results) [facility] ([facility]) Sodium Level 139 meq/L 136-145 Normal (applies to non-numeric res ults) [facility] ([facility]) Potassium Serum 4.4 meq/L 3.5-5.1 Normal (applies to non-numeric results) [facility] ([facility]) Anion Gap 4 meq/L 8-16 Below low normal [facility] ( [facility]) Chloride Level 105 meq/L 98-107 Normal (applies to non-numeric r esults) [facility] ([facility]) Carbon Dioxide Level 30 meq/L 21-32 Normal (applies to non-num joshua results) [facility] ([facility]) Alt/SGPT 34 U/L 12-78 Normal (applies to non-numeric resul ts) [facility] ([facility]) Calcium Level 9.1 mg/dL 8.5-10.1 Normal (applies to non-numeric re sults) [facility] ([facility]) Ast/Sgot 17 U/L 7-37 Normal (applies to non-numeric resul ts) [facility] ([facility]) Total Protein 6.0 GM/DL 6.4-8.2 Below low normal [facility] ([facility]) Alkaline Phosphatase 99 U/L 45-117 Normal (applies to non-num joshua results) [facility] ([facility]) Bilirubin,Total 0.1 mg/dL 0.2-1.0 Below low normal [facility] ([facility]) Albumin 2.9 GM/DL 3.2-5.2 Below low normal [facility] ( [facility]) Albumin/Globulin Ratio 0.9 1.2-2.2 Below low normal [facility] ([facility]) ID Date Data Source [id number] 06/09/2020 03:02:00 PM EST [facility] ([facility]) Name Value Range Interpretation Code Description Data Mare rce(s) Supporting Document(s) Red Blood Count 3.73 10 4.00-5.40 Below low normal [facility] ([facility]) White Blood Count 8.7 10 4.0-10.0 Normal (applies to non-numeri c results) [facility] ([facility]) Hemoglobin 10.9 g/dL 12.0-15.5 Below low normal [facility] ( [facility]) Hematocrit 34.9 % 36.0-47.0 Below low normal [facility] ( [facility]) Mean Corpuscular Volume 93.6 fl 80.0-96.0 Normal ( applies to non-numeric results) [facility] ([facility]) Mean Corpuscular HGB Conc 31.2 g/dL 32.0-36.5 Below low normal [facility] ([facility]) Mean Corpuscular Hemoglobin 29.2 pg 27.0-33.0 Norm al (applies to non-numeric results) [facility] ([facility]) Red Cell Distribution Width 13.2 % 11.5-14.5 Norm al (applies to non-numeric results) [facility] ([facility]) Platelet Count, Automated 378 10 150-450 Normal (applies to non-numeric results) [facility] ([facility]) Neutrophils % 73.0 % 36.0-66.0 Above high normal [facility] ([facility]) [place] % 10.5 % 0.0-5.0 Above high normal [facility] ([facility]) Lymph % 12.8 % 24.0-44.0 Below low normal [facility] ( [facility]) Baso % 0.2 % 0.0-1.0 Normal (applies to non-numeric resul ts) [facility] ([facility]) Eos % 2.6 % 0.0-3.0 Normal (applies to non-numeric resul ts) [facility] ([facility]) Immature Granulocyte % 0.9 % 0-3.0 Normal (applies to non-n umeric results) [facility] ([facility]) Neutrophils # 6.3 10 1.5-8.5 Normal (applies to non-numeric re sults) [facility] ([facility]) Nucleated Red Blood Cell % 0.0 % 0-0 Normal (applies to n on-numeric results) [facility] ([facility]) [place] # 0.9 10 0.0-0.8 Above high normal [facility] ([facility]) Lymph # 1.1 10 1.5-5.0 Below low normal [facility] ( [facility]) Baso # 0.0 10 0.0-0.2 Normal (applies to non-numeric resul ts) [facility] ([facility]) Eos # 0.2 10 0.0-0.5 Normal (applies to non-numeric resul ts) [facility] ([facility]) ID Date Data Source [id number] 06/09/2020 03:02:00 PM EST [facility] ([facility]) Name Value Range Interpretation Code Description Data Mare rce(s) Supporting Document(s) Fibrin D-dimer FEU [Mass/volume] in Platelet poor plasma 669.69 ng/mL Above high normal [facility] ID Date Data Source [id number] 06/08/2020 12:00:00 AM EST [facility] o[facility]y Imaging Gavi Ambriz DO Patient Name: TOAN [id number] Date of : 1960te 1 Date of Exam: 06/08/2020[place], [place] [id number]#: Fax: [phone] EXAM: CHEST (2 VIEW) X-RAYCLINICAL [...] Source [id number] 06/08/2020 12:00:00 AM EST [facility] ([facility]) Name Value Range Interpretation Code Description Data Mare rce(s) Supporting Document(s) Chest X-ray PA and lateral Laboratory test result [facility] ([facility]) ID Date Data Source [id number] 05/28/2020 12:57:00 PM EST [facility] ([facility]) Name Value Range Interpretation Code Description Data Mare rce(s) Supporting Document(s) Respiratory Panel Laboratory test result [facility] ([facility]) This respiratory PCR panel detects Influ daniel [...] - SARS-CoV-2 (COVID19) ID Date Data Source [id number] 05/28/2020 12:57:00 PM EST [facility] Name Value Range Interpretation Code Description Data Mare rce(s) Supporting Document(s) SARS-CoV-2 (COVID 19) NEGATIVE - [facility]CoV[facility] (COVID19) [facility] This lab was ordered by [facility] a nd reported by [facility]. ID Date Data Source [id number] 05/28/2020 11:59:00 AM EST [facility] ([facility]) Name Value Range Interpretation Code Description Data Mare rce(s) Supporting Document(s) Laboratory test finding (navigational concept) 30.0 % 3 8.0-51.0 Below low normal [facility] ([facility]) Laboratory test finding (navigational concept) 119 mg/dL 7 0-105 Above high normal [facility] ([facility]) Laboratory test finding (navigational concept) 137 meq/L 1 36-145 Normal (applies to non-numeric results) [facility] ([facility]) Laboratory test finding (navigational concept) 3.3 meq/L 3 .5-5.1 Below low normal [facility] ([facility]) Laboratory test finding (navigational concept) 4.4 mg/dL 4 .5-5.3 Below low normal [facility] ([facility]) Laboratory test finding (navigational concept) 100 meq/L 9 8-109 Normal (applies to non-numeric results) [facility] ([facility]) Laboratory test finding (navigational concept) 24.0 MM/L 2 3.0-27.0 Normal (applies to non-numeric results) [facility] ([facility]) Laboratory test finding (navigational concept) 0.5 mg/dL 0 .6-1.3 Below low normal [facility] ([facility]) Laboratory test finding (navigational concept) 9 mg/dL 8 -26 Normal (applies to non-numeric results) [facility] ([facility]) ID Date Data Source [id number] 05/27/2020 12:00:00 AM EST [facility] Farn Ambriz DO Patient Name: TOAN [id number] Date of : 1960te 1 Date of Exam: [facility] [id number] Fax: [phone] EXAM: CHEST (2 VIEW) X-RAYCLINICAL [...] rce(s) Supporting Document(s) ID Date Data Source [id number] 05/19/2020 10:33:00 PM EST [facility] ([facility]) Name Value Range Interpretation Code Description Data Amre rce(s) Supporting Document(s) Glucose, Fasting 108 mg/dL 70-100 Above high normal [facility] ([facility]) Creatinine For GFR 0.63 mg/dL 0.55-1.30 Normal (applies to non -numeric results) [facility] ([facility]) Glomerular Filtration Rate Laboratory test result Normal (applies to non- numeric results) [facility] ([facility]) <content>Units are mL/min/1.73 m2</content>
<content></content>
<content>Chronic Kidney Disease Staging per NKF:</content>
<content></content>
<content>Stage I & II GFR >=60 Normal to Mildly Decreased</content>
<content>Stage III GFR 30- 59 Moderately Decreased</content>
<content>Stage IV GFR 15-29 Severely Decreased</content>
<content>Stage V GFR <15 Very Little GFR Left</content>
<content>ESRD GFR <15 on FENCE [employer]TER</content>
<content></content> Blood Urea Nitrogen 11 mg/dL 7-18 Normal (applies to non-nume yunior results) [facility] ([facility]) Potassium Serum 4.0 meq/L 3.5-5.1 Normal (applies to non-numeric results) [facility] ([facility]) Chloride Level 105 meq/L 98-107 Normal (applies to non-numeric r esults) [facility] ([facility]) Sodium Level 138 meq/L 136-145 Normal (applies to non-numeric res ults) [facility] ([facility]) Calcium Level 8.4 mg/dL 8.5-10.1 Below low normal [facility] ([facility]) Anion Gap 6 meq/L 8-16 Below low normal [facility] ( [facility]) Carbon Dioxide Level 27 meq/L 21-32 Normal (applies to non-num joshua results) [facility] ([facility]) Alt/SGPT 25 U/L 12-78 Normal (applies to non-numeric resul ts) [facility] ([facility]) Ast/Sgot 18 U/L 7-37 Normal (applies to non-numeric resul ts) [facility] ([facility]) Bilirubin,Total 0.3 mg/dL 0.2-1.0 Normal (applies to non-numeric results) [facility] ([facility]) Total Protein 6.5 GM/DL 6.4-8.2 Normal (applies to non-numeric re sults) [facility] ([facility]) Alkaline Phosphatase 100 U/L 45-117 Normal (applies to non-num joshua results) [facility] ([facility]) Albumin 2.5 GM/DL 3.2-5.2 Below low normal [facility] ( [facility]) Albumin/Globulin Ratio 0.6 1.2-2.2 Below low normal [facility] ([facility]) ID Date Data Source [id number] 05/19/2020 10:33:00 PM EST [facility] ([facility]) Name Value Range Interpretation Code Description Data Mare rce(s) Supporting Document(s) Red Blood Count 3.64 10 4.00-5.40 Below low normal [facility] ([facility]) Hemoglobin 10.5 g/dL 12.0-15.5 Below low normal [facility] ( [facility]) White Blood Count 11.2 10 4.0-10.0 Above high normal [facility] ([facility]) Mean Corpuscular Volume 91.8 fl 80.0-96.0 Normal ( applies to non-numeric results) [facility] ([facility]) Hematocrit 33.4 % 36.0-47.0 Below low normal [facility] ( [facility]) Mean Corpuscular HGB Conc 31.4 g/dL 32.0-36.5 Below low normal [facility] ([facility]) Red Cell Distribution Width 11.4 % 11.5-14.5 Below low normal [facility] ([facility]) Mean Corpuscular Hemoglobin 28.8 pg 27.0-33.0 Norm al (applies to non-numeric results) [facility] ([facility]) Nucleated Red Blood Cell % 0.0 % 0-0 Normal (applies to n on-numeric results) [facility] ([facility]) Platelet Count, Automated 503 10 150-450 Above high normal [facility] ([facility]) ID Date Data Source [id number] 05/19/2020 10:07:00 PM EST [facility] ([facility]) Name Value Range Interpretation Code Description Data Mare rce(s) Supporting Document(s) Respiratory Panel Laboratory test result [facility] ([facility]) This respiratory PCR panel detects Influ daniel [...] - SARS-CoV-2 (COVID19) ID Date Data Source [id number] 05/19/2020 10:07:00 PM EST [facility] Name Value Range Interpretation Code Description Data Mare rce(s) Supporting Document(s) SARS-CoV-2 (COVID 19) NEGATIVE - SARS-CoV-2 (COVID19) [facility] This lab was ordered by [facility] a nd reported by [facility]. ID Date Data Source [id number] 05/19/2020 12:00:00 AM EST [facility] ology Imaging Gavi Ambriz DO Patient Name: TOAN VEGA[address] Date of : 1960te 1 Date of Exam: 05/19/2020LAZARUS Lee [address]HZ#: Fax: [phone] EXAM: CHEST (2 VIEW) X-RAYCLINICAL INFORMATION: Chest pain.TECHNIQUE: PA and lateral.FINDINGS:Large left upper lobe consolidation consistent with acute pneumonia. Noeffusion. Right hemithorax is clear. Visualized portions of themediastinum and cardiac silhouette are normal. Skeletal structures areintact.IMPRESSION:Large left upper lobe consolidation with air bronchograms consistent withpneumonia. Followup to resolution.TRES Allen/Erica you for referring OSCAR VGEA to our office. Electronically Signed - JACK SWENSON MD 06/04/20 13:16 Name Value Range Interpretation Code Description Data Mare rce(s) Supporting Document(s) ID Date Data Source [id number] 05/13/2020 04:07:00 PM EST [facility] ([facility]) Name Value Range Interpretation Code Description Data Mare rce(s) Supporting Document(s) Respiratory Panel Laboratory test result [facility] ([facility]) This respiratory PCR panel detects Influ daniel [...] - SARS-CoV-2 (COVID19) ID Date Data Source [id number] 05/13/2020 04:07:00 PM EST [facility] Name Value Range Interpretation Code Description Data Mare rce(s) Supporting Document(s) SARS-CoV-2 (COVID 19) [facility] This lab was ordered by [facility] a nd reported by [facility]. ID Date Data Source [id number] 05/10/2020 12:00:00 AM EST [facility] Name Value Range Interpretation Code Description Data Mare rce(s) Supporting Document(s) SARS-CoV-2 (COVID-19) RNA [Presence] in Respiratory specimen by LAURA with probe detection [facility] This lab was ordered by [facility] and reported by [employer] ID Date Data Source [id number] 08/27/2019 04:20:28 PM EDT [facility] NT INFORMATIONPatient MRN Name Date of Age Gend*PT [id number] Oscar Vega 1960 59 years F SDCPT Location Admission Date/Time Visit ID Attending ProviderPERIOP [place] 08/13/19 0827 --- --- EPI ID CSN Admitting Provider [id number] Isabelle Martin MD([id number]) [place] [address] OPERATIVE REPORT OPNAME: OSCAR VEGA#: [id number] #: [id number] ADMISSION DATE: 08/13/2019DOB: 1960 SEX: F PT TYPE: H SURACCT #: [id number] CARE PHYSICIAN: GAVI AMADOR-FLOBERERRING PHYSICIAN: ISABELLE MARTINDATE OF OPERATION: 08/13/2019ATTENDING PHYSICIAN:Isabelle Martin MD.PREOPERATIVE DIAGNOSIS:Left breast invasive ductal carcinoma.POSTOPERATIVE DIAGNOSIS:Left breast invasive ductal carcinoma.PROCEDURES PERFORMED:1. Left breast excisional needle localized lumpectomy for carcinoma.2. Left axillary sentinel node biopsy.SURGEON:Isabelle Martin MD.SCALPING MACHINE OPERATOR:STEPHANIE Jeronimo.ANESTHESIA:General.ESTIMATED BLOOD LOSS:Minimal.COMPLICATIONS:None.BRIEF HISTORY:This is a very [...] what her finalpathology reveals.RAMÓN SIBLEY/KEILA Job #: [id number] DOC #: [id number] Name Value Range Interpretation Code Description Data Mare rce(s) Supporting Document(s) ID Date Data Source [id number] 08/13/2019 01:33:29 PM EDT [address] [id number] Name: OSCAR YOUNGB: 2Sex: FOrdering Provider: ISABELLE Tenorio Prov: ISABELLE Garrido Provider: ISABELLE Calixto Performed: MAMMO BREAST SPECIMENExam Date: 08/13/2019 11:37MRN: [id number] Number: [id number] Class: OutpatientAccount #: [id number] for Exam: left breast cancerTechnique: Single specimen radiograph obtained.Comparison: Needle and wire localization exam earlier today.Findings: The localization wire as well as localized surgical clip are seen within the breast specimen.IMPRESSION: Successful needle wire localization procedure. Surgical clip seen within the breast specimen.Report electronically signed by: YUMI CUNNINGHAM On 08/13/2019 1:33 PMWorkstation ID: [id number] Name Value Range Interpretation Code Description Data Mare rce(s) Supporting Document(s) ID Date Data Source [id number] 08/13/2019 12:02:37 PM EDT [address] [id number] Name: OSCAR YOUNGB: 2Sex: FOrdering Provider: ISABELLE Tenorio Prov: ISABELLE Garrido Provider: ISABELLE Calixto Performed: MAMMO NEEDLE LOCALIZATION LEFTExam Date: 08/13/2019 09:45MRN: [id number] Number: [id number] Class: OutpatientAccount #: [id number] for Exam: left breast cancerTechnique: CC and ML views obtainedComparison: NoneFINDINGS: Mammographic images of the left breast were obtained using the targeting grade. Appropriate coordinates were determined and the clip was targeted. One percent LIDOCAINE mixed with bicarbonate was used for superficial and deep local anesthesia.. A 3 cm [place] needle was then advanced into position.Satisfactory placement of the needle was confirmed with additional mammographic images. Subsequently a wire was advanced through the needle and locked into position. Follow-up images demonstrate needle and wire in satisfactory position adjacent to the targeted clip.)IMPRESSION: Successful needle and wire localization of a left breast marking clip.Report electronically signed by: CHRISTY MCKEON On 08/13/2019 12:02 PMWorkstation ID: [id number] Name Value Range Interpretation Code Description Data Mare rce(s) Supporting Document(s) ID Date Data Source [id number] 08/13/2019 12:00:51 PM EDT [address] [id number] Name: OSCAR VEGADOB: 1960ex: FOrdering Provider: ISABELLE BANGURAuthbarak Prov: ISABELLE BIGGSTRefernathan Provider: ISABELLE SANCHEZroctereso Performed: [place] SENTINEL NODE BREAST INJECTION ONLY LEFTExam Date: 08/13/2019 09:43MRN: [id number] Number: [id number] Class: OutpatientAccount #: [id number] for Exam: New left breast cancerTechnique: Left [...] sulfur colloid.The patient tolerated the procedure well.IMPRESSION: Equality node injection procedure as above.Report electronically signed by: CHRISTY MCKEON On 08/13/2019 12:00 PMWorkstation ID: [id number] - [id number] Name Value Range Interpretation Code Description Data [facility] rce(s) Supporting Document(s) ID Date Data Source [id number] 08/13/2019 11:04:27 AM EDT [facility] NT INFORMATIONPatient MRN Name Date of Age Gend*PT [id number] Gayr Oscar Chopra 1960 59 years F SDCPT Location Admission Date/Time Visit ID Attending Provider --- --- --- --- EPI ID CSN Admitting Provider [id number] ---AirwayPatient location during procedure: ORUrgency: electiveDifficult airway: [...] rce(s) Supporting Document(s) ID Date Data Source [id number] 08/18/2019 05:44:30 PM EDT [facility] [place], [place] [address]Yvz# Surgical Pathology ReportAccession #:[id number](s) ReceivedA: Left [...] 0 Number of negative nodes: 2 9. ER/ID/HER2: Previously performed on the outside prior core biopsyspecimen; [facility],[id number]. NON- NEOPLASTIC BREAST: Cyst formation, focal usual [...] 4 with trimming of A6 in block K5L8-D4. Entire slice 5 with tumor in A8 A10-A11. Entire slice 6 with tumor in [id number]. Entire slice 7 A14. Entire slice 8 [...] entirely submitted in onecassette. Processed at Laboratory [facility], Histopathology, [address], [place], [address].jglmwg/mwg Reported: 08/18/2019Electronically Signed Out By Meño Browne MD [facility]emg This report may include immunohistochemical or in-situ hybridizationresults. Testing was developed and the performance characteristicsdetermined by [facility] as required by CLIA '88. The FDAhas determined that approval for specific use is not necessary forclinical use. The quality of Hematoxylin and Eosin stains and asapplicable, for all immunohistochemical and/or special stains, includingpositive and negative controls, were reviewed and considered appropriate.ICD codes C50.912CPT codesA: 29372FT: 33835S, 23170b Name Value Range Interpretation Code Description Data Mare rce(s) Supporting Document(s) ID Date Data Source [id number] 08/08/2019 12:03:15 PM EDT [facility] CenterPAT[facility] NT INFORMATIONPatient MRN Name Date of Age Gend*PT [id number] Oscar Vega 1960 59 years F OPPT Location Admission Date/Time Visit ID Attending Provider --- --- --- Isabelle Martin MD([id number]) EPI ID CSN Admitting Provider [id number] ---OUTPATIENT / OBSERVATIONAL SURGICAL OR INVASIVE PROCEDUREName: Ocsar Vega : 1960 Sex: female Care Provider: [...] rce(s) Supporting Document(s) ID Date Data Source [id number] 08/05/2019 04:23:31 PM EDT [facility] CenterPAT[facility] NT INFORMATIONPatient MRN Name Date of Age Gend*PT [id number] Oscar Vega A 1960 59 years F ---PT Location Admission Date/Time Visit ID Attending Provider --- --- --- --- EPI ID CSN Admitting Provider [id number] ---NEW CONSULTATION FOR BREAST CANCER :Attending Surgeon : Isabelle Martin MDHistory of Present Illness :She presents today alone. 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 The findings are as follows: - ER: POSITIVE (100%, strong, Kwabena 8) - ID: NEGATIVE (0%) - Her2: POSITIVE (3+)Review of [...] mastectomy. 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 The detailswere verified and edited as appropriate.This document or parts of this document, were dictated using [employer]. A reasonable attempt at proofreading has been made to minimizeerrors. Please call with any questions or corrections. Name Value Range Interpretation Code Description Data Mare rce(s) Supporting Document(s) ID Date Data Source [id number] 07/03/2019 12:00:00 AM EST [facility] Imaging Bruce Castro MD Patient Name: OSCAR VEGA [address] Date [facility] : 1960[facility] Date of Exam: 07/03/2019[place], [place] [address]UX#: Fax: [phone] EXAM: US EXTREMITY VEINS, BILATERAL [...] witha duration of 0.3 seconds.Accredited by the [employer] in Vascular PeripheralUltrasound.Zeus Wade, MDDJKenya/robertcTserafin you for referring OSCAR VEGA to our office. Electronically Signed - ZEUS BAUER MD 07/04/19 13:02 Name Value Range Interpretation Code Description Data Mare rce(s) Supporting Document(s) ID Date Data Source [id number] 04/26/2019 03:49:00 PM EST [facility] ([facility]) Name Value Range Interpretation Code Description Data Mare rce(s) Supporting Document(s) Thyrotropin [Units/volume] in Serum or Plasma 0.980 uIU/ML 0. 358-3.740 Normal (applies to non-numeric results) [facility] ([facility]) Thyroxine (T4) free [Mass/volume] in Serum or Plasma 1.13 ng/dL 0.76-1.46 Normal (applies to non-numeric results) [facility] ([facility]) ID Date Data Source [id number] 04/26/2019 03:49:00 PM EST [facility] ([facility]) Name Value Range Interpretation Code Description Data Mare rce(s) Supporting Document(s) Thryoglobulin Antibodies (Yung) 3.1 IU/ml 0.0-0.9 Above high yves l [facility] ([facility]) Thyroglobulin Antibody measured by Beckm an Runge Methodology Thyroglobulin Opal 2.5 ng/mL Normal (applies to non-numeri c results) [facility] ([facility]) <content>Reference Range:</content>
<content>Pubertal Children</content>
<content>and Adults: <40</content>
[...] 2.0 ng/mL.</content>
<content>Performed at: RN - [facility]</content>
<content>[address] [place] [phone]</content>
<content>Mink Slicer: Aniyah Andino MD, Phone: [phone]</content>
<content>Performed at: [employer]</content>
<content>[address] [place] [phone]</content>
<content>Mink Slicer: Chito Orr MD, Phone: [phone]</content>
<content></content> ID Date Data Source [id number] 04/26/2019 03:49:00 PM EST [facility] ([facility]) Name Value Range Interpretation Code Description Data Mare rce(s) Supporting Document(s) Thyroperoxidase Ab [Units/volume] in Serum or Plasma 37.7 U/ML Normal (applies to non-numeric results) [facility] ([facility]) ID Date Data Source [id number] 04/26/2019 03:49:00 PM EST [facility] ([facility]) Name Value Range Interpretation Code Description Data Mare rce(s) Supporting Document(s) Red Blood Count 4.41 10 4.00-5.40 Normal (applies to non-numeric results) [facility] ([facility]) White Blood Count 7.1 10 4.0-10.0 Normal (applies to non-numeri c results) [facility] ([facility]) Hemoglobin 13.1 g/dL 12.0-15.5 Normal (applies to non-numeric resul ts) [facility] ([facility]) Hematocrit 39.8 % 36.0-47.0 Normal (applies to non-numeric resul ts) [facility] ([facility]) Mean Corpuscular HGB Conc 32.9 g/dL 32.0-36.5 Normal (applies to non-numeric results) [facility] ([facility]) Mean Corpuscular Volume 90.2 fl 80.0-96.0 Normal ( applies to non-numeric results) [facility] ([facility]) Mean Corpuscular Hemoglobin 29.7 pg 27.0-33.0 Norm al (applies to non-numeric results) [facility] ([facility]) Platelet Count, Automated 317 10 150-450 Normal (applies to non-numeric results) [facility] ([facility]) Neutrophils % 62.1 % 36.0-66.0 Normal (applies to non-numeric re sults) [facility] ([facility]) Red Cell Distribution Width 12.9 % 11.5-14.5 Norm al (applies to non-numeric results) [facility] ([facility]) Lymph % 27.7 % 24.0-44.0 Normal (applies to non-numeric resul ts) [facility] ([facility]) [place] % 8.9 % 0.0-5.0 Above high normal [facility] ([facility]) Baso % 0.6 % 0.0-1.0 Normal (applies to non-numeric resul ts) [facility] ([facility]) Eos % 0.6 % 0.0-3.0 Normal (applies to non-numeric resul ts) [facility] ([facility]) Immature Granulocyte % 0.1 % 0-3.0 Normal (applies to non-n umeric results) [facility] ([facility]) Lymph # 2.0 10 1.5-5.0 Normal (applies to non-numeric resul ts) [facility] ([facility]) Nucleated Red Blood Cell % 0.0 % 0-0 Normal (applies to n on-numeric results) [facility] ([facility]) Neutrophils # 4.4 10 1.5-8.5 Normal (applies to non-numeric re sults) [facility] ([facility]) Baso # 0.0 10 0.0-0.2 Normal (applies to non-numeric resul ts) [facility] ([facility]) Eos # 0.0 10 0.0-0.5 Normal (applies to non-numeric resul ts) [facility] ([facility]) [place] # 0.6 10 0.0-0.8 Normal (applies to non-numeric resul ts) [facility] ([facility]) Procedure Social History Code Duration Value Status Description Data Source(s ) Smoking 05/28/2020 12:00:00 AM EST Patient has never smoked co mpleted Patient has never smoked [facility] ([facility]) Alcohol intake 08/13/2019 12:00:00 AM EDT Never completed [facility] Smoking 08/13/2019 12:00:00 AM EDT Never smoker completed Never s [facility] Smoking 08/08/2019 12:00:00 AM EDT Never smoker completed Never s [facility] Alcohol intake 08/08/2019 12:00:00 AM EDT Never completed [facility] Vital Signs ID Date Data Source UNK Name Value Range Interpretation Code Description Data Source(s) [place] body weight 115 [lb_av] 115 [lb_av] [facility] ([facility]) Oxygen saturation in Arterial blood by Pulse oximetry 99 % 99 % [facility] Body temperature 97.0 [degF] 97.0 [degF] [facility] ([facility]) Respiratory rate 20 /min 20 /min [facility] ( [facility]) Heart rate 83 /min 83 /min [facility] ([facility]) Body mass index (BMI) [Ratio] 21.2 kg/m2 21.2 k g/m2 [facility] ([facility]) Body weight 120.00 [lb_av] 120.00 [lb_av] [facility] ([facility]) Body height 63.1 [in_i] 63.1 [in_i] [facility] ([facility]) 5'3.10" Diastolic blood pressure 72 mm[Hg] 72 mm[Hg] [facility] ([facility]) Systolic blood pressure 126 mm[Hg] 126 mm[Hg] [facility] ([facility]) [place] body weight 115 [lb_av] 115 [lb_av] [facility] ([facility]) Oxygen saturation in Arterial blood by Pulse oximetry 88 % 88 % [facility] ([facility]) Body temperature 98.5 [degF] 98.5 [degF] [facility] ([facility]) Respiratory rate 24 /min 24 /min [facility] ( [facility]) Heart rate 152 /min 152 /min [facility] ([facility]) Body mass index (BMI) [Ratio] 20.8 kg/m2 20.8 k g/m2 [facility] ([facility]) Body weight 118.00 [lb_av] 118.00 [lb_av] [facility] ([facility]) Body height 63.1 [in_i] 63.1 [in_i] [facility]) 5'3.10" Diastolic blood pressure 62 mm[Hg] 62 mm[Hg] [facility] ([facility]) Systolic blood pressure 106 mm[Hg] 106 mm[Hg] [facility] ([facility]) [place] body weight 115 [lb_av] 115 [lb_av] [facility] ([facility]) Oxygen saturation in Arterial blood by Pulse oximetry 98 % 98 % [facility] ([facility]) Body temperature 101.8 [degF] 101.8 [degF] [facility] ([facility]) Respiratory rate 26 /min 26 /min [facility] Heart rate 104 /min 104 /min [facility] Body mass index (BMI) [Ratio] 21.4 kg/m2 21.4 k g/m2 [facility] ([facility]) Body weight 121.00 [lb_av] 121.00 [lb_av] [facility] ([facility]) Body height 63.1 [in_i] 63.1 [in_i] [facility] ([facility]) 5'3.10" Oxygen saturation in Arterial blood by Pulse oximetry 98 % 98 % [facility] Respiratory rate 16 /min 16 /min [facility] Heart rate 87 /min 87 /min [facility] Diastolic blood pressure 63 mm[Hg] 63 mm[Hg] [facility] Systolic blood pressure 120 mm[Hg] 120 mm[Hg] [facility] Body temperature 36.44 Ama 36.44 Ama [facility] Systolic blood pressure 102 mm[Hg] 102 mm[Hg] [facility] Diastolic blood pressure 67 mm[Hg] 67 mm[Hg] [facility] Heart rate 70 /min 70 /min [facility] Body height 160 cm 160 cm [facility] Body weight 54.386 kg 54.386 kg [facility] Body mass index (BMI) [Ratio] 21.24 kg/m2 21.24 kg/m2 [facility] Oxygen saturation in Arterial blood by Pulse oximetry 99 % 99 % [facility] [place] body weight 115 [lb_av] 115 [lb_av] MEDEN T ([facility]) Oxygen saturation in Arterial blood by Pulse oximetry 98 % 98 % [facility] ([facility]) Body temperature 98.3 [degF] 98.3 [degF] [facility] ([facility]) Respiratory rate 18 /min 18 /min [facility] ( [facility]) Heart rate 76 /min 76 /min [facility] ([facility]) Body mass index (BMI) [Ratio] 20.7 kg/m2 20.7 k g/m2 [facility] ([facility]) Body weight 117.00 [lb_av] 117.00 [lb_av] MEDEN T ([facility]) Body height 63.1 [in_i] 63.1 [in_i] [facility] ([facility]) 5'3.10" Diastolic blood pressure 70 mm[Hg] 70 mm[Hg] [facility] ([facility]) Systolic blood pressure 116 mm[Hg] 116 mm[Hg] M EDENT ([facility]) Body weight 116.50 [lb_av] 116.50 [lb_av] MEDEN T ([facility]) Body height 63.1 [in_i] 63.1 [in_i] [facility] ([facility]) 5'3.10" Diastolic blood pressure 86 mm[Hg] 86 mm[Hg] [facility] ([facility]) Systolic blood pressure 123 mm[Hg] 123 mm[Hg] M EDENT ([facility]) Oxygen saturation in Arterial blood by Pulse oximetry 99 % 99 % [facility] ([facility]) Body temperature 98.7 [degF] 98.7 [degF] [facility] ([facility]) Respiratory rate 20 /min 20 /min [facility] ( [facility]) Heart rate 78 /min 78 /min [facility] ([facility]) Body mass index (BMI) [Ratio] 20.6 kg/m2 20.6 k g/m2 [facility] ([facility]) Oxygen saturation in Arterial blood by Pulse oximetry 99 % 99 % [facility] ([facility]) Body temperature 98.7 [degF] 98.7 [degF] [facility] ([facility]) Respiratory rate 20 /min 20 /min [facility] ( [facility]) Heart rate 65 /min 65 /min [facility] ([facility]) Body mass index (BMI) [Ratio] 20.1 kg/m2 20.1 k g/m2 ANTONIA ([facility]) Body weight 114.00 [lb_av] 114.00 [lb_av] RAMILA Gray ([facility]) Body height 63.1 [in_i] 63.1 [in_i] ANTONIA ([facility]) 5'3.10" Diastolic blood pressure 86 mm[Hg] 86 mm[Hg] ANTONIA ([facility]) Systolic blood pressure 128 mm[Hg] 128 mm[Hg] Brigitte GAINES ([facility])
--- NOTE | 2020-06-19 04:20 | REPVR ---
PROCEDURE INFORMATION: Exam: CT Angiography Chest With Contrast Exam date and time: 06/19/2020 2:09 AM Age: 60 years old Clinical indication: Condition or disease; Lung condition and disease; Pneumonia; Other: Not known; Additional info: Chest pain, multifocal pneumonia TECHNIQUE: Imaging protocol: Computed tomographic angiography of the chest with contrast. 3D rendering (Not supervised by radiologist): MIP and/or 3D reconstructed images were created by the technologist. Radiation optimization: All CT scans at this facility use at least one of these dose optimization techniques: automated exposure control; mA and/or kV adjustment per patient size (includes targeted exams where dose is matched to clinical indication); or iterative reconstruction. Contrast material: ISO; Contrast volume: 75 ml; Contrast route: INTRAVENOUS (IV); COMPARISON: CT Chest without contrast 05/28/2020 2:19 PM FINDINGS: Pulmonary arteries: Normal. No pulmonary emboli. Aorta: Unremarkable. No aortic aneurysm. No aortic dissection. Lungs: Extensive patchy airspace and ground-glass opacities left upper and lower lobes as well the right apex. Centrilobular and paraseptal emphysema. Bronchiectasis in the lingula. Pleural spaces: Small left pleural effusion with adjacent compressive atelectasis. Heart: Unremarkable. No cardiomegaly. No pericardial effusion. Mediastinal space: Small hiatal hernia. Lymph nodes: Unremarkable. No enlarged lymph nodes. Bones/joints: Multilevel degenerative disease of the thoracic spine. Soft tissues: Unremarkable. IMPRESSION: No acute pulmonary embolic disease. Extensive patchy airspace and ground-glass opacities left upper and lower lobes as well the right apex. Bronchiectasis in the lingula. Small left pleural effusion with adjacent compressive atelectasis. Electronically signed by: Gordon Mcmahan On 06/19/2020 04:20:29 AM
[2020-06-19 06:30] VITALS: BP 105/57
--- NOTE | 2020-06-19 19:33 | ECGEPIP ---
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
--- NOTE | 2020-06-20 09:47 | ED PDOC ---
Post-Departure Follow-Up dr uribe faxed formal report of cta chest for fu Lyle Stokes MD Jun 20, 2020 09:47
== END 2020-06-19 06:51 | disposition home or self-care (01) ==
LOC: M ED 19:14
DX: R50.9 Fever, unspecified (principal); R06.02 Shortness of breath; R05 Cough; J47.9 Bronchiectasis, uncomplicated; I45.10 Unspecified right bundle-branch block; J90 Pleural effusion, not elsewhere classified; J98.11 Atelectasis; C50.412 Malignant neoplasm of upper-outer quadrant of left female breast; Z88.0 Allergy status to penicillin
CPT/HCPCS: 36415; 71046; 71275; 80048; 80076; 82550; 82553; 83605; 83880; 84484; 85025; 87040; 87486; 87581; 87633; 87798; 93005; 93041; 94760; 99285; Q9967

== ENCOUNTER 2020-06-29 14:34 | Inpatient (IN) | payer OTHER ==
[~2020-06-29] VITALS: Ht 160 cm; Wt 57.1 kg
--- OUTSIDE RECORDS SUMMARY | 2020-06-29 14:43 | CCD | Continuity of Care Document ---
Author Author Lori ANTHONY D.O. Organization Unknown Address [id number] [place] [address] Phone [phone] Care Team Providers Care Telecom Network Manager Name Role Phone Gavi Anthony D.O. AUTM Romain Manjarrez D.O. AUTM [phone] Problems Active Problems Provider Date Screening for [...] SIG Qnty Indications Ordering Provide r Date Cefaclor 500mg Capsules one tablet by mouth twice daily for 14 days (patient has had cefdinir without reaction) 28caps Gavi Anthony D.O. 06/19/2020 Ibuprofen 800mg Tablets 1 by mouth three times a day as needed for pain 90tabs J18.9 Gavi calero D.O. 06/19/2020 Albuterol Sulfate 2.5mg/0.5ML Nebu lizer 1 vial inhaled every 4 hours as needed 60units J18.9 Gavi Mcneill D.O. 06/19/2020 Nebulizer Kit/Tubing/Mouthpiece K it dispense: 1 kit diagnosis: j44.1 duration: 99 prognosis: fair 1units Gavi Anthony D.O. 06/19/2020 History Medications No Active Medications Unknown 08/2020 [...] CPT Code Status Date Vaccine Lot # [id number] Given 07/20/2017 Tetanus, Diphthe chucky Toxoids/Acellular Pertussis Vaccine 7 Or > [id number] Vital Signs Date Vital Result Comment 06/18/2020 4:24pm BP Systolic 132 mmHg BP Diastolic 82 mmHg Height 63.1 inches 5'3.10" Heart Rate 111 /min Respiratory Rate 20 /min Body Temperature 101.5 F O2 % BldC Oximetry 94 % [place] Body Weight 115 lb 06/04/2020 1:52pm BP Systolic 126 mmHg BP Diastolic 72 mmHg Height 63.1 inches 5'3.10" Weight 120.00 lb BMI (Body Mass Index) 21.2 kg/m2 Heart Rate 83 /min Respiratory Rate 20 /min Body Temperature 97.0 F O2 % BldC Oximetry 99 % [place] Body Weight 115 lb Results Test Acquired Date Facility Test Result H/L Range Note Respiratory Panel 06/19/2020 [facility] Outpatient Testi ng (Registration) [address] [place] [address] [phone] Respiratory Panel This respiratory <SEE NOTE> 1 CBC With Differential 06/19/2020 [facility] Outpatient Rosario ting (Registration) [address] [place] [address] [phone] White Blood Count 7.6 10 Normal 4.0-10.0 Red Blood Count 3.79 10 Low 4.00-5.40 Hemoglobin 10.9 g/dL Low 12.0-15.5 Hematocrit 35.1 % Low 36.0-47.0 Mean Corpuscular Volume 92.6 fl Normal 80.0-96.0 Mean Corpuscular Hemoglobin 28.8 pg Normal 27.0-33.0 Mean Corpuscular HGB Conc 31.1 g/dL Low 32.0-36.5 Red Cell Distribution Width 13.8 % Normal 11.5-14.5 Platelet Count, Automated 320 10 Normal 150-450 Neutrophils % 75.9 % High 36.0-66.0 Lymph % 11.1 % Low 24.0-44.0 Carson % 10.6 % High 0.0-5.0 Eos % 1.7 % Normal 0.0-3.0 Baso % 0.3 % Normal 0.0-1.0 Immature Granulocyte % 0.4 % Normal 0-3.0 Nucleated Red Blood Cell % 0.0 % Normal 0-0 Neutrophils # 5.8 10 Normal 1.5-8.5 Lymph # 0.9 10 Low 1.5-5.0 Carson # 0.8 10 Normal 0.0-0.8 Eos # 0.1 10 Normal 0.0-0.5 Baso # 0.0 10 Normal 0.0-0.2 Cardiac Marker Panel 06/19/2020 [facility] Outpatient Test ing (Registration) [address] [place] [address] [phone] CPK Creatine Phosphokinase 32 U/L Normal 26-19 2 CK-MB Value Mass < 1.0 NG/ML Normal <3.6 MB/CK Relative Index 3.12 Normal < Or =4 2 Troponin I < 0.02 NG/ML Normal < 0.10 3 Liver Profile 06/19/2020 [facility] Outpatient Testi ng (Registration) [address] [place] [address] [phone] Ast/Sgot 48 U/L High 7-37 Alt/SGPT 81 U/L High 12-78 Alkaline Phosphatase 249 U/L High 45-117 Bilirubin,Total 0.3 mg/dL Normal 0.2-1.0 Bilirubin,Direct 0.1 mg/dL Normal 0.0-0.2 Total Protein 7.0 GM/DL Normal 6.4-8.2 Albumin 3.2 GM/DL Normal 3.2-5.2 Albumin/Globulin Ratio 0.8 Low 1.2-2.2 Basic Metabolic Profile 06/19/2020 [facility] Outpatient T esting (Registration) [address] [place] [phone] [phone] Glucose, Fasting 91 mg/dL Normal 70-100 Blood Urea Nitrogen 11 mg/dL Normal 7-18 Creatinine For GFR 0.60 mg/dL Normal 0.55-1.30 Glomerular Filtration Rate > 60.0 Normal >51 4 Sodium Level 139 mEq/L Normal 136-145 Potassium Serum 4.0 mEq/L Normal 3.5-5.1 Chloride Level 103 mEq/L Normal 98-107 Carbon Dioxide Level 27 mEq/L Normal 21-32 Anion Gap 9 mEq/L Normal 8-16 Calcium Level 8.9 mg/dL Normal 8.5-10.1 Laboratory test finding 06/19/2020 [facility] Outpatient T esting (Registration) [address] [place] [phone] NT-Pro BNP 54 pg/mL Normal <125 Lactic Acid Sepsis Protocol 0.7 mmol/L Normal 0.4-2.0 5 Laboratory test finding 06/09/[address] [address] [phone] D-Dimer Quant 669.69 ng/ml High <500 CBC With Differential 06/09/[address] [address] [phone] White Blood Count 8.7 10 Normal 4.0-10.0 [...] 36.0-66.0 Lymph % 12.8 % Low 24.0-44.0 Carson % 10.5 % High 0.0-5.0 Eos % 2.6 % Normal 0.0-3.0 Baso % 0.2 % Normal 0.0-1.0 Immature Granulocyte % 0.9 % Normal 0-3.0 Nucleated Red Blood Cell % 0.0 % Normal 0-0 Neutrophils # 6.3 10 Normal 1.5-8.5 Lymph # 1.1 10 Low 1.5-5.0 Carson # 0.9 10 High 0.0-0.8 Eos # 0.2 10 Normal 0.0-0.5 Baso # 0.0 10 Normal 0.0-0.2 Comprehensive Metabolic Profil 06/09/2020 [place] [id number] [phone] Glucose, Fasting 88 mg/dL Normal 70-100 Blood Urea Nitrogen 15 mg/dL Normal 7-18 Creatinine For GFR 0.63 mg/dL Normal 0.55-1.30 Glomerular Filtration Rate > 60.0 Normal >51 6 Sodium Level 139 mEq/L Normal 136-145 Potassium [...] Low 3.2-5.2 Albumin/Globulin Ratio 0.9 Low 1.2-2.2 Istat Chem8+ Panel 05/28/2020 [facility] Outpatient Testi ng (Registration) [address] [place] [address] [phone] iSTAT HCT 30.0 % Low 38.0-51.0 iSTAT Glucose 119 mg/dL High 70-105 iSTAT Sodium 137 mEq/L Normal 136-145 iSTAT Potassium 3.3 mEq/L Low 3.5-5.1 iSTAT CA++ 4.4 mg/dL Low 4.5-5.3 iSTAT Chloride 100 mEq/L Normal 98-109 iSTAT Co2 24.0 MM/L Normal 23.0-27.0 iSTAT BUN 9 mg/dL Normal 8-26 iSTAT Creatinine 0.5 mg/dL Low 0.6-1.3 Respiratory Panel 05/28/2020 [facility] Outpatient Testi ng (Registration) [address] [place] [address] [phone] Respiratory Panel This respiratory <SEE NOTE> 7 Complete Blood Count 05/19/2020 [facility] Outpatient Test ing (Registration) [address] [place] [address] [phone] White Blood Count 11.2 10 High 4.0-10.0 [...] % Normal 0-0 Comprehensive Metabolic Profil 05/19/2020 [facility] Outpa tient Testing (Registration) [address] [place] [address] [phone] Glucose, Fasting 108 mg/dL High 70-100 Blood Urea Nitrogen 11 mg/dL Normal 7-18 Creatinine For GFR 0.63 mg/dL Normal 0.55-1.30 Glomerular Filtration Rate > 60.0 Normal >51 8 Sodium Level 138 mEq/L Normal 136-145 Potassium [...] Ratio 0.6 Low 1.2-2.2 Respiratory Panel 05/19/2020 [facility] Outpatient Testi (Registration) [address] [place] [address] [phone] Respiratory Panel This respiratory <SEE NOTE> 9 Respiratory Panel 05/13/2020 [facility] nter [address] [place] [address] [phone] Respiratory Panel This respiratory <SEE NOTE> 10 1 This respiratory PCR panel d etects [...] (COVID 19) NEGATIVE - SARS-CoV-2 (COVID19) 2 DIAGNOSIS CRITERIA MMB ng/ml Relative Index (RI) NON-AMI < or = 5 N/A FERGUSON ZONE > 5 < or = 4 AMI > 5 > 4 3 Troponin I Reference Interva l for Siemens Share Some Style LOCI: 99th Percentile= 0.00-0.045 ng/ml Risk Stratification: <= 0.10 ng/ml Decreased Risk for Adverse Clinical Events. 0.10-1.50 ng/ml Increased Risk for Adv erse Clinical Events. Evaluation of additional criterion and/or repeat testing in 2-6 hours is suggested to rule out myocardial damage. >= 1.50 ng/ml Indicative of Myocardial Injury. 4 Units are mL/min/1.73 m2 Chronic Kidney Disease Staging per NKF: Stage I & II GFR >=60 Normal to Mildly Decreased Stage III GFR 30-59 Moderately Decreased Stage IV GFR 15-29 Severely Decreased Stage V GFR <15 Very Little GFR Left ESRD GFR <15 on LEAD SEWAGE PLANT OPERATOR 5 Y/N query for Sepsis Lactate Rule: Y 6 Units are mL/min/1.73 m2 Chronic Kidney Disease Staging per NKF: Stage I & II GFR >=60 Normal to Mildly Decreased Stage III GFR 30-59 Moderately Decreased Stage IV GFR 15-29 Severely Decreased Stage V GFR <15 Very Little GFR Left ESRD GFR <15 on LEAD SEW[employer]ANT OPERATOR 7 This respiratory PCR panel d etects Influenza A H1, H3 and 2009 H1 viruses, Influenza B virus, Resp iratory Syncytial Virus, Human metapneumovirus, Parainfluenza virus 1, 2, 3 and 4, Adenovirus, Rhinovirus/Enterovirus, Coronavirus HKU1, NL63, OC43, 229E and SARS-CoV-2 (COVID 19), Bordetella pertussis, Bordetella parapertussis, Mycoplasma pneumoniae and Chlamydia pneumoniae. NEGATIVE by MULTIPLEXED NUCLEIC ACID PCR SARS-CoV-2 (COVID 19) NEGATIVE - SARS-CoV-2 (COVID19) 8 Units are mL/min/1.73 m2 Chronic Kidney Disease Staging per NKF: Stage I & II GFR >=60 Normal to Mildly Decreased Stage III GFR 30-59 Moderately Decreased Stage IV GFR 15-29 Severely Decreased Stage V GFR <15 Very Little GFR Left ESRD GFR <15 on LEAD SEW[employer]ANT OPERATOR 9 This respiratory PCR panel d etects Influenza A H1, H3 and 2009 H1 viruses, Influenza B virus, Resp iratory Syncytial Virus, Human metapneumovirus, Parainfluenza virus 1, 2, 3 and 4, Adenovirus, Rhinovirus/Enterovirus, Coronavirus HKU1, NL63, OC43, 229E and SARS-CoV-2 (COVID 19), Bordetella pertussis, Bordetella parapertussis, Mycoplasma pneumoniae and Chlamydia pneumoniae. NEGATIVE by MULTIPLEXED NUCLEIC ACID PCR SARS-CoV-2 (COVID 19) NEGATIVE - SARS-CoV-2 (COVID19) 10 This respiratory PCR panel d etects Influenza [...] Date Location Provider Dx Diagnosis Office Visit 06/19/2020 1:40p [facility] Gavi Anthony D.O. J18.9 Pneumonia, unspecified organ ism R07.81 Pleurodynia Office Visit 06/18/2020 4:20p [facility] Gavi Anthony D.O. J18.9 Pneumonia, unspecified organ ism R07.81 Pleurodynia Office Visit 06/04/2020 1:40p [facility] Gavi Anthony D.O. J18.9 Pneumonia, unspecified organ ism Office Visit 05/28/2020 8:40a [facility] Gavi Anthony D.O. J18.9 Pneumonia, unspecified organ ism R09.02 Hypoxemia Office Visit 05/13/2020 4:00p [facility] Gavi Anthony D.O. J20.9 Acute bronchitis, unspecifie d Assessments Date Code Description Provider 06/19/2020 J18.9 Pneumonia, unspecified organism Milena Sanabria.OKelly 06/19/2020 R07.81 Pleurodynia Stormy RamsayOKelly 06/18/2020 J18.9 Pneumonia, unspecified organism Milena Sanabria.OKelly 06/18/2020 R07.81 Pleurodynia Gavi sal D.O. 06/04/2020 J18.9 Pneumonia, unspecified organism Stormy SanabriaOKelly 05/28/2020 J18.9 Pneumonia, unspecified organism Milena Sanabria.OKelly 05/28/2020 R09.02 Hypoxemia Milena Ramsay.OKelly 05/13/2020 J20.9 Acute bronchitis, unspecified Danielito Anthony D.O. Plan of Treatment Future Appointment(s):* 07/16/2020 2:00 pm - Gavi Anthony D.O. at [facility] Functional Status Description No Information Available Mental Status Description No Information Available Referrals Refer to Reason for Referral Status Appt Date Romain Manjarrez D.O. This is a 60 year old female with history of breast cancer and pneumonia for 7 weeks. I treated her originally with doxycycline and she did not respond was had a CT done which showed large left upper pneumonia. I sent her to the ER and she was started on levaquin and discharged home. She presented a few days later worse with hypoxia and I sent her to ER and was admitted and treated with IV antibiotics and discharge home on a cephalosporin. She returned a week later with night sweats and fever and clinically evident LLL pneumonia. I referred her to ER and they sent her home without antibiotics b ecause she was afebrile there (101.5) in the office that day. Please evaluate and treat. [facility] [address] [place] [address] [phone]
--- OUTSIDE RECORDS SUMMARY | 2020-06-29 14:43 | CCD | Continuity of Care Document ---
Author Author Lori ANTHONY D.O. Organization Unknown Address [address] [place] [address] Phone [phone] Care Team Providers Care Supervisor Core Drilling Name Role Phone Gavi Anthony D.O. AUTM [phone] Problems Active Problems Provider Date Screening for [...] CPT Code Status Date Vaccine Lot # [id number] Given 07/20/2017 Tetanus, Diphthe chucky Toxoids/Acellular Pertussis Vaccine 7 Or > [id number] Vital Signs Date Vital Result Comment 06/18/2020 4:24pm BP Systolic 132 mmHg BP Diastolic 82 mmHg Height 63.1 inches 5'3.10" Heart Rate 111 /min Respiratory Rate 20 /min Body Temperature 101.5 F O2 % BldC Oximetry 94 % [place] Body Weight 115 lb 06/04/2020 1:52pm BP Systolic 126 mmHg BP Diastolic 72 mmHg Height 63.1 inches 5'3.10" Weight 120.00 lb BMI (Body Mass Index) 21.2 kg/m2 Heart Rate 83 /min Respiratory Rate 20 /min Body Temperature 97.0 F O2 % BldC Oximetry 99 % [place] Body Weight 115 lb Results Test Acquired Date Facility Test Result H/L Range Note Respiratory Panel 06/19/2020 [facility] Outpatient Testi ng (Registration) [address] [place] [address] [phone] Respiratory Panel This respiratory <SEE NOTE> 1 CBC With Differential 06/19/2020 [facility] Outpatient Rosario ting (Registration) [address] [place] [address] [phone] White Blood Count 7.6 10 Normal 4.0-10.0 [...] 36.0-66.0 Lymph % 11.1 % Low 24.0-44.0 [place] % 10.6 % High 0.0-5.0 Eos % 1.7 % Normal 0.0-3.0 Baso % 0.3 % Normal 0.0-1.0 Immature Granulocyte % 0.4 % Normal 0-3.0 Nucleated Red Blood Cell % 0.0 % Normal 0-0 Neutrophils # 5.8 10 Normal 1.5-8.5 Lymph # 0.9 10 Low 1.5-5.0 [place] # 0.8 10 Normal 0.0-0.8 Eos # 0.1 10 Normal 0.0-0.5 Baso # 0.0 10 Normal 0.0-0.2 Cardiac Marker Panel 06/19/2020 [facility] Outpatient Test ing (Registration) [address] [place] [address] [phone] CPK Creatine Phosphokinase 32 U/L Normal 26-19 2 CK-MB Value Mass < 1.0 NG/ML Normal <3.6 MB/CK Relative Index 3.12 Normal < Or =4 2 Troponin I < 0.02 NG/ML Normal < 0.10 3 Liver Profile 06/19/2020 [facility] Outpatient Testi ng (Registration) [address] [place] [address] [phone] Ast/Sgot 48 U/L High 7-37 Alt/SGPT 81 U/L High 12-78 Alkaline Phosphatase 249 U/L High 45-117 Bilirubin,Total 0.3 mg/dL Normal 0.2-1.0 Bilirubin,Direct 0.1 mg/dL Normal 0.0-0.2 Total Protein 7.0 GM/DL Normal 6.4-8.2 Albumin 3.2 GM/DL Normal 3.2-5.2 Albumin/Globulin Ratio 0.8 Low 1.2-2.2 Basic Metabolic Profile 06/19/2020 [facility] Outpatient T esting (Registration) [address] [place] [address] [phone] Glucose, Fasting 91 mg/dL Normal 70-100 Blood [...] mg/dL Normal 8.5-10.1 Laboratory test finding 06/19/2020 [facility] Outpatient T bhavik (Registration) [address] [place] [address] [phone] NT-Pro BNP 54 pg/mL Normal <125 Lactic Acid Sepsis Protocol 0.7 mmol/L Normal 0.4-2.0 5 Laboratory test finding 06/09/[address] [address] [phone] D-Dimer Quant 669.69 ng/ml High <500 CBC With Differential 06/09/[address] [address] [phone] White Blood Count 8.7 10 Normal 4.0-10.0 [...] 36.0-66.0 Lymph % 12.8 % Low 24.0-44.0 [place] % 10.5 % High 0.0-5.0 Eos % 2.6 % Normal 0.0-3.0 Baso % 0.2 % Normal 0.0-1.0 Immature Granulocyte % 0.9 % Normal 0-3.0 Nucleated Red Blood Cell % 0.0 % Normal 0-0 Neutrophils # 6.3 10 Normal 1.5-8.5 Lymph # 1.1 10 Low 1.5-5.0 [place] # 0.9 10 High 0.0-0.8 Eos # 0.2 10 Normal 0.0-0.5 Baso # 0.0 10 Normal 0.0-0.2 Comprehensive Metabolic Profil 06/09/[address] [address] [phone] Glucose, Fasting 88 mg/dL Normal 70-100 Blood [...] 0.9 Low 1.2-2.2 Istat Chem8+ Panel 05/28/2020 [facility] Outpatient Testi ng (Registration) [address] [place] [phone] iSTAT HCT 30.0 % Low 38.0-51.0 iSTAT Glucose 119 mg/dL High 70-105 iSTAT Sodium 137 mEq/L Normal 136-145 iSTAT Potassium 3.3 mEq/L Low 3.5-5.1 iSTAT CA++ 4.4 mg/dL Low 4.5-5.3 iSTAT Chloride 100 mEq/L Normal 98-109 iSTAT Co2 24.0 MM/L Normal 23.0-27.0 iSTAT BUN 9 mg/dL Normal 8-26 iSTAT Creatinine 0.5 mg/dL Low 0.6-1.3 Respiratory Panel 05/28/2020 [facility] Outpatient Testi ng (Registration) [address] [place] [address] [phone] Respiratory Panel This respiratory <SEE NOTE> 7 Complete Blood Count 05/19/2020 [facility] Outpatient Test ing (Registration) [address] [place] [address] [phone] White Blood Count 11.2 10 High 4.0-10.0 [...] % Normal 0-0 Comprehensive Metabolic Profil 05/19/2020 [facility] Outpa tient Testing (Registration) [address] [place] [address] [phone] Glucose, Fasting 108 mg/dL High 70-100 Blood [...] Ratio 0.6 Low 1.2-2.2 Respiratory Panel 05/19/2020 [facility] Outpatient Testi ng (Registration) [address] [place] [address] [phone] Respiratory Panel This respiratory <SEE NOTE> 9 Respiratory Panel 05/13/2020 [facility] ce nter [address] [place] [address] [phone] Respiratory Panel This respiratory <SEE NOTE> 10 [...] Troponin I Reference Interva l for [employer] [place] LOCI: 99th Percentile= 0.00-0.045 ng/ml Risk Stratification: [...] Little GFR Left ESRD GFR <15 on [employer] 5 Y/N query for Sepsis Lactate Rule: Y 6 Units are mL/min/1.73 m2 Chronic Kidney Disease Staging per NKF: Stage I & II GFR >=60 Normal to Mildly Decreased Stage III GFR 30-59 Moderately Decreased Stage IV GFR 15-29 Severely Decreased Stage V GFR <15 Very Little GFR Left ESRD GFR <15 on [employer] 7 This respiratory PCR panel d etects [...] Little GFR Left ESRD GFR <15 on [employer] 9 This respiratory PCR panel d etects [...] Provider Dx Diagnosis Office Visit 06/18/2020 4:20p [facility] Gavi Anthony D.O. J18.9 Pneumonia, unspecified organ ism R07.81 Pleurodynia Office Visit 06/04/2020 1:40p [facility] Gavi Anthony D.O. J18.9 Pneumonia, unspecified organ ism Office Visit 05/28/2020 8:40a [facility] Gavi Anthony D.O. J18.9 Pneumonia, unspecified organ ism R09.02 Hypoxemia Office Visit 05/13/2020 4:00p [facility] Gavi Anthony D.O. J20.9 Acute bronchitis, unspecifie d Assessments Date Code Description Provider 06/18/2020 J18.9 Pneumonia, unspecified organism Milena Sanabria.OKelly 06/18/2020 R07.81 Pleurodynia Milena Ramsay.O. 06/04/2020 J18.9 Pneumonia, unspecified organism Gavi Anthony, D.O. 05/28/2020 J18.9 Pneumonia, unspecified organism Gavi Anthony, D.O. 05/28/2020 R09.02 Hypoxemia Gavi sal D.O. 05/13/2020 J20.9 Acute bronchitis, unspecified Danielito Anthony D.O. Plan of Treatment Future Appointment(s):* 07/16/2020 2:00 pm - Gavi Anthony D.O. at [facility] Functional Status Description No Information Available Mental Status Description No Information Available Referrals Description No Information Available
--- OUTSIDE RECORDS SUMMARY | 2020-06-29 14:43 | CCD | Continuity of Care Document ---
Author Author Lori ANTHONY D.O. Organization Unknown Address [address] [place] [address] Phone [phone] Care Team Providers Care Analysis Consultant Name Role Phone Gavi Anthony D.O. AUTM Romain Manjarrez D.O. AUTM [phone] Problems Active Problems Provider Date Screening for [...] Medication SIG Qnty Indications Ordering Provider Date Injection Ceftriaxone Sodium Per 250 MG (Rocephin) Injection Gavi Faustin D.O. 06/19/2020 Immunization Administration Single Or Co mbination Injection Milena Sanabria 07/20/2017 Immunizations CPT Code Status Date Vaccine Lot # [id number] Given 07/20/2017 Tetanus, Diphthe chucky Toxoids/Acellular Pertussis Vaccine 7 Or > [id number] Vital Signs Date Vital Result Comment 06/19/2020 2:09pm BP Systolic 140 mmHg BP Diastolic 86 mmHg Height 63.1 inches 5'3.10" Weight 108.00 lb BMI (Body Mass Index) 19.1 kg/m2 Heart Rate 108 /min Respiratory Rate 18 /min Body Temperature 102.6 F O2 % BldC Oximetry 91 % [place] Body Weight 115 lb 06/18/2020 4:24pm BP Systolic 132 mmHg BP Diastolic 82 mmHg Height 63.1 inches 5'3.10" Heart Rate 111 /min Respiratory Rate 20 /min Body Temperature 101.5 F O2 % BldC Oximetry 94 % [place] Body Weight 115 lb Results Test Acquired Date Facility Test Result H/L Range Note Blood Culture 06/19/2020 [facility] Outpatient Testi ng (Registration) [address] [place] [address] [phone] Blood Culture No growth after <SEE NOTE> 1 Respiratory Panel 06/19/2020 [facility] Outpatient Testi ng (Registration) [address] [place] [address] [phone] Respiratory Panel This respiratory <SEE NOTE> 2 CBC With Differential 06/19/2020 [facility] Outpatient Rosario enriquetag (Registration) [address] [place] [address] [phone] White Blood Count 7.6 10 Normal 4.0-10.0 [...] 36.0-66.0 Lymph % 11.1 % Low 24.0-44.0 [place] % 10.6 % High 0.0-5.0 Eos % 1.7 % Normal 0.0-3.0 Baso % 0.3 % Normal 0.0-1.0 Immature Granulocyte % 0.4 % Normal 0-3.0 Nucleated Red Blood Cell % 0.0 % Normal 0-0 Neutrophils # 5.8 10 Normal 1.5-8.5 Lymph # 0.9 10 Low 1.5-5.0 [place] # 0.8 10 Normal 0.0-0.8 Eos # 0.1 10 Normal 0.0-0.5 Baso # 0.0 10 Normal 0.0-0.2 Cardiac Marker Panel 06/19/2020 [facility] Outpatient Test ing (Registration) [address] [place] [address] [phone] CPK Creatine Phosphokinase 32 U/L Normal 26-19 2 CK-MB Value Mass < 1.0 NG/ML Normal <3.6 MB/CK Relative Index 3.12 Normal < Or =4 3 Troponin I < 0.02 NG/ML Normal < 0.10 4 Liver Profile 06/19/2020 [facility] Outpatient Testi ng (Registration) [address] [place] [address] [phone] Ast/Sgot 48 U/L High 7-37 Alt/SGPT 81 U/L High 12-78 Alkaline Phosphatase 249 U/L High 45-117 Bilirubin,Total 0.3 mg/dL Normal 0.2-1.0 Bilirubin,Direct 0.1 mg/dL Normal 0.0-0.2 Total Protein 7.0 GM/DL Normal 6.4-8.2 Albumin 3.2 GM/DL Normal 3.2-5.2 Albumin/Globulin Ratio 0.8 Low 1.2-2.2 Basic Metabolic Profile 06/19/2020 [facility] Outpatient T esting (Registration) [address] [place] [address] [phone] Glucose, Fasting 91 mg/dL Normal 70-100 Blood Urea Nitrogen 11 mg/dL Normal 7-18 Creatinine For GFR 0.60 mg/dL Normal 0.55-1.30 Glomerular Filtration Rate > 60.0 Normal >51 5 Sodium Level 139 mEq/L Normal 136-145 Potassium Serum 4.0 mEq/L Normal 3.5-5.1 Chloride Level 103 mEq/L Normal 98-107 Carbon Dioxide Level 27 mEq/L Normal 21-32 Anion Gap 9 mEq/L Normal 8-16 Calcium Level 8.9 mg/dL Normal 8.5-10.1 Laboratory test finding 06/19/2020 [facility] Outpatient T esting (Registration) [address] [place] [address] [phone] NT-Pro BNP 54 pg/mL Normal <125 Lactic Acid Sepsis Protocol 0.7 mmol/L Normal 0.4-2.0 6 Blood Culture No growth after <SEE NOTE> 7 Laboratory test finding 06/09/[address] [address] [phone] D-Dimer Quant 669.69 ng/ml High <500 CBC With Differential 06/09/[address] [address] [phone] White Blood Count 8.7 10 Normal 4.0-10.0 [...] 36.0-66.0 Lymph % 12.8 % Low 24.0-44.0 [place] % 10.5 % High 0.0-5.0 Eos % 2.6 % Normal 0.0-3.0 Baso % 0.2 % Normal 0.0-1.0 Immature Granulocyte % 0.9 % Normal 0-3.0 Nucleated Red Blood Cell % 0.0 % Normal 0-0 Neutrophils # 6.3 10 Normal 1.5-8.5 Lymph # 1.1 10 Low 1.5-5.0 [place] # 0.9 10 High 0.0-0.8 Eos # 0.2 10 Normal 0.0-0.5 Baso # 0.0 10 Normal 0.0-0.2 Comprehensive Metabolic Profil 06/09/[address] [address] [phone] Glucose, Fasting 88 mg/dL Normal 70-100 Blood Urea Nitrogen 15 mg/dL Normal 7-18 Creatinine For GFR 0.63 mg/dL Normal 0.55-1.30 Glomerular Filtration Rate > 60.0 Normal >51 8 Sodium Level 139 mEq/L Normal 136-145 Potassium [...] 0.9 Low 1.2-2.2 Istat Chem8+ Panel 05/28/2020 [facility] Outpatient Testi ng (Registration) [address] [place] [address] [phone] iSTAT HCT 30.0 % Low 38.0-51.0 iSTAT Glucose 119 mg/dL High 70-105 iSTAT Sodium 137 mEq/L Normal 136-145 iSTAT Potassium 3.3 mEq/L Low 3.5-5.1 iSTAT CA++ 4.4 mg/dL Low 4.5-5.3 iSTAT Chloride 100 mEq/L Normal 98-109 iSTAT Co2 24.0 MM/L Normal 23.0-27.0 iSTAT BUN 9 mg/dL Normal 8-26 iSTAT Creatinine 0.5 mg/dL Low 0.6-1.3 Respiratory Panel 05/28/2020 [facility] Outpatient Testi ng (Registration) [address] [place] [phone] Respiratory Panel This respiratory <SEE NOTE> 9 Complete Blood Count 05/19/2020 [facility] Outpatient Test ing (Registration) [address] [place] [address] [phone] White Blood Count 11.2 10 High 4.0-10.0 [...] % Normal 0-0 Comprehensive Metabolic Profil 05/19/2020 [facility] Outpa tient Testing (Registration) [address] [place] [address] [phone] Glucose, Fasting 108 mg/dL High 70-100 Blood Urea Nitrogen 11 mg/dL Normal 7-18 Creatinine For GFR 0.63 mg/dL Normal 0.55-1.30 Glomerular Filtration Rate > 60.0 Normal >51 1 0 Sodium Level 138 mEq/L Normal 136-145 Potassium [...] Ratio 0.6 Low 1.2-2.2 Respiratory Panel 05/19/2020 [facility] Outpatient Testi ng (Registration) [address] [place] [address] [phone] Respiratory Panel This respiratory <SEE NOTE> 11 Respiratory Panel 05/13/2020 [facility] nter [address] [place] [address] [phone] Respiratory Panel This respiratory <SEE NOTE> 12 1 No growth after 48 hours . A ll specimens observed for 5 days. Results final at that time. No growth after 24 hours . All specimens observed for 5 days. Results final at that time. No Growth after 72 hours. All specimens observed for 5 days. Results final at that time. 2 This respiratory PCR panel d etects [...] (COVID 19) NEGATIVE - SARS-CoV-2 (COVID19) 3 DIAGNOSIS CRITERIA MMB ng/ml Relative Index (RI) NON-AMI < or = 5 N/A FERGUSON ZONE > 5 < or = 4 AMI > 5 > 4 4 Troponin I Reference Interva l for [employer] LOCI: 99th Percentile= 0.00-0.045 ng/ml Risk Stratification: <= 0.10 ng/ml Decreased Risk for Adverse Clinical Events. 0.10-1.50 ng/ml Increased Risk for Adv erse Clinical Events. Evaluation of additional criterion and/or repeat testing in 2-6 hours is suggested to rule out myocardial damage. >= 1.50 ng/ml Indicative of Myocardial Injury. 5 Units are mL/min/1.73 m2 Chronic Kidney Disease Staging per NKF: Stage I & II GFR >=60 Normal to Mildly Decreased Stage III GFR 30-59 Moderately Decreased Stage IV GFR 15-29 Severely Decreased Stage V GFR <15 Very Little GFR Left ESRD GFR <15 on [facility]OR[facility] ASST 6 Y/N query for Sepsis Lactate Rule: Y 7 No growth after 48 hours . A ll specimens observed for 5 days. Results final at that time. No growth after 24 hours . All specimens observed for 5 days. Results final at that time. No Growth after 72 hours. All specimens observed for 5 days. Results final at that time. 8 Units are mL/min/1.73 m2 Chronic Kidney Disease Staging per NKF: Stage I & II GFR >=60 Normal to Mildly Decreased Stage III GFR 30-59 Moderately Decreased Stage IV GFR 15-29 Severely Decreased Stage V GFR <15 Very Little GFR Left ESRD GFR <15 on [facility]NICAL LABORATORY ASST 9 This respiratory PCR panel d etects [...] (COVID 19) NEGATIVE - SARS-CoV-2 (COVID19) 10 Units are mL/min/1.73 m2 Chronic Kidney Disease Staging per NKF: Stage I & II GFR >=60 Normal to Mildly Decreased Stage III GFR 30-59 Moderately Decreased Stage IV GFR 15-29 Severely Decreased Stage V GFR <15 Very Little GFR Left ESRD GFR <15 on [facility]NICAL LABORATORY ASST 11 This respiratory PCR panel d etects Influenza A H1, H3 and 2009 H1 viruses, Influenza B virus, Resp iratory Syncytial Virus, Human metapneumovirus, Parainfluenza virus 1, 2, 3 and 4, Adenovirus, Rhinovirus/Enterovirus, Coronavirus HKU1, NL63, OC43, 229E and SARS-CoV-2 (COVID 19), Bordetella pertussis, Bordetella parapertussis, Mycoplasma pneumoniae and Chlamydia pneumoniae. NEGATIVE by MULTIPLEXED NUCLEIC ACID PCR SARS-CoV-2 (COVID 19) NEGATIVE - SARS-CoV-2 (COVID19) 12 This respiratory PCR panel d etects Influenza [...] Provider Dx Diagnosis Office Visit 06/19/2020 1:40p [facility] Gavi Anthony D.O. J18.9 Pneumonia, unspecified organ ism R07.81 Pleurodynia Office Visit 06/18/2020 4:20p [facility] Gavi Anthony D.O. J18.9 Pneumonia, unspecified organ ism R07.81 Pleurodynia Office Visit 06/04/2020 1:40p [facility] Milena Sanabria.OKelly J18.9 Pneumonia, unspecified organ ism Office Visit 05/28/2020 8:40a [facility] Gavi Anthony D.O. J18.9 Pneumonia, unspecified organ ism R09.02 Hypoxemia Office Visit 05/13/2020 4:00p [facility] Milena Sanabria.O. J20.9 Acute bronchitis, unspecifie d Assessments Date Code Description Provider 06/19/2020 J18.9 Pneumonia, unspecified organism Gavi Amosno-Pb, D.O. 06/19/2020 R07.81 Pleurodynia Gavi Snoweano-Gustafson doron, D.O. 06/18/2020 J18.9 Pneumonia, unspecified organism Gavi Amosno-Pb, D.O. 06/18/2020 R07.81 Pleurodynia Gavi Snoweano-Gustafson rbtosha, D.O. 06/04/2020 J18.9 Pneumonia, unspecified organism Gavi Allen-Pb, D.O. 05/28/2020 J18.9 Pneumonia, unspecified organism Gavi Allen-Pb, D.O. 05/28/2020 R09.02 Hypoxemia Gavi Amsono-Gustafson rbtosha, D.O. 05/13/2020 J20.9 Acute bronchitis, unspecified Danielito Amosno-Pb, D.O. Plan of Treatment Future Appointment(s):* 07/16/2020 2:00 pm - Gavi Anthony D.OKelly at [facility] Functional [...] Please evaluate and treat. [facility] [address] [place] [address] [phone]
--- OUTSIDE RECORDS SUMMARY | 2020-06-29 14:44 | CCD ---
Author Author [facility] Organization [facility] Address Unknown Phone Unavailable Care Team Providers Care Legal File Clerk Name Role Phone Evelyn MARTIN MD Unavailable [...] Unavailable Unavailable MARJORIE-GABRIEAL, GAVI DO Unavailable Unavailable MARJORIE-GABRIELA, GAVI DO [...] LEVIT,, TESS Unavailable Unavailable CICO, A MYKE INTERMODAL DISPATCHER Unavailable Unavailable CICO, A MYKE INTERMODAL DISPATCHER Unavailable Unavailable CICO, A MYKE INTERMODAL DISPATCHER Unavailable Unavailable CICO, A MYKE INTERMODAL DISPATCHER Unavailable Unavailable CICO, A MYKE INTERMODAL DISPATCHER Unavailable Unavailable CICO, A MYKE INTERMODAL DISPATCHER Unavailable Unavailable CICO, A MYKE INTERMODAL DISPATCHER Unavailable Unavailable CICO, A MYKE INTERMODAL DISPATCHER Unavailable Unavailable CICO, A MYKE INTERMODAL DISPATCHER Unavailable Unavailable CICO, A MYKE INTERMODAL DISPATCHER Unavailable Unavailable CICO, A MYKE INTERMODAL DISPATCHER Unavailable Unavailable CICO, A MYKE INTERMODAL DISPATCHER Unavailable Unavailable CICO, A MYKE INTERMODAL DISPATCHER Unavailable Unavailable CICO, A MYKE INTERMODAL DISPATCHER Unavailable Unavailable CICO, A MYKE INTERMODAL DISPATCHER Unavailable Unavailable CICO, A MYKE INTERMODAL DISPATCHER Unavailable Unavailable CICO, A MYKE INTERMODAL DISPATCHER Unavailable Unavailable CICO, A MYKE INTERMODAL DISPATCHER Unavailable Unavailable CICO, A MYKE INTERMODAL DISPATCHER Unavailable Unavailable CICO, A MYKE INTERMODAL DISPATCHER Unavailable Unavailable CICO, A MYKE INTERMODAL DISPATCHER Unavailable Unavailable CICO, A MYKE INTERMODAL DISPATCHER Unavailable Unavailable CICO, A MYKE INTERMODAL DISPATCHER Unavailable Unavailable CICO, A MYKE INTERMODAL DISPATCHER Unavailable Unavailable CICO, A MYKE INTERMODAL DISPATCHER Unavailable Unavailable CICO, A MYKE INTERMODAL DISPATCHER Unavailable Unavailable CICO, A MYKE INTERMODAL DISPATCHER Unavailable Unavailable CICO, A MYKE INTERMODAL DISPATCHER Unavailable Unavailable CICO, A MYKE INTERMODAL DISPATCHER Unavailable Unavailable CICO, A MYKE INTERMODAL DISPATCHER Unavailable Unavailable CICO, A MYKE INTERMODAL DISPATCHER Unavailable Unavailable CICO, A MYKE INTERMODAL DISPATCHER Unavailable Unavailable CICO, A MYKE INTERMODAL DISPATCHER Unavailable Unavailable CICO, A MYKE INTERMODAL DISPATCHER Unavailable Unavailable CICO, A MYKE INTERMODAL DISPATCHER Unavailable Unavailable CICO, A MYKE INTERMODAL DISPATCHER Unavailable Unavailable CICO, A MYKE INTERMODAL DISPATCHER Unavailable Unavailable CICO, A MYKE INTERMODAL DISPATCHER Unavailable Unavailable CICO, A MYKE INTERMODAL DISPATCHER Unavailable Unavailable CICO, A MYKE INTERMODAL DISPATCHER Unavailable Unavailable CICO, A MYKE INTERMODAL DISPATCHER Unavailable Unavailable CICO, A MYKE INTERMODAL DISPATCHER Unavailable Unavailable CICO, A MYKE INTERMODAL DISPATCHER Unavailable Unavailable CICO, A MYKE INTERMODAL DISPATCHER Unavailable Unavailable CICO, A MYKE INTERMODAL DISPATCHER Unavailable Unavailable CICO, A MYKE INTERMODAL DISPATCHER Unavailable Unavailable CICO, A MYKE INTERMODAL DISPATCHER Unavailable Unavailable CICO, A MYKE INTERMODAL DISPATCHER Unavailable Unavailable CICO, A MYKE INTERMODAL DISPATCHER Unavailable Unavailable CICO, A MYKE INTERMODAL DISPATCHER Unavailable Unavailable CICO, A MYKE INTERMODAL DISPATCHER Unavailable Unavailable MATTHEW, PRYJMA BRUCE MD Unavailable [...] is protected by Article 27-F of the [facility] Public Health law. If you continue you may have access to information: Regarding HIV / AIDS; Provided by facilities licensed or operated by the [facility] Office of Mental Health; or Provided by the [facility] Office for People With Developmental Disabilities. If such information is present, then the following [facility] mandated warning applies: This information has [...] law may result in a fine or longterm sentence or both. A general authorization for the release of medical or other information is NOT sufficient authorization for further disc losure. Allergies and Adverse Reactions Type Description Substance Reaction Status Data Source(s ) Propensity to adverse reactions PENICILLINS [facility]icillins [facility] Low Family History Family Member Name Family Member Gender Family Member Status Date o f Status Description Data Source(s) Unknown Male Problem [facility] ([facility]) () - age 84 Encounters Encounter Providers Location Date Indications Data Source(s ) Outpatient Attender: GAVI LEONE DO [facility] 06/19/2020 12:40:00 PM EST [facility] Outpatient Attender: GAVI LEONE [facility] 06/18/2020 03:20:00 PM EST [facility] ([facility]) Outpatient 06/10/2020 03:32:05 PM EST [facility] Outpatient 06/10/2020 03:25:56 PM EST [facility] Outpatient Attender: GAVI LEONE [facility] 06/04/2020 12:40:00 PM EST [facility] ([facility]) [facility]: [facility] 07:40:00 AM EST [facility] ([facility]: [facility] 05/13/2020 03:00:00 PM EST [facility] ([facility] Outpatient Referrer: MYKE REAL NP 08/26/2019 09:58:45 AM E DT [facility] Outpatient Attender: ISABELLE MARTIN MDAdmitter: ISABELLE Gray MDReferrer: ISABELLE MARTIN MD [id number] 08/13/2019 09:00:00 AM EDT - 08/13/2019 11:59:00 PM EDT [facility] Patient discharged. Outpatient Attender: ISABELLE MARTIN MDAdmitter: ISABELLE Gray MDReferrer: ISABELLE MARTIN MD [id number] 08/13/2019 08:45:00 AM EDT - 08/13/2019 08:59:00 AM EDT [facility] Patient discharged. Outpatient Attender: ISABELLE MARTIN MDReferrer: ISABELLE MARTIN MD MOB -MOB.PAT 08/08/2019 12:00:00 AM EDT - 08/08/2019 11:46:[address] [facility] Attender: ISABELLE MARTIN MDAdmitter: ISABELLE RASCONefe rrer: ISABELLE MARTIN MD ES1-OR 08/06/2019 03:31:50 PM EDT - 08/13/2019 02:30:00 PM EDT [facility] Patient discharged. Outpatient Attender: ISABELLE SIEGEL-SABI 0 02:55:12 PM EDT - 08/05/2019 03:57:00 PM EDT [facility] Outpatient Attender: TESS MERCHANT,Application Architect: JESSICA GREEN 07/08/2019 05:39:00 PM EST - 07/08/2019 05:49:00 PM EST [facility] Outpatient Referrer: BRUCE CASTRO MD 07/04/2019 07:07:00 AM EST [facility] Outpatient Referrer: BRUCE CASTRO MD 05/24/2019 09:56:00 AM EST [facility] Outpatient Referrer: BRUCE CASTRO MD 05/24/2019 09:29:00 AM EST [facility] Outpatient Referrer: GAVI LEONE DO 05/24/2019 09 :27:00 AM EST [facility] Outpatient Attender: GAVI LEONE DO [facility] 05/17/2019 12:00:00 PM EST [facility] ([facility]) Medications Medication Brand Name Start Date Product Form Dose Route Admi nistrative Instructions Pharmacy Instructions Status Indications Reaction Description Data Source(s) Nebulizer Kit/Tubing/Mouthpiece 06/19/2020 12:00:00 AM EST active [facility] ([facility]) Cefaclor 500 MG Oral Capsule Cefaclor 06/19/2020 12:00:00 AM EST ORAL active [facility] ([facility]) Albuterol 1 MG/ML Inhalant Solution Albuterol Sulfate 09/2020 12:00:00 AM EST active [facility] ([facility]) Injection Ceftriaxone Sodium Per 250 MG (Rocephin) 06/19/2020 12:00:00 AM EST completed [facility] ([facility]) Medication administered onsite Ibuprofen 800 MG Oral Tablet Ibuprofen 06/19/2020 12:00:00 AM EST ORAL active [facility] ([facility]) No Active Medications 06/18/2020 12:00:00 AM EST completed [facility] ([facility]) Levofloxacin 750 MG Oral Tablet Levofloxacin 05/27/2020 12:00:[address] ORAL completed [facility] ([facility]) 120 ACTUAT Fluticasone propionate 0.11 MG/ACTUAT Meter ed Dose Inhaler [Flovent] Flovent HFA 05/18/2020 12:00:00 AM EST ORAL completed [facility] ([facility]) Prednisone 20 MG Oral Tablet Prednisone 05/14/2020 12:00:00 AM EST ORAL completed [facility] ([facility]) Doxycycline Monohydrate 100 MG Oral Capsule Doxycycline Pershing hydrate 05/14/2020 12:00:00 AM EST ORAL completed [facility] ([facility]) No Active Medications 05/13/2020 12:00:00 AM EST completed [facility] ([facility]) normal saline flush 0.9 % injection 3 mL [id number] 08/13/2019 02:00:00 PM EDT 3 mL Intravenous active 3 mL , Intravenous, Every 8 hours (scheduled), First dose on Mon08/13/19 at 1400, PACU (only)
flush per protocol, D/C Main IV fluid if appropriate
[facility] Medication administered onsite Magnesium Chloride 0.27588 MEQ/ML / Pota ssium Chloride 0.0497 MEQ/ML / Sodium Acetate 0.0163 MEQ/ML / Sodium Chloride 0.0899 MEQ/ML / Sodium gluconate 5.02 MG/ML Injectable Solution [Normosol-R] electrolyte-R (NORMOSOL-R/PLASMALYTE-R) solution electrolyte-R (NORMOSOL-R/PLASMALYTE-R) solution 08/12 01:00:00 PM EDT Intravenous active at 1 00 mL/hr, Intravenous, Continuous, Starting Mon08/13/19 at 1300, PACU (only) [facility] Medication administered onsite 4 ML Labetalol [...] MG, hold for HR less than 60
[facility] Medication administered onsite haloperidol lactate (HALDOL) injection 0.5 mg [id number] 08/13/2019 11:54:42 AM EDT 0.5 mg Intramuscular active 0. 5 mg, Intramuscular, Every 30 min PRN, for intractable nausea and vomiting if not relieved by zofran/promethazine, Starting Mon08/13/19 at 1154, For 4 doses, PACU (only) [facility] Medication administered onsite technetium sulfur colloid (NYCOMED-SC) solution 500 micro cu johnathan 08/13/2019 10:00:00 AM EDT 500 uCi Intravenous completed 500 micro curie, Intravenous, Once, Mon08/13/19 at 1000, For 1 dose [facility] Medication administered onsite Magnesium Chloride 0.94103 MEQ/ML / Pota ssium Chloride 0.0497 MEQ/ML / Sodium Acetate 0.0163 MEQ/ML / Sodium Chloride 0.0899 MEQ/ML / Sodium gluconate 5.02 MG/ML Injectable Solution [Normosol-R] electrolyte-R (NORMOSOL-R/PLASMALYTE-R) solution electrolyte-R (NORMOSOL-R/PLASMALYTE-R) solution 08/12 10:00:00 AM EDT Intravenous active at 1 00 mL/hr, Intravenous, Continuous, Starting Mon08/13/19 at 1000, Pre-op [facility] Medication administered onsite normal saline flush 0.9 % injection 3 mL [id number] 08/13/2019 10:00:00 AM EDT 3 mL Intravenous active 3 mL , Intravenous, Every 8 hours (scheduled), First dose on Mon08/13/19 at 1000, Pre-op
Rapid push positive pressure flushing shall be performed with a 10 cc normal saline syringe to check the PATENCY of a PIV site prior to any infusion therapy initiation unless resistance is met.
[facility] Medication administered onsite Insurance Providers Payer name Policy type / Coverage type Policy ID Covered democrat ID Covered democrat's relationship to fish Policy Fish Plan Information [facility] [id number] SP [id number] [facility] [id number] S [id number] SELF PAY ONLY [id number] SP [id number] [facility] [id number] SP [id number] [facility] [id number] [facility] [id number] Spo [id number] [facility] [id number] 18 [id number] [facility] AT [facility] [id number] 01 [id number] [facility] Commercial [id number] Self [id number] [facility] Commercial [id number] Self 00 [id number] [facility] Commercial [id number] Self [id number] [facility] Commercial [id number] Self 00 [id number] [facility] Claims DPT Commercial Self [place] P[place] 302/307 [id number] [employer] [place] [id number] 2 [id number] FOR LIFE [id number] [employer] [place] PPO 302/307 [id number] HU [id number] Problems, Conditions, and Diagnoses Code Display Name Description Problem Type Effective Dates Data Source(s) No Previous Anesthesia No Previous Anesthesia [id number] 08/08/2019 12:00:00 AM EDT [facility] C50.912 Breast cancer, left Breast cancer, left [id number] 08/08/2019 12:00:00 AM EDT [facility] K21.9 GERD (gastroesophageal reflux disease) G ERD (gastroesophageal reflux disease) [id number] 08/08/2019 12:00:00 AM EDT [facility] N20.0 Kidney stones Kidney stones [id number] 08/08/2019 12:00:00 AM EDT [facility] 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, estrogen receptor positive Malignant neoplasm of upper-outer quadra nt of left breast in female, estrogen receptor positive [id number] 0 12:00:00 AM EDT [facility] Z17.0 Estrogen receptor positive status [ER+] Estrogen receptor positive status (ER+) Diagnosis 08/13/2019 09:00:00 AM EDT [facility] C50.412 Malignant neoplasm of upper-outer quadra nt of left female breast Malignant neoplasm of upper-outer quadra Diagnosis 08/13/2019 09:00:00 AM EDT [facility] N20.0 Calculus of kidney Calculus of kidney Diagnosis 11:11:41 AM EDT [facility] K21.9 Gastro-esophageal reflux disease without esophagitis Gastro-esophageal reflux disease without Diagnosis 08/08/2019 11:11:41 AM EDT [facility] C50.912 Malignant neoplasm of unspecified site o f left female breast Malignant neoplasm of unspecified site o Diagnosis 08/08/2019 11:11:41 AM EDT [facility] [id number] Malignant neoplasm of upper-outer quadra nt of left female breast Malignant neoplasm of upper-outer quadrant of left female breast Diagnosis 07/08/2019 05:39:00 PM [facility] N630 Unspecified lump in unspecified breast U nspecified lump in unspecified breast Diagnosis 07/08/2019 05:39:00 PM [facility] Surgeries/Procedures Procedure Description Date Indications Data Source(s) RADIOLOGICAL EXAMINATION SURGICAL SPECIMEN MAMMO BREAST SPECIME N Routine 08/13/2019 11:37 AM EDT Malignant neoplasm of upper-outer quadrant of left breast in female, estrogen receptor positive 08/13/2019 03:37:20 PM EDT Malignant dick plasm of upper-outer quadrant of left breast in female, estrogen receptor positive [facility] Malignant neoplasm of upper-outer quadra nt [...] left breast in female, estrogen receptor positive [facility] Malignant neoplasm of upper-outer quadra nt of left breast in female, estrogen receptor positive MAMMO NEEDLE LOCALIZATION LEFT MAMMO NEEDLE LOCALIZATION LEFT R outine 08/13/2019 9:45 AM EDT Malignant neoplasm of upper-outer quadrant of left breast in female, estrogen receptor positive 08/13/2019 01:45:00 PM EDT Malignant dick plasm of upper-outer quadrant of left breast in female, estrogen receptor positive [facility] Malignant neoplasm of upper-outer quadra nt [...] left breast in female, estrogen receptor positive [facility] Malignant neoplasm of upper-outer quadra nt of left breast in female, estrogen receptor positive Results ID Date Data Source [id number] 06/19/2020 05:05:00 AM EST [facility] ([facility]) Name Value Range Interpretation Code Description Data Mare rce(s) Supporting Document(s) Blood Culture Laboratory test result [facility] ([facility]) No growth after 48 hours . All specimens observed for 5 days. Results final at that time. No growth after 24 hours . All specimens observed for 5 days. Results final at that time. No Growth after 72 hours. All specimens observed for 5 days. Results final at that time. ID Date Data Source [id number] 06/19/2020 02:07:00 AM EST [facility] ([facility]) Name Value Range Interpretation Code Description Data Mare rce(s) Supporting Document(s) Respiratory Panel Laboratory test result [facility] ([facility]) This respiratory PCR panel detects Influ [...] - SARS-CoV-2 (COVID19) ID Date Data Source [id number] 06/19/2020 02:07:00 AM EST [place] Name Value Range Interpretation Code Description Data Mare rce(s) Supporting Document(s) SARS-CoV-2 (COVID 19) NEGATIVE - SARS-CoV-2 (COVID19) [place] This lab was ordered by [facility] a nd reported by [facility]. ID Date Data Source [id number] 06/19/2020 01:04:00 AM EST [facility] ([facility]) Name Value Range Interpretation Code Description Data Mare rce(s) Supporting Document(s) Natriuretic peptide.B prohormone N-Terminal [Mass/volu me] in Serum or Plasma 54 pg/mL Normal (applies to non-numeric results) [facility] ([facility]) Bacteria identified in Blood by Culture Laboratory test result [facility] ([facility]) No growth after 48 hours . All specimens observed for 5 days. Results final at that time. No growth after 24 hours . All specimens observed for 5 days. Results final at that time. No Growth after 72 hours. All specimens observed for 5 days. Results final at that time. Lactate [Mass/volume] in Serum or Plasma 0.7 mmol/L 0.4-2.0 Normal (applies to non-numeric results) [facility] ([facility]) Y/N query for Sepsis Lactate Rule: Y ID Date Data Source [id number] 06/19/2020 01:04:00 AM EST [facility] ([facility]) Name Value Range Interpretation Code Description [facility] Supporting Document(s) Glucose, Fasting 91 mg/dL 70-100 Normal (applies to non-numeric results) [facility] ([facility]) Glomerular Filtration Rate Laboratory test result Normal (applies to non- numeric results) [facility] ([facility]) <content>Units are mL/min/1.73 m2</content>
<content></content>
<content>Chronic Kidney Disease Staging per NKF:</content>
<content></content>
<content>Stage I & II GFR >=60 Normal to Mildly Decreased</content>
<content>Stage III GFR 30- 59 Moderately Decreased</content>
<content>Stage IV GFR 15-29 Severely Decreased</content>
<content>Stage V GFR <15 Very Little GFR Left</content>
<content>ESRD GFR <15 on BURN[employer]ER [employer]MPER</content>
<content></content> Creatinine For GFR 0.60 mg/dL 0.55-1.30 Normal (applies to non -numeric results) [facility] ([facility]) Blood Urea Nitrogen 11 mg/dL 7-18 Normal (applies to non-nume yunior results) [facility] ([facility]) Potassium Serum 4.0 meq/L 3.5-5.1 Normal (applies to non-numeric results) [facility] ([facility]) Sodium Level 139 meq/L 136-145 Normal (applies to non-numeric res ults) [facility] ([facility]) Chloride Level 103 meq/L 98-107 Normal (applies to non-numeric r esults) [facility] ([facility]) Carbon Dioxide Level 27 meq/L 21-32 Normal (applies to non-num joshua results) [facility] ([facility]) Anion Gap 9 meq/L 8-16 Normal (applies to non-numeric resul ts) [facility] ([facility]) Calcium Level 8.9 mg/dL 8.5-10.1 Normal (applies to non-numeric re sults) [facility] ([facility]) ID Date Data Source [id number] 06/19/2020 01:04:00 AM EST [facility] ([facility]) Name Value Range Interpretation Code Description Data Mare rce(s) Supporting Document(s) Alt/SGPT 81 U/L 12-78 Above high normal [facility] ([facility]) Ast/Sgot 48 U/L 7-37 Above high normal [facility] ([facility]) Alkaline Phosphatase 249 U/L 45-117 Above high normal [facility] Bilirubin,Direct 0.1 mg/dL 0.0-0.2 Normal (applies to non-numeric results) [facility] ([facility]) Bilirubin,Total 0.3 mg/dL 0.2-1.0 Normal (applies to non-numeric results) [facility] ([facility]) Albumin 3.2 GM/DL 3.2-5.2 Normal (applies to non-numeric resul ts) [facility] ([facility]) Total Protein 7.0 GM/DL 6.4-8.2 Normal (applies to non-numeric re sults) [facility] ([facility]) Albumin/Globulin Ratio 0.8 1.2-2.2 Below low normal [facility] ([facility]) ID Date Data Source [id number] 06/19/2020 01:04:00 AM EST [facility]) Name Value Range Interpretation Code Description Data Mare rce(s) Supporting Document(s) CK-MB Value Mass Laboratory test result Normal ( applies to non-numeric results) [facility] ([facility]) CPK Creatine Phosphokinase 32 U/L 26-192 Aleshia l (applies to non-numeric results) [facility] ([facility]) MB/CK Relative Index 3.12 Normal (applies to non-num joshua results) [facility] ([facility]) <content>DIAGNOSIS CRITERIA</content>
<content>MMB ng/ml Relative Index (RI)</content>
<content>NON-AMI < or = 5 N/A</content>
<content>FERGUSON ZONE > 5 < or = 4</content>
<content>AMI > 5 > 4</content>
<content></content> Troponin I Laboratory test result Normal (applies to non-n umeric results) [facility] ([facility]) <content>Troponin I Reference Interval f or Siemens [place] LOCI:</content>
<content></content>
<content>99th Percentile= 0.00-0.045 ng/ml</content>
<content></content>
<content>Risk Stratification:</content>
<content><= 0.10 ng/ml Decreased Risk for Adverse Clinical</content>
<content>Events.</content>
<content>0.10-1.50 ng/ml Increased Risk for Adverse Clinical</content>
<content>Events. Evaluation of additional</content>
<content>criterion and/or repeat testing in 2-6</content>
<content>hours is suggested to rule out myocardial</content>
<content>damage.</content>
<content>>= 1.50 ng/ml Indicative of Myocardial Injury.</content>
<content></content> ID Date Data Source [id number] 06/19/2020 01:04:00 AM EST [facility] ([facility]) Name Value Range Interpretation Code Description Data Mare rce(s) Supporting Document(s) White Blood Count 7.6 10 4.0-10.0 Normal (applies to non-numeri c results) [facility] ([facility]) Red Blood Count 3.79 10 4.00-5.40 Below low normal [facility] ([facility]) Hematocrit 35.1 % 36.0-47.0 Below low normal [facility] ( [facility]) Hemoglobin 10.9 g/dL 12.0-15.5 Below low normal [facility] Mean Corpuscular HGB Conc 31.1 g/dL 32.0-36.5 Below low normal [facility] ([facility]) Mean Corpuscular Hemoglobin 28.8 pg 27.0-33.0 Norm al (applies to non-numeric results) [facility] ([facility]) Mean Corpuscular Volume 92.6 fl 80.0-96.0 Normal ( applies to non-numeric results) [facility] ([facility]) Neutrophils % 75.9 % 36.0-66.0 Above high normal [facility] ([facility]) Platelet Count, Automated 320 10 150-450 Normal (applies to non-numeric results) [facility] Red Cell Distribution Width 13.8 % 11.5-14.5 Norm al (applies to non-numeric results) [facility] ([facility]) Lymph % 11.1 % 24.0-44.0 Below low normal [facility] ( [facility]) Pershing % 10.6 % 0.0-5.0 Above high normal [facility] ([facility]) Baso % 0.3 % 0.0-1.0 Normal (applies to non-numeric resul ts) [facility] ([facility]) Immature Granulocyte % 0.4 % 0-3.0 Normal (applies to non-n umeric results) [facility] ([facility]) Eos % 1.7 % 0.0-3.0 Normal (applies to non-numeric resul ts) [facility] [facility] Lymph # 0.9 10 1.5-5.0 Below low normal [facility] ( [facility]) Neutrophils # 5.8 10 1.5-8.5 Normal (applies to non-numeric re sults) [facility] ([facility]) Nucleated Red Blood Cell % 0.0 % 0-0 Normal (applies to n on-numeric results) [facility] ([facility]) Eos # 0.1 10 0.0-0.5 Normal (applies to non-numeric resul ts) [facility] ([facility]) Pershing # 0.8 10 0.0-0.8 Normal (applies to non-numeric resul ts) [facility] ([facility]) Baso # 0.0 10 0.0-0.2 Normal (applies to non-numeric resul ts) [facility] ([facility]) ID Date Data Source [id number] 06/10/2020 12:00:00 AM EST [facility] Fran Ambriz DO Patient Name: TOAN VEGAE[address] Date of : 1960te 1 Date [facility] Exam: [facility]/2020[facility] LAZARUS [id number]#: Fax: [phone] EXAM: CT ANGIOGRAPHY, CHESTCLINICAL INFORMATION: [...] is a small pericardial effusion.Accredited by the [employer] [employer] in [place].MOSES [facility] you for referring OSCAR VEGA to our office. Electronically Signed - DIONY MELENDEZ DO 06/10/20 17:26 Name Value Range Interpretation Code Description Data Mare rce(s) Supporting Document(s) ID Date Data Source [id number] 06/09/2020 03:02:00 PM [facility] Name Value Range Interpretation Code Description Data Mare rce(s) Supporting Document(s) Glucose, Fasting 88 mg/dL 70-100 Normal (applies to non-numeric results) [facility] ([facility]) Creatinine For GFR 0.63 mg/dL 0.55-1.30 Normal (applies to non -numeric results) [facility]) Blood Urea Nitrogen 15 mg/dL 7-18 Normal (applies to non-nume yunior results) [facility] ([facility]) Glomerular Filtration Rate Laboratory test result Normal (applies to non- numeric results) [facility] ([facility]) <content>Units are mL/min/1.73 m2</content>
<content></content>
<content>Chronic Kidney Disease Staging per NKF:</content>
<content></content>
<content>Stage I & II GFR >=60 Normal to Mildly Decreased</content>
<content>Stage III GFR 30- 59 Moderately Decreased</content>
<content>Stage IV GFR 15-29 Severely Decreased</content>
<content>Stage V GFR <15 Very Little GFR Left</content>
<content>ESRD GFR <15 on [facility] [employer]MPER</content>
<content></content> Sodium Level 139 meq/L 136-145 Normal (applies to non-numeric res ults) [facility] ([facility]) Chloride Level 105 meq/L 98-107 Normal (applies to non-numeric r esults) [facility] ([facility]) Potassium Serum 4.4 meq/L 3.5-5.1 Normal (applies to non-numeric results) [facility] ([facility]) Carbon Dioxide Level 30 meq/L 21-32 Normal (applies to non-num joshua results) [facility] ([facility]) Anion Gap 4 meq/L 8-16 Below low normal [facility] ( [facility]) Calcium Level 9.1 mg/dL 8.5-10.1 Normal (applies to non-numeric re sults) [facility] ([facility]) Ast/Sgot 17 U/L 7-37 Normal (applies to non-numeric resul ts) [facility] ([facility]) Alkaline Phosphatase 99 U/L 45-117 Normal (applies to non-num joshua results) [facility] ([facility]) Alt/SGPT 34 U/L 12-78 Normal (applies to non-numeric resul ts) [facility] ([facility]) Total Protein 6.0 GM/DL 6.4-8.2 Below low normal [facility] ([facility]) Bilirubin,Total 0.1 mg/dL 0.2-1.0 Below low normal [facility] ([facility]) Albumin 2.9 GM/DL 3.2-5.2 Below low normal [facility] Albumin/Globulin Ratio 0.9 1.2-2.2 Below low normal [facility] ([facility]) ID Date Data Source [id number] 06/09/2020 03:02:00 PM EST [facility] ([facility]) Name Value Range Interpretation Code Description Data Mare rce(s) Supporting Document(s) Hemoglobin 10.9 g/dL 12.0-15.5 Below low normal [facility]) Red Blood Count 3.73 10 4.00-5.40 Below low normal [facility] ([facility]) White Blood Count 8.7 10 4.0-10.0 Normal (applies to non-numeri c results) [facility] ([facility]) Hematocrit 34.9 % 36.0-47.0 Below low normal [facility]) Mean Corpuscular Volume 93.6 fl 80.0-96.0 Normal ( applies to non-numeric results) [facility] ([facility]) Red Cell Distribution Width 13.2 % 11.5-14.5 Norm al (applies to non-numeric results) [facility] ([facility]) Mean Corpuscular HGB Conc 31.2 g/dL 32.0-36.5 Below low normal [facility] ([facility]) Mean Corpuscular Hemoglobin 29.2 pg 27.0-33.0 Norm al (applies to non-numeric results) [facility] ([facility]) Neutrophils % 73.0 % 36.0-66.0 Above high normal [facility] ([facility]) Platelet Count, Automated 378 10 150-450 Normal (applies to non-numeric results) [facility] ([facility]) Pershing % 10.5 % 0.0-5.0 Above high normal [facility] ([facility]) Lymph % 12.8 % 24.0-44.0 Below low normal [facility] ( [facility]) Eos % 2.6 % 0.0-3.0 Normal (applies to non-numeric resul ts) [facility] ([facility]) Baso % 0.2 % 0.0-1.0 Normal (applies to non-numeric resul ts) [facility] ([facility]) Immature Granulocyte % 0.9 % 0-3.0 Normal (applies to non-n umeric results) [facility] ([facility]) Neutrophils # 6.3 10 1.5-8.5 Normal (applies to non-numeric re sults) [facility] ([facility]) Nucleated Red Blood Cell % 0.0 % 0-0 Normal (applies to n on-numeric results) [facility] ([facility]) Pershing # 0.9 10 0.0-0.8 Above high normal [facility] ([facility]) Lymph # 1.1 10 1.5-5.0 Below low normal [facility] ( [facility]) Eos # 0.2 10 0.0-0.5 Normal (applies to non-numeric resul ts) [facility] ([facility]) Baso # 0.0 10 0.0-0.2 Normal (applies to non-numeric resul ts) [facility] ([facility]) ID Date Data Source [id number] 06/09/2020 03:02:00 PM EST [facility] ([facility]) Name Value Range Interpretation Code Description Data Mare rce(s) Supporting Document(s) Fibrin D-dimer FEU [Mass/volume] in Platelet poor plasma 669.69 ng/mL Above high normal [facility] ([facility]) ID Date Data Source [id number] 06/08/2020 12:00:00 AM EST [facility] Gavi Snoweano Gabriela DO Patient Name: TOAN VE[address] Date of : 1960te 1 Date of Exam: 06/08/2020LAZARUS Lee [id number]#: Fax: [phone] EXAM: CHEST (2 VIEW) X-RAYCLINICAL [...] compared tothe chest CT of 05/28/2020.MOSES [facility]rica you for referring OSCAR VEGA to our office. Electronically Signed - DIONY MELENDEZ DO 06/09/20 15:18 Name Value Range Interpretation Code Description Data Mare rce(s) Supporting Document(s) ID Date Data Source [id number] 06/08/2020 12:00:00 AM EST [facility] ([facility]) Name Value Range Interpretation Code Description Data Mare rce(s) Supporting Document(s) Chest X-ray PA and lateral Laboratory test result [facility] ([facility]) ID Date Data Source [id number] 05/28/2020 12:57:00 PM EST [facility] ([facility]) Name Value Range Interpretation Code Description Data Mare rce(s) Supporting Document(s) Respiratory Panel Laboratory test result [facility] ([facility]) This respiratory PCR panel detects Influ [...] - SARS-CoV-2 (COVID19) ID Date Data Source [id number] 05/28/2020 12:57:00 PM EST [facility] Name Value Range Interpretation Code Description Data Mare rce(s) Supporting Document(s) SARS-CoV-2 (COVID 19) NEGATIVE - SARS-CoV-2 (COVID19) [facility] This lab was ordered by [facility] a nd reported by [facility]. ID Date Data Source [id number] 05/28/2020 11:59:00 AM EST [facility] ([facility]) Name Value Range Interpretation Code Description Data Mare rce(s) Supporting Document(s) Laboratory test finding (navigational concept) 119 mg/dL 7 0-105 Above high normal [facility] ([facility]) Laboratory test finding (navigational concept) 30.0 % 3 8.0-51.0 Below low normal [facility] ([facility]) Laboratory test finding (navigational concept) 137 meq/L 1 36-145 Normal (applies to non-numeric results) [facility] ([facility]) Laboratory test finding (navigational concept) 3.3 meq/L 3 .5-5.1 Below low normal [facility] ([facility]) Laboratory test finding (navigational concept) 4.4 mg/dL 4 .5-5.3 Below low normal [facility] ([facility]) Laboratory test finding (navigational concept) 100 meq/L 9 8-109 Normal (applies to non-numeric results) [facility] ([facility]) Laboratory test finding (navigational concept) 24.0 MM/L 2 3.0-27.0 Normal (applies to non-numeric results) [facility] ([facility]) Laboratory test finding (navigational concept) 0.5 mg/dL 0 .6-1.3 Below low normal [facility] ([facility]) Laboratory test finding (navigational concept) 9 mg/dL 8 -26 Normal (applies to non-numeric results) [facility] ([facility]) ID Date Data Source [id number] 05/27/2020 12:00:00 AM [facility] Gavi Ambriz DO Patient Name: TOAN VEGAE[address] Date of : 1960te 1 Date of Exam: 05/27/2020LAZAR[facility] Lee [id number]#: Fax: [phone] EXAM: CHEST (2 VIEW) X-RAYCLINICAL [...] rce(s) Supporting Document(s) ID Date Data Source [id number] 05/19/2020 10:33:00 PM EST [facility] ([facility]) Name Value Range Interpretation Code Description Data Mare rce(s) Supporting Document(s) Glucose, Fasting 108 mg/dL 70-100 Above high normal [facility] Creatinine For GFR 0.63 mg/dL 0.55-1.30 Normal (applies to non -numeric results) [facility] ([facility]) Blood Urea Nitrogen 11 mg/dL 7-18 Normal (applies to non-nume yunior results) [facility] ([facility]) Potassium Serum 4.0 meq/L 3.5-5.1 Normal (applies to non-numeric results) [facility] ([facility]) Sodium Level 138 meq/L 136-145 Normal (applies to non-numeric res ults) [facility] ([facility]) Glomerular Filtration Rate Laboratory test result Normal (applies to non- numeric results) [facility] ([facility]) <content>Units are mL/min/1.73 m2</content>
<content></content>
<content>Chronic Kidney Disease Staging per NKF:</content>
<content></content>
<content>Stage I & II GFR >=60 Normal to Mildly Decreased</content>
<content>Stage III GFR 30- 59 Moderately Decreased</content>
<content>Stage IV GFR 15-29 Severely Decreased</content>
<content>Stage V GFR <15 Very Little GFR Left</content>
<content>ESRD GFR <15 on [facility] [employer]</content>
<content></content> Chloride Level 105 meq/L 98-107 Normal (applies to non-numeric r esults) [facility] ([facility]) Anion Gap 6 meq/L 8-16 Below low normal [facility] ( [facility]) Carbon Dioxide Level 27 meq/L 21-32 Normal (applies to non-num joshua results) [facility] ([facility]) Calcium Level 8.4 mg/dL 8.5-10.1 Below low normal [facility] ([facility]) Alt/SGPT 25 U/L 12-78 Normal (applies to non-numeric resul ts) [facility] ([facility]) Ast/Sgot 18 U/L 7-37 Normal (applies to non-numeric resul ts) [facility] ([facility]) Bilirubin,Total 0.3 mg/dL 0.2-1.0 Normal (applies to non-numeric results) [facility] ([facility]) Alkaline Phosphatase 100 U/L 45-117 Normal (applies to non-num joshua results) [facility] ([facility]) Albumin 2.5 GM/DL 3.2-5.2 Below low normal [facility] ( [facility]) Total Protein 6.5 GM/DL 6.4-8.2 Normal (applies to non-numeric re sults) [facility] ([facility]) Albumin/Globulin Ratio 0.6 1.2-2.2 Below low normal [facility] ([facility]) ID Date Data Source [id number] 05/19/2020 10:33:00 PM EST [facility] ([facility]) Name Value Range Interpretation Code Description Data Mare rce(s) Supporting Document(s) White Blood Count 11.2 10 4.0-10.0 Above high normal [facility] ([facility]) Red Blood Count 3.64 10 4.00-5.40 Below low normal [facility] ([facility]) Hemoglobin 10.5 g/dL 12.0-15.5 Below low normal [facility] ( [facility]) Mean Corpuscular Volume 91.8 fl 80.0-96.0 Normal ( applies to non-numeric results) [facility] ([facility]) Hematocrit 33.4 % 36.0-47.0 Below low normal [facility]) Mean Corpuscular Hemoglobin 28.8 pg 27.0-33.0 Norm al (applies to non-numeric results) [facility] ([facility]) Mean Corpuscular HGB Conc 31.4 g/dL 32.0-36.5 Below low normal [facility] ([facility]) Red Cell Distribution Width 11.4 % 11.5-14.5 Below low normal [facility]) Platelet Count, Automated 503 10 150-450 Above high normal [facility] ([facility]) Nucleated Red Blood Cell % 0.0 % 0-0 Normal (applies to n on-numeric results) [facility] ([facility]) ID Date Data Source [id number] 05/19/2020 10:07:00 PM EST [facility] ([facility]) Name Value Range Interpretation Code Description Data Mare rce(s) Supporting Document(s) Respiratory Panel Laboratory test result [facility] ([facility]) This respiratory PCR panel detects Influ [...] - SARS-CoV-2 (COVID19) ID Date Data Source [id number] 05/19/2020 10:07:00 PM EST [facility] Name Value Range Interpretation Code Description Data Mare rce(s) Supporting Document(s) SARS-CoV-2 (COVID 19) NEGATIVE - SARS-CoV-2 (COVID19) [facility] This lab was ordered by [facility] a nd reported by [facility]. ID Date Data Source [id number] 05/19/2020 12:00:00 AM EST [facility] Gavi Ambriz DO Patient Name: TOAN VEGAE[address] Date of : 1960te 1 Date of Exam: 05/19/2020[facility] her[facility] [id number]#: Fax: [phone] EXAM: CHEST (2 VIEW) X-RAYCLINICAL [...] rce(s) Supporting Document(s) ID Date Data Source [id number] 05/13/2020 04:07:00 PM EST [facility] ([facility]) Name Value Range Interpretation Code Description Data Mare rce(s) Supporting Document(s) Respiratory Panel [facility] test result [facility]) This respiratory PCR panel detects Influ [...] - SARS-CoV-2 (COVID19) ID Date Data Source [id number] 05/13/2020 04:07:00 PM EST [facility] Name Value Range Interpretation Code Description Data Mare rce(s) Supporting Document(s) SARS-CoV-2 (COVID 19) [facility] This lab was ordered by [facility] a nd reported by [facility]. ID Date Data Source [id number] 05/10/2020 12:00:00 AM EST [facility] Name Value Range Interpretation Code Description Data Mare rce(s) Supporting Document(s) SARS-CoV-2 (COVID-19) RNA [Presence] in Respiratory specimen by LAURA with probe detection [facility] This lab was ordered by [facility] and reported by [employer] ID Date Data Source [id number] 08/27/2019 04:20:28 PM EDT [facility] NT INFORMATIONPatient MRN Name Date of Age Gend*PT [id number] Oscar Vega 1960 59 years F SDCPT Location Admission Date/Time Visit ID [facility] 0827 --- --- EPI ID CSN Admitting Provider [id number] Isabelle Martin MD([id number]) [place] [address] OPERATIVE REPORT OPNAME: OSCAR VEGA#: [id number] #: [id number] ADMISSION DATE: 08/13/2019DOB: 1960 SEX: F PT TYPE: H SURACCT #: [id number] CARE PHYSICIAN: GAVI AMADOR-SURBEREFERRING PHYSICIAN: ISABELLE MARTINDATE OF OPERATION: 08/13/2019ATTENDING PHYSICIAN:Isabelle Martin MD.PREOPERATIVE DIAGNOSIS:Left breast invasive ductal carcinoma.POSTOPERATIVE DIAGNOSIS:Left breast invasive ductal carcinoma.PROCEDURES PERFORMED:1. Left breast excisional needle localized lumpectomy for carcinoma.2. Left axillary sentinel node biopsy.SURGEON:Isabelle Martin MD.DISTANCE EDUCATION COORDINATOR:STEPHANIE Jeronimo.ANESTHESIA:General.ESTIMATED BLOOD LOSS:Minimal.COMPLICATIONS:None.BRIEF HISTORY:This is a very [...] what her finalpathology reveals.RAMÓN SIBLEY/KEILA Job #: [id number] DOC #: [id number] Name Value Range Interpretation Code Description Data Mare rce(s) Supporting Document(s) ID Date Data Source [id number] 08/13/2019 01:33:29 PM EDT [address] [address]Tcoyxpw Name: OSCAR A HANNAHB: 2Sex: FOrdering Provider: ISABELLE Tenorio Prov: ISABELLE Ricofernathan Provider: ISABELLE SANCHEZroctereso Performed: MAMMO BREAST SPECIMENExam Date: 08/13/2019 11:37MRN: [id number] Number: [id number] Class: OutpatientAccount #: [id number] for Exam: left breast cancerTechnique: Single specimen radiograph obtained.Comparison: Needle and wire localization exam earlier today.Findings: The localization wire as well as localized surgical clip are seen within the breast specimen.IMPRESSION: Successful needle wire localization procedure. Surgical clip seen within the breast specimen.Report electronically signed by: YUMI CUNNINGHAM On 08/13/2019 1:33 PMWorkstation ID: [id number] Name Value Range Interpretation Code Description Data Mare rce(s) Supporting Document(s) ID Date Data Source [id number] 08/13/2019 12:02:37 PM EDT [place], [place] [address]Patient Name: OSCAR Chopra STACI: 1960ex: FOrdering Provider: ISABELLE Tenorio Prov: ISABELLE Garrido Provider: ISABELLE Calixto Performed: MAMMO NEEDLE LOCALIZATION LEFTExam Date: 08/13/2019 09:45MRN: [id number] Number: [id number] Class: OutpatientAccount #: [id number] for Exam: left breast cancerTechnique: CC and ML views obtainedComparison: NoneFINDINGS: Mammographic images of the left breast were obtained using the targeting grade. Appropriate coordinates were determined and the clip was targeted. One percent LIDOCAINE mixed with bicarbonate was used for superficial and deep local anesthesia.. A 3 cm Herlong needle was then advanced into position.Satisfactory placement of the needle was confirmed with additional mammographic images. Subsequently a wire was advanced through the needle and locked into position. Follow-up images demonstrate needle and wire in satisfactory position adjacent to the targeted clip.)IMPRESSION: Successful needle and wire localization of a left breast marking clip.Report electronically signed by: CHRISTY MCKEON On 08/13/2019 12:02 PMWorkstation ID: [id number] Name Value Range Interpretation Code Description Data Mare rce(s) Supporting Document(s) ID Date Data Source [id number] 08/13/2019 12:00:51 PM EDT [place], [place] [address]Patient Name: OSCAR Chopra TSACI: 1960ex: FOrdering Provider: ISABELLE Tenorio Prov: ISABELLE Garrido Provider: ISABELLE Calixto Performed: NM SENTINEL NODE BREAST INJECTION ONLY LEFTExam Date: 08/13/2019 09:43MRN: [id number] Number: [id number] Class: OutpatientAccount #: [id number] for Exam: New left breast cancerTechnique: Left [...] sulfur colloid.The patient tolerated the procedure well.IMPRESSION: Everest node injection procedure as above.Report electronically signed by: CHRISTY MCKEON On 08/13/2019 12:00 PMWorkstation ID: [id number] Name Value Range Interpretation Code Description Data Mare rce(s) Supporting Document(s) ID Date Data Source [id number] 08/13/2019 11:04:27 AM EDT [facility]PAT[facility] NT INFORMATIONPatient MRN Name Date of Age Gend*PT [id number] Gary Oscar Keysha 1960 59 years F SDCPT Location Admission Date/Time Visit ID Attending Provider --- --- --- --- EPI ID CSN Admitting Provider [id number] ---AirwayPatient location during procedure: ORUrgency: electiveDifficult airway: [...] rce(s) Supporting Document(s) ID Date Data Source [id number] 08/18/2019 05:44:30 PM EDT [facility] [place] [facility] [place], [place] [address]Wyn# Surgical Pathology ReportAccession #:[id number](s) ReceivedA: Left [...] 0 Number of negative nodes: 2 9. ER/MN/HER2: Previously performed on the outside prior core biopsyspecimen; [facility],[id number]. NON- NEOPLASTIC BREAST: Cyst formation, focal usual [...] 4 with trimming of A6 in block G3V7-R5. Entire slice 5 with tumor in A8 A10-A11. Entire slice 6 with tumor in A88N45-F18. Entire slice 7 A14. Entire slice 8 [...] are entirely submitted in onecassette. Processed at [facility], Histopathology, [address] [place] [address], [address].[email or web address] Reported: 08/18/2019Electronically Signed Out By Meño Browne MD [facility]emg This report may include immunohistochemical or in-situ hybridizationresults. Testing was developed and the performance characteristicsdetermined by [facility] [place] [facility] as required by CLIA '88. The FDAhas determined that approval for specific use is not necessary forclinical use. The quality of Hematoxylin and Eosin stains and asapplicable, for all immunohistochemical and/or special stains, includingpositive and negative controls, were reviewed and considered appropriate.ICD codes C50.912CPT codesA: 64139XH: 48088I, 49061t Name Value Range Interpretation Code Description Data Mare rce(s) Supporting Document(s) ID Date Data Source [id number] 08/08/2019 12:03:15 PM EDT [facility] NT INFORMATIONPatient MRN Name Date of Age Gend*PT [id number] Oscar Vega 1960 59 years F OPPT Location Admission Date/Time Visit ID Attending Provider --- --- --- Isabelle Martin MD([id number]) EPI ID CSN Admitting Provider [id number] ---OUTPATIENT / OBSERVATIONAL SURGICAL OR INVASIVE PROCEDUREName: [...] rce(s) Supporting Document(s) ID Date Data Source [id number] 08/05/2019 04:23:31 PM EDT [facility] NT INFORMATIONPatient MRN Name Date of Age Gend*PT [id number] Oscar Vega 1960 59 years F ---PT Location Admission Date/Time Visit ID Attending Provider --- --- --- --- EPI ID CSN Admitting Provider [id number] ---NEW CONSULTATION FOR BREAST CANCER :Attending Surgeon : Isabelle Martin MDHistory of Present Illness :She presents today alone. 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 The findings are as follows: - ER: POSITIVE (100%, strong, Kwabena 8) - MN: NEGATIVE (0%) - Her2: POSITIVE (3+)Review of [...] mastectomy. I explained that there is NO penitentiary survival benefitto having a mastectomy over lumpectomy [...] oncology first and attheir recommendation place an Mfbmov-j-Vzlr at the time of surgery but againOscar makes it clear she may not even consider chemotherapy so I think itbest we hold offCertain parts of this note may have been carried over from prior notes tomaintain patient's pertinent medical history and continuity of care. The detailswere verified and edited as appropriate.This document or parts of this document, were dictated using [employer]. A reasonable attempt at proofreading has been made to minimizeerrors. Please call with any questions or corrections. Name Value Range Interpretation Code Description Data Mare rce(s) Supporting Document(s) ID Date Data Source 07/03/2019 12:00:00 AM EST [facility] Bruce Castro MD Patient Name: OSCAR VEGA Place Date of : 1960[facility] [address] Date of Exam: 07/03/2019[place] [id number]#: Fax: [phone] EXAM: US EXTREMITY VEINS, BILATERAL [...] witha duration of 0.3 seconds.Accredited by the [employer] [employer] in Vascular PeripheralUltrasound.[place] you for referring OSCAR VEGA to our office. Electronically Signed - RADHA BAUER MD 07/04/19 13:02 Name Value Range Interpretation Code Description Data Mare rce(s) Supporting Document(s) Procedure Social History Code Duration Value Status Description Data Source(s ) Smoking 06/18/2020 12:00:00 AM EST Patient has never smoked co mpleted Patient has never smoked [facility] ([facility]) Alcohol intake 08/13/2019 12:00:00 AM EDT Never completed [facility] Smoking 08/13/2019 12:00:00 AM EDT Never smoker completed Never s [facility] Smoking 08/08/2019 12:00:00 AM EDT Never smoker completed Never s [facility] Alcohol intake 08/08/2019 12:00:00 AM EDT Never completed [facility] Vital Signs ID Date Data Source UNK Name Value Range Interpretation Code Description Data Source(s) [place] body weight 115 [lb_av] 115 [lb_av] MED[facility] T ([facility]) Oxygen saturation in Arterial blood by Pulse oximetry 91 % 91 % [facility] ([facility]) Body temperature 102.6 [degF] 102.6 [degF] MEDE NT ([facility]) Respiratory rate 18 /min 18 /min [facility] ( [facility]) Heart rate 108 /min 108 /min [facility] ([facility]) Body mass index (BMI) [Ratio] 19.1 kg/m2 19.1 k g/m2 [facility] ([facility]) Body weight 108.00 [lb_av] 108.00 [lb_av] [facility] T ([facility]) Body height 63.1 [in_i] 63.1 [in_i] [facility] ([facility]) '3.10" Diastolic blood pressure 86 mm[Hg] 86 mm[Hg] [facility] ([facility]) Systolic blood pressure 140 mm[Hg] 140 mm[Hg] [facility] [place] body weight 115 [lb_av] 115 [lb_av] MED[facility] T ([facility]) Oxygen saturation in Arterial blood by Pulse oximetry 94 % 94 % [facility] ([facility]) Body temperature 101.5 [degF] 101.5 [degF] MEDE NT ([facility]) Respiratory rate 20 /min 20 /min [facility] ( [facility]) Heart rate 111 /min 111 /min [facility] ([facility]) Body height 63.1 [in_i] 63.1 [in_i] [facility] ([facility]) 3.10" Diastolic blood pressure 82 mm[Hg] 82 mm[Hg] [facility] ([facility]) Systolic blood pressure 132 mm[Hg] 132 mm[Hg] M [facility]) [place] body weight 115 [lb_av] 115 [lb_av] MED[facility] T ([facility]) Oxygen saturation in Arterial blood by Pulse oximetry 99 % 99 % [facility] ([facility]) Body temperature 97.0 [degF] 97.0 [degF] [facility] ([facility]) Respiratory rate 20 /min 20 /min [facility] ( [facility]) Heart rate 83 /min 83 /min [facility] ([facility]) Body mass index (BMI) [Ratio] 21.2 kg/m2 21.2 k g/m2 [facility] ([facility]) Body weight 120.00 [lb_av] 120.00 [lb_av] [facility] T ([facility]) Body height 63.1 [in_i] 63.1 [in_i] [facility] ([facility]) 5'3.10" Diastolic blood pressure 72 mm[Hg] 72 mm[Hg] [facility] ([facility]) Systolic blood pressure 126 mm[Hg] 126 mm[Hg] M [facility] ([facility]) [place] body weight 115 [lb_av] 115 [lb_av] [facility] T ([facility]) Oxygen saturation in Arterial blood by Pulse oximetry 88 % 88 % [facility] ([facility]) Body temperature 98.5 [degF] 98.5 [degF] [facility] ([facility]) Respiratory rate 24 /min 24 /min [facility] ( [facility]) Heart rate 152 /min 152 /min [facility] ([facility]) Body mass index (BMI) [Ratio] 20.8 kg/m2 20.8 k g/m2 [facility] ([facility]) Body weight 118.00 [lb_av] 118.00 [lb_av] [facility] T ([facility]) Body height 63.1 [in_i] 63.1 [in_i] [facility] ([facility]) 5'3.10" Diastolic blood pressure 62 mm[Hg] 62 mm[Hg] [facility] ([facility]) Systolic blood pressure 106 mm[Hg] 106 mm[Hg] [facility] [place] body weight 115 [lb_av] 115 [lb_av] [facility] T ([facility]) Oxygen saturation in Arterial blood by Pulse oximetry 98 % 98 % [facility] ([facility]) Body temperature 101.8 [degF] 101.8 [degF] MEDE NT ([facility]) Respiratory rate 26 /min 26 /min [facility] ( [facility]) Heart rate 104 /min 104 /min [facility] ([facility]) Body mass index (BMI) [Ratio] 21.4 kg/m2 21.4 k g/m2 [facility] ([facility]) Body weight 121.00 [lb_av] 121.00 [lb_av] [facility] T ([facility]) Body height 63.1 [in_i] 63.1 [in_i] [facility] ([facility]) 3.10" Oxygen saturation in Arterial blood by Pulse oximetry 98 % 98 % [facility] Respiratory rate 16 /min 16 /min [facility] Heart rate 87 /min 87 /min [facility] Diastolic blood pressure 63 mm[Hg] 63 mm[Hg] [facility] Systolic blood pressure 120 mm[Hg] 120 mm[Hg] [facility] Body temperature 36.44 Ama 36.44 Ama [facility] Systolic blood pressure 102 mm[Hg] 102 mm[Hg] [facility] Diastolic blood pressure 67 mm[Hg] 67 mm[Hg] [facility] Heart rate 70 /min 70 /min [facility] Body height 160 cm 160 cm [facility] Body weight 54.386 kg 54.386 kg [facility] Body mass index (BMI) [Ratio] 21.24 kg/m2 21.24 kg/m2 [facility] Oxygen saturation in Arterial blood by Pulse oximetry 99 % 99 % [facility] [place] body weight 115 [lb_av] 115 [lb_av] MED[facility] T ([facility]) Oxygen saturation in Arterial blood by Pulse oximetry 98 % 98 % [facility] ([facility]) Body temperature 98.3 [degF] 98.3 [degF] [facility] ([facility]) Respiratory rate 18 /min 18 /min [facility] ( [facility]) Heart rate 76 /min 76 /min [facility] ([facility]) Body mass index (BMI) [Ratio] 20.7 kg/m2 20.7 k g/m2 [facility] ([facility]) Body weight 117.00 [lb_av] 117.00 [lb_av] [facility] T ([facility]) Body height 63.1 [in_i] 63.1 [in_i] [facility] 5'3.10" Diastolic blood pressure 70 mm[Hg] 70 mm[Hg] [facility] ([facility]) Systolic blood pressure 116 mm[Hg] 116 mm[Hg] M LIANA ([facility]) Body weight 116.50 [lb_av] 116.50 [lb_av] RAMILA Gray ([facility]) Body height 63.1 [in_i] 63.1 [in_i] ANTONIA ([facility]) 5'3.10" Diastolic blood pressure 86 mm[Hg] 86 mm[Hg] ANTONIA ([facility]) Systolic blood pressure 123 mm[Hg] 123 mm[Hg] M LIANA ([facility]) Oxygen saturation in Arterial blood by Pulse oximetry 99 % 99 % ANTONIA ([facility]) Body temperature 98.7 [degF] 98.7 [degF] [facility] ([facility]) Respiratory rate 20 /min 20 /min ANTONIA ( [facility]) Heart rate 78 /min 78 /min [facility] Body mass index (BMI) [Ratio] 20.6 kg/m2 20.6 k g/m2 [facility]
[2020-06-29 16:04] LABS: BASO % 0.3 % (0.0-1.0); EOS # 0.3 10^3/uL (0.0-0.5); HEMATOCRIT 34.2 % (36.0-47.0); HEMOGLOBIN 10.5 g/dl (12.0-15.5); LYMPH # 0.7 10^3/uL (1.5-5.0); LYMPH % 4.7 % (24.0-44.0); MEAN CORPUSCULAR HEMOGLOBIN 27.8 pg (27.0-33.0); MEAN CORPUSCULAR HGB CONC 30.7 g/dl (32.0-36.5); MEAN CORPUSCULAR VOLUME 90.5 fl (80.0-96.0); MONO # 1.2 10^3/uL (0.0-0.8); MONO % 8.4 % (0.0-8.0); NEUTROPHILS # 11.6 10^3/uL (1.5-8.5); NEUTROPHILS % 83.5 % (36.0-66.0); PLATELET COUNT, AUTOMATED 645 10^3/uL (150-450); RED BLOOD COUNT 3.78 10^6/uL (4.00-5.40)
[2020-06-29] MEDS ORDERED: [UNRECOGNIZED DRUG - CODE] PO (16:04)
--- OUTSIDE RECORDS SUMMARY | 2020-06-29 16:05 | CCD ---
Author Author [facility] Organization [facility] Address Unknown Phone Unavailable Care Team Providers Care Target Aircraft Technician Name Role Phone Evelyn MARTIN MD [...] Unavailable KORT, C ISABELLE MD Unavailable Unavailable MARJOREI-GABRIELA, GAVI DO Unavailable Unavailable [...] LEVIT,, TESS Unavailable Unavailable CICO, A MYKE SYNTHETIC FILAMENT EXTRUDER Unavailable Unavailable CICO, A MYKE SYNTHETIC FILAMENT EXTRUDER Unavailable Unavailable CICO, A MYKE SYNTHETIC FILAMENT EXTRUDER Unavailable Unavailable CICO, A MYKE SYNTHETIC FILAMENT EXTRUDER Unavailable Unavailable CICO, A MYKE SYNTHETIC FILAMENT EXTRUDER Unavailable Unavailable CICO, A MYKE SYNTHETIC FILAMENT EXTRUDER Unavailable Unavailable CICO, A MYKE SYNTHETIC FILAMENT EXTRUDER Unavailable Unavailable CICO, A MYKE SYNTHETIC FILAMENT EXTRUDER Unavailable Unavailable CICO, A MKYE SYNTHETIC FILAMENT EXTRUDER Unavailable Unavailable CICO, A MYKE SYNTHETIC FILAMENT EXTRUDER Unavailable Unavailable CICO, A MYKE SYNTHETIC FILAMENT EXTRUDER Unavailable Unavailable CICO, A MYKE SYNTHETIC FILAMENT EXTRUDER Unavailable Unavailable CICO, A MYKE SYNTHETIC FILAMENT EXTRUDER Unavailable Unavailable CICO, A MYKE SYNTHETIC FILAMENT EXTRUDER Unavailable Unavailable CICO, A MYKE SYNTHETIC FILAMENT EXTRUDER Unavailable Unavailable CICO, A MYKE SYNTHETIC FILAMENT EXTRUDER Unavailable Unavailable CICO, A MYKE SYNTHETIC FILAMENT EXTRUDER Unavailable Unavailable CICO, A MYKE SYNTHETIC FILAMENT EXTRUDER Unavailable Unavailable CICO, A MYKE SYNTHETIC FILAMENT EXTRUDER Unavailable Unavailable CICO, A MYKE SYNTHETIC FILAMENT EXTRUDER Unavailable Unavailable CICO, A MYKE SYNTHETIC FILAMENT EXTRUDER Unavailable Unavailable CICO, A MYKE SYNTHETIC FILAMENT EXTRUDER Unavailable Unavailable CICO, A MYKE SYNTHETIC FILAMENT EXTRUDER Unavailable Unavailable CICO, A MYKE SYNTHETIC FILAMENT EXTRUDER Unavailable Unavailable CICO, A MYKE SYNTHETIC FILAMENT EXTRUDER Unavailable Unavailable CICO, A MYKE SYNTHETIC FILAMENT EXTRUDER Unavailable Unavailable CICO, A MYKE SYNTHETIC FILAMENT EXTRUDER Unavailable Unavailable CICO, A MYKE SYNTHETIC FILAMENT EXTRUDER Unavailable Unavailable CICO, A MYKE SYNTHETIC FILAMENT EXTRUDER Unavailable Unavailable CICO, A MYKE SYNTHETIC FILAMENT EXTRUDER Unavailable Unavailable CICO, A MYKE SYNTHETIC FILAMENT EXTRUDER Unavailable Unavailable CICO, A MYKE SYNTHETIC FILAMENT EXTRUDER Unavailable Unavailable CICO, A MYKE SYNTHETIC FILAMENT EXTRUDER Unavailable Unavailable CICO, A MYKE SYNTHETIC FILAMENT EXTRUDER Unavailable Unavailable CICO, A MYKE SYNTHETIC FILAMENT EXTRUDER Unavailable Unavailable CICO, A MYKE SYNTHETIC FILAMENT EXTRUDER Unavailable Unavailable CICO, A MYKE SYNTHETIC FILAMENT EXTRUDER Unavailable Unavailable CICO, A MYKE SYNTHETIC FILAMENT EXTRUDER Unavailable Unavailable CICO, A MYKE SYNTHETIC FILAMENT EXTRUDER Unavailable Unavailable CICO, A MYKE SYNTHETIC FILAMENT EXTRUDER Unavailable Unavailable CICO, A MYKE SYNTHETIC FILAMENT EXTRUDER Unavailable Unavailable CICO, A MYKE SYNTHETIC FILAMENT EXTRUDER Unavailable Unavailable CICO, A MYKE SYNTHETIC FILAMENT EXTRUDER Unavailable Unavailable CICO, A MYKE SYNTHETIC FILAMENT EXTRUDER Unavailable Unavailable CICO, A MYKE SYNTHETIC FILAMENT EXTRUDER Unavailable Unavailable CICO, A MYKE SYNTHETIC FILAMENT EXTRUDER Unavailable Unavailable CICO, A MYKE SYNTHETIC FILAMENT EXTRUDER Unavailable Unavailable CICO, A MYKE SYNTHETIC FILAMENT EXTRUDER Unavailable Unavailable CICO, A MYKE SYNTHETIC FILAMENT EXTRUDER Unavailable Unavailable CICO, A MYKE SYNTHETIC FILAMENT EXTRUDER Unavailable Unavailable CICO, A MYKE SYNTHETIC FILAMENT EXTRUDER Unavailable Unavailable MATTHEW, PRYJMA BRINA MD Unavailable [...] PRYJMA BRINA MD Unavailable Unavailable MATTHEW, PRYJMA BIRNA MD Unavailable Unavailable MATTHEW, PRYJMA BRINA MD [...] by Article 27-F of the [facility] Public Health law. If you continue you may have access to information: Regarding HIV / AIDS; Provided by facilities licensed or operated by the [facility] Office of Mental Health; or Provided by the [facility] Office for People With Developmental Disabilities. If such information is present, then the following [facility] mandated warning applies: This information has [...] law may result in a fine or residential sentence or both. A general authorization for the release of medical or other information is NOT sufficient authorization for further disc losure. Allergies and Adverse Reactions Type Description Substance Reaction Status Data Source(s ) Propensity to adverse reactions PENICILLINS Penicillins Rash Low Ac tive [facility] Low Family History Family Member Name Family Member Gender Family Member Status Date o f Status Description Data Source(s) Unknown Male Problem [facility] ([facility]) () - age 84 Encounters Encounter Providers Location Date Indications Data Source(s ) Outpatient Attender: GAVI LEONE DO [facility] 06/19/2020 12:40:00 PM EST [facility] Outpatient Attender: GAVI LEONE [facility] 06/18/2020 03:20:00 PM EST [facility] ([facility]) Outpatient 06/10/2020 03:32:05 PM EST [facility] 06/10/2020 03:25:56 PM EST [facility] Outpatient Attender: GAVI LEONE [facility] 06/04/2020 12:40:00 PM EST [facility] ([facility]) Outpatient Attender: GAVI LEONE [facility] 05/28/2020 07:40:00 AM EST [facility] ([facility]: [facility]2020 03:00:00 PM EST [facility] ([facility]) Outpatient Referrer: MYKE REAL NP 08/26/2019 09:58:45 AM E DT [facility] Outpatient Attender: ISABELLE MARTIN MDAdmitter: ISABELLE Gray MDReferrer: ISABELLE MARTIN MD [id number] 08/13/2019 09:00:00 AM EDT - 08/13/2019 11:59:00 PM EDT [facility] Patient discharged. Outpatient Attender: ISABELLE MARTIN MDAdmitter: ISABELLE Gray MDReferrer: ISABELLE MARTIN MD [id number].[email or web address] 08/13/2019 08:45:00 AM EDT - 08/13/2019 08:59:00 AM EDT [facility] Patient discharged. Outpatient Attender: ISABELLE MARTIN MDReferrer: ISABELLE MARTIN MD MOB -MOB.PAT 08/08/2019 12:00:00 AM EDT - 08/08/2019 11:46:22 AM EDT [facility] Attender: ISABELLE MARTIN MDAdmitter: ISABELLE MARTIN MDRefe rrer: ISABELLE MARTIN MD ES1-OR 08/06/2019 03:31:50 PM EDT - 08/13/2019 02:30:00 PM EDT [facility] Patient discharged. Outpatient Attender: ISABELLE SIEGEL-SABI 0 02:55:12 PM EDT - 08/05/2019 03:57:00 PM EDT [facility] Outpatient Attender: TESS MERCHANT,Automatic Drilling Machine Operator: JESSICA GREEN 07/08/2019 05:39:00 PM EST - 07/08/2019 05:49:00 PM EST [facility]patient Referrer: BRINA CASTRO MD 07/04/2019 07:07:00 AM EST [facility] Outpatient Referrer: BRINA CASTRO MD 05/24/2019 09:56:00 AM EST [facility] Outpatient Referrer: BRINA CASTRO MD 05/24/2019 09:29:00 AM EST [facility] Outpatient Referrer: GAVI LEONE DO 05/24/2019 09 :27:00 AM EST [facility] Outpatient Attender: GAVI LEONE DO [facility] 05/17/2019 12:00:00 PM EST [facility] ([facility]) Medications Medication Brand Name Start Date Product Form Dose Route Admi nistrative Instructions Pharmacy Instructions Status Indications Reaction Description Data Source(s) Nebulizer Kit/Tubing/Mouthpiece 06/19/2020 12:00:00 AM EST active [facility] ([facility]) Cefaclor 500 MG Oral Capsule Cefaclor 06/19/2020 12:00:00 AM EST ORAL active [facility] ([facility]) Albuterol 1 MG/ML Inhalant Solution Albuterol Sulfate 09/2020 12:00:00 AM EST active [facility] ([facility]) Injection Ceftriaxone Sodium Per 250 MG (Rocephin) 06/19/2020 12:00:00 AM EST completed [facility] ([facility]) Medication administered onsite Ibuprofen 800 MG Oral Tablet Ibuprofen 06/19/2020 12:00:00 AM EST ORAL active [facility] ([facility]) No Active Medications 06/18/2020 12:00:00 AM EST completed [facility] ([facility]) Levofloxacin 750 MG Oral Tablet Levofloxacin 05/27/2020 12:00:[address] ORAL completed [facility] ([facility]) 120 ACTUAT Fluticasone propionate 0.11 MG/ACTUAT Meter ed Dose Inhaler [Flovent] Flovent HFA 05/18/2020 12:00:00 AM EST ORAL completed [facility] ([facility]) Prednisone 20 MG Oral Tablet Prednisone 05/14/2020 12:00:00 AM EST ORAL completed [facility] ([facility]) Doxycycline Monohydrate 100 MG Oral Capsule Doxycycline [place] hydrate 05/14/2020 12:00:00 AM EST ORAL completed [facility] ([facility]) No Active Medications 05/13/2020 12:00:00 AM EST completed [facility] ([facility]) normal saline flush 0.9 % injection 3 mL [id number] 08/13/2019 02:00:00 PM EDT 3 mL Intravenous active 3 mL , Intravenous, Every 8 hours (scheduled), First dose on Mon08/13/19 at 1400, PACU (only)
flush per protocol, D/C Main IV fluid if appropriate
[facility] Medication administered onsite Magnesium Chloride 0.21147 MEQ/ML / Pota ssium Chloride 0.0497 MEQ/ML / Sodium Acetate 0.0163 MEQ/ML / Sodium Chloride 0.0899 MEQ/ML / Sodium gluconate 5.02 MG/ML Injectable Solution [Normosol-R] electrolyte-R (NORMOSOL-R/PLASMALYTE-R) solution electrolyte-R (NORMOSOL-R/PLASMALYTE-R) solution 08/12 01:00:00 PM EDT Intravenous active at 1 00 mL/hr, Intravenous, Continuous, Starting Mon08/13/19 at 1300, PACU (only) [facility] Medication administered onsite 4 ML Labetalol hydrochloride [...] MG, hold for HR less than 60
[facility] Medication administered onsite haloperidol lactate (HALDOL) injection 0.5 mg [id number] 08/13/2019 11:54:42 AM EDT 0.5 mg Intramuscular active 0. 5 mg, Intramuscular, Every 30 min PRN, for intractable nausea and vomiting if not relieved by zofran/promethazine, Starting Mon08/13/19 at 1154, For 4 doses, PACU (only) [facility] Medication administered onsite technetium sulfur colloid (NYCOMED-SC) solution 500 micro cu johnathan 08/13/2019 10:00:00 AM EDT 500 uCi Intravenous completed 500 micro curie, Intravenous, Once, Mon08/13/19 at 1000, For 1 dose [facility] Medication administered onsite Magnesium Chloride 0.75977 MEQ/ML / Pota ssium Chloride 0.0497 MEQ/ML / Sodium Acetate 0.0163 MEQ/ML / Sodium Chloride 0.0899 MEQ/ML / Sodium gluconate 5.02 MG/ML Injectable Solution [Normosol-R] electrolyte-R (NORMOSOL-R/PLASMALYTE-R) solution electrolyte-R (NORMOSOL-R/PLASMALYTE-R) solution 08/12 10:00:00 AM EDT Intravenous active at 1 00 mL/hr, Intravenous, Continuous, Starting Mon08/13/19 at 1000, Pre-op [facility] Medication administered onsite normal saline flush 0.9 % injection 3 mL [id number] 08/13/2019 10:00:00 AM EDT 3 mL Intravenous active 3 mL , Intravenous, Every 8 hours (scheduled), First dose on Mon08/13/19 at 1000, Pre-op
Rapid push positive pressure flushing shall be performed with a 10 cc normal saline syringe to check the PATENCY of a PIV site prior to any infusion therapy initiation unless resistance is met.
[facility] Medication administered onsite Insurance Providers Payer name Policy type / Coverage type Policy ID Covered libertarian ID Covered libertarian's relationship to fish Policy Fish Plan Information [facility] [id number] SP [id number] [facility] [id number] S [id number] SELF PAY ONLY [id number] SP [id number] [facility] [id number] SP [id number] [facility] [id number] [facility] [id number] Spo [id number] [facility] [id number] 18 [id number] [facility] [id number] 01 [id number] [facility] Commercial [id number] Self [id number] [facility] Commercial [id number] Self [id number] [facility] Commercial [id number] Self [id number] [facility] Commercial [id number] Self [id number] [facility] Claims DPT Commercial Self [employer] PPO 302/307 [id number] [employer] [place] [id number] FOR LIFE [id number] [employer] [place] PPO 302/307 [id number] Problems, Conditions, and Diagnoses Code Display Name Description Problem Type Effective Dates Data Source(s) No Previous Anesthesia No Previous Anesthesia [id number] 08/08/2019 12:00:00 AM EDT [facility] C50.912 Breast cancer, left Breast cancer, left [id number] 08/08/2019 12:00:00 AM EDT [facility] K21.9 GERD (gastroesophageal reflux disease) G ERD (gastroesophageal reflux disease) [id number] 08/08/2019 12:00:00 AM EDT [facility] N20.0 Kidney stones Kidney stones [id number] 08/08/2019 12:00:00 AM EDT [facility] 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, estrogen receptor positive Malignant neoplasm of upper-outer quadra nt of left breast in female, estrogen receptor positive [id number] 0 12:00:00 AM EDT [facility] Z17.0 Estrogen receptor positive status [ER+] Estrogen receptor positive status (ER+) Diagnosis 08/13/2019 09:00:00 AM EDT [facility] C50.412 Malignant neoplasm of upper-outer quadra nt of left female breast Malignant neoplasm of upper-outer quadra Diagnosis 08/13/2019 09:00:00 AM EDT [facility] N20.0 Calculus of kidney Calculus of kidney Diagnosis 11:11:41 AM EDT [facility] K21.9 Gastro-esophageal reflux disease without esophagitis Gastro-esophageal reflux disease without Diagnosis 08/08/2019 11:11:41 AM EDT [facility] C50.912 Malignant neoplasm of unspecified site o f left female breast Malignant neoplasm of unspecified site o Diagnosis 08/08/2019 11:11:41 AM EDT [facility] [id number] Malignant neoplasm of upper-outer quadra nt of left female breast Malignant neoplasm of upper-outer quadrant of left female breast Diagnosis 07/08/2019 05:39:00 PM [facility] N630 Unspecified lump in unspecified breast U nspecified lump in unspecified breast Diagnosis 07/08/2019 05:39:00 PM [facility] Surgeries/Procedures Procedure Description Date Indications Data Source(s) RADIOLOGICAL EXAMINATION SURGICAL SPECIMEN MAMMO BREAST SPECIME N Routine 08/13/2019 11:37 AM EDT Malignant neoplasm of upper-outer quadrant of left breast in female, estrogen receptor positive 08/13/2019 03:37:20 PM EDT Malignant dick plasm of upper-outer quadrant of left breast in female, estrogen receptor positive [facility] Malignant neoplasm of upper-outer quadra nt of [...] left breast in female, estrogen receptor positive [facility] Malignant neoplasm of upper-outer quadra nt of left breast in female, estrogen receptor positive MAMMO NEEDLE LOCALIZATION LEFT MAMMO NEEDLE LOCALIZATION LEFT R outine 08/13/2019 9:45 AM EDT Malignant neoplasm of upper-outer quadrant of left breast in female, estrogen receptor positive 08/13/2019 01:45:00 PM EDT Malignant dick plasm of upper-outer quadrant of left breast in female, estrogen receptor positive [facility] Malignant neoplasm of upper-outer quadra nt of [...] left breast in female, estrogen receptor positive [facility] Malignant neoplasm of upper-outer quadra nt of left breast in female, estrogen receptor positive Results ID Date Data Source [id number] 06/19/2020 05:05:00 AM [employer] [facility] ([facility]) Name Value Range Interpretation Code Description Data Mare rce(s) Supporting Document(s) Blood Culture Laboratory test result [facility]) No growth after 48 hours . All specimens observed for 5 days. Results final at that time. No growth after 24 hours . All specimens observed for 5 days. Results final at that time. No Growth after 72 hours. All specimens observed for 5 days. Results final at that time. ID Date Data Source [id number] 06/19/2020 02:07:00 AM [employer] [facility] ([facility]) Name Value Range Interpretation Code Description Data Mare rce(s) Supporting Document(s) Respiratory Panel Laboratory test result [facility]) This respiratory PCR panel detects Influ [...] - SARS-CoV-2 (COVID19) ID Date Data Source [id number] 06/19/2020 02:07:00 AM EST [facility] Name Value Range Interpretation Code Description Data [facility] rce(s) Supporting Document(s) SARS-CoV-2 (COVID 19) NEGATIVE - SARS-CoV-2 (COVID19) [facility] This lab was ordered by [facility] a nd reported by [facility]. ID Date Data Source [id number] 06/19/2020 01:04:00 AM EST [facility] ([facility]) Name Value Range Interpretation Code Description Data Mare rce(s) Supporting Document(s) Natriuretic peptide.B prohormone N-Terminal [Mass/volu me] in Serum or Plasma 54 pg/mL Normal (applies to non-numeric results) [facility] ([facility]) Bacteria identified in Blood by Culture Laboratory test result [facility] ([facility]) No growth after 48 hours . All [...] mmol/L 0.4-2.0 Normal (applies to non-numeric results) [facility] ([facility]) Y/N query for Sepsis Lactate Rule: Y ID Date Data Source [id number] 06/19/2020 01:04:00 AM EST [facility] ([facility]) Name Value Range Interpretation Code Description [facility] Supporting Document(s) Glucose, Fasting 91 mg/dL 70-100 Normal (applies to non-numeric results) [facility] ([facility]) Glomerular Filtration Rate Laboratory test result Normal (applies to non- numeric results) [facility]) <content>Units are mL/min/1.73 m2</content>
<content></content>
<content>Chronic Kidney Disease Staging per NKF:</content>
<content></content>
<content>Stage I & II GFR >=60 Normal to Mildly Decreased</content>
<content>Stage III GFR 30- 59 Moderately Decreased</content>
<content>Stage IV GFR 15-29 Severely Decreased</content>
<content>Stage V GFR <15 Very Little GFR Left</content>
<content>ESRD GFR <15 on UTILITY MECHANIC</content>
<content></content> Creatinine For GFR 0.60 mg/dL 0.55-1.30 Normal (applies to non -numeric results) [facility] ([facility]) Blood Urea Nitrogen 11 mg/dL 7-18 Normal (applies to non-nume yunior results) [facility] ([facility]) Potassium Serum 4.0 meq/L 3.5-5.1 Normal (applies to non-numeric results) [facility] ([facility]) Sodium Level 139 meq/L 136-145 Normal (applies to non-numeric res ults) [facility] ([facility]) Chloride Level 103 meq/L 98-107 Normal (applies to non-numeric r esults) [facility] ([facility]) Carbon Dioxide Level 27 meq/L 21-32 Normal (applies to non-num joshua results) [facility] ([facility]) Anion Gap 9 meq/L 8-16 Normal (applies to non-numeric resul ts) [facility] ([facility]) Calcium Level 8.9 mg/dL 8.5-10.1 Normal (applies to non-numeric re sults) [facility]) ID Date Data Source [id number] 06/19/2020 01:04:00 AM EST [facility] ([facility]) Name Value Range Interpretation Code Description Data Mare rce(s) Supporting Document(s) Alt/SGPT 81 U/L 12-78 Above high normal [facility] ([facility]) Ast/Sgot 48 U/L 7-37 Above high normal [facility] ([facility]) Alkaline Phosphatase 249 U/L 45-117 Above high normal [facility] ([facility]) Bilirubin,Direct 0.1 mg/dL 0.0-0.2 Normal (applies to non-numeric results) [facility] ([facility]) Bilirubin,Total 0.3 mg/dL 0.2-1.0 Normal (applies to non-numeric results) [facility] ([facility]) Albumin 3.2 GM/DL 3.2-5.2 Normal (applies to non-numeric resul ts) [facility] ([facility]) Total Protein 7.0 GM/DL 6.4-8.2 Normal (applies to non-numeric re sults) [facility] ([facility]) Albumin/Globulin Ratio 0.8 1.2-2.2 Below low normal [facility] ([facility]) ID Date Data Source [id number] 06/19/2020 01:04:00 AM EST [facility] ([facility]) Name Value Range Interpretation Code Description Data Mare rce(s) Supporting Document(s) CK-MB Value Mass Laboratory test result Normal ( applies to non-numeric results) [facility] ([facility]) CPK Creatine Phosphokinase 32 U/L 26-192 Aleshia l (applies to non-numeric results) [facility] ([facility]) MB/CK Relative Index 3.12 Normal (applies to non-num joshua results) [facility] ([facility]) <content>DIAGNOSIS CRITERIA</content>
<content>MMB ng/ml Relative Index (RI)</content>
<content>NON-AMI < or = 5 N/A</content>
<content>FERGUSON ZONE > 5 < or = 4</content>
<content>AMI > 5 > 4</content>
<content></content> Troponin I Laboratory test result Normal (applies to non-n umeric results) [facility]) <content>Troponin I Reference Interval f or [employer] [place] LOCI:</content>
<content></content>
<content>99th Percentile= 0.00-0.045 ng/ml</content>
<content></content>
<content>Risk Stratification:</content>
<content><= 0.10 ng/ml Decreased Risk for Adverse Clinical</content>
<content>Events.</content>
<content>0.10-1.50 ng/ml Increased Risk for Adverse Clinical</content>
<content>Events. Evaluation of additional</content>
<content>criterion and/or repeat testing in 2-6</content>
<content>hours is suggested to rule out myocardial</content>
<content>damage.</content>
<content>>= 1.50 ng/ml Indicative of Myocardial Injury.</content>
<content></content> ID Date Data Source [id number] 06/19/2020 01:04:00 AM EST [facility] ([facility]) Name Value Range Interpretation Code Description Data Mare rce(s) Supporting Document(s) White Blood Count 7.6 10 4.0-10.0 Normal (applies to non-numeri c results) [facility] ([facility]) Red Blood Count 3.79 10 4.00-5.40 Below low normal [facility] ([facility]) Hematocrit 35.1 % 36.0-47.0 Below low normal [facility] ( [facility]) Hemoglobin 10.9 g/dL 12.0-15.5 Below low normal [facility] ( [facility]) Mean Corpuscular HGB Conc 31.1 g/dL 32.0-36.5 Below low normal [facility] ([facility]) Mean Corpuscular Hemoglobin 28.8 pg 27.0-33.0 Norm al (applies to non-numeric results) [facility] ([facility]) Mean Corpuscular Volume 92.6 fl 80.0-96.0 Normal ( applies to non-numeric results) [facility] ([facility]) Neutrophils % 75.9 % 36.0-66.0 Above high normal [facility] ([facility]) Platelet Count, Automated 320 10 150-450 Normal (applies to non-numeric results) [facility] ([facility]) Red Cell Distribution Width 13.8 % 11.5-14.5 Norm al (applies to non-numeric results) [facility] ([facility]) Lymph % 11.1 % 24.0-44.0 Below low normal [facility] ( [facility]) [place] % 10.6 % 0.0-5.0 Above high normal [facility] ([facility]) Baso % 0.3 % 0.0-1.0 Normal (applies to non-numeric resul ts) [facility] ([facility]) Immature Granulocyte % 0.4 % 0-3.0 Normal (applies to non-n umeric results) [facility] ([facility]) Eos % 1.7 % 0.0-3.0 Normal (applies to non-numeric resul ts) [facility] ([facility]) Lymph # 0.9 10 1.5-5.0 Below low normal [facility] ( [facility]) Neutrophils # 5.8 10 1.5-8.5 Normal (applies to non-numeric re sults) [facility] ([facility]) Nucleated Red Blood Cell % 0.0 % 0-0 Normal (applies to n on-numeric results) [facility] ([facility]) Eos # 0.1 10 0.0-0.5 Normal (applies to non-numeric resul ts) [facility] ([facility]) [place] # 0.8 10 0.0-0.8 Normal (applies to non-numeric resul ts) [facility] ([facility]) Baso # 0.0 10 0.0-0.2 Normal (applies to non-numeric resul ts) [facility] ([facility]) ID Date Data Source [id number] 06/10/2020 12:00:00 AM EST [facility] Fran Ambriz DO Patient Name: TOAN VEGAE[address] Date of : 1960te 1 Date of Exam: 06/10/2020LAZARUS Lee [id number]#: Fax: [phone] EXAM: CT ANGIOGRAPHY, CHESTCLINICAL INFORMATION: [...] is a small pericardial effusion.Accredited by the [employer] in [place].MOSES [place]/Erica you for referring OSCAR VEGA to our office. Electronically Signed - DIONY MELENDEZ DO 06/10/20 17:26 Name Value Range Interpretation Code Description Data Mare rce(s) Supporting Document(s) ID Date Data Source [id number] 06/09/2020 03:02:00 PM EST [facility] ([facility]) Name Value Range Interpretation Code Description Data Mare rce(s) Supporting Document(s) Glucose, Fasting 88 mg/dL 70-100 Normal (applies to non-numeric results) [facility]) Creatinine For GFR 0.63 mg/dL 0.55-1.30 Normal (applies to non -numeric results) [facility]) Blood Urea Nitrogen 15 mg/dL 7-18 Normal (applies to non-nume yunior results) [facility] ([facility]) Glomerular Filtration Rate Laboratory test result Normal (applies to non- numeric results) [facility] ([facility]) <content>Units are mL/min/1.73 m2</content>
<content></content>
<content>Chronic Kidney Disease Staging per NKF:</content>
<content></content>
<content>Stage I & II GFR >=60 Normal to Mildly Decreased</content>
<content>Stage III GFR 30- 59 Moderately Decreased</content>
<content>Stage IV GFR 15-29 Severely Decreased</content>
<content>Stage V GFR <15 Very Little GFR Left</content>
<content>ESRD GFR <15 on UTILITY MECHANIC</content>
<content></content> Sodium Level 139 meq/L 136-145 Normal (applies to non-numeric res ults) [facility]) Chloride Level 105 meq/L 98-107 Normal (applies to non-numeric r esults) [facility]) Potassium Serum 4.4 meq/L 3.5-5.1 Normal (applies to non-numeric results) [facility]) Carbon Dioxide Level 30 meq/L 21-32 Normal (applies to non-num joshua results) [facility] ([facility]) Anion Gap 4 meq/L 8-16 Below low normal [facility] ( [facility]) Calcium Level 9.1 mg/dL 8.5-10.1 Normal (applies to non-numeric re sults) [facility]) Ast/Sgot 17 U/L 7-37 Normal (applies to non-numeric resul ts) [facility] ([facility]) Alkaline Phosphatase 99 U/L 45-117 Normal (applies to non-num joshua results) [facility] ([facility]) Alt/SGPT 34 U/L 12-78 Normal (applies to non-numeric resul ts) [facility] ([facility]) Total Protein 6.0 GM/DL 6.4-8.2 Below low normal [facility] ([facility]) Bilirubin,Total 0.1 mg/dL 0.2-1.0 Below low normal [facility] ([facility]) Albumin 2.9 GM/DL 3.2-5.2 Below low normal [facility] Albumin/Globulin Ratio 0.9 1.2-2.2 Below low normal [facility] ([facility]) ID Date Data Source [id number] 06/09/2020 03:02:00 PM EST [facility] ([facility]) Name Value Range Interpretation Code Description Data Mare rce(s) Supporting Document(s) Hemoglobin 10.9 g/dL 12.0-15.5 Below low normal [facility]) Red Blood Count 3.73 10 4.00-5.40 Below low normal [facility] ([facility]) White Blood Count 8.7 10 4.0-10.0 Normal (applies to non-numeri c results) [facility] ([facility]) Hematocrit 34.9 % 36.0-47.0 Below low normal [facility] ( [facility]) Mean Corpuscular Volume 93.6 fl 80.0-96.0 Normal ( applies to non-numeric results) [facility] ([facility]) Red Cell Distribution Width 13.2 % 11.5-14.5 Norm al (applies to non-numeric results) [facility] ([facility]) Mean Corpuscular HGB Conc 31.2 g/dL 32.0-36.5 Below low normal [facility] ([facility]) Mean Corpuscular Hemoglobin 29.2 pg 27.0-33.0 Norm al (applies to non-numeric results) [facility] ([facility]) Neutrophils % 73.0 % 36.0-66.0 Above high normal [facility] ([facility]) Platelet Count, Automated 378 10 150-450 Normal (applies to non-numeric results) [facility] ([facility]) [place] % 10.5 % 0.0-5.0 Above high normal [facility] ([facility]) Lymph % 12.8 % 24.0-44.0 Below low normal [facility] ( [facility]) Eos % 2.6 % 0.0-3.0 Normal (applies to non-numeric resul ts) [facility] ([facility]) Baso % 0.2 % 0.0-1.0 Normal (applies to non-numeric resul ts) [facility] ([facility]) Immature Granulocyte % 0.9 % 0-3.0 Normal (applies to non-n umeric results) [facility] ([facility]) Neutrophils # 6.3 10 1.5-8.5 Normal (applies to non-numeric re sults) [facility] ([facility]) Nucleated Red Blood Cell % 0.0 % 0-0 Normal (applies to n on-numeric results) [facility] ([facility]) [place] # 0.9 10 0.0-0.8 Above high normal [facility] ([facility]) Lymph # 1.1 10 1.5-5.0 Below low normal [facility] ( [facility]) Eos # 0.2 10 0.0-0.5 Normal (applies to non-numeric resul ts) [facility] ([facility]) Baso # 0.0 10 0.0-0.2 Normal (applies to non-numeric resul ts) [facility] ([facility]) ID Date Data Source [id number] 06/09/2020 03:02:00 PM EST [facility] ([facility]) Name Value Range Interpretation Code Description Data Mare rce(s) Supporting Document(s) Fibrin D-dimer FEU [Mass/volume] in Platelet poor plasma 669.69 ng/mL Above high normal [facility] ([facility]) ID Date Data Source [id number] 06/08/2020 12:00:00 AM EST [facility] Gavi Ambriz DO Patient Name: TOAN VEGAE[address] Date of : 1960te 1 Date of Exam: 06/08/2020LAZARUS Lee [id number]#: Fax: [phone] EXAM: CHEST (2 VIEW) X-RAYCLINICAL [...] Source [id number] 06/08/2020 12:00:00 AM EST [facility] ([facility]) Name Value Range Interpretation Code Description Data Mare rce(s) Supporting Document(s) Chest X-ray PA and lateral Laboratory test result [facility] ([facility]) ID Date Data Source [id number] 05/28/2020 12:57:00 PM EST [facility] ([facility]) Name Value Range Interpretation Code Description Data Mare rce(s) Supporting Document(s) Respiratory Panel Laboratory test result [facility] ([facility]) This respiratory PCR panel detects Influ [...] - SARS-CoV-2 (COVID19) ID Date Data Source [id number] 05/28/2020 12:57:00 PM EST [facility] Name Value Range Interpretation Code Description Data Mare rce(s) Supporting Document(s) SARS-CoV-2 (COVID 19) NEGATIVE - SARS-CoV-2 (COVID19) [facility] This lab was ordered by [facility] a nd reported by [facility]. ID Date Data Source [id number] 05/28/2020 11:59:00 AM EST [facility] ([facility]) Name Value Range Interpretation Code Description Data Mare rce(s) Supporting Document(s) Laboratory test finding (navigational concept) 119 mg/dL 7 0-105 Above high normal [facility] ([facility]) Laboratory test finding (navigational concept) 30.0 % 3 8.0-51.0 Below low normal [facility] ([facility]) Laboratory test finding (navigational concept) 137 meq/L 1 36-145 Normal (applies to non-numeric results) [facility] ([facility]) Laboratory test finding (navigational concept) 3.3 meq/L 3 .5-5.1 Below low normal [facility] ([facility]) Laboratory test finding (navigational concept) 4.4 mg/dL 4 .5-5.3 Below low normal [facility] ([facility]) Laboratory test finding (navigational concept) 100 meq/L 9 8-109 Normal (applies to non-numeric results) [facility] ([facility]) Laboratory test finding (navigational concept) 24.0 MM/L 2 3.0-27.0 Normal (applies to non-numeric results) [facility] ([facility]) Laboratory test finding (navigational concept) 0.5 mg/dL 0 .6-1.3 Below low normal [facility] ([facility]) Laboratory test finding (navigational concept) 9 mg/dL 8 -26 Normal (applies to non-numeric results) [facility] ([facility]) ID Date Data Source [id number] 05/27/2020 12:00:00 AM EST [facility] Gavi Ambriz DO Patient Name: TOAN VEGAE[address] Date of : 1960te 1 Date [facility] Exam: [facility] [id number]#: Fax: [phone] EXAM: CHEST (2 VIEW) X-RAYCLINICAL [...] rce(s) Supporting Document(s) ID Date Data Source [id number] 05/19/2020 10:33:00 PM EST [facility] Name Value Range Interpretation Code Description Data Mare rce(s) Supporting Document(s) Glucose, Fasting 108 mg/dL 70-100 Above high normal [facility] Creatinine For GFR 0.63 mg/dL 0.55-1.30 Normal (applies to non -numeric results) [facility] ([facility]) Blood Urea Nitrogen 11 mg/dL 7-18 Normal (applies to non-nume yunior results) [facility] ([facility]) Potassium Serum 4.0 meq/L 3.5-5.1 Normal (applies to non-numeric results) [facility] ([facility]) Sodium Level 138 meq/L 136-145 Normal (applies to non-numeric res ults) [facility] ([facility]) Glomerular Filtration Rate Laboratory test result Normal (applies to non- numeric results) [facility] ([facility]) <content>Units are mL/min/1.73 m2</content>
<content></content>
<content>Chronic Kidney Disease Staging per NKF:</content>
<content></content>
<content>Stage I & II GFR >=60 Normal to Mildly Decreased</content>
<content>Stage III GFR 30- 59 Moderately Decreased</content>
<content>Stage IV GFR 15-29 Severely Decreased</content>
<content>Stage V GFR <15 Very Little GFR Left</content>
<content>ESRD GFR <15 on UTILITY MECHANIC</content>
<content></content> Chloride Level 105 meq/L 98-107 Normal (applies to non-numeric r esults) [facility] ([facility]) Anion Gap 6 meq/L 8-16 Below low normal [facility] ( [facility]) Carbon Dioxide Level 27 meq/L 21-32 Normal (applies to non-num joshua results) [facility] ([facility]) Calcium Level 8.4 mg/dL 8.5-10.1 Below low normal [facility] ([facility]) Alt/SGPT 25 U/L 12-78 Normal (applies to non-numeric resul ts) [facility] ([facility]) Ast/Sgot 18 U/L 7-37 Normal (applies to non-numeric resul ts) [facility] ([facility]) Bilirubin,Total 0.3 mg/dL 0.2-1.0 Normal (applies to non-numeric results) [facility] ([facility]) Alkaline Phosphatase 100 U/L 45-117 Normal (applies to non-num joshua results) [facility] ([facility]) Albumin 2.5 GM/DL 3.2-5.2 Below low normal [facility] ( [facility]) Total Protein 6.5 GM/DL 6.4-8.2 Normal (applies to non-numeric re sults) [facility] ([facility]) Albumin/Globulin Ratio 0.6 1.2-2.2 Below low normal [facility] ([facility]) ID Date Data Source [id number] 05/19/2020 10:33:00 PM EST [facility] ([facility]) Name Value Range Interpretation Code Description Data Mare rce(s) Supporting Document(s) White Blood Count 11.2 10 4.0-10.0 Above high normal [facility] ([facility]) Red Blood Count 3.64 10 4.00-5.40 Below low normal [facility] ([facility]) Hemoglobin 10.5 g/dL 12.0-15.5 Below low normal [facility] ( [facility]) Mean Corpuscular Volume 91.8 fl 80.0-96.0 Normal ( applies to non-numeric results) [facility] ([facility]) Hematocrit 33.4 % 36.0-47.0 Below low normal [facility] ( [facility]) Mean Corpuscular Hemoglobin 28.8 pg 27.0-33.0 Norm al (applies to non-numeric results) [facility] ([facility]) Mean Corpuscular HGB Conc 31.4 g/dL 32.0-36.5 Below low normal [facility] ([facility]) Red Cell Distribution Width 11.4 % 11.5-14.5 Below low normal [facility] ([facility]) Platelet Count, Automated 503 10 150-450 Above high normal [facility] ([facility]) Nucleated Red Blood Cell % 0.0 % 0-0 Normal (applies to n on-numeric results) [facility] ([facility]) ID Date Data Source [id number] 05/19/2020 10:07:00 PM EST [facility] ([facility]) Name Value Range Interpretation Code Description Data Mare rce(s) Supporting Document(s) Respiratory Panel Laboratory test result [facility] ([facility]) This respiratory PCR panel detects Influ [...] - SARS-CoV-2 (COVID19) ID Date Data Source [id number] 05/19/2020 10:07:00 PM EST [facility] Name Value Range Interpretation Code Description Data Mare rce(s) Supporting Document(s) SARS-CoV-2 (COVID 19) NEGATIVE - SARS-CoV-2 (COVID19) [facility] This lab was ordered by [facility] a nd reported by [facility]. ID Date Data Source [id number] 05/19/2020 12:00:00 AM EST [facility] Gavi Ambriz DO Patient Name: TOAN VEGAE[address] Date of : 1960te 1 Date of Exam: 05/19/2020LAZARUS Lee [id number]#: Fax: [phone] EXAM: CHEST (2 VIEW) X-RAYCLINICAL [...] rce(s) Supporting Document(s) ID Date Data Source [id number] 05/13/2020 04:07:00 PM EST [facility] ([facility]) Name Value Range Interpretation Code Description Data Mare rce(s) Supporting Document(s) Respiratory Panel Laboratory test result [facility] This respiratory PCR panel detects Influ [...] - SARS-CoV-2 (COVID19) ID Date Data Source [id number] 05/13/2020 04:07:00 PM EST [facility] Name Value Range Interpretation Code Description Data Mare rce(s) Supporting Document(s) SARS-CoV-2 (COVID 19) [facility] This lab was ordered by [facility] a nd reported by [facility]. ID Date Data Source [id number] 05/10/2020 12:00:00 AM EST [facility] Name Value Range Interpretation Code Description Data Mare rce(s) Supporting Document(s) SARS-CoV-2 (COVID-19) RNA [Presence] in Respiratory specimen by LAURA with probe detection [facility] This lab was ordered by [facility] and reported by [employer] ID Date Data Source [id number] 08/27/2019 04:20:28 PM EDT [facility] NT INFORMATIONPatient MRN Name Date of Age Gend*PT [id number] Oscar Vega 1960 59 years F SDCPT Location Admission Date/Time Visit ID Attending ProviderPERIOP POOL 08/13/19 0827 --- --- EPI ID CSN Admitting Provider [id number] Isabelle Martin MD([id number]) [place] [address] OPERATIVE REPORT OPNAME: OSCAR VEGA#: [id number] #: [id number] ADMISSION DATE: 08/13/2019DOB: 1960 SEX: F PT TYPE: H SURACCT #: [id number] CARE PHYSICIAN: GAVI AMADOR-[facility] CENTERBERERRING PHYSICIAN: ISABELLE C KORTDATE OF OPERATION: 08/13/2019ATTENDING PHYSICIAN:Isabelle Martin MD.PREOPERATIVE DIAGNOSIS:Left breast invasive ductal carcinoma.POSTOPERATIVE DIAGNOSIS:Left breast invasive ductal carcinoma.PROCEDURES PERFORMED:1. Left breast excisional needle localized lumpectomy for carcinoma.2. Left axillary sentinel node biopsy.SURGEON:Isabelle Martin MD.ENDO TECH:STEPHANIE Jeronimo.ANESTHESIA:General.ESTIMATED BLOOD LOSS:Minimal.COMPLICATIONS:None.BRIEF HISTORY:This is a very [...] what her finalpathology reveals.RAMÓN SIBLEY/KEILA Job #: [id number] DOC #: [id number] Name Value Range Interpretation Code Description Data Mare rce(s) Supporting Document(s) ID Date Data Source [id number] 08/13/2019 01:33:29 PM EDT [address] [address]Ixauxgs Name: OSCAR A HANNAHB: 2Sex: FOrdering Provider: ISABELLE BANGURAuthbarak Prov: ISABELLE Ricofernathan Provider: ISABELLE SANCHEZrocedure Performed: MAMMO BREAST SPECIMENExam Date: 08/13/2019 11:37MRN: [id number] Number: [id number] Class: OutpatientAccount #: [id number] for Exam: left breast cancerTechnique: Single specimen radiograph obtained.Comparison: Needle and wire localization exam earlier today.Findings: The localization wire as well as localized surgical clip are seen within the breast specimen.IMPRESSION: Successful needle wire localization procedure. Surgical clip seen within the breast specimen.Report electronically signed by: YUMI CUNNINGHAM On 08/13/2019 1:33 PMWorkstation ID: [id number] Name Value Range Interpretation Code Description Data Mare rce(s) Supporting Document(s) ID Date Data Source [id number] 08/13/2019 12:02:37 PM EDT [place], [place] [address]Patient Name: OSCAR SMALL: 1960ex: FOrdering Provider: ISABELLE Tenorio Prov: ISABELLE Garrido Provider: ISABELLE Calixto Performed: MAMMO NEEDLE LOCALIZATION LEFTExam Date: 08/13/2019 09:45MRN: [id number] Number: [id number] Class: OutpatientAccount #: [id number] for Exam: left breast cancerTechnique: CC and ML views obtainedComparison: NoneFINDINGS: Mammographic images of the left breast were obtained using the targeting grade. Appropriate coordinates were determined and the clip was targeted. One percent LIDOCAINE mixed with bicarbonate was used for superficial and deep local anesthesia.. A 3 cm Bryce needle was then advanced into position.Satisfactory placement of the needle was confirmed with additional mammographic images. Subsequently a wire was advanced through the needle and locked into position. Follow-up images demonstrate needle and wire in satisfactory position adjacent to the targeted clip.)IMPRESSION: Successful needle and wire localization of a left breast marking clip.Report electronically signed by: CHRISTY MCKEON On 08/13/2019 12:02 PMWorkstation ID: [id number] Name Value Range Interpretation Code Description Data Mare rce(s) Supporting Document(s) ID Date Data Source [id number] 08/13/2019 12:00:51 PM EDT [place], [place] [address]Patient Name: OSCAR SMALL: 2Sex: FOrdering Provider: ISABELLE Tenorio Prov: ISABELLE Garrido Provider: ISABELLE Calixto Performed: NM SENTINEL NODE BREAST INJECTION ONLY LEFTExam Date: 08/13/2019 09:43MRN: [id number] Number: [id number] Class: OutpatientAccount #: [id number] for Exam: New left breast cancerTechnique: Left [...] sulfur colloid.The patient tolerated the procedure well.IMPRESSION: [place] node injection procedure as above.Report electronically signed by: CHRISTY MCKEON On 08/13/2019 12:00 PMWorkstation ID: [id number] Name Value Range Interpretation Code Description Data Mare rce(s) Supporting Document(s) ID Date Data Source [id number] 08/13/2019 11:04:27 AM EDT [facility] NT INFORMATIONPatient MRN Name Date of Age Gend*PT [id number] Oscar Vega 1960 59 years F SDCPT Location Admission Date/Time Visit ID Attending Provider --- --- --- --- EPI ID CSN Admitting Provider [id number] ---AirwayPatient location during procedure: ORUrgency: electiveDifficult airway: [...] rce(s) Supporting Document(s) ID Date Data Source [id number] 08/18/2019 05:44:30 PM EDT [facility] [place], [place] [address]Pjb# Surgical Pathology ReportAccession #:[id number](s) ReceivedA: Left [...] 0 Number of negative nodes: 2 9. ER/ME/HER2: Previously performed on the outside prior core biopsyspecimen; [facility],[id number]. NON- NEOPLASTIC BREAST: Cyst formation, focal usual [...] 4 with trimming of A6 in block G6D0-Z5. Entire slice 5 with tumor in A8 A10-A11. Entire slice 6 with tumor in J87R87-C05. Entire slice 7 A14. Entire slice 8 [...] are entirely submitted in onecassette. Processed at [facility], Histopathology, [address] [place] [address], [id number].jglmwg/desirae Reported: 08/18/2019Electronically Signed Out By Meño Browne MD [facility]emg This report may include immunohistochemical or in-situ hybridizationresults. Testing was developed and the performance characteristicsdetermined by [facility] as required by CLIA '88. The FDAhas determined that approval for specific use is not necessary forclinical use. The quality of Hematoxylin and Eosin stains and asapplicable, for all immunohistochemical and/or special stains, includingpositive and negative controls, were reviewed and considered appropriate.ICD codes C50.912CPT codesA: 02843EA: 75664V, 78900f Name Value Range Interpretation Code Description Data Mare rce(s) Supporting Document(s) ID Date Data Source [id number] 08/08/2019 12:03:15 PM EDT [facility] NT INFORMATIONPatient MRN Name Date of Age Gend*PT [id number] Oscar Vega 1960 59 years F OPPT Location Admission Date/Time Visit ID Attending Provider --- --- --- Isabelle Martin MD([id number]) EPI ID CSN Admitting Provider [id number] ---OUTPATIENT / OBSERVATIONAL SURGICAL OR INVASIVE PROCEDUREName: Oscar Vega : 1960 Sex: female Care Provider: GAVI LEONE DOAttending Physician: Dr. Isabelle Martin.HISTORY OF PRESENT ILLNESS: [...] rce(s) Supporting Document(s) ID Date Data Source [id number] 08/05/2019 04:23:31 PM EDT [facility] [place] [place] INFORMATIONPatient MRN Name Date of Age Gend*PT [id number] Oscar Vega 1960 59 years F ---PT Location Admission Date/Time Visit ID Attending Provider --- --- --- --- EPI ID CSN Admitting Provider [id number] ---NEW CONSULTATION FOR BREAST CANCER :Attending Surgeon : Isabelle Martin MDHistory of Present Illness :She presents today alone. 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 The findings are as follows: - ER: POSITIVE (100%, strong, Kwabena 8) - ME: NEGATIVE (0%) - Her2: POSITIVE (3+)Review of [...] would be a Stage 1, T1, N0, MxShjose a really did reading, she knows that HER-2 [...] mastectomy. 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 The detailswere verified and edited as appropriate.This document or parts of this document, were dictated using [employer]. A reasonable attempt at proofreading has been made to minimizeerrors. Please call with any questions or corrections. Name Value Range Interpretation Code Description Data Mare rce(s) Supporting Document(s) ID Date Data Source 07/03/2019 12:00:00 AM EST [facility] Brina Castro MD Patient Name: OSCAR VEGA [facility] Date of Exam: 07/03/2019LAZARUS traylor [id number] Fax: [phone] EXAM: US EXTREMITY VEINS, BILATERAL [...] witha duration of 0.3 seconds.Accredited by the [employer] in Vascular PeripheralUltrasound.Zeus Wade, MDDJKenya/Erica you for referring OSCAR VEGA to our office. Electronically Signed - ZEUS BAUER MD 07/04/19 13:02 Name Value Range Interpretation Code Description Data Mare rce(s) Supporting Document(s) Procedure Social History Code Duration Value Status Description Data Source(s ) Smoking 06/18/2020 12:00:00 AM EST Patient has never smoked co mpleted Patient has never smoked [facility] ([facility]) Alcohol intake 08/13/2019 12:00:00 AM EDT Never completed [facility] Smoking 08/13/2019 12:00:00 AM EDT Never smoker completed Never s [facility] Smoking 08/08/2019 12:00:00 AM EDT Never smoker completed Never s [facility] Alcohol intake 08/08/2019 12:00:00 AM EDT Never completed [facility] Vital Signs ID Date Data Source UNK Name Value Range Interpretation Code Description Data Source(s) [place] body weight 115 [lb_av] 115 [lb_av] [facility] T ([facility]) Oxygen saturation in Arterial blood by Pulse oximetry 91 % 91 % [facility] ([facility]) Body temperature 102.6 [degF] 102.6 [degF] [facility] NT ([facility]) Respiratory rate 18 /min 18 /min [facility] ( [facility]) Heart rate 108 /min 108 /min [facility] ([facility]) Body mass index (BMI) [Ratio] 19.1 kg/m2 19.1 k g/m2 [facility] ([facility]) Body weight 108.00 [lb_av] 108.00 [lb_av] [facility] T ([facility]) Body height 63.1 [in_i] 63.1 [in_i] [facility] ([facility]) 5'3.10" Diastolic blood pressure 86 mm[Hg] 86 mm[Hg] [facility] ([facility]) Systolic blood pressure 140 mm[Hg] 140 mm[Hg] M [facility] ([facility]) [place] body weight 115 [lb_av] 115 [lb_av] [facility] T ([facility]) Oxygen saturation in Arterial blood by Pulse oximetry 94 % 94 % [facility] ([facility]) Body temperature 101.5 [degF] 101.5 [degF] [facility] NT ([facility]) Respiratory rate 20 /min 20 /min [facility] ( [facility]) Heart rate 111 /min 111 /min [facility] ([facility]) Body height 63.1 [in_i] 63.1 [in_i] [facility] ([facility]) 5'3.10" Diastolic blood pressure 82 mm[Hg] 82 mm[Hg] [facility] ([facility]) Systolic blood pressure 132 mm[Hg] 132 mm[Hg] [facility] ([facility]) [place] body weight 115 [lb_av] 115 [lb_av] [facility] T ([facility]) Oxygen saturation in Arterial blood by Pulse oximetry 99 % 99 % [facility] Body temperature 97.0 [degF] 97.0 [degF] [facility] ([facility]) Respiratory rate 20 /min 20 /min [facility] ( [facility]) Heart rate 83 /min 83 /min [facility] ([facility]) Body mass index (BMI) [Ratio] 21.2 kg/m2 21.2 k g/m2 [facility] ([facility]) Body weight 120.00 [lb_av] 120.00 [lb_av] [facility] T ([facility]) Body height 63.1 [in_i] 63.1 [in_i] [facility] ([facility]) 5'3.10" Diastolic blood pressure 72 mm[Hg] 72 mm[Hg] [facility] ([facility]) Systolic blood pressure 126 mm[Hg] 126 mm[Hg] [facility] [place] body weight 115 [lb_av] 115 [lb_av] [facility] ([facility]) Oxygen saturation in Arterial blood by Pulse oximetry 88 % 88 % [facility] ([facility]) Body temperature 98.5 [degF] 98.5 [degF] [facility] ([facility]) Respiratory rate 24 /min 24 /min [facility] ( [facility]) Heart rate 152 /min 152 /min [facility] ([facility]) Body mass index (BMI) [Ratio] 20.8 kg/m2 20.8 k g/m2 [facility] ([facility]) Body weight 118.00 [lb_av] 118.00 [lb_av] [facility] ([facility]) Body height 63.1 [in_i] 63.1 [in_i] [facility] ([facility]) 5'3.10" Diastolic blood pressure 62 mm[Hg] 62 mm[Hg] [facility] ([facility]) Systolic blood pressure 106 mm[Hg] 106 mm[Hg] [facility] ([facility]) [place] body weight 115 [lb_av] 115 [lb_av] [facility] ([facility]) Oxygen saturation in Arterial blood by Pulse oximetry 98 % 98 % [facility] ([facility]) Body temperature 101.8 [degF] 101.8 [degF] [facility] NT ([facility]) Respiratory rate 26 /min 26 /min [facility] ( [facility]) Heart rate 104 /min 104 /min [facility] ([facility]) Body mass index (BMI) [Ratio] 21.4 kg/m2 21.4 k g/m2 [facility] ([facility]) Body weight 121.00 [lb_av] 121.00 [lb_av] [facility] T ([facility]) Body height 63.1 [in_i] 63.1 [in_i] [facility] ([facility]) 5'3.10" Oxygen saturation in Arterial blood by Pulse oximetry 98 % 98 % [facility] Respiratory rate 16 /min 16 /min [facility] Heart rate 87 /min 87 /min [facility] Diastolic blood pressure 63 mm[Hg] 63 mm[Hg] [facility] Systolic blood pressure 120 mm[Hg] 120 mm[Hg] [facility] Body temperature 36.44 Ama 36.44 Ama [facility] Systolic blood pressure 102 mm[Hg] 102 mm[Hg] [facility] Diastolic blood pressure 67 mm[Hg] 67 mm[Hg] [facility] Heart rate 70 /min 70 /min [facility] Body height 160 cm 160 cm [facility] Body weight 54.386 kg 54.386 kg [facility] Body mass index (BMI) [Ratio] 21.24 kg/m2 21.24 kg/m2 [facility] Oxygen saturation in Arterial blood by Pulse oximetry 99 % 99 % [facility] [place] body weight 115 [lb_av] 115 [lb_av] [facility] ([facility]) Oxygen saturation in Arterial blood by Pulse oximetry 98 % 98 % [facility] ([facility]) Body temperature 98.3 [degF] 98.3 [degF] [facility] ([facility]) Respiratory rate 18 /min 18 /min [facility] ( [facility]) Heart rate 76 /min 76 /min [facility] ([facility]) Body mass index (BMI) [Ratio] 20.7 kg/m2 20.7 k g/m2 [facility] ([facility]) Body weight 117.00 [lb_av] 117.00 [lb_av] [facility] Body height 63.1 [in_i] 63.1 [in_i] [facility] 5'3.10" Diastolic blood pressure 70 mm[Hg] 70 mm[Hg] [facility]TON[facility] ([facility]) Systolic blood pressure 116 mm[Hg] 116 mm[Hg] M LIANA ([facility]) Body weight 116.50 [lb_av] 116.50 [lb_av] RAMILA Gray ([facility]) Body height 63.1 [in_i] 63.1 [in_i] [facility] ([facility]) 5'3.10" Diastolic blood pressure 86 mm[Hg] 86 mm[Hg] [facility] ([facility]) Systolic blood pressure 123 mm[Hg] 123 mm[Hg] M LIANA ([facility]) Oxygen saturation in Arterial blood by Pulse oximetry 99 % 99 % [facility] ([facility]) Body temperature 98.7 [degF] 98.7 [degF] [facility] ([facility]) Respiratory rate 20 /min 20 /min [facility]TON[facility] ( [facility]) Heart rate 78 /min 78 /min [facility] ([facility]) Body mass index (BMI) [Ratio] 20.6 kg/m2 20.6 k g/m2 ANTOINA ([facility])
[2020-06-29 16:18] LABS: INR 1.11; PROTHROMBIN TIME 14.5 SECONDS (12.5-14.3)
[2020-06-29 16:37] VITALS: O2SAT 86
[2020-06-29 16:46] LABS: ALBUMIN 2.5 GM/DL (3.2-5.2); ALT/SGPT 52 U/L (12-78); BILIRUBIN,DIRECT 0.1 MG/DL (0.0-0.2); BILIRUBIN,TOTAL 0.2 MG/DL (0.2-1.0); BLOOD UREA NITROGEN 7 MG/DL (7-18); CARBON DIOXIDE LEVEL 26 MEQ/L (21-32); CHLORIDE LEVEL 108 MEQ/L (98-107); CK-MB VALUE MASS < 1.0 NG/ML (<3.6); CPK CREATINE PHOSPHOKINASE 29 U/L (26-192); CREATININE FOR GFR 0.56 MG/DL (0.55-1.30); GLOMERULAR FILTRATION RATE > 60.0 (>51); GLUCOSE, FASTING 93 MG/DL (70-100); MB/CK RELATIVE INDEX 3.45 (< OR =4); NT-PRO BNP 214 PG/ML (<125); POTASSIUM SERUM 4.2 MEQ/L (3.5-5.1); SODIUM LEVEL 142 MEQ/L (136-145); TOTAL PROTEIN 6.3 GM/DL (6.4-8.2); TROPONIN I < 0.02 NG/ML (< 0.10)
[2020-06-29] MEDS ORDERED: ISOVUE-370 76% 100ML VIAL As Ordered ONE (18:03)
--- NOTE | 2020-06-29 18:35 | REPVR ---
PROCEDURE INFORMATION: Exam: CT Angiography Chest With Contrast Exam date and time: 06/29/2020 4:51 PM Age: 60 years old Clinical indication: Shortness of breath; Additional info: SOB palpitations TECHNIQUE: Imaging protocol: Computed tomographic angiography of the chest with contrast. 3D rendering (Not supervised by radiologist): MIP and/or 3D reconstructed images were created by the technologist. Radiation optimization: All CT scans at this facility use at least one of these dose optimization techniques: automated exposure control; mA and/or kV adjustment per patient size (includes targeted exams where dose is matched to clinical indication); or iterative reconstruction. Contrast material: ISOVUE 370; Contrast volume: 75 ml; Contrast route: INTRAVENOUS (IV); COMPARISON: CT ANGIO CHEST 06/19/2020 3:29 AM FINDINGS: Pulmonary arteries: No focal pulmonary artery filling defect to suggest acute pulmonary embolus. Aorta: No thoracic aortic aneurysm or dissection. Lungs: Pulmonary vascular/interstitial pattern does not suggest active pulmonary edema. Pleural spaces: Large left and small right pleural effusions, slightly increased in the interim. No pneumothorax. Multifocal lung infiltrates and areas of consolidation particularly in the upper lobes and superior segment left lower lobe, with increasing confluence in the interim. Stable bronchiectatic changes in the lingula. Stable apical bullous changes in the lungs Heart: No overt cardiac enlargement or abnormal volume of pericardial fluid. Lymph nodes: Prominent mediastinal lymph nodes are unchanged in the interim. Bones/joints: Bony structures show no acute fracture or destructive process. Other findings: Limited visualization of upper abdomen shows no concerning finding. IMPRESSION: 1. No evidence of acute pulmonary embolus. 2. Increasing confluence of multiple bilateral lung infiltrates suggesting worsening multifocal pneumonia with increasing bilateral pleural effusions but no active pulmonary edema Electronically signed by: Kael Shields On 06/29/2020 18:35:24 PM
[2020-06-29] MEDS ORDERED: IBUP-359 PO (18:47)
[2020-06-29] MEDS ORDERED: VANCOMYCIN HCL 1,000 MG in IV FLUID PLACE HOLDER 1 EA IV ONE (19:00)
[2020-06-29] MEDS ORDERED: PIPERACILLIN/TAZOBACTAM SOD 4.5 GM in D5W MINI-BAG PLUS 50 ML IV ONE (19:00)
[2020-06-29] MEDS ORDERED: VANCOMYCIN HCL 750 MG, VIAL MATE ADAPTER 1 EACH in D5W 250 ML IV ONE (20:00)
[2020-06-29] MEDS ORDERED: VANCOMYCIN HCL 500 MG in D5W MINI-BAG PLUS 100 ML IV ONE (20:00)
--- NOTE | 2020-06-29 20:50 | HPEPDOC ---
General Date of Admission Jun 29, 2020 Date of Service: Jun 29, 2020 Chief Complaint The patient is a 60-year-old female admitted with a reason for visit of Pneumonia. History of Present Illness Mrs. Vega is a 60 year old female history of breath cancer who is here for dyspnea and tachycardia. Patient was recently here from 05/28/2020 to 05/31/2020 for multifocal pneumonia. After discharged, she was feeling okay but her respiratory status started to decline this past week. She started to have night sweats and right jaw lymph node tenderness and pain. She also started to have fevers at home. She took IBuprofen 800mg 3x a day to keep her fever down. The highest fever she had was 102.5 at home. She went to here PCP who gave her IM Rocephin and PO Cefaclor. She was referred to pulmonology. She was in the [employer] office, when she was found to have tachycardia in the 140s. She was sent to the ED. Her heart rate improved, but she was still very dyspnea. She had trouble completing sentences. ED contacted pulmonary, Dr. Manjarrez who said she will see in the morning. Home Medications Scheduled Cefaclor (Cefaclor) 500 Mg Capsule, 500 MG PO BID, (Reported) STARTED 06/19/20 X 10 DAYS Scheduled PRN Ibuprofen (Ibu) 800 Mg Tablet, 800 MG PO TID PRN for PAIN, (Reported) Allergies Coded Allergies: Penicillins (Verified Allergy, Intermediate, RASH, 06/29/20) Past Medical History Medical History 1. Left sided breast cancer treated with lumpectomy and radiation in 2019 2. Lyme disease 3. Nephrolithiasis Surgical History 1. Left-sided lumpectomy Family History Father: Prostate cancer Mother: Pancreatic cancer Social History * Smoker: Denies Alcohol: Denies Drugs: denies A-FIB/CHADSVASC A-FIB History Current/History of A-Fib/PAF?: No Review of Systems Constitutional: Reports: Fever (high of 102.5 at home) Eyes: Denies: Vision change ENT: Reports: Other Symptoms (Reported painful lymph nodes on right jaw that went away); Denies: Sore Throat Skin: Denies: Rash Pulmonary: Reports: Dyspnea, Cough Cardiovascular: Reports: Chest Pain (when coughing) Gastrointestinal: Denies: Nausea, Abdominal Pain Genitourinary: Denies: Dysuria Hematologic: Denies: Bruising Neurological: Reports: Other Symptoms (denies paresthesias) Psych: Reports: Anxiety Physical Examination General Exam: Positive: Alert, Cooperative, Mild Distress Eye Exam: Positive: EOMI; Negative: Sclera icteric ENT Exam: Positive: Atraumatic Neck Exam: Positive: Supple Chest Exam: Positive: Diminished Heart Exam: Positive: Rate Normal, Regular Rhythm Abdomen Exam: Positive: Normal bowel sounds, Soft; Negative: Tenderness Extremity Exam: Negative: Edema Neuro Exam: Positive: Cranial Nerves 3-12 NL Psych Exam: Positive: Mental status NL, Anxiety Vital Signs Vital Signs Date Time Temp Pulse Resp B/P (MAP) Pulse Ox O2 Delivery O2 Flow Rate FiO2 06/29/20 19:42 91 20 99 Room Air 06/29/20 19:30 114/61 (78) Laboratory Data Labs 24H Laboratory Tests 2 06/29/20 15:50: Immature Granulocyte % (Auto) 1.1, Neutrophils (%) (Auto) 83.5H, Lymphocytes (%) (Auto) 4.7L, Monocytes (%) (Auto) 8.4H, Eosinophils (%) (Auto) 2.0, Basophils (%) (Auto) 0.3, Neutrophils # (Auto) 11.6H, Lymphocytes # (Auto) 0.7L, Monocytes # (Auto) 1.2H, Eosinophils # (Auto) 0.3, Basophils # (Auto) 0.0, Nucleated Red Blood Cells % (auto) 0.0, Prothrombin Time 14.5H, Prothromb Time International Ratio 1.11, Anion Gap 8, Glomerular Filtration Rate > 60.0, Calcium Level 9.0, Total Bilirubin 0.2, Direct Bilirubin 0.1, Aspartate Amino Transf (AST/SGOT) 32, Alanine Aminotransferase (ALT/SGPT) 52, Alkaline Phosphatase 263H, Total Creatine Kinase 29, Creatine Kinase MB < 1.0, Creatine Kinase MB Relative Index 3.45, Troponin I < 0.02, GF-Zsc-R-Type Natriuretic Peptide 214H, Total Protein 6.3L, Albumin 2.5L, Albumin/Globulin Ratio 0.7L, Thyroid Stimulating Hormone (TSH) 1.010 06/29/20 17:22: Influenza A Immunofluorescence NEGATIVE, Influenza B Immunofluorescence NEGATIVE CBC/BMP Laboratory Tests 06/29/20 15:50 Microbiology Microbiology 06/29/20 Blood Culture, Received Pending 06/29/20 Respiratory Virus Panel (PCR) (NANCY) - Final, Complete Assessment/Plan Mrs. Vega is a 60 year old female history of breath cancer who is here for dyspnea and tachycardia. CTA was negative for PE, but demonstrates worsening multifocal pneumonia. ED contacted pulmonology. Pulm to see patient in the morning. Otherwise on Vancomycin and Cefepime for hospital acquired pneumonia. Plan / VTE VTE Prophylaxis Ordered?: Yes Plan Plan 1. Hospital acquired pneumonia -CTA demonstrates worsening multifocal pneumonia -Patient was to be seen in pulm outpatient office, but sent here for tachycardia -Doing okay at room air, but looks dyspneic and uncomfortable -Pulm recommendations appreciated -On Cefepime and Vancomycin -Ibuprofen for fever (patient reports acetaminophen makes her feel strange) 2. DVT ppx -ShaenoLEIA Cobb DO Jun 29, 2020 20:50
--- OUTSIDE RECORDS SUMMARY | 2020-06-29 21:03 | CCD ---
Author Author [facility] Organization [facility] Address Unknown Phone Unavailable Care Team Providers Care Creative Assistant Name Role Phone Evelyn MARTIN MD Unavailable [...] LEVIT,, TESS Unavailable Unavailable CICO, A MYKE SHERIFFS OFFICER Unavailable Unavailable CICO, A MYKE SHERIFFS OFFICER Unavailable Unavailable CICO, A MYKE SHERIFFS OFFICER Unavailable Unavailable CICO, A MYKE SHERIFFS OFFICER Unavailable Unavailable CICO, A MYKE SHERIFFS OFFICER Unavailable Unavailable CICO, A MYKE SHERIFFS OFFICER Unavailable Unavailable CICO, A MYKE SHERIFFS OFFICER Unavailable Unavailable CICO, A MYKE SHERIFFS OFFICER Unavailable Unavailable CICO, A MYKE SHERIFFS OFFICER Unavailable Unavailable CICO, A MYKE SHERIFFS OFFICER Unavailable Unavailable CICO, A MYKE SHERIFFS OFFICER Unavailable Unavailable CICO, A MYKE SHERIFFS OFFICER Unavailable Unavailable CICO, A MYKE SHERIFFS OFFICER Unavailable Unavailable CICO, A MYKE SHERIFFS OFFICER Unavailable Unavailable CICO, A MYKE SHERIFFS OFFICER Unavailable Unavailable CICO, A MYKE SHERIFFS OFFICER Unavailable Unavailable CICO, A MYKE SHERIFFS OFFICER Unavailable Unavailable CICO, A MYKE SHERIFFS OFFICER Unavailable Unavailable CICO, A MYKE SHERIFFS OFFICER Unavailable Unavailable CICO, A MKYE SHERIFFS OFFICER Unavailable Unavailable CICO, A MYKE SHERIFFS OFFICER Unavailable Unavailable CICO, A MYKE SHERIFFS OFFICER Unavailable Unavailable CICO, A MYKE SHERIFFS OFFICER Unavailable Unavailable CICO, A MYKE SHERIFFS OFFICER Unavailable Unavailable CICO, A MYKE SHERIFFS OFFICER Unavailable Unavailable CICO, A MYKE SHERIFFS OFFICER Unavailable Unavailable CICO, A MYKE SHERIFFS OFFICER Unavailable Unavailable CICO, A MYKE SHERIFFS OFFICER Unavailable Unavailable CICO, A MYKE SHERIFFS OFFICER Unavailable Unavailable CICO, A MYKE SHERIFFS OFFICER Unavailable Unavailable CICO, A MYKE SHERIFFS OFFICER Unavailable Unavailable CICO, A MYKE SHERIFFS OFFICER Unavailable Unavailable CICO, A MYKE SHERIFFS OFFICER Unavailable Unavailable CICO, A MYKE SHERIFFS OFFICER Unavailable Unavailable CICO, A MYKE SHERIFFS OFFICER Unavailable Unavailable CICO, A MYKE SHERIFFS OFFICER Unavailable Unavailable CICO, A MYKE SHERIFFS OFFICER Unavailable Unavailable CICO, A MYKE SHERIFFS OFFICER Unavailable Unavailable CICO, A MYKE SHERIFFS OFFICER Unavailable Unavailable CICO, A MYKE SHERIFFS OFFICER Unavailable Unavailable CICO, A MYKE SHERIFFS OFFICER Unavailable Unavailable CICO, A MYKE SHERIFFS OFFICER Unavailable Unavailable CICO, A MYKE SHERIFFS OFFICER Unavailable Unavailable CICO, A MYKE SHERIFFS OFFICER Unavailable Unavailable CICO, A MYKE SHERIFFS OFFICER Unavailable Unavailable CICO, A MYKE SHERIFFS OFFICER Unavailable Unavailable CICO, A MYKE SHERIFFS OFFICER Unavailable Unavailable CICO, A MYKE SHERIFFS OFFICER Unavailable Unavailable CICO, A MYKE SHERIFFS OFFICER Unavailable Unavailable CICO, A MYKE SHERIFFS OFFICER Unavailable Unavailable CICO, A MYKE SHERIFFS OFFICER Unavailable Unavailable MATTHEW, PRYJMA BRINA MD Unavailable [...] is protected by Article 27-F of the [facility] Public Health law. If you continue you may have access to information: Regarding HIV / AIDS; Provided by facilities licensed or operated by the [facility] Office of Mental Health; or Provided by the [facility] Office for People With Developmental Disabilities. If such information is present, then the following [facility] mandated warning applies: This information has [...] law may result in a fine or assisted sentence or both. A general authorization for the release of medical or other information is NOT sufficient authorization for further disc losure. Allergies and Adverse Reactions Type Description Substance Reaction Status Data Source(s ) Propensity to adverse reactions PENICILLINS Penicillins Rash Low Ac tive [facility] Low Family History Family Member Name Family Member Gender Family Member Status Date o f Status Description Data Source(s) Unknown Male Problem [facility] ([facility]) () - age 84 Encounters Encounter Providers Location Date Indications Data Source(s ) Outpatient Attender: GAVI LEONE DO [facility] 06/19/2020 12:40:00 PM EST [facility]) Outpatient Attender: GAVI LEONE [facility] 06/18/2020 03:20:00 PM EST [facility] ([facility]) Outpatient 06/10/2020 03:32:05 PM EST [facility]patient 06/10/2020 03:25:56 PM EST [facility] Outpatient Attender: GAVI LEONE [facility] 06/04/2020 12:40:00 PM EST [facility] ([facility]) Outpatient Attender: GAVI LEONE [facility] 05/28/2020 07:40:00 AM EST [facility]) [facility]: [facility] 03[facility]:00 PM EST [facility]) Outpatient Referrer: MYKE REAL NP 08/26/2019 09:58:45 AM E DT [facility] Outpatient Attender: ISABELLE MARTIN MDAdmitter: ISABELLE Gray MDReferrer: ISABELLE MARTIN MD [id number] 08/13/2019 09:00:00 AM EDT - 08/13/2019 11:59:00 PM EDT [facility] Patient discharged. Outpatient Attender: ISABELLE MARTIN MDAdmitter: ISABELLE Gray MDReferrer: ISABELLE MARTIN MD [id number].RAD 08/13/2019 08:45:00 AM EDT - 08/13/2019 08:59:00 AM EDT [facility] Patient discharged. Outpatient Attender: ISABELLE MARTIN MDReferrer: ISABELLE MARTIN MD MOB -MOB.PAT 08/08/2019 12:00:00 AM EDT - 08/08/2019 11:46:22 AM EDT [facility] Attender: ISABELLE MARTIN MDAdmitter: ISABELLE MARTIN MDRefe rrer: ISABELLE MARTIN MD ES1-OR 08/06/2019 03:31:50 PM EDT - 08/13/2019 02:30:00 PM EDT [facility] Patient discharged. Outpatient Attender: ISABELLE SIEGEL-SABI 0 02:55:12 PM EDT - 08/05/2019 03:57:00 PM EDT [facility] Outpatient Attender: TESS MERCHANT,Rotary Operator: JESSICA GREEN 07/08/2019 05:39:00 PM EST - 07/08/2019 05:49:00 PM EST [facility] Outpatient Referrer: BRINA CASTRO MD 07/04/2019 07:07:00 AM EST [facility] Outpatient Referrer: BRINA CASTRO MD 05/24/2019 09:56:00 AM EST [facility] Outpatient Referrer: BRINA CASTRO MD 05/24/2019 09:29:00 AM EST [facility] Outpatient Referrer: GAVI LEONE DO 05/24/2019 09 :27:00 AM EST [facility] Outpatient Attender: GAVI LEONE DO [facility] 05/17/2019 12:00:00 PM EST [facility] ([facility]) Medications Medication Brand Name Start Date Product Form Dose Route Admi nistrative Instructions Pharmacy Instructions Status Indications Reaction Description Data Source(s) Nebulizer Kit/Tubing/Mouthpiece 06/19/2020 12:00:00 AM EST active [facility] ([facility]) Cefaclor 500 MG Oral Capsule Cefaclor 06/19/2020 12:00:00 AM EST ORAL active [facility] ([facility]) Albuterol 1 MG/ML Inhalant Solution Albuterol Sulfate 09/2020 12:00:00 AM EST active [facility] ([facility]) Injection Ceftriaxone Sodium Per 250 MG (Rocephin) 06/19/2020 12:00:00 AM EST completed [facility] ([facility]) Medication administered onsite Ibuprofen 800 MG Oral Tablet Ibuprofen 06/19/2020 12:00:00 AM EST ORAL active [facility] ([facility]) No Active Medications 06/18/2020 12:00:00 AM EST completed [facility] ([facility]) Levofloxacin 750 MG Oral Tablet Levofloxacin 05/27/2020 12:00:[address] ORAL completed [facility] ([facility]) 120 ACTUAT Fluticasone propionate 0.11 MG/ACTUAT Meter ed Dose Inhaler [Flovent] Flovent HFA 05/18/2020 12:00:00 AM EST ORAL completed [facility] ([facility]) Prednisone 20 MG Oral Tablet Prednisone 05/14/2020 12:00:00 AM EST ORAL completed [facility] ([facility]) Doxycycline Monohydrate 100 MG Oral Capsule Doxycycline [place] hydrate 05/14/2020 12:00:00 AM EST ORAL completed [facility] ([facility]) No Active Medications 05/13/2020 12:00:00 AM EST completed [facility] ([facility]) normal saline flush 0.9 % injection 3 mL [id number] 08/13/2019 02:00:00 PM EDT 3 mL Intravenous active 3 mL , Intravenous, Every 8 hours (scheduled), First dose on Mon08/13/19 at 1400, PACU (only)
flush per protocol, D/C Main IV fluid if appropriate
[facility] Medication administered onsite Magnesium Chloride 0.94652 MEQ/ML / Pota ssium Chloride 0.0497 MEQ/ML / Sodium Acetate 0.0163 MEQ/ML / Sodium Chloride 0.0899 MEQ/ML / Sodium gluconate 5.02 MG/ML Injectable Solution [Normosol-R] electrolyte-R (NORMOSOL-R/PLASMALYTE-R) solution electrolyte-R (NORMOSOL-R/PLASMALYTE-R) solution 08/12 01:00:00 PM EDT Intravenous active at 1 00 mL/hr, Intravenous, Continuous, Starting Mon08/13/19 at 1300, PACU (only) [facility] Medication administered onsite 4 ML Labetalol [...] MG, hold for HR less than 60
[facility] Medication administered onsite haloperidol lactate (HALDOL) injection 0.5 mg [id number] 08/13/2019 11:54:42 AM EDT 0.5 mg Intramuscular active 0. 5 mg, Intramuscular, Every 30 min PRN, for intractable nausea and vomiting if not relieved by zofran/promethazine, Starting Mon08/13/19 at 1154, For 4 doses, PACU (only) [facility] Medication administered onsite technetium sulfur colloid (NYCOMED-SC) solution 500 micro cu johnathan 08/13/2019 10:00:00 AM EDT 500 uCi Intravenous completed 500 micro curie, Intravenous, Once, Mon08/13/19 at 1000, For 1 dose [facility] Medication administered onsite Magnesium Chloride 0.46507 MEQ/ML / Pota ssium Chloride 0.0497 MEQ/ML / Sodium Acetate 0.0163 MEQ/ML / Sodium Chloride 0.0899 MEQ/ML / Sodium gluconate 5.02 MG/ML Injectable Solution [Normosol-R] electrolyte-R (NORMOSOL-R/PLASMALYTE-R) solution electrolyte-R (NORMOSOL-R/PLASMALYTE-R) solution 08/12 10:00:00 AM EDT Intravenous active at 1 00 mL/hr, Intravenous, Continuous, Starting Mon08/13/19 at 1000, Pre-op [facility] Medication administered onsite normal saline flush 0.9 % injection 3 mL [id number] 08/13/2019 10:00:00 AM EDT 3 mL Intravenous active 3 mL , Intravenous, Every 8 hours (scheduled), First dose on Mon08/13/19 at 1000, Pre-op
Rapid push positive pressure flushing shall be performed with a 10 cc normal saline syringe to check the PATENCY of a PIV site prior to any infusion therapy initiation unless resistance is met.
[facility] Medication administered onsite Insurance Providers Payer name Policy type / Coverage type Policy ID Covered democrat ID Covered democrat's relationship to fish Policy Fish Plan Information [facility] [id number] SP [id number] SELF PAY ONLY [id number] SP [id number] [facility] [id number] S [id number] [facility] [id number] SP [id number] [facility] [id number] [facility] [id number] Spo [id number] [facility] AT [facility] [id number] 18 [id number] [employer] AT [facility] [id number] 01 [id number] [facility] Commercial [id number] Self [id number] [facility] Commercial [id number] Self 00 [id number] [facility] Commercial [id number] Self [id number] [facility] Commercial [id number] Self 00 [id number] [facility] Claims DPT Commercial Self [place] P[place] 302/307 [id number] [employer] [place] [id number] 2 [id number] FOR LIFE [id number] [employer] PPO 302/307 [id number] Problems, Conditions, and Diagnoses Code Display Name Description Problem Type Effective Dates Data Source(s) No Previous Anesthesia No Previous Anesthesia [id number] 08/08/2019 12:00:00 AM EDT [facility] C50.912 Breast cancer, left Breast cancer, left [id number] 08/08/2019 12:00:00 AM EDT [facility] K21.9 GERD (gastroesophageal reflux disease) G ERD (gastroesophageal reflux disease) [id number] 08/08/2019 12:00:00 AM EDT [facility] N20.0 Kidney stones Kidney stones [id number] 08/08/2019 12:00:00 AM EDT [facility] 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, estrogen receptor positive Malignant neoplasm of upper-outer quadra nt of left breast in female, estrogen receptor positive [id number] 0 12:00:00 AM EDT [facility] Z17.0 Estrogen receptor positive status [ER+] Estrogen receptor positive status (ER+) Diagnosis 08/13/2019 09:00:00 AM EDT [facility] C50.412 Malignant neoplasm of upper-outer quadra nt of left female breast Malignant neoplasm of upper-outer quadra Diagnosis 08/13/2019 09:00:00 AM EDT [facility] N20.0 Calculus of kidney Calculus of kidney Diagnosis 11:11:41 AM EDT [facility] K21.9 Gastro-esophageal reflux disease without esophagitis Gastro-esophageal reflux disease without Diagnosis 08/08/2019 11:11:41 AM EDT [facility] C50.912 Malignant neoplasm of unspecified site o f left female breast Malignant neoplasm of unspecified site o Diagnosis 08/08/2019 11:11:[address] [facility] [id number] Malignant neoplasm of upper-outer quadra nt of left female breast Malignant neoplasm of upper-outer quadrant of left female breast Diagnosis 07/08/2019 05:39:00 PM [facility] N630 Unspecified lump in unspecified breast U nspecified lump in unspecified breast Diagnosis 07/08/2019 05:39:00 PM [facility] Surgeries/Procedures Procedure Description Date Indications Data Source(s) RADIOLOGICAL EXAMINATION SURGICAL SPECIMEN MAMMO BREAST SPECIME N Routine 08/13/2019 11:37 AM EDT Malignant neoplasm of upper-outer quadrant of left breast in female, estrogen receptor positive 08/13/2019 03:37:20 PM EDT Malignant dick plasm of upper-outer quadrant of left breast in female, estrogen receptor positive [facility] Malignant neoplasm of upper-outer quadra nt [...] left breast in female, estrogen receptor positive [facility] Malignant neoplasm of upper-outer quadra nt of left breast in female, estrogen receptor positive MAMMO NEEDLE LOCALIZATION LEFT MAMMO NEEDLE LOCALIZATION LEFT R outine 08/13/2019 9:45 AM EDT Malignant neoplasm of upper-outer quadrant of left breast in female, estrogen receptor positive 08/13/2019 01:45:00 PM EDT Malignant dick plasm of upper-outer quadrant of left breast in female, estrogen receptor positive [facility] Malignant neoplasm of upper-outer quadra nt [...] left breast in female, estrogen receptor positive [facility] Malignant neoplasm of upper-outer quadra nt of left breast in female, estrogen receptor positive Results ID Date Data Source [id number] 06/19/2020 05:05:00 AM [facility] ([facility]) Name Value Range Interpretation Code Description Data Mare rce(s) Supporting Document(s) Blood Culture [facility] No growth after 48 hours . All specimens observed for 5 days. Results final at that time. No growth after 24 hours . All specimens observed for 5 days. Results final at that time. No Growth after 72 hours. All specimens observed for 5 days. Results final at that time. ID Date Data Source [id number] 06/19/2020 02:07:00 AM [facility] ([facility]) Name Value Range Interpretation Code Description Data Mare rce(s) Supporting Document(s) Respiratory Panel [facility] This respiratory PCR panel detects Influ [...] - SARS-CoV-2 (COVID19) ID Date Data Source [id number] 06/19/2020 02:07:00 AM EST [facility] Name Value Range Interpretation Code Description Data [facility] rce(s) Supporting Document(s) SARS-CoV-2 (COVID 19) NEGATIVE - SARS-CoV-2 (COVID19) [facility] This lab was ordered by [facility] a nd reported by [facility]. ID Date Data Source [id number] 06/19/2020 01:04:00 AM EST [facility] ([facility]) Name Value Range Interpretation Code Description Data Mare rce(s) Supporting Document(s) Natriuretic peptide.B prohormone N-Terminal [Mass/volu me] in Serum or Plasma 54 pg/mL Normal (applies to non-numeric results) [facility] ([facility]) Bacteria identified in Blood by Culture Laboratory test result [facility] ([facility]) No growth after 48 hours . [...] 0.4-2.0 Normal (applies to non-numeric results) [facility] ([facility]) Y/N query for Sepsis Lactate Rule: Y ID Date Data Source [id number] 06/19/2020 01:04:00 AM EST [facility] ([facility]) Name Value Range Interpretation Code Description [facility] Supporting Document(s) Glucose, Fasting 91 mg/dL 70-100 Normal (applies to non-numeric results) [facility] ([facility]) Glomerular Filtration Rate Laboratory test result Normal (applies to non- numeric results) [facility] <content>Units are mL/min/1.73 m2</content>
<content></content>
<content>Chronic Kidney Disease Staging per NKF:</content>
<content></content>
<content>Stage I & II GFR >=60 Normal to Mildly Decreased</content>
<content>Stage III GFR 30- 59 Moderately Decreased</content>
<content>Stage IV GFR 15-29 Severely Decreased</content>
<content>Stage V GFR <15 Very Little GFR Left</content>
<content>ESRD GFR <15 on DIRECTOR PART</content>
<content></content> Creatinine For GFR 0.60 mg/dL 0.55-1.30 Normal (applies to non -numeric results) [facility] ([facility]) Blood Urea Nitrogen 11 mg/dL 7-18 Normal (applies to non-nume yunior results) [facility] ([facility]) Potassium Serum 4.0 meq/L 3.5-5.1 Normal (applies to non-numeric results) [facility] ([facility]) Sodium Level 139 meq/L 136-145 Normal (applies to non-numeric res ults) [facility] ([facility]) Chloride Level 103 meq/L 98-107 Normal (applies to non-numeric r esults) [facility] ([facility]) Carbon Dioxide Level 27 meq/L 21-32 Normal (applies to non-num joshua results) [facility] ([facility]) Anion Gap 9 meq/L 8-16 Normal (applies to non-numeric resul ts) [facility] ([facility]) Calcium Level 8.9 mg/dL 8.5-10.1 Normal (applies to non-numeric re sults) [facility] ID Date Data Source [id number] 06/19/2020 01:04:00 AM EST [facility] ([facility]) Name Value Range Interpretation Code Description Data Mare rce(s) Supporting Document(s) Alt/SGPT 81 U/L 12-78 Above high normal [facility] ([facility]) Ast/Sgot 48 U/L 7-37 Above high normal [facility] ([facility]) Alkaline Phosphatase 249 U/L 45-117 Above high normal [facility] ([facility]) Bilirubin,Direct 0.1 mg/dL 0.0-0.2 Normal (applies to non-numeric results) [facility] ([facility]) Bilirubin,Total 0.3 mg/dL 0.2-1.0 Normal (applies to non-numeric results) [facility] ([facility]) Albumin 3.2 GM/DL 3.2-5.2 Normal (applies to non-numeric resul ts) [facility] ([facility]) Total Protein 7.0 GM/DL 6.4-8.2 Normal (applies to non-numeric re sults) [facility] ([facility]) Albumin/Globulin Ratio 0.8 1.2-2.2 Below low normal [facility] ([facility]) ID Date Data Source [id number] 06/19/2020 01:04:00 AM EST [facility] ([facility]) Name Value Range Interpretation Code Description Data Mare rce(s) Supporting Document(s) CK-MB Value Mass Laboratory test result Normal ( applies to non-numeric results) [facility] ([facility]) CPK Creatine Phosphokinase 32 U/L 26-192 Aleshia l (applies to non-numeric results) [facility] ([facility]) MB/CK Relative Index 3.12 Normal (applies to non-num joshua results) [facility] ([facility]) <content>DIAGNOSIS CRITERIA</content>
<content>MMB ng/ml Relative Index (RI)</content>
<content>NON-AMI < or = 5 N/A</content>
<content>FERGUSON ZONE > 5 < or = 4</content>
<content>AMI > 5 > 4</content>
<content></content> Troponin I Laboratory test result Normal (applies to non-n umeric results) [facility]) <content>Troponin I Reference Interval f or Siemens Eldena LOCI:</content>
<content></content>
<content>99th Percentile= 0.00-0.045 ng/ml</content>
<content></content>
<content>Risk Stratification:</content>
<content><= 0.10 ng/ml Decreased Risk for Adverse Clinical</content>
<content>Events.</content>
<content>0.10-1.50 ng/ml Increased Risk for Adverse Clinical</content>
<content>Events. Evaluation of additional</content>
<content>criterion and/or repeat testing in 2-6</content>
<content>hours is suggested to rule out myocardial</content>
<content>damage.</content>
<content>>= 1.50 ng/ml Indicative of Myocardial Injury.</content>
<content></content> ID Date Data Source [id number] 06/19/2020 01:04:00 AM EST [facility] ([facility]) Name Value Range Interpretation Code Description Data Mare rce(s) Supporting Document(s) White Blood Count 7.6 10 4.0-10.0 Normal (applies to non-numeri c results) [facility] ([facility]) Red Blood Count 3.79 10 4.00-5.40 Below low normal [facility] ([facility]) Hematocrit 35.1 % 36.0-47.0 Below low normal [facility] ( [facility]) Hemoglobin 10.9 g/dL 12.0-15.5 Below low normal [facility] ( [facility]) Mean Corpuscular HGB Conc 31.1 g/dL 32.0-36.5 Below low normal [facility] ([facility]) Mean Corpuscular Hemoglobin 28.8 pg 27.0-33.0 Norm al (applies to non-numeric results) [facility] ([facility]) Mean Corpuscular Volume 92.6 fl 80.0-96.0 Normal ( applies to non-numeric results) [facility] ([facility]) Neutrophils % 75.9 % 36.0-66.0 Above high normal [facility] ([facility]) Platelet Count, Automated 320 10 150-450 Normal (applies to non-numeric results) [facility] ([facility]) Red Cell Distribution Width 13.8 % 11.5-14.5 Norm al (applies to non-numeric results) [facility] ([facility]) Lymph % 11.1 % 24.0-44.0 Below low normal [facility] ( [facility]) [place] % 10.6 % 0.0-5.0 Above high normal [facility] ([facility]) Baso % 0.3 % 0.0-1.0 Normal (applies to non-numeric resul ts) [facility] ([facility]) Immature Granulocyte % 0.4 % 0-3.0 Normal (applies to non-n umeric results) [facility] ([facility]) Eos % 1.7 % 0.0-3.0 Normal (applies to non-numeric resul ts) [facility] ([facility]) Lymph # 0.9 10 1.5-5.0 Below low normal [facility] ( [facility]) Neutrophils # 5.8 10 1.5-8.5 Normal (applies to non-numeric re sults) [facility] ([facility]) Nucleated Red Blood Cell % 0.0 % 0-0 Normal (applies to n on-numeric results) [facility] ([facility]) Eos # 0.1 10 0.0-0.5 Normal (applies to non-numeric resul ts) [facility] ([facility]) [place] # 0.8 10 0.0-0.8 Normal (applies to non-numeric resul ts) [facility] ([facility]) Baso # 0.0 10 0.0-0.2 Normal (applies to non-numeric resul ts) [facility] ([facility]) ID Date Data Source [id number] 06/10/2020 12:00:00 AM EST [facility] Fran Ambriz DO Patient Name: TO[id number] Date of : 1960te 1 Date of Exam: 06/10/2020LAZARUS Lee [id number]#: Fax: [phone] EXAM: CT ANGIOGRAPHY, CHESTCLINICAL INFORMATION: [...] is a small pericardial effusion.Accredited by the [employer] in [place].MOSES [place]/Erica you for referring OSCAR VEGA to our office. Electronically Signed - DIONY MELENDEZ DO 06/10/20 17:26 Name Value Range Interpretation Code Description Data Mare rce(s) Supporting Document(s) ID Date Data Source [id number] 06/09/2020 03:02:00 PM EST [facility] ([facility]) Name Value Range Interpretation Code Description Data Mare rce(s) Supporting Document(s) Glucose, Fasting 88 mg/dL 70-100 Normal (applies to non-numeric results) [facility] Creatinine For GFR 0.63 mg/dL 0.55-1.30 Normal (applies to non -numeric results) [facility] Blood Urea Nitrogen 15 mg/dL 7-18 Normal (applies to non-nume yunior results) [facility] ([facility]) Glomerular Filtration Rate Laboratory test result Normal (applies to non- numeric results) [facility] ([facility]) <content>Units are mL/min/1.73 m2</content>
<content></content>
<content>Chronic Kidney Disease Staging per NKF:</content>
<content></content>
<content>Stage I & II GFR >=60 Normal to Mildly Decreased</content>
<content>Stage III GFR 30- 59 Moderately Decreased</content>
<content>Stage IV GFR 15-29 Severely Decreased</content>
<content>Stage V GFR <15 Very Little GFR Left</content>
<content>ESRD GFR <15 on DIRECTOR PART</content>
<content></content> Sodium Level 139 meq/L 136-145 Normal (applies to non-numeric res ults) [facility] Chloride Level 105 meq/L 98-107 Normal (applies to non-numeric r esults) [facility] Potassium Serum 4.4 meq/L 3.5-5.1 Normal (applies to non-numeric results) [facility] Carbon Dioxide Level 30 meq/L 21-32 Normal (applies to non-num joshua results) [facility] ([facility]) Anion Gap 4 meq/L 8-16 Below low normal [facility] ( [facility]) Calcium Level 9.1 mg/dL 8.5-10.1 Normal (applies to non-numeric re sults) [facility] Ast/Sgot 17 U/L 7-37 Normal (applies to non-numeric resul ts) [facility] ([facility]) Alkaline Phosphatase 99 U/L 45-117 Normal (applies to non-num joshua results) [facility] ([facility]) Alt/SGPT 34 U/L 12-78 Normal (applies to non-numeric resul ts) [facility] ([facility]) Total Protein 6.0 GM/DL 6.4-8.2 Below low normal [facility] ([facility]) Bilirubin,Total 0.1 mg/dL 0.2-1.0 Below low normal [facility] ([facility]) Albumin 2.9 GM/DL 3.2-5.2 Below low normal [facility] Albumin/Globulin Ratio 0.9 1.2-2.2 Below low normal [facility] ([facility]) ID Date Data Source [id number] 06/09/2020 03:02:00 PM EST [facility] ([facility]) Name Value Range Interpretation Code Description Data Mare rce(s) Supporting Document(s) Hemoglobin 10.9 g/dL 12.0-15.5 Below low normal [facility] Red Blood Count 3.73 10 4.00-5.40 Below low normal [facility] ([facility]) White Blood Count 8.7 10 4.0-10.0 Normal (applies to non-numeri c results) [facility] ([facility]) Hematocrit 34.9 % 36.0-47.0 Below low normal [facility] ( [facility]) Mean Corpuscular Volume 93.6 fl 80.0-96.0 Normal ( applies to non-numeric results) [facility] ([facility]) Red Cell Distribution Width 13.2 % 11.5-14.5 Norm al (applies to non-numeric results) [facility] ([facility]) Mean Corpuscular HGB Conc 31.2 g/dL 32.0-36.5 Below low normal [facility] ([facility]) Mean Corpuscular Hemoglobin 29.2 pg 27.0-33.0 Norm al (applies to non-numeric results) [facility] ([facility]) Neutrophils % 73.0 % 36.0-66.0 Above high normal [facility] ([facility]) Platelet Count, Automated 378 10 150-450 Normal (applies to non-numeric results) [facility] ([facility]) [place] % 10.5 % 0.0-5.0 Above high normal [facility] ([facility]) Lymph % 12.8 % 24.0-44.0 Below low normal [facility] ( [facility]) Eos % 2.6 % 0.0-3.0 Normal (applies to non-numeric resul ts) [facility] ([facility]) Baso % 0.2 % 0.0-1.0 Normal (applies to non-numeric resul ts) [facility] ([facility]) Immature Granulocyte % 0.9 % 0-3.0 Normal (applies to non-n umeric results) [facility] ([facility]) Neutrophils # 6.3 10 1.5-8.5 Normal (applies to non-numeric re sults) [facility] ([facility]) Nucleated Red Blood Cell % 0.0 % 0-0 Normal (applies to n on-numeric results) [facility] ([facility]) [place] # 0.9 10 0.0-0.8 Above high normal [facility] ([facility]) Lymph # 1.1 10 1.5-5.0 Below low normal [facility] ( [facility]) Eos # 0.2 10 0.0-0.5 Normal (applies to non-numeric resul ts) [facility] ([facility]) Baso # 0.0 10 0.0-0.2 Normal (applies to non-numeric resul ts) [facility] ([facility]) ID Date Data Source [id number] 06/09/2020 03:02:00 PM EST [facility] ([facility]) Name Value Range Interpretation Code Description Data Mare rce(s) Supporting Document(s) Fibrin D-dimer FEU [Mass/volume] in Platelet poor plasma 669.69 ng/mL Above high normal [facility] ([facility]) ID Date Data Source [id number] 06/08/2020 12:00:00 AM EST [facility] Gavi Ambriz DO Patient Name: TOAN VEGA[address] Date of : 1960te 1 Date of Exam: 06/08/2020LAZARUS Lee [id number]#: Fax: [phone] EXAM: CHEST (2 VIEW) X-RAYCLINICAL [...] Source [id number] 06/08/2020 12:00:00 AM EST [facility] ([facility]) Name Value Range Interpretation Code Description Data Mare rce(s) Supporting Document(s) Chest X-ray PA and lateral Laboratory test result [facility] ([facility]) ID Date Data Source [id number] 05/28/2020 12:57:00 PM EST [facility] ([facility]) Name Value Range Interpretation Code Description Data Mare rce(s) Supporting Document(s) Respiratory Panel Laboratory test result [facility] ([facility]) This respiratory PCR panel detects Influ [...] - SARS-CoV-2 (COVID19) ID Date Data Source [id number] 05/28/2020 12:57:00 PM EST [facility] Name Value Range Interpretation Code Description Data Mare rce(s) Supporting Document(s) SARS-CoV-2 (COVID 19) NEGATIVE - SARS-CoV-2 (COVID19) [facility] This lab was ordered by [facility] a nd reported by [facility]. ID Date Data Source [id number] 05/28/2020 11:59:00 AM EST [facility] ([facility]) Name Value Range Interpretation Code Description Data Mare rce(s) Supporting Document(s) Laboratory test finding (navigational concept) 119 mg/dL 7 0-105 Above high normal [facility] ([facility]) Laboratory test finding (navigational concept) 30.0 % 3 8.0-51.0 Below low normal [facility] ([facility]) Laboratory test finding (navigational concept) 137 meq/L 1 36-145 Normal (applies to non-numeric results) [facility] ([facility]) Laboratory test finding (navigational concept) 3.3 meq/L 3 .5-5.1 Below low normal [facility] ([facility]) Laboratory test finding (navigational concept) 4.4 mg/dL 4 .5-5.3 Below low normal [facility] ([facility]) Laboratory test finding (navigational concept) 100 meq/L 9 8-109 Normal (applies to non-numeric results) [facility] ([facility]) Laboratory test finding (navigational concept) 24.0 MM/L 2 3.0-27.0 Normal (applies to non-numeric results) [facility] ([facility]) Laboratory test finding (navigational concept) 0.5 mg/dL 0 .6-1.3 Below low normal [facility] ([facility]) Laboratory test finding (navigational concept) 9 mg/dL 8 -26 Normal (applies to non-numeric results) [facility] ([facility]) ID Date Data Source [id number] 05/27/2020 12:00:00 AM EST [facility] Gavi Ambriz DO Patient Name: TOAN VEGAE[address] Date of : 1960te 1 Date [facility] Exam: [facility] [id number] Fax: [phone] EXAM: CHEST (2 VIEW) X-RAYCLINICAL [...] rce(s) Supporting Document(s) ID Date Data Source [id number] 05/19/2020 10:33:00 PM [facility] Name Value Range Interpretation Code Description Data Mare rce(s) Supporting Document(s) Glucose, Fasting 108 mg/dL 70-100 Above high normal [facility] Creatinine For GFR 0.63 mg/dL 0.55-1.30 Normal (applies to non -numeric results) [facility] ([facility]) Blood Urea Nitrogen 11 mg/dL 7-18 Normal (applies to non-nume yunior results) [facility] ([facility]) Potassium Serum 4.0 meq/L 3.5-5.1 Normal (applies to non-numeric results) [facility] ([facility]) Sodium Level 138 meq/L 136-145 Normal (applies to non-numeric res ults) [facility] ([facility]) Glomerular Filtration Rate Laboratory test result Normal (applies to non- numeric results) [facility] ([facility]) <content>Units are mL/min/1.73 m2</content>
<content></content>
<content>Chronic Kidney Disease Staging per NKF:</content>
<content></content>
<content>Stage I & II GFR >=60 Normal to Mildly Decreased</content>
<content>Stage III GFR 30- 59 Moderately Decreased</content>
<content>Stage IV GFR 15-29 Severely Decreased</content>
<content>Stage V GFR <15 Very Little GFR Left</content>
<content>ESRD GFR <15 on DIRECTOR PART</content>
<content></content> Chloride Level 105 meq/L 98-107 Normal (applies to non-numeric r esults) [facility] ([facility]) Anion Gap 6 meq/L 8-16 Below low normal [facility] ( [facility]) Carbon Dioxide Level 27 meq/L 21-32 Normal (applies to non-num joshua results) [facility] ([facility]) Calcium Level 8.4 mg/dL 8.5-10.1 Below low normal [facility] ([facility]) Alt/SGPT 25 U/L 12-78 Normal (applies to non-numeric resul ts) [facility] ([facility]) Ast/Sgot 18 U/L 7-37 Normal (applies to non-numeric resul ts) [facility] ([facility]) Bilirubin,Total 0.3 mg/dL 0.2-1.0 Normal (applies to non-numeric results) [facility] ([facility]) Alkaline Phosphatase 100 U/L 45-117 Normal (applies to non-num joshua results) [facility] ([facility]) Albumin 2.5 GM/DL 3.2-5.2 Below low normal [facility] ( [facility]) Total Protein 6.5 GM/DL 6.4-8.2 Normal (applies to non-numeric re sults) [facility] ([facility]) Albumin/Globulin Ratio 0.6 1.2-2.2 Below low normal [facility] ([facility]) ID Date Data Source [id number] 05/19/2020 10:33:00 PM EST [facility] ([facility]) Name Value Range Interpretation Code Description Data Mare rce(s) Supporting Document(s) White Blood Count 11.2 10 4.0-10.0 Above high normal [facility] ([facility]) Red Blood Count 3.64 10 4.00-5.40 Below low normal [facility] ([facility]) Hemoglobin 10.5 g/dL 12.0-15.5 Below low normal [facility] ( [facility]) Mean Corpuscular Volume 91.8 fl 80.0-96.0 Normal ( applies to non-numeric results) [facility] ([facility]) Hematocrit 33.4 % 36.0-47.0 Below low normal [facility] ( [facility]) Mean Corpuscular Hemoglobin 28.8 pg 27.0-33.0 Norm al (applies to non-numeric results) [facility] ([facility]) Mean Corpuscular HGB Conc 31.4 g/dL 32.0-36.5 Below low normal [facility] ([facility]) Red Cell Distribution Width 11.4 % 11.5-14.5 Below low normal [facility] ([facility]) Platelet Count, Automated 503 10 150-450 Above high normal [facility] ([facility]) Nucleated Red Blood Cell % 0.0 % 0-0 Normal (applies to n on-numeric results) [facility] ([facility]) ID Date Data Source [id number] 05/19/2020 10:07:00 PM EST [facility] ([facility]) Name Value Range Interpretation Code Description Data Mare rce(s) Supporting Document(s) Respiratory Panel Laboratory test result [facility] ([facility]) This respiratory PCR panel detects Influ [...] - SARS-CoV-2 (COVID19) ID Date Data Source [id number] 05/19/2020 10:07:00 PM EST [facility] Name Value Range Interpretation Code Description Data Mare rce(s) Supporting Document(s) SARS-CoV-2 (COVID 19) NEGATIVE - SARS-CoV-2 (COVID19) [facility] This lab was ordered by [facility] a nd reported by [facility]. ID Date Data Source [id number] 05/19/2020 12:00:00 AM EST [facility] Gavi Ambriz DO Patient Name: TOAN VEGAE[address] Date of : 1960te 1 Date of Exam: 05/19/2020LAZARUS Lee [id number]#: Fax: [phone] EXAM: CHEST (2 VIEW) X-RAYCLINICAL [...] rce(s) Supporting Document(s) ID Date Data Source [id number] 05/13/2020 04:07:00 PM EST [facility] ([facility]) Name Value Range Interpretation Code Description Data Mare rce(s) Supporting Document(s) Respiratory Panel [facility] This respiratory PCR panel detects Influ [...] - SARS-CoV-2 (COVID19) ID Date Data Source [id number] 05/13/2020 04:07:00 PM EST [facility] Name Value Range Interpretation Code Description Data Mare rce(s) Supporting Document(s) SARS-CoV-2 (COVID 19) [facility] This lab was ordered by [facility] a nd reported by [facility]. ID Date Data Source [id number] 05/10/2020 12:00:00 AM EST [facility] Name Value Range Interpretation Code Description Data Mare rce(s) Supporting Document(s) SARS-CoV-2 (COVID-19) RNA [Presence] in Respiratory specimen by LAURA with probe detection [facility] This lab was ordered by [facility] and reported by [employer] ID Date Data Source [id number] 08/27/2019 04:20:28 PM EDT [facility] INFORMATIONPatient MRN Name Date of Age Gend*PT [id number] Oscar eVga 1960 59 years F SDCPT Location Admission Date/Time Visit ID Attending ProviderPERIOP POOL 08/13/19 0827 --- --- EPI ID CSN Admitting Provider [id number] Isabelle Martin MD([id number]) [place] [address] OPERATIVE REPORT OPNAME: OSCAR VEGA#: [id number] #: [id number] ADMISSION DATE: 08/13/2019DOB: 1960 SEX: F PT TYPE: H SURACCT #: [id number] CARE PHYSICIAN: GAVI AMADOR-[facility] DIVISIONBERERRING PHYSICIAN: ISABELLE C KORTDATE OF OPERATION: 08/13/2019ATTENDING PHYSICIAN:Isabelle Martin MD.PREOPERATIVE DIAGNOSIS:Left breast invasive ductal carcinoma.POSTOPERATIVE DIAGNOSIS:Left breast invasive ductal carcinoma.PROCEDURES PERFORMED:1. Left breast excisional needle localized lumpectomy for carcinoma.2. Left axillary sentinel node biopsy.SURGEON:Isabelle Martin MD.FARMWORKER RICE:STEPHANIE Jeronimo.ANESTHESIA:General.ESTIMATED BLOOD LOSS:Minimal.COMPLICATIONS:None.BRIEF HISTORY:This is a very [...] what her finalpathology reveals.RAMÓN SIBLEY/KEILA Job #: [id number] DOC #: [id number] Name Value Range Interpretation Code Description Data Mare rce(s) Supporting Document(s) ID Date Data Source [id number] 08/13/2019 01:33:29 PM EDT [address] [address]Vfzszke Name: OSCAR A HANNAHB: 2Sex: FOrdering Provider: ISABELLE BANGURAuthbarak Prov: ISABELLE Ricofernathan Provider: ISABELLE SANCHEZrocedure Performed: MAMMO BREAST SPECIMENExam Date: 08/13/2019 11:37MRN: [id number] Number: [id number] Class: OutpatientAccount #: [id number] for Exam: left breast cancerTechnique: Single specimen radiograph obtained.Comparison: Needle and wire localization exam earlier today.Findings: The localization wire as well as localized surgical clip are seen within the breast specimen.IMPRESSION: Successful needle wire localization procedure. Surgical clip seen within the breast specimen.Report electronically signed by: YUMI CUNNINGHAM On 08/13/2019 1:33 PMWorkstation ID: [id number] Name Value Range Interpretation Code Description Data Mare rce(s) Supporting Document(s) ID Date Data Source [id number] 08/13/2019 12:02:37 PM EDT [place], [place] [address]Patient Name: OSCAR SMALL: 1960ex: FOrdering Provider: ISABELLE Tenorio Prov: ISABELLE Garrido Provider: ISABELLE Calixto Performed: MAMMO NEEDLE LOCALIZATION LEFTExam Date: 08/13/2019 09:45MRN: [id number] Number: [id number] Class: OutpatientAccount #: [id number] for Exam: left breast cancerTechnique: CC and ML views obtainedComparison: NoneFINDINGS: Mammographic images of the left breast were obtained using the targeting grade. Appropriate coordinates were determined and the clip was targeted. One percent LIDOCAINE mixed with bicarbonate was used for superficial and deep local anesthesia.. A 3 cm Flushing needle was then advanced into position.Satisfactory placement of the needle was confirmed with additional mammographic images. Subsequently a wire was advanced through the needle and locked into position. Follow-up images demonstrate needle and wire in satisfactory position adjacent to the targeted clip.)IMPRESSION: Successful needle and wire localization of a left breast marking clip.Report electronically signed by: CHRISTY MCKEON On 08/13/2019 12:02 PMWorkstation ID: [id number] - [id number] Name Value Range Interpretation Code Description Data Mare rce(s) Supporting Document(s) ID Date Data Source [id number] 08/13/2019 12:00:51 PM EDT [place], [place] [address]Patient Name: OSCAR SMALL: 2Sex: FOrdering Provider: ISABELLE Tenorio Prov: ISABELLE Garrido Provider: ISABELLE Calixto Performed: NM SENTINEL NODE BREAST INJECTION ONLY LEFTExam Date: 08/13/2019 09:43MRN: [id number] Number: [id number] Class: OutpatientAccount #: [id number] for Exam: New left breast cancerTechnique: Left [...] sulfur colloid.The patient tolerated the procedure well.IMPRESSION: Dufur node injection procedure as above.Report electronically signed by: CHRISTY MCKEON On 08/13/2019 12:00 PMWorkstation ID: [id number] - [id number] Name Value Range Interpretation Code Description Data Mare rce(s) Supporting Document(s) ID Date Data Source [id number] 08/13/2019 11:04:27 AM EDT [facility] INFORMATIONPatient MRN Name Date of Age Gend*PT [id number] Oscar Vega 1960 59 years F SDCPT Location Admission Date/Time Visit ID Attending Provider --- --- --- --- EPI ID CSN Admitting Provider [id number] ---AirwayPatient location during procedure: ORUrgency: electiveDifficult airway: [...] rce(s) Supporting Document(s) ID Date Data Source [id number] 08/18/2019 05:44:30 PM EDT [facility] [place], [place] [address]Qfx# Surgical Pathology ReportAccession #:[id number](s) ReceivedA: Left [...] biopsyspecimen; [facility],[id number]. NON- NEOPLASTIC BREAST: Cyst formation, focal usual [...] 4 with trimming of A6 in block F1G3-V9. Entire slice 5 with tumor in A8 A10-A11. Entire slice 6 with tumor in T31W52-V75. Entire slice 7 A14. Entire slice 8 [...] are entirely submitted in onecassette. Processed at [facility], Histopathology, [address] [place] [address], [id number].jglmwg/desirae Reported: 08/18/2019Electronically Signed Out By Meño Browne MD [facility]emg This report may include immunohistochemical or in-situ hybridizationresults. Testing was developed and the performance characteristicsdetermined by [facility] [place] [facility] as required by CLIA '88. The FDAhas determined that approval for specific use is not necessary forclinical use. The quality of Hematoxylin and Eosin stains and asapplicable, for all immunohistochemical and/or special stains, includingpositive and negative controls, were reviewed and considered appropriate.ICD codes C50.912CPT codesA: 36555UK: 40865N, 87896r Name Value Range Interpretation Code Description Data Mare rce(s) Supporting Document(s) ID Date Data Source [id number] 08/08/2019 12:03:15 PM EDT [facility] NT INFORMATIONPatient MRN Name Date of Age Gend*PT [id number] Oscar Vega 1960 59 years F OPPT Location Admission Date/Time Visit ID Attending Provider --- --- --- Isabelle Martin MD([id number]) EPI ID CSN Admitting Provider [id number] ---OUTPATIENT / OBSERVATIONAL SURGICAL OR INVASIVE PROCEDUREName: [...] rce(s) Supporting Document(s) ID Date Data Source [id number] 08/05/2019 04:23:31 PM EDT [facility] NT INFORMATIONPatient MRN Name Date of Age Gend*PT [id number] Oscar Vega 1960 59 years F ---PT Location Admission Date/Time Visit ID Attending Provider --- --- --- --- EPI ID CSN Admitting Provider [id number] ---NEW CONSULTATION FOR BREAST CANCER :Attending Surgeon [...] or drink alcohol 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 The findings are as follows: [...] would be a Stage 1, T1, N0, MxShjoes a really did reading, she knows that [...] mastectomy. I explained that there is NO middle or intermediate school principal survival benefitto having a mastectomy over lumpectomy [...] oncology first and attheir recommendation place an Yydmcp-n-Aany at the time of surgery but againOscar makes it clear she may not even consider chemotherapy so I think itbest we hold offCertain parts of this note may have been carried over from prior notes tomaintain patient's pertinent medical history and continuity of care. The detailswere verified and edited as appropriate.This document or parts of this document, were dictated using [employer]. A reasonable attempt at proofreading has been made to minimizeerrors. Please call with any questions or corrections. Name Value Range Interpretation Code Description Data Mare rce(s) Supporting Document(s) ID Date Data Source 07/03/2019 12:00:00 AM EST [facility] Brina Castro MD Patient Name: OSCAR VEGA Place Date [facility] : [address] Date of Exam: 07/03/2019LAZARUS traylor [id number]#: Fax: [phone] EXAM: US EXTREMITY VEINS, BILATERAL [...] witha duration of 0.3 seconds.Accredited by the [employer] in Vascular PeripheralUltrasound.Zeus Wade, MDDJKenya/Erica you for referring OSCAR VEGA to our office. Electronically Signed - ZEUS BAUER MD 07/04/19 13:02 Name Value Range Interpretation Code Description Data Mare rce(s) Supporting Document(s) Procedure Social History Code Duration Value Status Description Data Source(s ) Smoking 06/18/2020 12:00:00 AM EST Patient has never smoked co mpleted Patient has never smoked [facility] ([facility]) Alcohol intake 08/13/2019 12:00:00 AM EDT Never completed [facility] Smoking 08/13/2019 12:00:00 AM EDT Never smoker completed Never s [facility] Smoking 08/08/2019 12:00:00 AM EDT Never smoker completed Never s [facility] Alcohol intake 08/08/2019 12:00:00 AM EDT Never completed [facility] Vital Signs ID Date Data Source UNK Name Value Range Interpretation Code Description Data Source(s) [place] body weight 115 [lb_av] 115 [lb_av] [facility] ([facility]) Oxygen saturation in Arterial blood by Pulse oximetry 91 % 91 % [facility] ([facility]) Body temperature 102.6 [degF] 102.6 [degF] [facility] ([facility]) Respiratory rate 18 /min 18 /min [facility] [facility] ( [facility]) Heart rate 108 /min 108 /min [facility] ([facility]) Body mass index (BMI) [Ratio] 19.1 kg/m2 19.1 k g/m2 [facility] ([facility]) Body weight 108.00 [lb_av] 108.00 [lb_av] [facility] T ([facility]) Body height 63.1 [in_i] 63.1 [in_i] [facility] ([facility]) 5'3.10" Diastolic blood pressure 86 mm[Hg] 86 mm[Hg] [facility] ([facility]) Systolic blood pressure 140 mm[Hg] 140 mm[Hg] M [facility] ([facility]) [place] body weight 115 [lb_av] 115 [lb_av] MEDEN T ([facility]) Oxygen saturation in Arterial blood by Pulse oximetry 94 % 94 % [facility] ([facility]) Body temperature 101.5 [degF] 101.5 [degF] MEDE NT ([facility]) Respiratory rate 20 /min 20 /min [facility] ( [facility]) Heart rate 111 /min 111 /min [facility] ([facility]) Body height 63.1 [in_i] 63.1 [in_i] [facility] ([facility]) 5'3.10" Diastolic blood pressure 82 mm[Hg] 82 mm[Hg] [facility] ([facility]) Systolic blood pressure 132 mm[Hg] 132 mm[Hg] [facility] ([facility]) [place] body weight 115 [lb_av] 115 [lb_av] MED[facility] T ([facility]) Oxygen saturation in Arterial blood by [facility]ulse oximetry 99 % 99 % [facility] Body temperature 97.0 [degF] 97.0 [degF] [facility] ([facility]) Respiratory rate 20 /min 20 /min [facility] ( [facility]) Heart rate 83 /min 83 /min [facility] ([facility]) Body mass index (BMI) [Ratio] 21.2 kg/m2 21.2 k g/m2 [facility] ([facility]) Body weight 120.00 [lb_av] 120.00 [lb_av] [facility] T ([facility]) Body height 63.1 [in_i] 63.1 [in_i] [facility] ([facility]) 5'3.10" Diastolic blood pressure 72 mm[Hg] 72 mm[Hg] [facility] ([facility]) Systolic blood pressure 126 mm[Hg] 126 mm[Hg] [facility] [place] body weight 115 [lb_av] 115 [lb_av] [facility] T ([facility]) Oxygen saturation in Arterial blood by Pulse oximetry 88 % 88 % [facility] ([facility]) Body temperature 98.5 [degF] 98.5 [degF] [facility] ([facility]) Respiratory rate 24 /min 24 /min [facility] ( [facility]) Heart rate 152 /min 152 /min [facility] ([facility]) Body mass index (BMI) [Ratio] 20.8 kg/m2 20.8 k g/m2 [facility] ([facility]) Body weight 118.00 [lb_av] 118.00 [lb_av] [facility] T ([facility]) Body height 63.1 [in_i] 63.1 [in_i] [facility] ([facility]) 5'3.10" Diastolic blood pressure 62 mm[Hg] 62 mm[Hg] [facility] ([facility]) Systolic blood pressure 106 mm[Hg] 106 mm[Hg] [facility] ([facility]) [place] body weight 115 [lb_av] 115 [lb_av] [facility] T ([facility]) Oxygen saturation in Arterial blood by Pulse oximetry 98 % 98 % [facility] ([facility]) Body temperature 101.8 [degF] 101.8 [degF] MEDE NT ([facility]) Respiratory rate 26 /min 26 /min [facility] ( [facility]) Heart rate 104 /min 104 /min [facility] ([facility]) Body mass index (BMI) [Ratio] 21.4 kg/m2 21.4 k g/m2 [facility] ([facility]) Body weight 121.00 [lb_av] 121.00 [lb_av] [facility] T ([facility]) Body height 63.1 [in_i] 63.1 [in_i] [facility] ([facility]) 5'3.10" Oxygen saturation in Arterial blood by Pulse oximetry 98 % 98 % [facility] Respiratory rate 16 /min 16 /min [facility] Heart rate 87 /min 87 /min Health system Diastolic blood pressure 63 mm[Hg] 63 mm[Hg] [facility] Systolic blood pressure 120 mm[Hg] 120 mm[Hg] [facility] Body temperature 36.44 Ama 36.44 Ama [facility] Systolic blood pressure 102 mm[Hg] 102 mm[Hg] [facility] Diastolic blood pressure 67 mm[Hg] 67 mm[Hg] [facility] Heart rate 70 /min 70 /min Health system Body height 160 cm 160 cm [facility] Body weight 54.386 kg 54.386 kg [facility] Body mass index (BMI) [Ratio] 21.24 kg/m2 21.24 kg/m2 [facility] Oxygen saturation in Arterial blood by Pulse oximetry 99 % 99 % [facility] [place] body weight 115 [lb_av] 115 [lb_av] [facility] ([facility]) Oxygen saturation in Arterial blood by Pulse oximetry 98 % 98 % [facility] ([facility]) Body temperature 98.3 [degF] 98.3 [degF] [facility] ([facility]) Respiratory rate 18 /min 18 /min [facility] ( [facility]) Heart rate 76 /min 76 /min [facility] ([facility]) Body mass index (BMI) [Ratio] 20.7 kg/m2 20.7 k g/m2 [facility] ([facility]) Body weight 117.00 [lb_av] 117.00 [lb_av] [facility] Body height 63.1 [in_i] 63.1 [in_i] [facility] 5'3.10" Diastolic blood pressure 70 mm[Hg] 70 mm[Hg] ANTONIA ([facility]) Systolic blood pressure 116 mm[Hg] 116 mm[Hg] M LIANA ([facility]) Body weight 116.50 [lb_av] 116.50 [lb_av] RAMILA Gray ([facility]) Body height 63.1 [in_i] 63.1 [in_i] [facility] ([facility]) 5'3.10" Diastolic blood pressure 86 mm[Hg] 86 mm[Hg] ANTONIA ([facility]) Systolic blood pressure 123 mm[Hg] 123 mm[Hg] M LIANA ([facility]) Oxygen saturation in Arterial blood by Pulse oximetry 99 % 99 % ANTONIA ([facility]) Body temperature 98.7 [degF] 98.7 [degF] [facility]IA ([facility]) Respiratory rate 20 /min 20 /min AN[facility] ( [facility]) Heart rate 78 /min 78 /min [facility] ([facility]) Body mass index (BMI) [Ratio] 20.6 kg/m2 20.6 k g/m2 [facility] ([facility])
[2020-06-29] MEDS: IBUPROFEN 800 MG TAB PO PRN (22:28)
[2020-06-29 22:35] VITALS: BP 124/81
[2020-06-29] MEDS: CEFEPIME HCL 1 GM in D5W MINI-BAG PLUS 50 ML IV SCH (23:35)
[2020-06-30] VITALS (15 sets, daily range): BP systolic 102–122; BP diastolic 54–82
[2020-06-30 06:36] LABS: HEMATOCRIT 32.4 % (36.0-47.0); HEMOGLOBIN 10.3 g/dl (12.0-15.5); MEAN CORPUSCULAR HEMOGLOBIN 28.9 pg (27.0-33.0); MEAN CORPUSCULAR HGB CONC 31.8 g/dl (32.0-36.5); MEAN CORPUSCULAR VOLUME 90.8 fl (80.0-96.0); PLATELET COUNT, AUTOMATED 579 10^3/uL (150-450); RED BLOOD COUNT 3.57 10^6/uL (4.00-5.40)
[2020-06-30 07:02] LABS: BLOOD UREA NITROGEN 6 MG/DL (7-18); CALCIUM LEVEL 8.1 MG/DL (8.5-10.1); CARBON DIOXIDE LEVEL 26 MEQ/L (21-32); CHLORIDE LEVEL 107 MEQ/L (98-107); CREATININE FOR GFR 0.58 MG/DL (0.55-1.30); GLOMERULAR FILTRATION RATE > 60.0 (>51); GLUCOSE, FASTING 97 MG/DL (70-100); POTASSIUM SERUM 4.5 MEQ/L (3.5-5.1); SODIUM LEVEL 141 MEQ/L (136-145)
--- NOTE | 2020-06-30 07:40 | ECGEPIP ---
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
[2020-06-30] MEDS: IBUPROFEN 800 MG TAB PO PRN (07:45)
[2020-06-30] MEDS: ENOXAPARIN 40MG/0.4ML SYRINGE (J1650 PER 10MG) SC SCH (07:46)
[2020-06-30] MEDS: VANCOMYCIN HCL 1,000 MG, VIAL MATE ADAPTER 1 EACH in D5W 250 ML IV SCH ×2 (07:46→20:12)
[2020-06-30] MEDS: DOXYCYCLINE HYCLATE 100 MG in D5W MINI-BAG PLUS 100 ML IV SCH ×2 (10:00→20:37)
[2020-06-30] MEDS ORDERED: flumazeniL 0.5 MG/5 ML VIAL As Ordered ONE (10:48)
[2020-06-30] MEDS ORDERED: MIDAZOLAM INJ 2MG/2ML VIAL (J2250 PER 1MG) As Ordered ONE ×2 (10:48→10:49)
[2020-06-30] MEDS ORDERED: LIDOCAINE 1% MDV 20ML VIAL As Ordered ONE ×2 (10:49→15:14)
--- NOTE | 2020-06-30 11:28 | CR ---
CONSULTATION DATE: 06/30/2020 REASON FOR CONSULTATION: "Recurrent pneumonia." HISTORY OF PRESENT ILLNESS: Lori is a very pleasant 60-year-old nonsmoker who presented to the hospital with recurrent fever, tachycardia, and shortness of breath. On arrival, she was started on antibiotics and had some improvement of her symptoms, but remains dyspneic with speech. She also noticed some right jaw tenderness and felt some lymph node tenderness. Her story starts back in April, when she started to have a cough, fever, and myalgias. She thought it may have been COVID and was tested a number of times, which were negative and eventually had symptoms progress over time. When she was finally admitted to the hospital and diagnosed with pneumonia, she had a very dense left upper lobe consolidation consistent with a bacterial pneumonia that was treated with antibiotics and had some improvement, but never completely felt better. On the chest CT from her hospitalization in May, there was a small pleural effusion. The patient went home and was having pleuritic chest discomfort, returned to the emergency room, and was given oral antibiotics and sent home; and continued to have discomfort. She states there were times where she felt a little better, but when off antibiotics started to feel worse. Eventually, she saw her primary care physician who gave her IM antibiotics in the form of cephalosporin, started her on cephalosporin, and referred her to pulmonary. When she presented to the pulmonary clinic yesterday, she was tachycardic, felt that she was appearing as if she had sepsis, and was sent to the emergency room. I was called by the emergency room physician that there were infiltrates and that antibiotics were started late last evening and therefore, I was consulted today. I was not told that there was any pleural effusion on the imaging. The patient herself has been having night sweats, no shaking chills, and intermittent fevers. She describes having multiple pairs of pajamas because her night sweats were so significant. She denies any weight loss, but has had a change in appetite. Has had decreased appetite with a little bit of nausea. Her cough is mostly nonproductive. She describes it as being looser. No hemoptysis, but definitely has pleuritic chest discomfort and feels it on both sides; but more predominantly on the left. Before April, the patient denies any recurrent respiratory illnesses and no history of lung disease. PAST MEDICAL HISTORY: Breast cancer low-grade on the left breast status post lumpectomy, lymph node dissection, and radiation. SOCIAL HISTORY: The patient is a lifetime nonsmoker. No illicit drug use. No vaping. No exposures. She has traveled to [place] approximately a year ago. She has no tuberculosis or tuberculosis contacts. 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 She denies any occupational exposures. FAMILY HISTORY: Mother from pancreatic cancer. Father from prostate cancer, was a smoker, and had coronary artery disease. REVIEW OF SYSTEMS: General: Positive for night sweats, fatigue, and decreased appetite without change in weight. No shaking chills. HEENT: No change in vision. No epistaxis or sinusitis. No difficulty swallowing. No tooth abscess. No neck discomfort currently. Denied any form of dysphagia or odynophagia during the entire course of this presentation. Cardiac: No anginal symptoms. No PND, orthopnea, or symptoms of claudication. Pulmonary: As per HPI. GI: Slight nausea that is off and on without vomiting. No diarrhea. No blood in stool. No change in bowel habits. : No burning or pain with urination. No history of nephrolithiasis. Neuro: No history of stroke or seizure. No significant tremor. Psych: Occasional situational depression due to recent loss of family members, but no major depressive disorder. No symptoms of anxiety and no suicidal ideation or homicidal ideation. Skin: No rash, jaundice, or bruising. Sleep: No history of obstructive sleep apnea. No excessive daytime somnolence. No known snoring. PHYSICAL EXAMINATION: VITAL SIGNS: Temperature 102.2, pulse of 76, respiratory rate of 20, blood pressure 117/58 with a MAP of 77, oxygen saturation 94% on room air. GENERAL: Awake, alert, and oriented. Affect and mood are appropriate. Speech is clear and nontangential, but clearly dyspneic with minimal speech. HEENT: Sclerae clear and anicteric. Pupils equal, round, and reactive to light. Mucous membranes are moist without lesions. Tongue is midline. NECK: Supple. No tracheal deviation or mass. No evidence of bruit. LYMPH: No cervical, supraclavicular, or axillary adenopathy. CARDIAC: Tachycardic, S1, S2 without audible murmur, rub, or gallop. No elevated JVP. No peripheral edema. PULMONARY: Decreased breath sounds at the left base. One-third of the left base is dull to percussion. There is decreased tactile fremitus on the left along with E:A changes on the left base. Otherwise, the remainder of the lung vidales remain clear. ABDOMEN: Soft, nontender, and nondistended with no hepatosplenomegaly or masses. EXTREMITIES: No cyanosis, clubbing, or bruising. Negative Duong's sign. No calf tenderness. LABORATORY DATA: Evaluation shows an elevated white count of 16, hemoglobin 10.3. Sodium 141, potassium 4.5, chloride 107, bicarb of 26, BUN 6, creatinine 0.58 with a calcium of 8.1. Alkaline phosphatase is elevated at 263. Albumin is 2.5. BNP is slightly elevated. Viral culture is unremarkable. IMAGING DATA: Chest CT from 06/29/2020, shows some improvement of the left upper lobe infiltrate, but is now more a multifocal pneumonia with a larger left pleural effusion. Chest CT from 05/28, there is a more consolidated left upper lobe pneumonia, but a smaller left pleural effusion. There is some destructive lung changes, but no diffuse in nature and no evidence of interstitial lung disease. IMPRESSION/PLAN: A 60-year-old nonsmoker with left pleural effusion in the face of recent infection likely empyema versus parapneumonic effusion; likely the source of her ongoing fever and night sweats. This should be drained today. I have contacted thoracic surgery as Dr. Lam was not available. Dr. Sosa has agreed to see the case to consider placing a chest tube. I have advised the patient this may take some time to drain and some time to treat. There may be loculations although under my bedside ultrasound, there were no loculations that I saw. There was a fairly large fluid collection. Will discuss with Dr. Sosa after he sees the patient whether the patient is better for bedside chest tube or a pigtail with radiology. The patient may require thrombolysis through the catheter as this has been a intermediate process, which may have loculations that are not seen on ultrasound. I would continue to use broad-spectrum antibiotics. Thank you for this consultation. We will continue to follow. I have transferred her to the progressive care unit (PCU) to facilitate placement of chest tube. SONY
[2020-06-30] MEDS: CEFEPIME HCL 1 GM in D5W MINI-BAG PLUS 50 ML IV SCH ×2 (12:55→21:30)
--- NOTE | 2020-06-30 13:55 | IPNPDOC ---
Text Note Date of Service The patient was seen on 06/30/20. NOTE Subjective: Patient continues to have increased shortness of breath when I saw her in the morning. Later today patient was brought OR congestive was placed Objective: GENERAL APPEARANCE: NAD HEENT: no scleral icterus, no JVD, EOMI CARDIOVASCULAR: Tachycardic at rate 105 LUNGS: Diminished lung sounds bilaterally ABDOMEN: soft & not tender w palpitation MUSCULOSKELETAL: no cyanosis, no swelling INTEGUMENT: no generalized pallor NEUROLOGICAL: cranial nerve function from 2-12 intact intact, follows commands, speech not dysarthric Assessment and plan Patient is a 60 year old female history of breath cancer who is here for dyspnea and tachycardia. CTA was negative for PE, but demonstrates worsening multifocal pneumonia. Patient was found to have left pulmonary effusion suspicious for empyema Sepsis Secondary to Recurrent HCAP Chest tube was placed Continue broad-spectrum antibiotics Await blood culture, sputum culture Appreciate/agree with cleaning associate consult Incentive spirometry Recurrent HCAP Chest tube was placed today see above VS,Melonie, I+O VS, Josebone, I+O Laboratory Tests 06/29/20 15:50 06/30/20 06:05 Vital Signs Date Time Temp Pulse Resp B/P (MAP) Pulse Ox O2 Delivery O2 Flow Rate FiO2 06/30/20 07:26 102.2 06/30/20 06:00 76 20 117/58 (77) 94 06/29/20 22:35 Room Air I&O- Last 24 Hours up to 6 AM 06/30/20 06:00 Intake Total 975 ml Output Total 850 ml Balance 125 ml SINTIA MIDDLETON DO Jun 30, 2020 13:55
[2020-06-30] MEDS ORDERED: SODIUM BICARBONATE 8.4% INJ 50MEQ 50 ML VIAL As Ordered ONE (15:14)
[2020-06-30] MEDS ORDERED: NORCO, ANEXSIA 5/325MG TABLET (HYDROcodone/ACETAMINOPHEN) PO PRN (15:45)
[2020-06-30] MEDS ORDERED: PERCOCET 5MG/325MG TAB PO PRN ×2 (15:45)
[2020-06-30] MEDS ORDERED: BISACODYL 10 MG SUPP PR PRN (15:45)
[2020-06-30] MEDS ORDERED: ONDANSETRON 4MG/2ML VIAL IV PRN (15:45)
[2020-06-30 15:54] LABS: LDH LACTATE DEHYDROGENASE 151 U/L (84-246)
[2020-06-30 16:25] LABS: APPEARANCE, BODY FLUID HAZY (CLEAR); PLEURAL FL COLOR YELLOW (COLORLESS); SOURCE, BODY FLUID PLEURAL
--- NOTE | 2020-06-30 16:41 | REP ---
INDICATION: s/p pigtail catheter insertion. COMPARISON: Comparison radiograph June 18, 2020. TECHNIQUE: Two views.. FINDINGS: There are bilateral upper lobe infiltrates. Consolidation is seen in the left lower lobe. A left pleural drainage catheter is been inserted posteriorly in the left sub pulmonic position. There is some air adjacent to the drainage catheter. There is no evidence of pneumothorax at the apex. IMPRESSION: Drainage catheter in good position at the left base. Bilateral extensive pneumonia.. <Electronically signed by Lowell Nevarez > 06/30/20 [id number]
[2020-06-30 16:45] LABS: AMYLASE, BODY FLUID 18 U/L (NOT ESTABLISHED); CHOLESTEROL, BODY FLUID < 50 MG/DL (NOT ESTABLISHED); LDH, BODY FLUID 84 U/L (NOT ESTABLISHED); SOURCE, BODY FLUID AMYLASE PLEURAL; SOURCE, BODY FLUID CHOL PLEURAL; SOURCE, BODY FLUID GLUCOSE PLEURAL; SOURCE, BODY FLUID LDH PLEURAL; SOURCE, BODY FLUID TRIG PLEURAL; TRIGLYCERIDE, BODY FLUID 10 MG/DL (NOT ESTABLISHED)
[2020-06-30] MEDS: NS 1,000 ML IV SCH (16:46)
[2020-06-30] MEDS: KETOROLAC 30 MG/ML 1ML VIAL IV SCH ×2 (16:46→22:00)
[2020-06-30 16:54] LABS: PH BODY FLUID 7.691 UNITS (NOT ESTABLISHED); SOURCE, BODY FLUID pH PLEURAL
--- NOTE | 2020-06-30 16:58 | REP ---
INDICATION: chest tube placement The patient has a history of pneumonia, and left pleural effusion. COMPARISON: None. TECHNIQUE: The procedure was performed by BRENDA Lowry, under the direct supervision of Dr. Nevarez The risks and benefits of the procedure were explained to the patient and an informed consent was obtained both verbally and written. Directly prior to the start of the procedure a formal time-out was completed in the procedure room. Pleural fluid in left lung zone was localized using ultrasound guidance. The skin was prepped and draped in a sterile fashion. Six ML of buffered lidocaine was used as a local anesthetic. Using ultrasound guidance a 10 [place] multi side-hole catheter was inserted using trocar technique. This pigtail catheter was sutured into place, a sterile dressing was applied, and was hooked up to a pleura vac system. FINDINGS: Sixty mL of yellow colored fluid was withdrawn and sent to the laboratory for further analysis. The patient tolerated the procedure well and there were no immediate complications. After the appropriate amount of monitored convalescence, the patient was discharged from the department. IMPRESSION: Ten Tajik pigtail catheter placement into the left lung zone. <Electronically signed by Linda Bonilla > 06/30/20 1613 <Electronically signed by Lowell Nevarez > 06/30/20 [id number]
[2020-06-30 17:11] LABS: SOURCE, BODY FLUID ALBUMIN PLEURAL; SOURCE, BODY FLUID TOT PROTEIN PLEURAL; TOTAL PROTEIN, BODY FLUID 3.2 G/DL (NOT ESTABLISHED)
[2020-06-30] MEDS ORDERED: IBUPROFEN 400MG TAB PO PRN (18:30)
[2020-06-30] MEDS: ACETAMINOPHEN TAB 650MG DOSE (2X325MG) PO PRN (20:37)
[2020-06-30] MEDS: DOCUSATE SODIUM 100MG CAPSULE PO SCH (20:46)
[2020-07-01] VITALS (13 sets, daily range): BP systolic 101–133; BP diastolic 55–75
[2020-07-01] MEDS: NS 1,000 ML IV SCH (01:33)
[2020-07-01] MEDS: VANCOMYCIN HCL 750 MG, VIAL MATE ADAPTER 1 EACH in D5W 250 ML IV SCH ×3 (04:30→20:09)
[2020-07-01 04:45] LABS: HEMOGLOBIN 10.4 g/dl (12.0-15.5); MEAN CORPUSCULAR HEMOGLOBIN 28.8 pg (27.0-33.0); MEAN CORPUSCULAR HGB CONC 31.5 g/dl (32.0-36.5); MEAN CORPUSCULAR VOLUME 91.4 fl (80.0-96.0); PLATELET COUNT, AUTOMATED 525 10^3/uL (150-450); RED BLOOD COUNT 3.61 10^6/uL (4.00-5.40); WHITE BLOOD COUNT 12.6 10^3/uL (4.0-10.0)
[2020-07-01] MEDS: KETOROLAC 30 MG/ML 1ML VIAL IV SCH ×4 (05:06→23:00)
[2020-07-01] MEDS: ACETAMINOPHEN TAB 650MG DOSE (2X325MG) PO PRN (05:07)
[2020-07-01 05:11] LABS: BLOOD UREA NITROGEN 8 MG/DL (7-18); CALCIUM LEVEL 8.2 MG/DL (8.5-10.1); CARBON DIOXIDE LEVEL 24 MEQ/L (21-32); CHLORIDE LEVEL 111 MEQ/L (98-107); CREATININE FOR GFR 0.62 MG/DL (0.55-1.30); GLOMERULAR FILTRATION RATE > 60.0 (>51); GLUCOSE, FASTING 93 MG/DL (70-100); POTASSIUM SERUM 3.8 MEQ/L (3.5-5.1); SODIUM LEVEL 142 MEQ/L (136-145)
--- NOTE | 2020-07-01 08:04 | REP ---
INDICATION: pleural effusion COMPARISON: 06/30/2020 TECHNIQUE: PA and lateral. FINDINGS: Chest tube at the left base and suspected small left effusion are again suggested. Diffuse hazy opacities primarily involving the entire left hemithorax and right upper lobe are again noted which may be slightly more pronounced than prior examination. Small right basilar effusion is also suggested. No obvious pneumothorax. IMPRESSION: Pleuroparenchymal changes as described above may be slightly progressive as compared to prior examination. <Electronically signed by Francisco Mendieta > 07/01/20 0801
[2020-07-01] MEDS ORDERED: MIDAZOLAM INJ 2MG/2ML VIAL (J2250 PER 1MG) IV STA (08:44)
[2020-07-01] MEDS ORDERED: flumazeniL 0.5 MG/5 ML VIAL IV STA (08:44)
[2020-07-01] MEDS ORDERED: LIDOCAINE 1% MDV 20ML VIAL SC ONE (08:45)
[2020-07-01] MEDS: MOM 30ML SUSPENSION UDC PO SCH (09:00)
[2020-07-01] MEDS: DOCUSATE SODIUM 100MG CAPSULE PO SCH ×2 (09:00→20:10)
[2020-07-01] MEDS: PANTOPRAZOLE 40MG TAB (PROTONIX) PO SCH (09:35)
[2020-07-01] MEDS: ENOXAPARIN 40MG/0.4ML SYRINGE (J1650 PER 10MG) SC SCH (09:36)
[2020-07-01] MEDS: DOXYCYCLINE HYCLATE 100 MG in D5W MINI-BAG PLUS 100 ML IV SCH (09:37)
[2020-07-01] MEDS: CEFEPIME HCL 1 GM in D5W MINI-BAG PLUS 50 ML IV SCH ×2 (10:48→22:06)
[2020-07-01] MEDS ORDERED: LevoFLOXacin 750 MG TABLET PO ONE (11:00)
--- NOTE | 2020-07-01 11:02 | IPNPDOC ---
Text Note Date of Service The patient was seen on 07/01/20. NOTE Subjective: Patient stated that her breathing improved today, however she has some chest pain around the chest tube when she moves Objective: GENERAL APPEARANCE: NAD HEENT: no scleral icterus, no JVD, EOMI CARDIOVASCULAR: S1-S2 LUNGS: Diminished lung sounds bilaterally, left Pleurx catheter in place ABDOMEN: soft & not tender w palpitation MUSCULOSKELETAL: no cyanosis, no swelling INTEGUMENT: no generalized pallor NEUROLOGICAL: cranial nerve function from 2-12 intact intact, follows commands, speech not dysarthric Assessment and plan Patient is a 60 year old female history of breath cancer who is here for dyspnea and tachycardia. CTA was negative for PE, but demonstrates worsening multifocal pneumonia. Patient was found to have left pulmonary effusion suspicious for empyema Sepsis Secondary to Recurrent HCAP Leukocytosis improved Chest tube was placed, patient has Pleurx catheter with minimal serosanguineous discharge Continue broad-spectrum antibiotics Await sputum culture, blood culture 24 hours negative Incentive spirometry Recurrent HCAP Pleurx catheter placed yesterday Chest x-ray on 07/01/20 showed Chest tube at the left base and suspected small l eft effusion are again suggested. Diffuse hazy opacities primarily involving the entire left hemithorax and right upper lobe are again noted which may be slightly more pronounced than prior examinatio n VS,Melonie, I+O VS, Melonie, I+O Laboratory Tests 07/01/20 04:34 Vital Signs Date Time Temp Pulse Resp B/P (MAP) Pulse Ox O2 Delivery O2 Flow Rate FiO2 07/01/20 08:22 98.7 92 20 105/62 (76) 94 Room Air 07/01/20 06:00 2.0 I&O- Last 24 Hours up to 6 AM 07/01/20 06:00 Intake Total 2340 ml Output Total 1340 ml Balance 1000 ml SINTIA MIDDLETON DO Jul 01, 2020 11:02
--- NOTE | 2020-07-01 12:10 | CCN ---
Pulmonary Consult NOTE DATE: 07/01/2020 SUBJECTIVE: Continued fevers and night sweats overnight. Vancomycin was added to her regimen by the hospitalist service. I am not sure doxycycline is adding anything to her antibiotic regimen at this point in time. I do not believe this is an atypical infection. There is a possibility this is pseudomonas, although I suspect it is more likely streptococcus or staphylococcus. Because she has had difficulty resolving pneumonia despite multiple courses of antibiotics, I think it is reasonable to have dual pseudomonal coverage until the culture has returned. She continues to have chest pain, which is pleuritic in nature. Describes it at the top of the left clavicle at times. She states it is more tolerable than it was yesterday. Chest tube continues to drain fluid, has had more than 100 ml of opaque yellow fluid out in the past few hours. Will continue to monitor drainage. She is eating. She plans on ambulating today. I have encouraged her to do so. PHYSICAL EXAMINATION: Temperature is 98.7, pulse is 92, respiratory rate is 20, blood pressure is 105/62, mean arterial pressure 76, 96% on room air. General: Awake, alert and oriented. Affect and mood are appropriate. Dentition and hygiene are good. [place] mucosa pink and moist without lesions. Oropharynx without erythema or exudate. Neck: Supple. No tracheal deviation or mass. Lymph without cervical, supraclavicular or axillary adenopathy. Cardiac: Tachycardiac, S1, S2 without audible murmur, rub or gallop. No elevated jugular venous pressure (JVP). No peripheral edema. Pulmonary: More inspiratory air in the left base. With that, there are more rales. There is decreased tactile fremitus over the left lower lobe. No E to A changes today. Abdomen: Soft, nontender, non-distended. No hepatosplenomegaly. No hernia. Extremities: No cyanosis, clubbing or edema. LABORATORY EVALUATION: Shows white count is now down to 12.6, hemoglobin is 10.4, hematocrit of 33.0, platelet count is down to 525. Chemistry shows sodium 142, potassium 3.8, chloride 111, bicarbonate of 24, BUN is 8, creatinine of 0.62 with a calcium of 8.2. Gram stain showed no organisms or cells. Fluid cultures pending. Mycobacterium and fungal cultures still pending. Cytology of pleural fluid is also pending. Pleural fluid appears to be exudative in nature with elevated white blood cell count of 2,489, predominantly mononuclear pH of fluid was 7.69 was an exudative effusion with low level cholesterol, low level amylase and low level triglycerides. Total protein of fluid was 3.2 with LDH of 84. IMPRESSION: 1. Recurrent pneumonia with at least parapneumonic effusion and if not empyema, awaiting culture results. I have adjusted her antibiotic regimen and discontinued doxycycline and added levofloxacin for dual pseudomonal coverage. Remains on vancomycin, as she has been hospitalized with pneumonia. I will await culture data; unfortunately, the patient is unable to produce any sputum to obtain culture. Will obtain chest CT to ensure improvement with infection. Although alternative diagnoses remain in the differential, the most likely cause is infectious rather than inflammatory. Will continue to monitor for need for further testing. Thank you for this consultation, will continue to follow. SONY
[2020-07-01] MEDS: LACTOBACILLUS ACIDOPHILUS CAP (BACID) PO SCH ×2 (12:54→17:09)
[2020-07-02] VITALS: BP 131/62
[2020-07-02 04:00] VITALS: BP 123/71
[2020-07-02] MEDS: ACETAMINOPHEN TAB 650MG DOSE (2X325MG) PO PRN (04:21)
[2020-07-02] MEDS: VANCOMYCIN HCL 750 MG, VIAL MATE ADAPTER 1 EACH in D5W 250 ML IV SCH ×3 (04:21→20:55)
[2020-07-02] MEDS: KETOROLAC 30 MG/ML 1ML VIAL IV SCH ×4 (04:22→22:51)
[2020-07-02 06:17] LABS: BASO % 0.2 % (0.0-1.0); EOS # 0.5 10^3/uL (0.0-0.5); EOS % 4.3 % (0.0-3.0); HEMATOCRIT 27.8 % (36.0-47.0); HEMOGLOBIN 8.6 g/dl (12.0-15.5); LYMPH # 0.7 10^3/uL (1.5-5.0); LYMPH % 5.9 % (24.0-44.0); MEAN CORPUSCULAR HEMOGLOBIN 27.6 pg (27.0-33.0); MEAN CORPUSCULAR HGB CONC 30.9 g/dl (32.0-36.5); MEAN CORPUSCULAR VOLUME 89.1 fl (80.0-96.0); MONO # 1.1 10^3/uL (0.0-0.8); MONO % 9.2 % (2.0-8.0); NEUTROPHILS # 9.7 10^3/uL (1.5-8.5); NEUTROPHILS % 79.5 % (36.0-66.0); PLATELET COUNT, AUTOMATED 497 10^3/uL (150-450); RED BLOOD COUNT 3.12 10^6/uL (4.00-5.40); WHITE BLOOD COUNT 12.3 10^3/uL (4.0-10.0)
[2020-07-02] MEDS: LevoFLOXacin 750 MG TABLET PO SCH (06:25)
[2020-07-02 06:37] LABS: ALBUMIN 1.7 GM/DL (3.2-5.2); ALT/SGPT 37 U/L (12-78); BILIRUBIN,TOTAL 0.1 MG/DL (0.2-1.0); BLOOD UREA NITROGEN 7 MG/DL (7-18); CARBON DIOXIDE LEVEL 24 MEQ/L (21-32); CHLORIDE LEVEL 108 MEQ/L (98-107); CREATININE FOR GFR 0.58 MG/DL (0.55-1.30); GLOMERULAR FILTRATION RATE > 60.0 (>51); GLUCOSE, FASTING 145 MG/DL (70-100); MAGNESIUM LEVEL 1.7 MG/DL (1.8-2.4); POTASSIUM SERUM 3.3 MEQ/L (3.5-5.1); SODIUM LEVEL 139 MEQ/L (136-145); TOTAL PROTEIN 5.4 GM/DL (6.4-8.2)
[2020-07-02] MEDS ORDERED: POTASSIUM CHLORIDE 10 MEQ SR TABLET PO ONE (08:00)
--- NOTE | 2020-07-02 08:06 | REPVR ---
PROCEDURE INFORMATION: Exam: CT Chest Without Contrast; Diagnostic Exam date and time: 07/02/2020 5:00 AM Age: 60 years old Clinical indication: Other: View of parapneumonic effusion; Prior surgery; Surgery date: 3-7 days post-operative; Surgery type: Chest tube TECHNIQUE: Imaging protocol: Diagnostic computed tomography of the chest without contrast. 3D rendering (Not supervised by radiologist): MIP and/or 3D reconstructed images were created by the technologist. Radiation optimization: All CT scans at this facility use at least one of these dose optimization techniques: automated exposure control; mA and/or kV adjustment per patient size (includes targeted exams where dose is matched to clinical indication); or iterative reconstruction. COMPARISON: CT Chest without contrast 05/28/2020 2:19 PM FINDINGS: Tubes, catheters and devices: Percutaneous pigtail chest tube at the left base. Lungs: Patchy bilateral airspace and ground-glass opacities. Paraseptal emphysema. Pleural spaces: Trace bilateral pleural effusions. Small residual left pneumothorax. Heart: Trace pericardial effusion. Mediastinal space: Small hiatal hernia. Aorta: Mild atherosclerotic disease of the thoracic aorta. Lymph nodes: Unremarkable. No enlarged lymph nodes. Kidneys and ureters: Fullness of the left renal collecting system. Stranding of the perinephric fat along the anterior mid pole of the left kidney. Bones/joints: Multilevel degenerative disease of the thoracic spine. Soft tissues: Unremarkable. IMPRESSION: Small residual left pneumothorax with chest tube place. Trace bilateral pleural effusions. Patchy bilateral airspace and ground-glass opacities. Electronically signed by: Gordon Mcmahan On 07/02/2020 08:06:20 AM
--- NOTE | 2020-07-02 08:18 | REP ---
INDICATION: pleural effusion COMPARISON: 07/01/2020 TECHNIQUE: PA and lateral. FINDINGS: Areas of opacification primarily involving the right upper lobe and left hemithorax as well as right basilar atelectasis and small right pleural effusion again noted and minimally improved. Pigtail catheter at the left lung base unchanged in position with small residual hydropneumothorax. IMPRESSION: Bilateral airspace disease, small right pleural effusion and left hydropneumothorax again noted with very minimally improved aeration suggested. <Electronically signed by Francisco Mendieta > 07/02/20 0843
[2020-07-02 08:35] VITALS: BP 126/71
[2020-07-02] MEDS: MOM 30ML SUSPENSION UDC PO SCH (09:00)
[2020-07-02] MEDS: DOCUSATE SODIUM 100MG CAPSULE PO SCH ×2 (09:00→20:55)
[2020-07-02] MEDS: PANTOPRAZOLE 40MG TAB (PROTONIX) PO SCH (09:03)
[2020-07-02] MEDS: CEFEPIME HCL 1 GM in D5W MINI-BAG PLUS 50 ML IV SCH ×2 (09:04→22:50)
[2020-07-02] MEDS: ENOXAPARIN 40MG/0.4ML SYRINGE (J1650 PER 10MG) SC SCH (09:04)
[2020-07-02] MEDS: LACTOBACILLUS ACIDOPHILUS CAP (BACID) PO SCH ×3 (09:04→17:58)
--- NOTE | 2020-07-02 11:15 | IPNPDOC ---
Text Note Date of Service The patient was seen on 07/02/20. NOTE Subjective: No any acute events overnight. Patient had low grade fever in the morning Objective: GENERAL APPEARANCE: NAD HEENT: no scleral icterus, no JVD, EOMI CARDIOVASCULAR: S1-S2 LUNGS: Diminished lung sounds bilaterally, left Pleurx catheter in place ABDOMEN: soft & not tender w palpitation MUSCULOSKELETAL: no cyanosis, no swelling INTEGUMENT: no generalized pallor NEUROLOGICAL: cranial nerve function from 2-12 intact intact, follows commands, speech not dysarthric Assessment and plan Patient is a 60 year old female history of breath cancer who is here for dyspnea and tachycardia. CTA was negative for PE, but demonstrates worsening multifocal pneumonia. Patient was found to have left pulmonary effusion suspicious for empyema Sepsis Secondary to Recurrent HCAP Leukocytosis improved Chest tube was placed, patient has Pleurx catheter with minimal serosanguineous discharge Continue broad-spectrum antibiotics, added Levaquin for double Pseudomonas infection coverage blood culture negative Incentive spirometry Recurrent HCAP Pleurx catheter placed on 06/30/20 Chest x-ray on 07/02/20 showed Bilateral airspace disease, small right pleural effusion and left hydropneumothorax again noted with very minimally improved aeration suggested. Continue monitor x-ray Hypokalemia Replaced Anemia Secondary to blood loss after chest tube placement superimposed with anemia of chronic diseases Will transfuse if hemoglobin less than 7 VS,Josebone, I+O VS, Fishbone, I+O Laboratory Tests 07/02/20 06:02 Vital Signs Date Time Temp Pulse Resp B/P (MAP) Pulse Ox O2 Delivery O2 Flow Rate FiO2 07/02/20 08:35 98.5 88 20 126/71 (89) 97 Room Air 07/01/20 06:00 2.0 I&O- Last 24 Hours up to 6 AM 07/02/20 05:59 Intake Total 2465 ml Output Total 1250 ml Balance 1215 ml SINTIA MIDDLETON DO Jul 02, 2020 11:15
[2020-07-02 12:16] VITALS: BP 108/59
--- NOTE | 2020-07-02 13:18 | IPN ---
PROGRESS NOTE DATE: 07/02/2020 SUBJECTIVE: At bedside, the patient states she feels better today. She is less short of breath. Her pleuritis has significantly improved. She states she has zero pain at the time I am speaking with her. She actually refused pain medication when the nurse came in to offer it to her. She has been coughing but it is nonproductive. She states last night was the first night without night sweats. No new respiratory symptoms. PHYSICAL EXAMINATION: VITAL SIGNS: Temperature is 98.4, T-max was 100.7, fever curve is trending down, pulse is 88, respiratory rate of 20, blood pressure is 108/59 with a MAP of 75, oxygen saturation is 98% on room air. GENERAL: Awake, alert and oriented. Affect and mood are appropriate. Nutrition and hygiene are good. HEENT: Oral and nasal mucosa pink and moist without lesions. Oropharynx without erythema or exudates. NECK: Supple. No tracheal deviation, mass, lymph node, cervical, supraclavicular or axillary adenopathy. CARDIAC: Regular S1 and S2 without audible murmur, rub or gallop. No elevated JVP. No peripheral edema. PULMONARY: Decreased breath sounds on the left base. The previously auscultated rales have decreased. Difficult to assess percussion due to bandaging from chest tube site. Right lung is clear to auscultation. Chest tube is drained approximately 100 ml of yellow fluid. ABDOMEN: Soft, nontender and nondistended. No hepatosplenomegaly, no masses or hernia. EXTREMITIES: No cyanosis, clubbing or edema. SKIN: No rash, jaundice or bruising. LABORATORY EVALUATION: White blood cell count 12.3, hemoglobin 8.6, hematocrit 27.8, platelet count 497,000, neutrophils 79. Chemistries shows a sodium of 139, potassium 3.3, chloride 108, bicarbonate 24, BUN 7, creatinine 0.58. Glucose is 145. Magnesium is 1.7. Albumin is 1.7. Chest CT from this morning: There is a small hydropneumothorax. There has been significant improvement in the effusion. There is significant infiltrate in the right upper lobe with some fibrotic changes. There is also findings of fullness of the left renal system with perinephric stranding. IMPRESSION: 1. Pneumonia, recurrent, on broad-spectrum antibiotics. Patient currently is on levofloxacin, Vancomycin and Cefepime dual pseudomonal coverage. At this point in time, microbiologic investigation has been unremarkable. 2. Abnormal renal perinephric stranding on CT of the abdomen on the left. Will discuss with primary team as this may need further workup to insure that the patient does not have any evidence of obstructing uropathy. Patient does have a history of nephrolithiasis. 3. Hypokalemia replaced by primary team. Patient does not have a prior history of recurrent pneumonia. If she continues to have recurrent infectious pneumonia would consider screening for immunoglobulin deficiency when less ill.
[2020-07-02 16:03] VITALS: BP 119/61
[2020-07-02 20:00] VITALS: BP 110/68
--- NOTE | 2020-07-02 21:08 | REPVR ---
PROCEDURE INFORMATION: Exam: US Retroperitoneal Limited, Kidneys Exam date and time: 07/02/2020 8:46 PM Age: 60 years old Clinical indication: Other: Kidney abscess TECHNIQUE: Imaging protocol: Real-time ultrasound of the retroperitoneum with image documentation. Examination was focused on the kidneys. COMPARISON: No relevant prior studies available. FINDINGS: Right kidney: The right kidney measures 10.0 cm in its cephalocaudad dimension and 3.8 x 4.5 cm in diameter. No mass, cyst or hydronephrosis. Left kidney: The left kidney measures 10.0 cm in its cephalocaudad dimension and 5.7 x 4.1 cm in diameter. No mass, cyst or hydronephrosis. Bladder: The urinary bladder appears normal with bilateral ureteral jets. IMPRESSION: Negative renal sonogram. No abscess is seen. Electronically signed by: Gianni Mendes On 07/02/2020 21:08:32 PM
[2020-07-03] VITALS: BP 118/71
[2020-07-03 04:00] VITALS: BP 127/68
[2020-07-03] MEDS: KETOROLAC 30 MG/ML 1ML VIAL IV SCH ×4 (05:00→23:00)
[2020-07-03] MEDS: VANCOMYCIN HCL 750 MG, VIAL MATE ADAPTER 1 EACH in D5W 250 ML IV SCH ×2 (05:08→12:37)
[2020-07-03] MEDS: LevoFLOXacin 750 MG TABLET PO SCH (05:08)
[2020-07-03 05:44] LABS: BASO % 0.3 % (0.0-1.0); EOS # 0.5 10^3/uL (0.0-0.5); EOS % 3.6 % (0.0-3.0); HEMATOCRIT 29.3 % (36.0-47.0); HEMOGLOBIN 9.3 g/dl (12.0-15.5); LYMPH # 0.9 10^3/uL (1.5-5.0); LYMPH % 6.4 % (24.0-44.0); MEAN CORPUSCULAR HEMOGLOBIN 28.3 pg (27.0-33.0); MEAN CORPUSCULAR HGB CONC 31.7 g/dl (32.0-36.5); MEAN CORPUSCULAR VOLUME 89.1 fl (80.0-96.0); MONO % 7.4 % (2.0-8.0); NEUTROPHILS # 11.4 10^3/uL (1.5-8.5); NEUTROPHILS % 81.3 % (36.0-66.0); PLATELET COUNT, AUTOMATED 520 10^3/uL (150-450); RED BLOOD COUNT 3.29 10^6/uL (4.00-5.40); WHITE BLOOD COUNT 14.1 10^3/uL (4.0-10.0)
[2020-07-03 05:55] LABS: ALT/SGPT 34 U/L (12-78); BILIRUBIN,TOTAL 0.1 MG/DL (0.2-1.0); BLOOD UREA NITROGEN 7 MG/DL (7-18); CARBON DIOXIDE LEVEL 22 MEQ/L (21-32); CHLORIDE LEVEL 107 MEQ/L (98-107); CREATININE FOR GFR 0.75 MG/DL (0.55-1.30); GLOMERULAR FILTRATION RATE > 60.0 (>51); GLUCOSE, FASTING 152 MG/DL (70-100); MAGNESIUM LEVEL 1.8 MG/DL (1.8-2.4); POTASSIUM SERUM 4.2 MEQ/L (3.5-5.1); SODIUM LEVEL 139 MEQ/L (136-145); TOTAL PROTEIN 5.1 GM/DL (6.4-8.2)
[2020-07-03 08:00] VITALS: BP 107/59
--- NOTE | 2020-07-03 08:37 | REP ---
INDICATION: pleural effusion COMPARISON: 07/02/2020 TECHNIQUE: PA and lateral. FINDINGS: Pigtail pleural catheter at the left base in stable position. Questionable small residual pleural effusion cannot be excluded and small right apical pneumothorax is again identified. Right upper lobe and diffuse left-sided pleuroparenchymal changes remains stable. IMPRESSION: No significant change from prior examination. Bilateral pleuroparenchymal changes along with small residual left apical pneumothorax. <Electronically signed by Francisco Mendieta > 07/03/20 0851
[2020-07-03] MEDS: LACTOBACILLUS ACIDOPHILUS CAP (BACID) PO SCH ×3 (08:46→17:40)
[2020-07-03] MEDS: PANTOPRAZOLE 40MG TAB (PROTONIX) PO SCH (08:46)
[2020-07-03] MEDS: DOCUSATE SODIUM 100MG CAPSULE PO SCH ×2 (08:46→21:11)
[2020-07-03] MEDS: ENOXAPARIN 40MG/0.4ML SYRINGE (J1650 PER 10MG) SC SCH (08:47)
[2020-07-03] MEDS: MOM 30ML SUSPENSION UDC PO SCH (08:47)
[2020-07-03] MEDS: CEFEPIME HCL 1 GM in D5W MINI-BAG PLUS 50 ML IV SCH ×2 (08:47→21:11)
[2020-07-03] MEDS ORDERED: SLF 3 ML SYR IV PRN (09:30)
[2020-07-03 11:52] VITALS: BP 103/60
--- NOTE | 2020-07-03 12:16 | IPNPDOC ---
Text Note Date of Service The patient was seen on 07/03/20. NOTE Subjective: Patient continues to complain of shortness of breath, but stated its improved. No acute overnight Objective: GENERAL APPEARANCE: NAD HEENT: no scleral icterus, no JVD, EOMI CARDIOVASCULAR: S1-S2 LUNGS: Diminished lung sounds bilaterally, left Pleurx catheter in place ABDOMEN: soft & not tender w palpitation MUSCULOSKELETAL: no cyanosis, no swelling INTEGUMENT: no generalized pallor NEUROLOGICAL: cranial nerve function from 2-12 intact intact, follows commands, speech not dysarthric Assessment and plan Patient is a 60 year old female history of breath cancer who is here for dyspnea and tachycardia. CTA was negative for PE, but demonstrates worsening multifocal pneumonia. Patient was found to have left pulmonary effusion suspicious for empyema Sepsis Resolved Secondary to Recurrent HCAP Chest tube was placed, patient has Pleurx catheter with minimal serosanguineous discharge Continue broad-spectrum antibiotics, added Levaquin for double Pseudomonas infection coverage blood culture negative Incentive spirometry Recurrent HCAP Pleurx catheter placed on 06/30/20 Chest x-ray on 07/02/20 showed Bilateral airspace disease, small right pleural effusion and left hydropneumothorax again noted with very minimally improved aeration suggested. Continue monitor x-ray CT on 07/02/20 showed Small residual left pneumothorax with chest tube place. Trace bilateral pleural effusions. Patchy bilateral airspace and ground-glass opacities. There was concern for left kidney abscess however kidney ultrasound unremarkable, UA within normal limit Hypokalemia Replaced Anemia Secondary to blood loss after chest tube placement superimposed with anemia of chronic diseases Will transfuse if hemoglobin less than 7 VS,Bobe, I+O VS, Fishbone, I+O Laboratory Tests 07/03/20 05:07 Vital Signs Date Time Temp Pulse Resp B/P (MAP) Pulse Ox O2 Delivery O2 Flow Rate FiO2 07/03/20 11:52 98.9 90 21 103/60 (74) 96 Room Air 07/01/20 06:00 2.0 I&O- Last 24 Hours up to 6 AM 07/03/20 06:00 Intake Total 2125 ml Output Total 2935 ml Balance -810 ml SINTIA MIDDLETON DO Jul 03, 2020 12:16
[2020-07-03] MEDS: SLF 3 ML SYR IV SCH ×2 (12:37→21:11)
[2020-07-03] MEDS: predniSONE 20 MG TAB PO SCH (14:52)
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
[2020-07-03 15:12] LABS: SOURCE, BODY FLUID pH PLEURAL
[2020-07-03 15:33] LABS: APPEARANCE, BODY FLUID TURBID (CLEAR); PLEURAL FL COLOR YELLOW (COLORLESS); SOURCE, BODY FLUID PLEURAL
[2020-07-03 15:43] LABS: LDH, BODY FLUID 480 U/L (NOT ESTABLISHED); SOURCE, BODY FLUID GLUCOSE PLEURAL; SOURCE, BODY FLUID LDH PLEURAL; SOURCE, BODY FLUID TOT PROTEIN PLEURAL; TOTAL PROTEIN, BODY FLUID 3.5 G/DL (NOT ESTABLISHED)
[2020-07-03 16:00] VITALS: BP 116/64
[2020-07-03 20:00] VITALS: BP 108/58
[2020-07-03] MEDS: VANCOMYCIN HCL 1,000 MG, VIAL MATE ADAPTER 1 EACH in D5W 250 ML IV SCH (23:00)
[2020-07-04 00:30] VITALS: BP 108/57
[2020-07-04 04:15] VITALS: BP 110/58
[2020-07-04 05:00] LABS: BASO % 0.2 % (0.0-1.0); HEMATOCRIT 29.5 % (36.0-47.0); HEMOGLOBIN 9.2 g/dl (12.0-15.5); LYMPH # 0.7 10^3/uL (1.5-5.0); LYMPH % 5.7 % (24.0-44.0); MEAN CORPUSCULAR HGB CONC 31.2 g/dl (32.0-36.5); MEAN CORPUSCULAR VOLUME 89.9 fl (80.0-96.0); MONO # 0.7 10^3/uL (0.0-0.8); MONO % 5.6 % (2.0-8.0); NEUTROPHILS # 10.1 10^3/uL (1.5-8.5); NEUTROPHILS % 87.5 % (36.0-66.0); PLATELET COUNT, AUTOMATED 513 10^3/uL (150-450); RED BLOOD COUNT 3.28 10^6/uL (4.00-5.40); WHITE BLOOD COUNT 11.5 10^3/uL (4.0-10.0)
[2020-07-04] MEDS: KETOROLAC 30 MG/ML 1ML VIAL IV SCH ×4 (05:00→23:00)
[2020-07-04 05:26] LABS: ALT/SGPT 31 U/L (12-78); BILIRUBIN,TOTAL 0.1 MG/DL (0.2-1.0); BLOOD UREA NITROGEN 9 MG/DL (7-18); CALCIUM LEVEL 8.1 MG/DL (8.5-10.1); CARBON DIOXIDE LEVEL 25 MEQ/L (21-32); CHLORIDE LEVEL 107 MEQ/L (98-107); CREATININE FOR GFR 0.49 MG/DL (0.55-1.30); GLOMERULAR FILTRATION RATE > 60.0 (>51); GLUCOSE, FASTING 148 MG/DL (70-100); MAGNESIUM LEVEL 2.1 MG/DL (1.8-2.4); SODIUM LEVEL 142 MEQ/L (136-145); TOTAL PROTEIN 5.2 GM/DL (6.4-8.2)
[2020-07-04] MEDS: SLF 3 ML SYR IV SCH ×3 (06:00→21:31)
[2020-07-04] MEDS: LevoFLOXacin 750 MG TABLET PO SCH (06:25)
[2020-07-04 07:29] VITALS: BP 116/60
--- NOTE | 2020-07-04 09:10 | REP ---
INDICATION: pleural effusion. COMPARISON: CT 07/02/2020; chest 07/03/2020, 07/02/2020. TECHNIQUE: Two views FINDINGS: Right upper lobe airspace disease, left lower lobe and patchy left upper lobe infiltrates also seen and all of this grossly unchanged. Small left effusion noted. I do not see any pneumothorax. Cardiac silhouette unchanged. The aorta is mildly tortuous. Slight volume decrease of the left hemithorax due to infiltrates, atelectasis and small effusion with the trachea deviated slightly towards the left of midline. All of this is stable. Degenerative changes in the spine and shoulders stable. No free air under the diaphragm. IMPRESSION: Right upper and left lower lobe consolidation with patchy consolidation in the left upper lobe, finding similar to the previous studies without significant change. There is a suspected small left effusion. No pneumothorax or pneumomediastinum. Centrally stable chest. <Electronically signed by Diego Escudero > 07/04/20 0906
[2020-07-04] MEDS: ENOXAPARIN 40MG/0.4ML SYRINGE (J1650 PER 10MG) SC SCH (10:13)
[2020-07-04] MEDS: MOM 30ML SUSPENSION UDC PO SCH (10:18)
[2020-07-04] MEDS: DOCUSATE SODIUM 100MG CAPSULE PO SCH ×3 (10:18→21:30)
[2020-07-04] MEDS: PANTOPRAZOLE 40MG TAB (PROTONIX) PO SCH (10:18)
[2020-07-04] MEDS: VANCOMYCIN HCL 1,000 MG, VIAL MATE ADAPTER 1 EACH in D5W 250 ML IV SCH ×2 (10:21→21:31)
[2020-07-04] MEDS: LACTOBACILLUS ACIDOPHILUS CAP (BACID) PO SCH ×3 (10:28→17:43)
[2020-07-04 12:00] VITALS: BP 141/65
[2020-07-04] MEDS: CEFEPIME HCL 1 GM in D5W MINI-BAG PLUS 50 ML IV SCH ×2 (12:25→23:11)
[2020-07-04] MEDS: predniSONE 20 MG TAB PO SCH (13:43)
[2020-07-04 15:45] VITALS: BP 127/69
[2020-07-04 19:57] VITALS: BP 113/65
[2020-07-05] VITALS: BP 106/58
[2020-07-05 04:15] VITALS: BP 126/63
[2020-07-05] MEDS: KETOROLAC 30 MG/ML 1ML VIAL IV SCH ×2 (05:00→11:00)
[2020-07-05 05:44] LABS: BASO % 0.2 % (0.0-1.0); EOS % 0.1 % (0.0-3.0); HEMATOCRIT 32.8 % (36.0-47.0); HEMOGLOBIN 10.3 g/dl (12.0-15.5); LYMPH # 1.4 10^3/uL (1.5-5.0); LYMPH % 8.9 % (24.0-44.0); MEAN CORPUSCULAR HEMOGLOBIN 28.2 pg (27.0-33.0); MEAN CORPUSCULAR HGB CONC 31.4 g/dl (32.0-36.5); MEAN CORPUSCULAR VOLUME 89.9 fl (80.0-96.0); MONO % 6.3 % (2.0-8.0); NEUTROPHILS % 82.3 % (36.0-66.0); PLATELET COUNT, AUTOMATED 574 10^3/uL (150-450); RED BLOOD COUNT 3.65 10^6/uL (4.00-5.40); WHITE BLOOD COUNT 15.7 10^3/uL (4.0-10.0)
[2020-07-05] MEDS: LevoFLOXacin 750 MG TABLET PO SCH (06:07)
[2020-07-05] MEDS: SLF 3 ML SYR IV SCH ×3 (06:07→21:56)
[2020-07-05 06:26] LABS: ALBUMIN 2.2 GM/DL (3.2-5.2); ALT/SGPT 36 U/L (12-78); BILIRUBIN,TOTAL 0.3 MG/DL (0.2-1.0); BLOOD UREA NITROGEN 12 MG/DL (7-18); CALCIUM LEVEL 8.6 MG/DL (8.5-10.1); CARBON DIOXIDE LEVEL 26 MEQ/L (21-32); CHLORIDE LEVEL 107 MEQ/L (98-107); CREATININE FOR GFR 0.66 MG/DL (0.55-1.30); GLOMERULAR FILTRATION RATE > 60.0 (>51); GLUCOSE, FASTING 108 MG/DL (70-100); MAGNESIUM LEVEL 2.3 MG/DL (1.8-2.4); POTASSIUM SERUM 4.3 MEQ/L (3.5-5.1); SODIUM LEVEL 141 MEQ/L (136-145); TOTAL PROTEIN 5.4 GM/DL (6.4-8.2)
[2020-07-05 07:20] VITALS: BP 116/62
--- NOTE | 2020-07-05 08:20 | IPNPDOC ---
Text Note Date of Service The patient was seen on 07/04/20. NOTE Subjective: Patient is doing better today. She denied fever, chills, nausea, vomiting, palpitations Objective: GENERAL APPEARANCE: NAD HEENT: no scleral icterus, no JVD, EOMI CARDIOVASCULAR: S1-S2 LUNGS: Diminished lung sounds bilaterally ABDOMEN: soft & not tender w palpitation MUSCULOSKELETAL: no cyanosis, no swelling INTEGUMENT: no generalized pallor NEUROLOGICAL: cranial nerve function from 2-12 intact intact, follows commands, speech not dysarthric Assessment and plan Patient is a 60 year old female history of breath cancer who is here for dyspnea and tachycardia. CTA was negative for PE, but demonstrates worsening multifocal pneumonia. Patient was found to have left pulmonary effusion suspicious for empyema Sepsis Resolved Secondary to Recurrent HCAP Chest tube was placed, patient has Pleurx catheter with minimal serosanguineous discharge Continue broad-spectrum antibiotics, added Levaquin for double Pseudomonas infection coverage blood culture negative Incentive spirometry Recurrent HCAP Pleurx catheter placed on 06/30/20 Chest x-ray on 07/02/20 showed Bilateral airspace disease, small right pleural effusion and left hydropneumothorax again noted with very minimally improved aeration suggested. Continue monitor x-ray CT on 07/02/20 showed Small residual left pneumothorax with chest tube place. Trace bilateral pleural effusions. Patchy bilateral airspace and ground-glass opacities. There was concern for left kidney abscess however kidney ultrasound unremarkable, UA within normal limit Chest tube was removed on 07/04/20 Hypokalemia Replaced Anemia Secondary to blood loss after chest tube placement superimposed with anemia of chronic diseases Will transfuse if hemoglobin less than 7 VS,Josebone, I+O VS, Fishbone, I+O Laboratory Tests 07/05/20 05:30 Vital Signs Date Time Temp Pulse Resp B/P (MAP) Pulse Ox O2 Delivery O2 Flow Rate FiO2 07/05/20 07:20 98.6 75 18 116/62 (80) 100 Room Air 07/01/20 06:00 2.0 I&O- Last 24 Hours up to 6 AM 07/05/20 06:00 Intake Total 2480 ml Output Total 3675 ml Balance -1195 ml SINTIA MIDDLETON DO Jul 05, 2020 08:20
[2020-07-05] MEDS: MOM 30ML SUSPENSION UDC PO SCH (09:00)
[2020-07-05] MEDS: DOCUSATE SODIUM 100MG CAPSULE PO SCH ×2 (09:00→21:00)
[2020-07-05] MEDS: LACTOBACILLUS ACIDOPHILUS CAP (BACID) PO SCH ×3 (09:12→17:02)
[2020-07-05] MEDS: VANCOMYCIN HCL 1,000 MG, VIAL MATE ADAPTER 1 EACH in D5W 250 ML IV SCH ×2 (09:13→21:57)
[2020-07-05] MEDS: ENOXAPARIN 40MG/0.4ML SYRINGE (J1650 PER 10MG) SC SCH (09:13)
[2020-07-05] MEDS: PANTOPRAZOLE 40MG TAB (PROTONIX) PO SCH (09:13)
--- NOTE | 2020-07-05 10:09 | IPNPDOC ---
Text Note Date of Service The patient was seen on 07/05/20. NOTE Subjective: No any acute events overnight. Patient continues to have some int ermittent dry cough Objective: GENERAL APPEARANCE: NAD HEENT: no scleral icterus, no JVD, EOMI CARDIOVASCULAR: S1-S2 LUNGS: Diminished lung sounds bilaterally ABDOMEN: soft & not tender w palpitation MUSCULOSKELETAL: no cyanosis, no swelling INTEGUMENT: no generalized pallor NEUROLOGICAL: cranial nerve function from 2-12 intact intact, follows commands, speech not dysarthric Assessment and plan Patient is a 60 year old female history of breath cancer who is here for dyspnea and tachycardia. CTA was negative for PE, but demonstrates worsening multifocal pneumonia. Patient was found to have left pulmonary effusion suspicious for empyema Sepsis Resolved Secondary to Recurrent HCAP Chest tube was placed, patient has Pleurx catheter with minimal serosanguineous discharge Continue broad-spectrum antibiotics, continue Levaquin, DC'd cefepime blood culture negative Incentive spirometry Recurrent HCAP Pleurx catheter placed on 06/30/20 Chest x-ray on 07/02/20 showed Bilateral airspace disease, small right pleural effusion and left hydropneumothorax again noted with very minimally improved aeration suggested. Continue monitor x-ray CT on 07/02/20 showed Small residual left pneumothorax with chest tube place. Trace bilateral pleural effusions. Patchy bilateral airspace and ground-glass opacities. There was concern for left kidney abscess however kidney ultrasound unremarkable, UA within normal limit Chest tube was removed on 07/04/20 Continue prednisone Hypokalemia Replaced Anemia Secondary to blood loss after chest tube placement superimposed with anemia of chronic diseases Will transfuse if hemoglobin less than 7 Cough Robitussin added VS,Fishbone, I+O VS, Fishbone, I+O Laboratory Tests 07/05/20 05:30 Vital Signs Date Time Temp Pulse Resp B/P (MAP) Pulse Ox O2 Delivery O2 Flow Rate FiO2 07/05/20 07:20 98.6 75 18 116/62 (80) 100 Room Air 07/01/20 06:00 2.0 I&O- Last 24 Hours up to 6 AM 07/05/20 06:00 Intake Total 2480 ml Output Total 3675 ml Balance -1195 ml SINTIA MIDDLETON DO Jul 05, 2020 10:09
[2020-07-05] MEDS ORDERED: guaiFENesin SYRUP 200 MG/10 ML UDC PO PRN (10:15)
[2020-07-05 11:35] VITALS: BP 121/67
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
[2020-07-05] MEDS: predniSONE 20 MG TAB PO SCH (13:30)
[2020-07-05 16:00] VITALS: BP 105/57
[2020-07-05 20:00] VITALS: BP 118/63
[2020-07-05] MEDS ORDERED: RAMELTEON 8 MG TAB (ROZEREM) PO SCH (21:00)
[2020-07-06] VITALS: BP 108/59
[2020-07-06 04:00] VITALS: BP 129/65
[2020-07-06 06:14] LABS: BASO % 0.3 % (0.0-1.0); EOS % 0.1 % (0.0-3.0); HEMATOCRIT 30.6 % (36.0-47.0); HEMOGLOBIN 9.5 g/dl (12.0-15.5); LYMPH # 1.4 10^3/uL (1.5-5.0); LYMPH % 9.4 % (24.0-44.0); MEAN CORPUSCULAR HEMOGLOBIN 27.9 pg (27.0-33.0); MONO % 6.7 % (2.0-8.0); NEUTROPHILS # 12.1 10^3/uL (1.5-8.5); NEUTROPHILS % 81.7 % (36.0-66.0); PLATELET COUNT, AUTOMATED 552 10^3/uL (150-450); WHITE BLOOD COUNT 14.8 10^3/uL (4.0-10.0)
[2020-07-06] MEDS: LevoFLOXacin 750 MG TABLET PO SCH (06:20)
[2020-07-06] MEDS: SLF 3 ML SYR IV SCH ×2 (06:20→13:21)
[2020-07-06 06:38] LABS: ALBUMIN 2.2 GM/DL (3.2-5.2); ALT/SGPT 28 U/L (12-78); BILIRUBIN,TOTAL 0.1 MG/DL (0.2-1.0); BLOOD UREA NITROGEN 11 MG/DL (7-18); CALCIUM LEVEL 8.7 MG/DL (8.5-10.1); CARBON DIOXIDE LEVEL 28 MEQ/L (21-32); CHLORIDE LEVEL 108 MEQ/L (98-107); CREATININE FOR GFR 0.57 MG/DL (0.55-1.30); GLOMERULAR FILTRATION RATE > 60.0 (>51); GLUCOSE, FASTING 84 MG/DL (70-100); MAGNESIUM LEVEL 2.4 MG/DL (1.8-2.4); POTASSIUM SERUM 4.4 MEQ/L (3.5-5.1); SODIUM LEVEL 143 MEQ/L (136-145); TOTAL PROTEIN 5.4 GM/DL (6.4-8.2)
[2020-07-06 07:52] VITALS: BP 139/87
[2020-07-06] MEDS: PANTOPRAZOLE 40MG TAB (PROTONIX) PO SCH (08:49)
[2020-07-06] MEDS: DOCUSATE SODIUM 100MG CAPSULE PO SCH (08:49)
[2020-07-06] MEDS: LACTOBACILLUS ACIDOPHILUS CAP (BACID) PO SCH ×2 (08:49→13:21)
--- NOTE | 2020-07-06 08:49 | REP ---
INDICATION: PNA. effusion. COMPARISON: Comparison chest x-ray July 04, 2020 TECHNIQUE: Two views.. FINDINGS: There is pleural opacity in the left base consistent with small left effusion. There is a perihilar parenchymal opacity in the left upper lobe which is unchanged. Peripheral to this the lung markings are somewhat improved in the left upper lobe compared to 07/03/2020. Right upper lobe infiltrate is again seen unchanged compared to the 04 July 2020 study. No new infiltrate is seen. Heart size is normal unchanged. IMPRESSION: Bilateral upper lobe infiltrates. Small left pleural effusion unchanged from the most recent study.. <Electronically signed by Lowell Nevarez > 07/06/20 [id number]
[2020-07-06] MEDS: ENOXAPARIN 40MG/0.4ML SYRINGE (J1650 PER 10MG) SC SCH (08:50)
[2020-07-06] MEDS: MOM 30ML SUSPENSION UDC PO SCH (08:50)
[2020-07-06] MEDS: VANCOMYCIN HCL 1,000 MG, VIAL MATE ADAPTER 1 EACH in D5W 250 ML IV SCH (10:14)
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
[2020-07-06] MEDS ORDERED: PRED5PAK2 PO (11:49)
[2020-07-06] MEDS ORDERED: LEVO500T3 PO (11:49)
--- NOTE | 2020-07-06 11:50 | DS.PDOC ---
Discharge Summary General Date of Admission Jun 29, 2020 at 20:43 Date of Discharge 07/06/20 Discharge Summary PROCEDURES PERFORMED DURING STAY: [None]. ADMITTING DIAGNOSES: Sepsis Recurrent HCAP Hypokalemia Anemia Cough DISCHARGE DIAGNOSES: Sepsis Recurrent HCAP Hypokalemia Anemia Cough COMPLICATIONS/CHIEF COMPLAINT: Fever, Mulitfocal Pneumonia. HISTORY OF PRESENT ILLNESS: Patient is a 60 year old female history of breath cancer who is here for dyspnea and tachycardia. CTA was negative for PE, but demonstrates worsening multifocal pneumonia. Patient was found to have left pulmonary effusion suspicious for empyema HOSPITAL COURSE: During the hospital stay the following issues addressed Patient was diagnosed with sepsis secondary to recurrent health acquired pneumonia. Patient was found to have parapneumonic effusion, which was drained. Pleurx catheter placed on 06/30/20 Chest x-ray on 07/02/20 showed Bilateral airspace disease, small right pleural effusion and left hydropneumothorax again noted with very minimally improved aeration suggested. Continue monitor x-ray CT on 07/02/20 showed Small residual left pneumothorax with chest tube place. Trace bilateral pleural effusions. Patchy bilateral airspace and ground-glass opacities. There was concern for left kidney abscess however kidney ultrasound unremarkable, UA within normal limit Chest tube was removed on 07/04/20 DISCHARGE MEDICATIONS: Please see below. ALLERGIES: Please see below. PHYSICAL EXAMINATION ON DISCHARGE: VITAL SIGNS: Please see below. GENERAL APPEARANCE: NAD HEENT: no scleral icterus, no JVD, EOMI CARDIOVASCULAR: S1-S2 LUNGS: Diminished lung sounds bilaterally ABDOMEN: soft & not tender w palpitation MUSCULOSKELETAL: no cyanosis, no swelling INTEGUMENT: no generalized pallor NEUROLOGICAL: cranial nerve function from 2-12 intact intact, follows commands, speech not dysarthric LABORATORY DATA: Please see below. IMAGING: See below PROGNOSIS: Good ACTIVITY: [As tolerated]. DIET: Regular DISPOSITION: Home ITEMS TO FOLLOWUP ON ON OUTPATIENT: Follow-up with customer services supervisor in the outpatient settings in 10 days DISCHARGE CONDITION: [Stable]. TIME SPENT ON DISCHARGE:40 minutes. Vital Signs/I&Os Vital Signs Date Time Temp Pulse Resp B/P (MAP) Pulse Ox O2 Delivery O2 Flow Rate FiO2 07/06/20 07:52 97.9 109 20 139/87 (104) 98 Room Air 07/01/20 06:00 2.0 I&O- Last 24 Hours up to 6 AM 07/06/20 06:00 Intake Total 1230 ml Output Total 4100 ml Balance -2870 ml Laboratory Data Labs 24H Laboratory Tests 2 07/06/20 05:46: Immature Granulocyte % (Auto) 1.8, Neutrophils (%) (Auto) 81.7H, Lymphocytes (%) (Auto) 9.4L, Monocytes (%) (Auto) 6.7, Eosinophils (%) (Auto) 0.1, Basophils (%) (Auto) 0.3, Neutrophils # (Auto) 12.1H, Lymphocytes # (Auto) 1.4L, Monocytes # (Auto) 1.0H, Eosinophils # (Auto) 0.0, Basophils # (Auto) 0.0, Nucleated Red Blood Cells % (auto) 0.0, Anion Gap 7L, Glomerular Filtration Rate > 60.0, Calcium Level 8.7, Magnesium Level 2.4, Total Bilirubin 0.1#L, Aspartate Amino Transf (AST/SGOT) 13, Alanine Aminotransferase (ALT/SGPT) 28, Alkaline Phosphatase 176H, Total Protein 5.4L, Albumin 2.2L, Albumin/Globulin Ratio 0.7L 07/06/20 08:54: Vancomycin Level Trough 13.7 CBC/BMP Laboratory Tests 07/06/20 05:46 Microbiology Microbiology 07/03/20 Acid Fast Stain, Received Pending 07/03/20 Mycobacterial Culture, Received Pending 07/03/20 Fungal Smear, Received Pending 07/03/20 Fungal Culture, Received Pending 07/03/20 Gram Stain - Final, Complete 07/03/20 Body Fluid Culture - Final, Complete 07/02/20 Urine Culture - Final, Complete 06/30/20 Acid Fast Stain, Received Pending 06/30/20 Mycobacterial Culture, Received Pending 06/30/20 Fungal Smear, Received Pending 06/30/20 Fungal Culture, Received Pending 06/30/20 Gram Stain - Final, Complete 06/30/20 Anaerobic Culture - Final, Complete 06/30/20 Body Fluid Culture - Final, Complete 06/29/20 Blood Culture - Final, Complete NO GROWTH AFTER 5 DAYS 06/29/20 Blood Culture - Final, Complete NO GROWTH AFTER 5 DAYS 06/29/20 Respiratory Virus Panel (PCR) (NANC[facility]) - Final, Complete Discharge Medications Scheduled Cefaclor (Cefaclor) 500 Mg Capsule, 500 MG PO BID, (Reported) STARTED 06/19/20 X 10 DAYS Levofloxacin (Levofloxacin) 500 Mg Tablet, 1 TAB PO DAILY Prednisone (Prednisone) 5 Mg Tab.ds.pk, 0 PO ASDIRECTED 6 day dose pack taper Scheduled PRN Ibuprofen (Ibu) 800 Mg Tablet, 800 MG PO TID PRN for PAIN, (Reported) Allergies Coded Allergies: Penicillins (Verified Allergy, Intermediate, RASH, 06/29/20) SINTIA MIDDLETON DO Jul 06, 2020 11:50
[2020-07-06 12:00] VITALS: BP 106/55
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
[2020-07-06] MEDS: predniSONE 20 MG TAB PO SCH (13:21)
== END 2020-07-06 15:35 | disposition home or self-care (01) | DRG 871 ==
LOC: M ED 14:34 → M ED INP 20:43 → M MSPAV 22:32 → M PCU 06-30 10:55
PROVIDERS: ADMIT Internal Medicine; ATTEND Internal Medicine Pulmonary Disease
PROC: 0W9B30Z Drainage of Left Pleural Cavity with Drainage Device, Percutaneous Approach (ICD-10-PCS; principal; 2020-06-30 15:01)
DX: A41.9 Sepsis, unspecified organism (principal); J18.9 Pneumonia, unspecified organism; D62 Acute posthemorrhagic anemia; E87.6 Hypokalemia; Z85.3 Personal history of malignant neoplasm of breast; Z88.0 Allergy status to penicillin; Z79.899 Other long term (current) drug therapy; D63.8 Anemia in other chronic diseases classified elsewhere

== ENCOUNTER → 2020-07-17 | Outpatient (CLI) | payer OTHER ==
[~2020-07-17] MED LIST changes: +IBUP-359 PO; +LEVO500T3 PO; +PRED5PAK2 PO; +[UNRECOGNIZED DRUG - CODE] PO
[2020-07-17 13:48] LABS: BASO % 0.5 % (0.0-1.0); EOS # 0.3 10^3/uL (0.0-0.5); EOS % 3.7 % (0.0-3.0); HEMATOCRIT 36.1 % (36.0-47.0); HEMOGLOBIN 11.2 g/dl (12.0-15.5); LYMPH # 0.8 10^3/uL (1.5-5.0); LYMPH % 10.7 % (24.0-44.0); MEAN CORPUSCULAR HEMOGLOBIN 28.6 pg (27.0-33.0); MEAN CORPUSCULAR VOLUME 92.3 fl (80.0-96.0); MONO # 0.7 10^3/uL (0.0-0.8); MONO % 9.8 % (2.0-8.0); NEUTROPHILS # 5.4 10^3/uL (1.5-8.5); NEUTROPHILS % 74.8 % (36.0-66.0); PLATELET COUNT, AUTOMATED 346 10^3/uL (150-450); RED BLOOD COUNT 3.91 10^6/uL (4.00-5.40); WHITE BLOOD COUNT 7.3 10^3/uL (4.0-10.0)
[2020-07-17 14:09] LABS: ERYTHROCYTE SEDIMENTATION RATE 35 mm/hr (0-30)
[2020-07-17 14:20] LABS: IMMUNOGLOBULIN E 57.8 IU/ML (<100); IMMUNOGLOBULIN G 773 MG/DL (681-1648); IMMUNOGLOBULIN M 71.9 MG/DL (40-230); RHEUMATOID FACTOR QUANT < 10.0 IU/ML (<15.0)
[2020-07-24 14:08] LABS: ANCA-ATYPICAL <1:20 titer (Neg:<1:20); ANTI DS-DNA AB Negative (Negative); ANTI JO-1 ANTIBODIES <20 Units (<20); ANTINUCLEAR ANTIBODIES DIRECT Negative (Negative); ASPERGILLUS FUMIGATUS AB Negative (Negative); AUREOBASIDIUM PULLULANS Negative (Negative); CYCLIC CITRULLINATED PEPTIDE 5 units (0-19); CYTOPLASMIC NEUTROP AB ANCA-C <1:20 titer (Neg:<1:20); D001-IgE D pteronyssinus 0.22 kU/L (Class 0/I); E001-IgE Cat Epith/Dander < 0.10 kU/L (Class 0); E005-IgE Dog Dander < 0.10 kU/L (Class 0); G002-IgE Bermuda Grass < 0.10 kU/L (Class 0); G008-IgE Kentucky Bluegrass < 0.10 kU/L (Class 0); M001-IgE Penicillium chrysogen < 0.10 kU/L (Class 0); M002 IgE Cladosporium herbaru < 0.10 kU/L (Class 0); M003 IgE Aspergillus fumigatu < 0.10 kU/L (Class 0); M006-IgE Alternaria alternata < 0.10 kU/L (Class 0); MICROPOLYSPORA FAENI AB Negative (Negative); PERINUCLEAR AB ANCA-P <1:20 titer (Neg:<1:20); PIGEON SERUM AB Negative (Negative); RNP ANTIBODIES 0.2 AI (0.0-0.9); SJOGREN'S ANTI SS-A <0.2 AI (0.0-0.9); SJOGREN'S ANTI SS-B <0.2 AI (0.0-0.9); SMITH ANTIBODIES <0.2 AI (0.0-0.9); T001-IgE Maple/Box Elder < 0.10 kU/L (Class 0); T003-IgE Common Silver Birch < 0.10 kU/L (Class 0); T006-IgE Cedar, Mountain < 0.10 kU/L (Class 0); T007-IgE Oak, White < 0.10 kU/L (Class 0); T008-IgE Elm, American < 0.10 kU/L (Class 0); T015-IgE Ash, White < 0.10 kU/L (Class 0); T041-IgE Hickory, White < 0.10 kU/L (Class 0); T070-IgE White Mulberry < 0.10 kU/L (Class 0); THERMOACTINOMYCES SACCHARI Negative (Negative); THERMOACTINOMYCES VULGARIS Negative (Negative); W001-IgE Ragweed, Short < 0.10 kU/L (Class 0); W009-IgE Plantain, English < 0.10 kU/L (Class 0); W014-IgE Pigweed, Rough < 0.10 kU/L (Class 0); W018-IgE Sheep Sorrel < 0.10 kU/L (Class 0)
== END ==
LOC: M PLALAB 11:53
PROVIDERS: ATTEND Internal Medicine Pulmonary Disease
DX: K70.31 Alcoholic cirrhosis of liver with ascites (principal)

== ENCOUNTER → 2020-08-10 | Outpatient (CLI) | payer OTHER ==
--- NOTE | 2020-08-11 06:23 | REP ---
INDICATION: ABN FINDING OF LUNG COMPARISON: Multiple examinations dating through 05/28/2020 TECHNIQUE: Axial noncontrast images from the thoracic inlet to the upper abdomen with coronal and sagittal reformations. This CT examination was performed using the following dose reduction techniques: Automated exposure control, adjustment of mA and/or kv according to the patient's size, and use of iterative reconstruction technique. FINDINGS: Current examination demonstrates scattered areas of parenchymal scarring along with pleural thickening of the major fissures and few areas of well delineated chronic ground-glass opacity with central areas of interstitial scarring and mild traction bronchiectasis primarily along the medial right apex and medial left lower lobe. Few small to moderate scattered bullae/blebs are also identified. Findings suggest chronic sequelae from prior infectious processes. The areas of consolidation and scarring noted on prior examinations as well as the previous left pneumothorax have resolved. No acute consolidation or effusion. No pneumothorax. No significant adenopathy. Thoracic aorta, pulmonary vasculature, and heart/pericardium are essentially normal. Surrounding musculoskeletal structures demonstrate age-related changes without acute process. IMPRESSION: Changes as described above consistent with chronic sequelae from prior multifocal infectious processes. No acute mediastinal or pleuroparenchymal process appreciated. <Electronically signed by Francisco Mendieta > 08/11/20 0619
== END ==
LOC: M RAD 14:28
PROVIDERS: ATTEND Internal Medicine Pulmonary Disease
DX: R91.8 Other nonspecific abnormal finding of lung field (principal)

== ENCOUNTER → 2020-11-11 | Outpatient (CLI) | payer OTHER ==
[~2020-11-11] MED LIST changes: -DOXY100C37; +DOXY1CAP62
[2020-11-11 10:30] LABS: BASO % 0.4 % (0.0-1.0); EOS # 0.1 10^3/uL (0.0-0.5); EOS % 0.9 % (0.0-3.0); HEMATOCRIT 39.5 % (36.0-47.0); HEMOGLOBIN 12.5 g/dl (12.0-15.5); LYMPH # 0.9 10^3/uL (1.5-5.0); LYMPH % 10.7 % (24.0-44.0); MEAN CORPUSCULAR HEMOGLOBIN 28.5 pg (27.0-33.0); MEAN CORPUSCULAR HGB CONC 31.6 g/dl (32.0-36.5); MONO # 0.7 10^3/uL (0.0-0.8); MONO % 8.4 % (2.0-8.0); NEUTROPHILS # 6.4 10^3/uL (1.5-8.5); NEUTROPHILS % 79.1 % (36.0-66.0); PLATELET COUNT, AUTOMATED 398 10^3/uL (150-450); RED BLOOD COUNT 4.39 10^6/uL (4.00-5.40); WHITE BLOOD COUNT 8.1 10^3/uL (4.0-10.0)
[2020-11-11 11:10] LABS: ALBUMIN 3.6 GM/DL (3.2-5.2); ALT/SGPT 16 U/L (12-78); BILIRUBIN,TOTAL 0.3 MG/DL (0.2-1.0); BLOOD UREA NITROGEN 12 MG/DL (7-18); CALCIUM LEVEL 9.4 MG/DL (8.5-10.1); CARBON DIOXIDE LEVEL 28 MEQ/L (21-32); CHLORIDE LEVEL 105 MEQ/L (98-107); CHOLESTEROL LEVEL 149 MG/DL (<200); CHOLESTEROL RISK RATIO 2.921 (<5); CREATININE FOR GFR 0.68 MG/DL (0.55-1.30); FREE T4 1.29 NG/DL (0.76-1.46); GLOMERULAR FILTRATION RATE > 60.0 (>51); GLUCOSE, FASTING 90 MG/DL (70-100); HDL CHOLESTEROL 51 MG/DL (>40); LDL CHOLESTEROL 87 MG/DL (<100); NON-HDL-C 98 MG/DL; POTASSIUM SERUM 4.2 MEQ/L (3.5-5.1); SODIUM LEVEL 140 MEQ/L (136-145); TOTAL PROTEIN 7.2 GM/DL (6.4-8.2); TRIGLYCERIDES LEVEL 53 MG/DL (<150)
== END ==
LOC: M LAB 09:42
PROVIDERS: ATTEND Family Medicine
DX: Z13.220 Encounter for screening for lipoid disorders (principal)

== ENCOUNTER → 2020-11-11 | Outpatient (CLI) | payer OTHER ==
--- NOTE | 2020-11-11 10:41 | REP ---
INDICATION: PLEURAL EFFUSION, NOT ELSEWHERE CLASSIFIED 1-LAB COMPARISON: 07/06/2020 TECHNIQUE: PA and lateral. FINDINGS: The mediastinum and cardiac silhouette are normal. The lung vidales demonstrate chronic appearing changes. The previously noted left pleural effusion and left lower lobe opacities have essentially resolved. The skeletal structures are intact and normal. IMPRESSION: No acute cardiopulmonary process. Previous left lower lobe opacity and pleural effusion resolved. <Electronically signed by Francisco Mendieta > 11/11/20 1037
== END ==
LOC: M RAD 09:46
PROVIDERS: ATTEND Internal Medicine Pulmonary Disease
DX: J90 Pleural effusion, not elsewhere classified (principal)

== ENCOUNTER → 2021-10-12 | Outpatient (CLI) | payer OTHER ==
[~2021-10-12] MED LIST changes: -D31000TA2 PO; +DOXY-443; -DOXY1CAP62; -HM I1TAB PO; +IBUP-1452 PO; -LEVO500T3 PO; +LEVO500T4 PO; +VITA100093 PO
== END ==
LOC: M RAD 10:53
PROVIDERS: ATTEND Internal Medicine Pulmonary Disease
DX: R91.8 Other nonspecific abnormal finding of lung field (principal); Z13.220 Encounter for screening for lipoid disorders; Z13.0 Encounter for screening for diseases of the blood and blood-forming organs and certain disorders involving the immune mechanism; Z13.29 Encounter for screening for other suspected endocrine disorder; Z79.899 Other long term (current) drug therapy
CPT/HCPCS: 36415; 71250; 80053; 80061; 84439; 84443; 85025; G0463

== ENCOUNTER → 2021-10-29 | Outpatient (CLI) | payer OTHER ==
[2021-11-01 23:14] LABS: IgG P18 AB Absent (.); IgG P23 AB Present (.); IgG P28 AB Present (.); IgG P30 AB Absent (.); IgG P39 AB Absent (.); IgG P41 AB Absent (.); IgG P45 AB Absent (.); IgG P66 AB Absent (.); IgG P93 AB Absent (.); IgM P23 AB Present (.); IgM P39 AB Absent (.); IgM P41 AB Absent (.); LYME IgG WB INTERPRETATION Negative (.); LYME IgM WB INTERPRETATION Negative (.)
== END ==
LOC: M PLALAB 15:41
PROVIDERS: ATTEND Family Medicine
DX: R53.83 Other fatigue (principal); R21 Rash and other nonspecific skin eruption

== ENCOUNTER → 2021-12-14 | Outpatient (CLI) | payer OTHER ==
[~2021-12-14] MED LIST changes: +LEVO1TAB39 PO; +LEVO1TAB40 PO; -LEVO500T4 PO; -LEVO750T13 PO
[2021-12-16 17:07] LABS: IgG P18 AB Absent (.); IgG P23 AB Present (.); IgG P28 AB Absent (.); IgG P30 AB Absent (.); IgG P39 AB Present (.); IgG P41 AB Present (.); IgG P45 AB Absent (.); IgG P66 AB Absent (.); IgG P93 AB Absent (.); IgM P23 AB Present (.); IgM P39 AB Absent (.); IgM P41 AB Present (.); LYME IgG WB INTERPRETATION Negative (.); LYME IgM WB INTERPRETATION Positive (.)
== END ==
LOC: M PLALAB 15:47
PROVIDERS: ATTEND Dermatology
DX: R21 Rash and other nonspecific skin eruption (principal)

== ENCOUNTER → 2022-09-26 | Outpatient (CLI) | payer OTHER ==
[~2022-09-26] MED LIST changes: -IBUP-1452 PO; +IBUP-1621 PO
[2022-09-26 15:53] LABS: BASO % 0.5 % (0.0-1.0); EOS % 0.5 % (0.0-3.0); HEMATOCRIT 40.9 % (36.0-47.0); HEMOGLOBIN 13.1 g/dl (12.0-15.5); LYMPH # 1.2 10^3/uL (1.5-5.0); LYMPH % 18.2 % (24.0-44.0); MEAN CORPUSCULAR VOLUME 93.6 fl (80.0-96.0); MONO # 0.6 10^3/uL (0.0-0.8); MONO % 9.3 % (2.0-8.0); NEUTROPHILS # 4.6 10^3/uL (1.5-8.5); PLATELET COUNT, AUTOMATED 273 10^3/uL (150-450); RED BLOOD COUNT 4.37 10^6/uL (4.00-5.40); WHITE BLOOD COUNT 6.4 10^3/uL (4.0-10.0)
[2022-09-26 16:20] LABS: LIPASE 71 U/L (12-53)
[2022-09-26 16:21] LABS: AMYLASE 199 U/L (30-118); IRON (FE) 88 UG/DL (50-170); PERCENT SATURATION 29.7 % (13.2-45.0); TOTAL IRON BINDING CAPACITY 296 UG/DL (250-425)
[2022-09-26 16:24] LABS: FERRITIN 40.2 NG/ML (7.3-270.7)
[2022-09-26 16:56] LABS: ALBUMIN 3.7 G/DL (3.2-5.2); ALKALINE PHOSPHATASE 93 U/L (46-116); ALT/SGPT 16 U/L (7.0-40); AST/SGOT 20 U/L (<34); BILIRUBIN,TOTAL 0.3 MG/DL (0.3-1.2); BLOOD UREA NITROGEN 20 MG/DL (9-23); CALCIUM LEVEL 8.8 MG/DL (8.3-10.6); CARBON DIOXIDE LEVEL 28 MMOL/L (20-31); CHLORIDE LEVEL 106 MMOL/L (98-107); CREATININE FOR GFR 0.72 MG/DL (0.55-1.30); GLOMERULAR FILTRATION RATE > 60.0 (>45); GLUCOSE, FASTING 74 MG/DL (74-106); POTASSIUM SERUM 4.6 MMOL/L (3.5-5.1); SODIUM LEVEL 139 MMOL/L (136-145); TOTAL PROTEIN 6.4 G/DL (5.7-8.2)
== END ==
LOC: M PLALAB 13:54
PROVIDERS: ATTEND Family Medicine
DX: R19.7 Diarrhea, unspecified (principal)

== ENCOUNTER → 2022-09-27 | Outpatient (REF) | payer OTHER | LOC: M LAB REF 15:15 | PROVIDERS: ATTEND Family Medicine | DX: K92.1 Melena (principal) ==

== ENCOUNTER → 2022-10-20 | Outpatient (CLI) | payer OTHER ==
[~2022-10-20] MED LIST changes: +GASTROGRAFIN SOLUTION 30ML As Ordered ONE; +ISOVUE-370 76% 100ML VIAL As Ordered ONE
== END ==
LOC: M RAD 11:27
PROVIDERS: ATTEND Family Medicine
DX: R19.7 Diarrhea, unspecified (principal); R14.0 Abdominal distension (gaseous); R74.8 Abnormal levels of other serum enzymes
CPT/HCPCS: 74177; Q9963; Q9967

== ENCOUNTER → 2022-11-29 | Outpatient (CLI) | payer OTHER ==
[~2022-11-29] MED LIST changes: -FLUT11IN; -FLUT11IN INH; +FLUT12AE6; +FLUT12AE6 INH; -GASTROGRAFIN SOLUTION 30ML As Ordered ONE; -ISOVUE-370 76% 100ML VIAL As Ordered ONE; +OMEP-173 PO
[2022-11-29 15:50] LABS: BASO % 0.5 % (0.0-1.0); EOS % 0.6 % (0.0-3.0); HEMATOCRIT 39.9 % (36.0-47.0); HEMOGLOBIN 13.1 g/dl (12.0-15.5); LYMPH # 1.5 10^3/uL (1.5-5.0); LYMPH % 24.1 % (24.0-44.0); MEAN CORPUSCULAR HEMOGLOBIN 30.5 pg (27.0-33.0); MEAN CORPUSCULAR HGB CONC 32.8 g/dl (32.0-36.5); MEAN CORPUSCULAR VOLUME 92.8 fl (80.0-96.0); MONO # 0.7 10^3/uL (0.0-0.8); MONO % 11.7 % (2.0-8.0); NEUTROPHILS # 3.9 10^3/uL (1.5-8.5); NEUTROPHILS % 62.8 % (36.0-66.0); PLATELET COUNT, AUTOMATED 266 10^3/uL (150-450); WHITE BLOOD COUNT 6.2 10^3/uL (4.0-10.0)
[2022-11-29 16:14] LABS: ALBUMIN 3.9 G/DL (3.2-5.2); ALKALINE PHOSPHATASE 101 U/L (46-116); ALT/SGPT 17 U/L (7.0-40); AST/SGOT 14 U/L (<34); BILIRUBIN,TOTAL 0.5 MG/DL (0.3-1.2); BLOOD UREA NITROGEN 14 MG/DL (9-23); CALCIUM LEVEL 8.9 MG/DL (8.3-10.6); CARBON DIOXIDE LEVEL 26 MMOL/L (20-31); CHLORIDE LEVEL 105 MMOL/L (98-107); CHOLESTEROL LEVEL 153 MG/DL (<200); CHOLESTEROL RISK RATIO 2.58 (<5); CREATININE FOR GFR 0.77 MG/DL (0.55-1.30); GLOMERULAR FILTRATION RATE > 60.0 (>45); GLUCOSE, FASTING 73 MG/DL (74-106); HDL CHOLESTEROL 59.1 MG/DL (>40); LDL CHOLESTEROL 83.3 MG/DL (<100); NON-HDL-C 93.9 MG/DL; POTASSIUM SERUM 4.5 MMOL/L (3.5-5.1); SODIUM LEVEL 139 MMOL/L (136-145); TOTAL PROTEIN 6.7 G/DL (5.7-8.2); TRIGLYCERIDES LEVEL 53 MG/DL (<150)
== END ==
LOC: M PLALAB 14:04
PROVIDERS: ATTEND Family Medicine
DX: Z13.220 Encounter for screening for lipoid disorders (principal); Z13.29 Encounter for screening for other suspected endocrine disorder; Z13.0 Encounter for screening for diseases of the blood and blood-forming organs and certain disorders involving the immune mechanism

== ENCOUNTER 2022-11-30 12:55 | Day surgery (SDC) | payer OTHER ==
[~2022-11-30] VITALS: Ht 165.1 cm; Wt 57.8 kg
[~2022-11-30 12:55] MED LIST changes: +NS 1,000 ML IV ONE
[2022-11-30 14:27] VITALS: TEMP 97.2
[2022-11-30 14:54] VITALS: BP 129/68; O2SAT 99
== END 2022-11-30 15:10 | disposition home or self-care (01) ==
LOC: M OPP 12:55
PROVIDERS: ATTEND Surgery
DX: R19.7 Diarrhea, unspecified (principal); Z88.0 Allergy status to penicillin

== ENCOUNTER → 2024-08-15 | Outpatient (REF) | payer OTHER ==
[~2024-08-15] MED LIST changes: +DOXY-441; -DOXY-443; -NS 1,000 ML IV ONE
== END ==
LOC: M LAB REF 21:01
PROVIDERS: ATTEND Physician Assistant Medical
DX: R53.83 Other fatigue (principal)

== ENCOUNTER → 2025-01-24 | Outpatient (CLI) | payer OTHER ==
[~2025-01-24] MED LIST changes: +E-Z-GAS II EFFERVESCENT PACKET (SODIUM BICARB./CITRIC ACID/SIMETHICONE) As Ordered ONE; +E-Z-HD 98% w/w 340 GM SUSP BTL As Ordered ONE; +E-Z-PAQUE 96% w/w SUSP 176 GM BTL As Ordered ONE; -IBUP-1022; +IBUP600T42
== END ==
LOC: M RAD 08:08
PROVIDERS: ATTEND Surgery
DX: R13.10 Dysphagia, unspecified (principal); K44.9 Diaphragmatic hernia without obstruction or gangrene; K21.9 Gastro-esophageal reflux disease without esophagitis